=== PATIENT | male | born 1945 | race Caucasian/White ===

== ENCOUNTER 2023-03-13 10:10 | Emergency (ER) | payer OTHER ==
--- OUTSIDE RECORDS SUMMARY | 2023-03-13 10:14 | XMS REPORT | Clinical Summary ---
:1945 Author Organization [facility] MD [facility] Address [address] [place] [address] Care Team Providers Name Role Phone Michael Tse MD Primary Care Provider Derek Reagan MD Unavailable Echo Goodwin MD Unavailable [phone] Echo Goodwin MD Unavailable [phone] Ab Mckeon MD Unavailable [phone] Vinicius Quintana MD Unavailable Unavailable Michael Tse MD Unavailable Swathi Santoro Unavailable Darius Aguirre MD Unavailable Yayo Granados Unavailable Herman Collazo Unavailable Shane Burch MD Unavailable [phone] Kendra Rust Unavailable Zeeshan Lunsford MD Unavailable Scott Morrison MD Unavailable Allergies Active Allergy Reactions Criticality Noted Date Comments Adhesive 06/22/2015 Adhesive Tape-Silicones 06/22/2015 Erythromycin 06/22/2015 Iodinated Contrast Media Hives Low 06/22/201508/08 On 13 hour preparation of prednisone 50 mg po x 3 do ses and benadryl 50 mg po . Hives, CT compl eted and tolerated well ,no reaction reported. Tolerated previ ous scan with 13 hours p rep prednisone 50 m g POx3 and bendryl 50 mg P O 09/22/20 premedic ated with 13 hours prep pred nisone 50 mg PO x3 and benad ryl 50 mg POx1. No reacti ons noted post CT Medications Medication Sig Dispensed Refills Start End Date Status Date ascorbic acid Take 1 tablet 0 Ac tive (VITAMIN C) 1000 mg (1,000 mg) by tablet mouth daily. aspirin 81 mg Chew 1 tablet 0 Ac tive chewable tablet (81 mg) daily. lisinopril Take 1 tablet 0 Activ e (PRINIVIL,ZESTRIL) (20 mg) by 20 mg tablet mouth every morning. magnesium oxide 500 Take 1 tablet 0 Active mg tab tablet (500 mg) by mouth daily. metFORMIN Take 1 tablet 0 Active (GLUCOPHAGE-XR) 750 (750 mg) by mg 24 hr tablet mouth 2 (two) times a day with meals. multivitamin Take 1 tablet 0 Act emilio (THERAGRAN) tab by mouth tablet daily. SOTALOL HCL Take 40 mg by 0 Acti ve (SOTALOL ORAL) mouth every 8 (eight) hours. leuprolide, 3 Inject 22.5 mg 0 A ctive month, (LUPRON into the DEPOT) 22.5 mg shoulder, injection thigh, or buttocks. pravastatin 0 Active (PRAVACHOL) 40 mg 9 tablet biotin 2,500 mcg Take 5,000 mcg 0 Active cap by mouth daily. NIFEdipine TAKE ONE 90 tablet 2 Active (PROCARDIA XL) 60 TABLET BY 2 mg 24 hr MOUTH AT tabletIndications: BEDTIME Adenocarcinoma of Strength: 60 prostate mg denosumab (PROLIA) Inject 1 mL 0 Active 60 mg/mL syrg (60 mg) under injection the skin. Last dose 12/12/2022 predniSONE TAKE ONE 30 tablet 11 Active (DELTASONE) 5 mg TABLET BY 3 tabletIndications: MOUTH DAILY Adenocarcinoma of WITH BREAKFAST prostate abiraterone Take 4 tablets 120 tablet 11 Ac tive (Zytiga) 250 mg (1,000 mg) by 3 tabletIndications: mouth daily. Adenocarcinoma of prostate NIFEdipine Take 1 tablet 30 tablet 6 04/09/20 Disco ntinued (PROCARDIA XL) 60 (60 mg) by 2 22 mg 24 hr mouth at tabletIndications: bedtime. Adenocarcinoma of prostate predniSONE TAKE ONE 30 tablet 11 01/04/20 Discontin ued (DELTASONE) 5 mg TABLET BY 2 23 tabletIndications: MOUTH DAILY Adenocarcinoma of WITG BREAKFAST prostate abiraterone Take 4 tablets 120 tablet 11 01/17/20 Di scontinued (Zytiga) 250 mg (1,000 mg) by 2 23 (Reorder) tabletIndications: mouth daily. Adenocarcinoma of prostate NIFEdipine TAKE ONE 30 tablet 6 04/10/20 Discontin ued (PROCARDIA XL) 60 TABLET BY 2 22 (R eorder) mg 24 hr MOUTH AT tabletIndications: BEDTIME Adenocarcinoma of prostate amoxicillin Take 1 capsule 0 12/13/19 Dis continued (AMOXIL) 500 mg (500 mg) by 23 capsule mouth twice daily. For 10 days, Has one more day remaking Active Problems Problem Noted Date Diagnosed Date Type 2 diabetes mellitus 09/22/2020 Metastatic malignant neoplasm to bone 10/30/2017 Hypertension 10/22/2017 Hyperlipidemia 10/22/2017 Adenocarcinoma of prostate 05/09/2015 Diabetes mellitus 05/09/2015 Basal cell carcinoma of forehead 06/18/2013 Overview: right frontal forehead excision Ventricular premature beats 02/07/2012 Overview: 02/17 [facility] regulatory import Erectile dysfunction following radical prostatectomy Overview: has vacuum device Encounters Date Type Department Care Team Description 03/12/2023 Specialty Pharmacy MDA AMB RX SPEC Brandon Kovacs [address], [place] [address] 02/18/2023 Follow-Up Genitourinary Cancer Rubina-Saavedr Adeno carcinoma of prostate (Primary Dx); 2:00 PM CDT Center - Oncology aShane MD 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 [address] [facility], 7th [place] [address] 02/18/2023 Ancillary Procedure PET Imaging Rubina-Saavedr Adenocarcinoma of 10:00 AM [address] BlShane tobias MD prostate CDT [facility], 6th [place] [address] 02/18/2023 Hospital Encounter Diagnostic Rubina-Saavedr Adenoca rcinoma of prostate 7:48 AM CDT Laboratory Center Shane portillo MD Discharge Disposition: Home - [address] 02/18/2023 [facility] 11:59 [place] [address] CDT 02/18/2023 Orders Only Genitourinary Cancer Katharina Flores, Center - Oncology PharmD [address] [facility], 7th [place] [address] 02/18/2023 Travel 01/16/2023 Specialty Pharmacy MDA AMB RX SPEC ACB Brandon Abrams [address] [facility] C, [place] [address] 01/16/2023 Orders Only Genitourinary Cancer Alexus Lowery, Center - Oncology [employer] [address] [facility], 7th [place] [address] 01/16/2023 Refill Genitourinary Cancer Alexus Lowery, Adeno carcinoma of Center - Oncology CARPET [employer]ER prostate [address] [facility], 7th [place] [address] 01/04/2023 Hospital Encounter Radiation Treatment Melonie Tse 6:44 AM CDT Hettinger MD Michael Disposition: Home - [address] 01/04/2023 Main Bldg 11:59 PM [place] [address] 01/04/2023 Documentation Radiation Treatment Jonn Hettinger Zeeshan Hill MD [address] Bldg, 1st [place] [address] 01/04/2023 Travel 01/03/2023 Hospital Encounter Radiation Treatment JonnMelonie 8:06 AM CDT Center Zeeshan Hill MD Disposition: Home - [address] 01/03/2023 Main Bldg, 1st Floor 11:59 PM [place] [address] 01/03/2023 Hospital Encounter Radiation Treatment DedrickMelonie 6:53 AM CDT Center MD Michael Disposition: Home - [address] 01/03/2023 Main Bldg 8:05 [place] [address] 01/03/2023 Travel 01/02/2023 Hospital Encounter Radiation Treatment DongcassandraMelonie 6:52 AM CDT Tang Rodriguez MD Disposition: Home - [address] 01/02/2023 Main Bldg 11:59 PM [place] [address] 01/02/2023 Refill Genitourinary Cancer Rubina-Saavedr Adeno carcinoma of Center - Oncology aShane MD prostate [address] [facility], 7th [place] [address] 01/02/2023 Travel 01/01/2023 Hospital Encounter Radiation Treatment Melonie Tse 6:44 AM CDT Tang Rodriugez MD Disposition: Home - [address] 01/01/2023 Main Bldg 11:59 [place] [address] 01/01/2023 Travel 12/31/2022 Hospital Encounter Radiation Treatment Melonie Tse 8:33 AM CDT Tang Rodriguez MD Disposition: Home - [address] 12/31/2022 Main Bldg 11:59 [place] [address] 12/31/2022 Travel 12/28/2022 Hospital Encounter Radiation Treatment Melonie Tse 3:04 PM CDT Tang Rodriguez MD Disposition: Home - [address] 12/28/2022 Main Bldg 11:59 PM [place] [address] 12/28/2022 Travel 12/27/2022 Hospital Encounter Radiation Treatment Melonie Tse 9:15 AM CDT Tang Rodriguez MD Disposition: Home - [address] 12/27/2022 Main Bldg 11:59 [place] [address] 12/27/2022 Travel 12/26/2022 Hospital Encounter Radiation Treatment Melonie Lunsford 9:03 AM CDT Hettinger Zeeshan Hill MD Disposition: Home - [address] 12/26/2022 Main Bldg, 1st Floor 11:59 [place] [address] 12/26/2022 Hospital Encounter Radiation Treatment Melonie Tse 7:15 AM CDT Tang Rodriguez MD Disposition: Home - [address] 12/26/2022 Main Bldg 9:02 [place] [address] 12/26/2022 Travel 12/25/2022 Hospital Encounter Radiation Treatment Melonie Tse 7:31 AM CDT Tang Rodriguez MD Disposition: Home - [address] 12/25/2022 Main Bldg 11:59 [place] [address] 12/25/2022 Travel 12/24/2022 Hospital Encounter Radiation Treatment Melonie Tse 8:18 AM CDT Center MD Michael Disposition: Home - [address] 12/24/2022 Main Bldg 11:59 [place] [address] 12/24/2022 Documentation Radiation Treatment Tang Lunsford MD [address] Main Bldg, 1st [place] [address] 12/24/2022 Travel 12/19/2022 Hospital Encounter Radiation Treatment Me Danny tastatic malignant neoplasm to bone 10:39 AM Hettinger Abby Gooden, Discharge Disposition: Home CDT - [address] [employer] 12/19/2022 Main Bldg Jonn, 11:59 PM near Elevator [place] [address] 12/19/2022 Hospital Encounter Radiation Oncology Rubina-Linwoodfredir Adenocarcinoma of prostate 8:30 AM CDT Ravi5 Shane Dasilva MD Discharge Disposition: Home - Main Bldg, 1st Floor Jonn, 12/19/2022 near Elevator Zeeshan Hill MD 10:38 [place] [address] CDT [phone] 12/19/2022 Documentation Radiation Treatment [facility] Zeeshan Hill MD [address] Main Bldg, 1st [place] [address] 12/19/2022 Documentation Radiation Treatment [facility] Zeeshan Hill MD [address] Main Bldg, 1st [place] [address] 12/19/2022 Orders Only Radiation Treatment Tang Delgado, [address] [employer] Main [place] [address] 12/19/2022 Travel 12/18/2022 Orders Only Radiation Treatment Juan Jose Delgadoat ic malignant Center [facility], neoplasm to bone [address] [employer] (Primary Dx) Main [place] [address] 12/17/2022 Office Visit Orthopaedic Center Scott Morrison, Metastatic malignant 10:00 AM Yoni Myles MD neoplasm to bone CDT Main Bldg, 9th [place] [address] 12/17/2022 Travel 12/14/2022 Ancillary Procedure Me Kacie tastatic malignant 9:15 AM CDT [facility] Abby , neoplasm to bone [address] [facility] [employer] [address] [place] [address] 12/14/2022 Travel 12/13/2022 Ancillary Procedure MD Nadeem Cespedes-Trinyr Adenocarcinoma of 11:15 AM Shane Horner MD prostate CDT [address] [place] [address] 12/13/2022 Telephone Radiation Treatment GastelumTang, RN [address] [place] [address] 12/13/2022 Orders Only Radiation Treatment Danny, Metastat ic malignant Center Anastasiaa R, neoplasm to bone [address] [employer] (Primary Dx) Main [place] [address] 12/13/2022 Travel 12/12/2022 Follow-Up Genitourinary Cancer Rubina-Saavedr Adeno carcinoma of prostate (Primary Dx); 11:30 AM Center - Oncology Shane portillo MD 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 CDT [address] [facility], 7th [place] [address] 12/12/2022 Ancillary Procedure PET Imaging Rubina-Saavedr Adenocarcinoma of 8:00 AM CDT [address] Shane Troy MD prostate [facility], 6th [place] [address] 12/12/2022 Hospital Encounter Diagnostic Rubina-Saavedr Adenoca rcinoma of prostate 6:52 AM CDT Laboratory Center Shane portillo MD Discharge Disposition: Home - [address] 12/12/2022 [facility] 11:59 [place] [address] CDT 12/12/2022 Travel 10/18/2022 Specialty Pharmacy MDA AMB RX SPEC ACB [place], [address] [place] [address] 08/20/2022 Follow-Up Genitourinary Cancer Rubina-Saavedr Adeno carcinoma of prostate (Primary Dx); 12:00 PM Center - Oncology Shane portillo MD 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; CDT [address] Hypertension [facility], 7th [place] [address] 08/20/2022 Ancillary Procedure PET Imaging Rubina-Saavedr Adenocarcinoma of 9:30 AM CDT [address] Shane Troy MD prostate [facility], 6th [place] [address] 08/20/2022 Hospital Encounter Diagnostic Rubina-Saavedr Adenoca rcinoma of prostate 7:23 AM CDT Laboratory Shane Jackson MD Discharge Disposition: Home - [address] 08/20/2022 [facility] 11:59 [place] [address] CDT 08/20/2022 Travel 07/24/2022 Specialty Pharmacy MDA AMB RX SPEC ACB Olumba Brandon [address] C, [place] [address] 05/22/2022 Infusion Ambulatory Treatment Rubina-Saavedr Adeno carcinoma of 10:[address] [facility] Shane Lan MD prostate (Primary MANAGER OF PATIENT [address], Jovita Dx) [address] Blanca Gooden RN [facility], 8th [place] [address] 05/22/2022 Hospital Encounter Diagnostic Rubina-Saavedr Adenoca rcinoma of prostate 7:27 AM MANAGER OF PATIENT Laboratory Shane Jackson MD Discharge Disposition: Home - [address] 05/22/2022 [facility] 11:59 [place] [address] MANAGER OF PATIENT 05/22/2022 Travel 04/25/2022 Specialty Pharmacy MDA AMB RX SPEC ACB Olumba, Brandon [address], [place] [address] 04/10/2022 Orders Only Genitourinary Cancer Alexus Lowery, Adeno carcinoma of Center - Oncology CARPET WE[employer]ER prostate [address] [facility], 7th [place] [address] 04/09/2022 Refill Genitourinary Cancer Tess Smallwood, Adenoca rcinoma of Center - Oncology CARPET WE[employer]ER prostate [address] [facility], 7th [place] [address] 03/26/2022 Specialty Pharmacy MDA AMB RX SPEC ACB Olumba, Brandon [address], [place] [address] after 03/13/2022 Immunizations Name Administration Dates Next Due Moderna SARS-CoV-2 Vaccination 01/03/2021, 07/18/2020, 06/20 Pfizer SARS-CoV-2 Vaccination 12+ y.o. 03/26/2022, Pneumococcal Conjugate 13-Valent 03/03/2019 Surgical History Surgery Date Site/Laterality Comments APPENDECTOMY 2012 UMBILICAL HERNIA REPAIR 2012 TONSILLECTOMY 05/20/1947 - 05/19/1948 ROBOTIC LAPAROSCOPIC 06/25/2013 with BLND PROSTATECTOMY CYST REMOVAL 09/30/2017 excision of a se baceous cyst on left tommy e of the back TOE SURGERY 05/20/2013 - ingrown removed by 05/19/2014 laser Medical History Medical History Date Comments Adenocarcinoma of prostate 05/09/2015 Ventricular premature beats 02/07/2012 had full car diac w/up and did not reveal CAD Hypertension 10/22/2017 Diabetes mellitus 05/09/2015 Nephrolithiasis 11/2001 passed a kidney ston e in November 2001 Hyperlipidemia 10/22/2017 Erectile dysfunction following radical h as vacuum device prostatectomy Urethral stricture, unspecified post pro statectomy; self catheterized for 6 m [facility] Basal cell carcinoma of forehead 06/18/2013 right f rontal forehead excision Peripheral vascular disease 11/2020 Family History Medical History Relation Name Comments Cirrhosis Brother Liver disease Brother COPD Father Zeeshan Stroke Father Zeeshan Atrial fibrillation Mother Lisa Diabetes Mother Lisa Hyperlipidemia Mother Lisa Hypertension Mother Lisa Uterine cancer Sister 2 Relation Name Status Comments Brother Father Zeeshan (Age 67) from [facility]; had flu and emphysema complications Mother Lisa (Age 85) from stro Sister 1 Alive Sister 2 Alive Son Zachery Alive Social History Tobacco Use Types Packs/Day Years Used Date Smoking Tobacco: Former Cigarettes 1 1963 - 1983 Smokeless Tobacco: Never Comments: dip/snuff started at age 38 Alcohol Use Standard Drinks/Week Comments No 0 (1 standard drink = 0.6 oz pure alcoho l) Sex and Gender Information Value Date Recorded Sex Assigned at Male 07/02/2019 4:43 PM MANAGER OF PATIENT Gender Identity Male 10/08/2018 8:19 PM C DT Sexual Orientation Straight 07/02/2019 4:[address] Job Start Date Occupation Industry Not on file Not on file Not on file Obstetrics History Last Filed Vital Signs Vital Sign Reading Time Taken Comments Blood Pressure 122/65 02/18/2023 12:43 PM CDT Pulse 56 02/18/2023 12:43 PM CDT Temperature 36 C (96.8 F) 02/18/2023 12:43 PM CDT Respiratory Rate 18 02/18/2023 12:43 PM CDT Oxygen Saturation 98% 02/18/2023 12:43 PM CDT Inhaled Oxygen Concentration - - Weight 93.7 kg (206 lb 9.1 oz) 02/18/2023 9:46 AM CDT Height 186 cm (6' 1.23") 02/18/2023 9:46 AM CDT Body Mass Index 27.08 02/18/2023 9:46 AM CDT Plan of Treatment Date Type Department Care Team Description 03/25/2023 Follow-Up Orthopaedic Center Scott Morrison MD 9:45 AM MANAGER OF PATIENT [address]ldg, [address] [place] [address] 03/25/2023 Ancillary Procedure Diagnostic Center Scott Morrison MD 10:15 AM MANAGER OF PATIENT [address] [facility], [address] [place], [place] [id number] [place] [address] 06/24/2023 Appointment Diagnostic Laboratory Papo, 8:45 AM [facility] PARKER Ortiz [address] [facility] [address] [place], [place] [address] [place] [address] 77 030 06/24/2023 Ancillary Procedure PET Imaging Papo, 9:00 AM MANAGER OF PATIENT [address] PARKER Ortiz [facility], [address] [place] [address] [place] [address] 06/24/2023 Follow-Up Genitourinary Cancer Kiersten, 12:30 PM MANAGER OF PATIENT Center - Oncology MD Shane [address] [facility] [address] [facility], [address] [place] [address] [place] [address] [phone] Health Maintenance Due Date Last Done Comments COVID-19 Vaccination (2022-01/18/2023 03/26/2022, , season) 01/03/2021, Additional history exists Procedures Procedure Name Priority Date/Time Associated Diagnosis Comme nts PETCT F18 PSMA PYL Routine 02/18/2023 11:40 Adenocarcinoma of Results for this (PIFLUFOLASTAT) WITHOUT AM CDT prostate proc edure are in CONTRAST the results section. DIFFERENTIAL Routine 02/18/2023 7:58 Adenocarcinoma of Results for this AM CDT prostate procedure are i n the results section. .CBC Routine 02/18/2023 7:58 Adenocarcinoma of Results for this AM CDT prostate procedure are i n the results section. .GLOMERULAR FILTRATION Routine 02/18/2023 7:58 Adenocarcinoma of Results for this RATE AM CDT prostate procedure are i n the results section. SERUM CREATININE Routine 02/18/2023 7:58 Adenocarcinoma of Res ults for this AM CDT prostate procedure are i n the results section. VITAMIN D 25 HYDROXY Routine 02/18/2023 7:58 Adenocarcinoma of Results for this LEVEL AM CDT prostate procedure are i n the results section. TOTAL PROTEIN Routine 02/18/2023 7:58 Adenocarcinoma of Result s for this AM CDT prostate procedure are i n the results section. TESTOSTERONE LEVEL Routine 02/18/2023 7:58 Adenocarcinoma of R esults for this AM CDT prostate procedure are i n the results section. PROSTATE SPECIFIC Routine 02/18/2023 7:58 Adenocarcinoma of Re sults for this ANTIGEN AM CDT prostate procedure are i n the results section. PHOSPHORUS LEVEL Routine 02/18/2023 7:58 Adenocarcinoma of Res ults for this AM CDT prostate procedure are i n the results section. MAGNESIUM LEVEL Routine 02/18/2023 7:58 Adenocarcinoma of Resu lts for this AM CDT prostate procedure are i n the results section. LACTATE DEHYDROGENASE Routine 02/18/2023 7:58 Adenocarcinoma o f Results for this AM CDT prostate procedure are i n the results section. GLUCOSE, RANDOM Routine 02/18/2023 7:58 Adenocarcinoma of Resu lts for this AM CDT prostate procedure are i n the results section. FRACTIONATED BILIRUBIN Routine 02/18/2023 7:58 Adenocarcinoma of Results for this AM CDT prostate procedure are i n the results section. ELECTROLYTE PANEL Routine 02/18/2023 7:58 Adenocarcinoma of Re sults for this AM CDT prostate procedure are i n the results section. CREATININE Routine 02/18/2023 7:58 Adenocarcinoma of AM CDT prostate COMPLETE BLOOD COUNT W/ Routine 02/18/2023 7:58 Adenocarcinoma of DIFFERENTIAL AM CDT prostate CARCINOEMBRYONIC Routine 02/18/2023 7:58 Adenocarcinoma of Res ults for this ANTIGEN AM CDT prostate procedure are i n the results section. CALCIUM LEVEL Routine 02/18/2023 7:58 Adenocarcinoma of Result s for this AM CDT prostate procedure are i n the results section. BLOOD UREA NITROGEN Routine 02/18/2023 7:58 Adenocarcinoma of Results for this AM CDT prostate procedure are i n the results section. ASPARTATE Routine 02/18/2023 7:58 Adenocarcinoma of Results for this AMINOTRANSFERASE AM CDT prostate procedure a re in the results section. ALKALINE PHOSPHATASE Routine 02/18/2023 7:58 Adenocarcinoma of Results for this AM CDT prostate procedure are i n the results section. ALBUMIN LEVEL Routine 02/18/2023 7:58 Adenocarcinoma of Result s for this AM CDT prostate procedure are i n the results section. ALANINE Routine 02/18/2023 7:58 Adenocarcinoma of Results for this AMINOTRANSFERASE AM CDT prostate procedure a re in the results section. CT BONE METS SIMULATION Routine 12/19/2022 11:16 Metastatic ma lignant Results for this WITHOUT CONTRAST AM CDT neoplasm to bone procedu re are in the results section. XR FEMUR 2 VW LEFT Routine 12/14/2022 9:04 Metastatic malignan t Results for this AM CDT neoplasm to bone procedure a re in the results section. MRI PELVIS W WO Routine 12/13/2022 12:42 Adenocarcinoma of Res ults for this CONTRAST - PM CDT prostate procedure are i n MUSCULOSKELETAL the results section. PETCT F18 PSMA PYL Routine 12/12/2022 9:12 Adenocarcinoma of R esults for this (PIFLUFOLASTAT) WITHOUT AM CDT prostate proc edure are in CONTRAST the results section. DIFFERENTIAL Routine 12/12/2022 7:01 Adenocarcinoma of Results for this AM CDT prostate procedure are i n the results section. .CBC Routine 12/12/2022 7:01 Adenocarcinoma of Results for this AM CDT prostate procedure are i n the results section. .GLOMERULAR FILTRATION Routine 12/12/2022 7:01 Adenocarcinoma of Results for this RATE AM CDT prostate procedure are i n the results section. SERUM CREATININE Routine 12/12/2022 7:01 Adenocarcinoma of Res ults for this AM CDT prostate procedure are i n the results section. VITAMIN D 25 HYDROXY Routine 12/12/2022 7:01 Adenocarcinoma of Results for this LEVEL AM CDT prostate procedure are i n the results section. TOTAL PROTEIN Routine 12/12/2022 7:01 Adenocarcinoma of Result s for this AM CDT prostate procedure are i n the results section. TESTOSTERONE LEVEL Routine 12/12/2022 7:01 Adenocarcinoma of R esults for this AM CDT prostate procedure are i n the results section. PROSTATE SPECIFIC Routine 12/12/2022 7:01 Adenocarcinoma of Re sults for this ANTIGEN AM CDT prostate procedure are i n the results section. PHOSPHORUS LEVEL Routine 12/12/2022 7:01 Adenocarcinoma of Res ults for this AM CDT prostate procedure are i n the results section. MAGNESIUM LEVEL Routine 12/12/2022 7:01 Adenocarcinoma of Resu lts for this AM CDT prostate procedure are i n the results section. LACTATE DEHYDROGENASE Routine 12/12/2022 7:01 Adenocarcinoma o f Results for this AM CDT prostate procedure are i n the results section. GLUCOSE, RANDOM Routine 12/12/2022 7:01 Adenocarcinoma of Resu lts for this AM CDT prostate procedure are i n the results section. FRACTIONATED BILIRUBIN Routine 12/12/2022 7:01 Adenocarcinoma of Results for this AM CDT prostate procedure are i n the results section. ELECTROLYTE PANEL Routine 12/12/2022 7:01 Adenocarcinoma of Re sults for this AM CDT prostate procedure are i n the results section. CREATININE Routine 12/12/2022 7:01 Adenocarcinoma of AM CDT prostate COMPLETE BLOOD COUNT W/ Routine 12/12/2022 7:01 Adenocarcinoma of DIFFERENTIAL AM CDT prostate CARCINOEMBRYONIC Routine 12/12/2022 7:01 Adenocarcinoma of Res ults for this ANTIGEN AM CDT prostate procedure are i n the results section. CALCIUM LEVEL Routine 12/12/2022 7:01 Adenocarcinoma of Result s for this AM CDT prostate procedure are i n the results section. BLOOD UREA NITROGEN Routine 12/12/2022 7:01 Adenocarcinoma of Results for this AM CDT prostate procedure are i n the results section. ASPARTATE Routine 12/12/2022 7:01 Adenocarcinoma of Results for this AMINOTRANSFERASE AM CDT prostate procedure a re in the results section. ALKALINE PHOSPHATASE Routine 12/12/2022 7:01 Adenocarcinoma of Results for this AM CDT prostate procedure are i n the results section. ALBUMIN LEVEL Routine 12/12/2022 7:01 Adenocarcinoma of Result s for this AM CDT prostate procedure are i n the results section. ALANINE Routine 12/12/2022 7:01 Adenocarcinoma of Results for this AMINOTRANSFERASE AM CDT prostate procedure a re in the results section. PETCT F18 PSMA PYL Routine 08/20/2022 11:33 Adenocarcinoma of Results for this (PIFLUFOLASTAT) WITHOUT AM CDT prostate proc edure are in CONTRAST the results section. DIFFERENTIAL Routine 08/20/2022 7:39 Adenocarcinoma of Results for this AM CDT prostate procedure are i n the results section. .CBC Routine 08/20/2022 7:39 Adenocarcinoma of Results for this AM CDT prostate procedure are i n the results section. .GLOMERULAR FILTRATION Routine 08/20/2022 7:39 Adenocarcinoma of Results for this RATE AM CDT prostate procedure are i n the results section. SERUM CREATININE Routine 08/20/2022 7:39 Adenocarcinoma of Res ults for this AM CDT prostate procedure are i n the results section. VITAMIN D 25 HYDROXY Routine 08/20/2022 7:39 Adenocarcinoma of Results for this LEVEL AM CDT prostate procedure are i n the results section. TOTAL PROTEIN Routine 08/20/2022 7:39 Adenocarcinoma of Result s for this AM CDT prostate procedure are i n the results section. TESTOSTERONE LEVEL Routine 08/20/2022 7:39 Adenocarcinoma of R esults for this AM CDT prostate procedure are i n the results section. PROSTATE SPECIFIC Routine 08/20/2022 7:39 Adenocarcinoma of Re sults for this ANTIGEN AM CDT prostate procedure are i n the results section. PHOSPHORUS LEVEL Routine 08/20/2022 7:39 Adenocarcinoma of Res ults for this AM CDT prostate procedure are i n the results section. MAGNESIUM LEVEL Routine 08/20/2022 7:39 Adenocarcinoma of Resu lts for this AM CDT prostate procedure are i n the results section. LACTATE DEHYDROGENASE Routine 08/20/2022 7:39 Adenocarcinoma o f Results for this AM CDT prostate procedure are i n the results section. GLUCOSE, RANDOM Routine 08/20/2022 7:39 Adenocarcinoma of Resu lts for this AM CDT prostate procedure are i n the results section. FRACTIONATED BILIRUBIN Routine 08/20/2022 7:39 Adenocarcinoma of Results for this AM CDT prostate procedure are i n the results section. ELECTROLYTE PANEL Routine 08/20/2022 7:39 Adenocarcinoma of Re sults for this AM CDT prostate procedure are i n the results section. CREATININE Routine 08/20/2022 7:39 Adenocarcinoma of AM CDT prostate COMPLETE BLOOD COUNT W/ Routine 08/20/2022 7:39 Adenocarcinoma of DIFFERENTIAL AM CDT prostate CARCINOEMBRYONIC Routine 08/20/2022 7:39 Adenocarcinoma of Res ults for this ANTIGEN AM CDT prostate procedure are i n the results section. CALCIUM LEVEL Routine 08/20/2022 7:39 Adenocarcinoma of Result s for this AM CDT prostate procedure are i n the results section. BLOOD UREA NITROGEN Routine 08/20/2022 7:39 Adenocarcinoma of Results for this AM CDT prostate procedure are i n the results section. ASPARTATE Routine 08/20/2022 7:39 Adenocarcinoma of Results for this AMINOTRANSFERASE AM CDT prostate procedure a re in the results section. ALKALINE PHOSPHATASE Routine 08/20/2022 7:39 Adenocarcinoma of Results for this AM CDT prostate procedure are i n the results section. ALBUMIN LEVEL Routine 08/20/2022 7:39 Adenocarcinoma of Result s for this AM CDT prostate procedure are i n the results section. ALANINE Routine 08/20/2022 7:39 Adenocarcinoma of Results for this AMINOTRANSFERASE AM CDT prostate procedure a re in the results section. .GLOMERULAR FILTRATION Routine 05/22/2022 7:52 Adenocarcinoma of Results for this RATE AM MANAGER OF PATIENT prostate procedure are i n the results section. SERUM CREATININE Routine 05/22/2022 7:52 Adenocarcinoma of Res ults for this AM MANAGER OF PATIENT prostate procedure are i n the results section. CREATININE Routine 05/22/2022 7:52 Adenocarcinoma of AM MANAGER OF PATIENT prostate PHOSPHORUS LEVEL Routine 05/22/2022 7:52 Adenocarcinoma of Res ults for this AM MANAGER OF PATIENT prostate procedure are i n the results section. CALCIUM LEVEL Routine 05/22/2022 7:52 Adenocarcinoma of Result s for this AM MANAGER OF PATIENT prostate procedure are i n the results section. PROSTATE SPECIFIC Routine 05/22/2022 7:52 Adenocarcinoma of Re sults for this ANTIGEN AM MANAGER OF PATIENT prostate procedure are i n the results section. after 03/13/2022 Results PETCT F18 PSMA PyL (Piflufolastat) without contrast (02/18/2023 11:40 AM CDT) Only the most recent of3 resultswithin the time period is included. Anatomical Region Laterality Modality Whole Body Positron Emission To mography (PET) Specimen (Source) Anatomical Collection Method Collection Time Re ceived Time Location / / Volume Laterality 02/18/2023 2:16 PM CDT Impressions 02/18/2023 2:32 PM CDT Since 12/12/2022, 1. 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 2. Interval decreased tracer uptake of s ubcentimeter left pelvic lymphadenopathy. 3. No new PSMA avid lesion of concern. ACTIONABLE ITEMS/RECOMMENDATIONS: None. Narrative 02/18/2023 2:32 PM CDT FULL RESULT: Examination: F-18 Piflufolastat/PSMA PyL PET/CT without contrast, 02/18/2023 11:40 AM Clinical History: Prostate cancer Indication: Restaging Comparison: November 2022 Technique: F-18 Piflufolastat/PSMA PyL 9 .4 mCi was administered intravenously via the left wrist. Following approximately 60 minutes delay, PET/CT imaging was performed from proximal thighs to skull marco cain. CT scanning was performed for atten uation correction, image registration, and diagnosis, with scan parameters optimized to minimize radiation exposure to the patient. SUV measurements are reported as maximum SUV based on body weight unle ss otherwise specified. FINDINGS: Head and Neck: Physiologic tracer uptake in the lacrimal glands , nasopharynx and salivary glands. No abnormal tracer uptake in the brain parenchyma, oropharynx and the thyroid glands. No abnormal trace r uptake in the neck muscles. No suspici ous neck lymphadenopathy. Chest: Post pleurodesis change noted. No abnormally enlarged or suspicious PSMA avid lymphadenopathy in the mediastinum, bilateral angie and axillary regions. No pleural or pericardial effusions. Scarrin g and atelectatic change noted. No suspi cious PSMA avid pulmonary nodules. Abdomen and Pelvis: Physiologic tracer u ptake in the liver, spleen, kidneys and bowel loops. No abnormal tracer uptake in the pancreas, stomach, adrenal glands and gallbladder. No abnormal uptake in the prostatectomy bed. Decreased tracer uptake of stable size subcentimeter left pelvic lymphadenopathy. For example, a 0.3 cm lymph node (image 284), with SUV 2.7 (prior 6.3); ano ther 0.3 cm slightly inferiorly (image 2 88), with SUV 3.2 (prior 8.9). No new abnormal enlarged or suspicious PSMA avid lymphadenopathy in the abdomen, pelvis and inguinal regions. Musculoskeletal: Stable PSMA avid osseou s lesions at left intertrochanteric region (image 327), with SUV 13.6 (prior 13.9). Some other PSMA avid osseous lesions with slightly decreased tracer uptake. Fo r example, right superior pubic ramus (i mage 311), with SUV 7.5 (prior 12.6); T11 (image 104), with SUV 4.1 (prior 7.2). Some scattered sclerotic lesions are without higher than background uptake. Such as right iliac bone lesion (image 282), with SUV 1.4 (prior 1.5); left posterior 5th sclerotic lesion (image 167), with SUV 2 (prior 2). Procedure Note Richard Luevano MD - 02/18/2023Formatting of t his note might be different from the original. FULL RESULT: Examination: F-18 Piflufolastat/PSMA PyL PET/CT without contrast, 02/18/2023 11:40 AM Clinical History: Prostate cancer Indication: Restaging Comparison: November 2022 Technique: F-18 Piflufolastat/PSMA PyL 9 .4 mCi was administered intravenously via the left wrist. Following approximately 60 minutes delay, PET/CT imaging was performed from proximal thighs to skull vertex. CT scanning was performed for attenuatio n correction, image registration, and diagnosis, with scan parameters optimized to minimize radiation exposure to the patient. SUV measurements are reported as maximum SUV based on body weight unless otherwise sp ecified. FINDINGS: Head and Neck: Physiologic tracer uptake in the lacrimal glands , nasopharynx and salivary glands. No abnormal tracer uptake in the brain parenchyma, oropharynx and the thyroid glands. No abnormal tracer uptake in the neck muscles. No suspicious neck lymphadenopathy. Chest: Post pleurodesis change noted. No abnormally enlarged or suspicious PSMA avid lymphadenopathy in the mediastinum, bilateral angie and axillary regions. No pleural or pericardial effusions. Scarring and atelectatic change noted. No suspicious PSMA avid pu lmonary nodules. Abdomen and Pelvis: Physiologic tracer u ptake in the liver, spleen, kidneys and bowel loops. No abnormal tracer uptake in the pancreas, stomach, adrenal glands and gallbladder. No abnormal uptake in the prostatectomy bed. Decreased tracer uptake of stable size subcentimeter left pelvic lymphadenopathy. For example, a 0.3 cm lymph node (image 284), with SUV 2.7 (prior 6.3); another 0.3 cm slightly inferiorly (image 288), with MARTINEZ V 3.2 (prior 8.9). No new abnormal enlarged or suspicious PSMA avid lymphadenopathy in the abdomen, pelvis and inguinal regions. Musculoskeletal: Stable PSMA avid osseou s lesions at left intertrochanteric region (image 327), with SUV 13.6 (prior 13.9). Some other PSMA avid osseous lesions with slightly decreased tracer uptake. For example, right superior pubic ramus (maksim ge 311), with SUV 7.5 (prior 12.6); T11 (image 104), with SUV 4.1 (prior 7.2). Some scattered sclerotic lesions are without higher than background uptake. Such as right iliac bone lesion (image 282), with SUV 1.4 (p rior 1.5); left posterior 5th sclerotic lesion (image 167), with SUV 2 (prior 2). IMPRESSION: Since 12/12/2022, 1. 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 2. Interval decreased tracer uptake of s ubcentimeter left pelvic lymphadenopathy. 3. No new PSMA avid lesion of concern. ACTIONABLE ITEMS/RECOMMENDATIONS: None. Shane Burch MD IMG PETCT ORDERABLES Glucose, Random (02/18/2023 7:58 AM CDT)Only the most recent of3 resultswithin the time period is included. athologist Signature Glucose Random 126 70 - 199 [facility] mg/dL Comment: Effective 12/14/15, the glucose reference intervals have been updated based on [place] [employer] guidelines (Standards of Medical Care in Diabetes 2016. Diabetes Care 2016; 39: S13-S22) Fasting blood glucose: Normal: 70-99 mg/dL Impaired fasting glucose (increased risk for diabetes or pre-diabetes): 100-125 mg/dL Diabetes mellitus: >/= 126 mg/dL Random blood glucose: Normal: 70-199 mg/dL Note: Random glucose >100 mg/dL is assoc iated with increased risk for diabetes Testing Performed at [facility], [address] [place] [address], [address], [place] [address] Specimen Anatomical Collection Method Collection Time Receive d Time (Source) Location / / Volume Laterality Blood 02/18/2023 7:58 AM 3 8:11 CDT AM CDT [facility] - 02/18/2023 8:41 AM CDT 1.30 pm Shane Burch MD LAB BLOOD ORDERABLES Performing Organization Address City/[facility] e Number [address] [place] [address] [address] .Serum Creatinine (02/18/2023 7:58 AM CDT)Only the most recent of4 resultswithin the time period is included. athologist Signature Creatinine 0.95 0.67 - 1.17 [facility] mg/dL Comment: Testing Performed at [facility] Lab [facility], [address] [place] [address], [address], [place] [address] Specimen Anatomical Collection Method Collection Time Receive d Time (Source) Location / / Volume Laterality Blood 02/18/2023 7:58 AM 3 8:11 CDT AM CDT [facility] - 02/18/2023 8:41 AM CDT 1.30 pm Shane Burch MD LAB BLOOD ORDERABLES Performing Organization Address City/State/ZIP [facility] Phon e Number [address] [place] [address] [address] (ABNORMAL) .CBC (02/18/2023 7:58 AM CDT)Only the most recent of3 resultswithin the time period is included. athologist Signature WBC 9.2 4.1 - 10.5 [facility] K/uL RBC 4.23 (L) 4.30 - 6.04 [facility] M/uL Hgb 13.2 (L) 13.3 - 17.4 [facility] gm/dL Comment: As part of CBC or as an individ ual orderable testing performed at [facility], [address] [place] [address] , [address], [place] [id number] Hct 40.1 39.5 - 51.8 % [facility] Comment: As part of CBC or as an individ ual orderable testing performed at [facility], [address] [place] [address] , [address], [place] [id number] MCV 95 82 - 99 fL [facility] MCH 31.2 26.6 - 33.2 pg [facility] MCHC 32.9 31.1 - 35.2 gm/dL [facility] RDW-SD 49.0 37.5 - 49.7 fL [facility] RDW-CV 14.1 11.6 - 15.5 % [facility] Platelet count 272 160 - 397 K/uL [facility] Comment: As part of CBC or as an individ ual orderable testing performed at [facility], [facility] , [address], [place] [id number] MPV 10.3 9.1 - 12.6 fL [facility] INRBC 0.0 0.0 - 0.1 /100 WBC [facility] Comment: The INRBC (instrument NRBC) value reflec ts the enumeration of nucleated red blood cells contained i n a 200uL sample of whole blood analyzed by the instrumen t. This value may differ from the NRBC value reported in a manual differential, which is based on a 100 cell differentia l. As part of CBC testing performed at [place] [id number] [facility], [address], [place] [address] Specimen Anatomical Collection Method Collection Time Receive d Time (Source) Location / / Volume Laterality Blood 02/18/2023 7:58 AM 3 8:02 CDT AM CDT [facility] - 02/18/2023 8:13 AM CDT 1.30 pm Shane Burch MD LAB BLOOD ORDERABLES Performing Organization Address City/[facility]/ZIP Code Phon e Number [facility] [address] [place] [address]. [place] [address] [address] Glomerular Filtration Rate (02/18/2023 7:58 AM CDT)Only the most recent of4 resultswithin the time period is included. athologist Signature eGFR 81 >=60 [facility] mL/min/1.73 sq. m Comment: The eGFRcr is calculated with the 2020 KD-EPI creatinine equation using creatinine, patient's age, and sex for adults 18 years of age and older. Other factors, especially muscle mass, may affect accuracy and need to be considered. According to the Kidney Disease: Improvi ng Global Outcomes (KDIGO) CKD Work Group 2012 Clinical Practice Guideline, chronic kidney disease (CKD) is defined as the abnormalities of kidney structure or function, present for more than 3 months, with implications for health. CKD should be c lassified by cause, GFR category, and albuminuria category. KDIGO guidelines provide the following GFR categories Stage Description GFR mL/min/1.73 m2 G1* Normal or high >= 90 G2* Mildly decreased 60-89 G3a Mildly to moderately decreased 45-59 G3b Moderately to severely decreased 30- 44 G4 Severely decreased 15-29 G5 Kidney failure <15 *In the absence of evidence of kidney da mage, neither G1 nor G2 fulfill criteria for CKD. Testing Performed at [facility] Lab [facility], [address] [facility], [address], [place] [address] Specimen Anatomical Collection Method Collection Time Receive d Time (Source) Location / / Volume Laterality Blood 02/18/2023 7:58 AM 3 8:11 CDT AM CDT [facility] - 02/18/2023 8:41 AM CDT 1.30 pm Shane Burch MD LAB BLOOD ORDERABLES Performing Organization Address City/[facility]/ZIP Code Phon e Number [facility] [address] [place] [address]. [place] [address] [address] Fractionated Bilirubin (02/18/2023 7:58 AM CDT)Only the most recent of3 results within the time period is included. athologist [facility] Bili Total 0.5 <=1.2 mg/dL [facility] Comment: Indocyanine Green (ICG) may cause falsel y elevated bilirubin results. Total and direct bilirubin must not be measured from samples containing indocyanine green. False elevation of total bilirubin can b e seen in patients with IgG concentrations above 28 g/L. Testing Performed at [facility] Lab [facility] [employer], [address] [facility], [address], [place] [address] Bili Direct 0.2 <=0.3 mg/dL [facility] Comment: Indocyanine Green (ICG) may cause falsel y elevated bilirubin results. Total and direct bilirubin must not be measured from samples containing indocyanine green. Testing Performed at [facility] Lab [facility], [address] [facility], [address], [place] [address] Bili Indirect 0.3 0.0 - 0.9 mg/dL [facility] Comment: Testing Performed at [facility] Lab [facility], [address] [facility], [address], [place] [address] Specimen Anatomical Collection Method Collection Time Receive d Time (Source) Location / / Volume Laterality Blood 02/18/2023 7:58 AM 8:11 CDT AM CDT Narrative [facility] - 02/18/2023 8:41 AM CDT 1.30 pm Shane Burch MD LAB BLOOD ORDERABLES Performing Organization Address City/State/ZIP Code Phon e Number [address] [place] [address] [address] Vitamin D 25OH (02/18/2023 7:58 AM CDT)Only the most recent of3 resultswithin the time period is included. [facility] Vitamin D 25 OH 40 30 - 100 [facility] ng/mL [facility] Comment: Reference Range: Deficiency: <=20 ng/mL Insufficiency: 21-29 ng/mL Sufficiency: 30-100 ng/mL Potential toxicity: >100 ng/mL Specimen Anatomical Collection Method Collection Time Receive d Time (Source) Location / / Volume Laterality Blood 02/18/2023 7:58 AM 3 8:18 CDT AM CDT Narrative [facility] [place] - 3 9:03 AM CDT 1.30 pm Shane Burch MD LAB BLOOD ORDERABLES Performing Organization Address City/State/ZIP Code Phon e Number [facility] Unless otherwise noted, [address] all lab tests performed by: Division of Pathology and Laboratory Medicine [address] [place] (ABNORMAL) Differential (02/18/2023 7:58 AM CDT)Only the most recent of3 results within the time period is included. athologist Signature Neutrophil % 83.0 (H) 43.2 - [facility] 72.7 % Comment: As part of Differential perform ed at [facility], [address] [facility], [address], [place] [id number] Lymphocyte % 9.0 (L) 16.8 - 46.2 % [facility] Monocyte % 5.7 5.1 - 12.5 % [facility] Eosinophil % 1.2 0.4 - 6.3 % [facility] Basophil % 0.7 0.2 - 1.4 % [facility] IGRE % 0.4 0.1 - 1.5 % [facility] Comment: IGRE % count includes Metamyelocytes, My elocytes, and Promyelocytes. As part of Differential performed at [facility], [address] [facility], [address], [place] [id number] Neutrophil Abs 7.61 (H) 1.95 - 7.25 K/uL [facility] Lymphocyte Abs 0.82 (L) 1.01 - 3.24 K/uL [facility] Monocyte Abs 0.52 0.24 - 0.85 K/uL [facility] Eosinophil Abs 0.11 0.02 - 0.50 K/uL [facility] Basophil Abs 0.06 0.02 - 0.09 K/uL [facility] IG Abs 0.04 0.01 - 0.12 K/uL [facility] Specimen Anatomical Collection Method Collection Time Receive d Time (Source) Location / / Volume Laterality Blood 02/18/2023 7:58 AM 3 8:02 CDT AM CDT Narrative [facility] - 02/18/2023 8:13 AM CDT 1.30 pm Shane Burch MD LAB BLOOD ORDERABLES Performing Organization Address City/State/ZIP Code Phon e Number [facility] [address] [facility] [place] [address] [address] Blood Urea Nitrogen (02/18/2023 7:58 AM CDT)Only the most recent of3 results within the time period is included. P athologist Signature BUN 15 6 - 23 mg/dL [facility] Comment: Testing Performed at [facility], [address] [facility], [address], [place] [address] Specimen Anatomical Collection Method Collection Time Receive d Time (Source) Location / / Volume Laterality Blood 02/18/2023 7:58 AM 3 8:11 CDT AM CDT Narrative [facility] - 02/18/2023 8:41 AM CDT 1.30 pm Shane Burch MD LAB BLOOD ORDERABLES Performing Organization Address City/[facility]/ZIP Code Phon e Number [facility] [address] [facility] [place] [address] [address] Alanine Aminotransferase (02/18/2023 7:58 AM CDT)Only the most recent of3 resultswithin the time period is included. P athologist Signature ALT 7 <=41 U/L [facility] Comment: Testing Performed at [facility], [address] [facility], [address], [place] [address] Specimen Anatomical Collection Method Collection Time Receive d Time (Source) Location / / Volume Laterality Blood 02/18/2023 7:58 AM 3 8:11 CDT AM CDT Narrative [facility] - 02/18/2023 8:41 AM CDT 1.30 pm Shane Burch MD LAB BLOOD ORDERABLES Performing Organization Address City/State/ZIP Code Phon e Number [facility] [address] [facility] [place] [address] [address] Aspartate Aminotransferase (02/18/2023 7:58 AM CDT)Only the most recent of3 resultswithin the time period is included. athologist Signature AST 12 <=40 U/L [facility] Comment: Testing Performed at [facility] Lab [facility], [address] [facility], [address], [place] [address] Specimen Anatomical Collection Method Collection Time Receive d Time (Source) Location / / Volume Laterality Blood 02/18/2023 7:58 AM 3 8:11 CDT AM CDT Narrative [facility] - 02/18/2023 8:41 AM CDT 1.30 pm Shane Burch MD LAB BLOOD ORDERABLES Performing Organization Address City/[facility]/ZIP Code Phon e Number [facility] [address] [facility] [place] [address] [address] (ABNORMAL) Testosterone Level Total (02/18/2023 7:58 AM CDT)Only the most recent of3 resultswithin the time period is included. athologist [facility] Testoster Tot <3 (L) 193 - 740 [facility] ng/dL [facility] Comment: Reference Ranges: Male: Age 20 - 49 249 - 836 Age >=50 1 93 - 740 Female: Age 20 - 49 8 - 48 Age >=50 3 - 41 Specimen Anatomical Collection Method Collection Time Receive d Time (Source) Location / / Volume Laterality Blood 02/18/2023 7:58 AM 3 8:18 CDT AM CDT Narrative [facility] - 3 8:55 AM CDT 1.30 pm Shane Burch MD LAB BLOOD ORDERABLES Performing Organization Address City/State/ZIP Code Phon e Number [facility] Unless otherwise noted, [place] [address] CENTER all lab tests performed by: Division of Pathology and Laboratory Medicine [address] [place] [address] Total Protein (02/18/2023 7:58 AM CDT)Only the most recent of3 resultswithin the time period is included. [facility] Total Protein 6.8 6.4 - 8.3 [facility] g/dL Comment: Testing Performed at [facility] Lab Am [facility], [address] [facility], [address], [place] [address] Specimen Anatomical Collection Method Collection Time Receive d Time (Source) Location / / Volume Laterality Blood 02/18/2023 7:58 AM 3 8:11 CDT AM CDT Narrative [facility] - 02/18/2023 8:41 AM CDT 1.30 pm Shane Burch MD LAB BLOOD ORDERABLES Performing Organization Address [facility] Phon e Number [facility] [address] [place] [address] [address] Prostate Specific Antigen (PSA) Diagnostic (02/18/2023 7:58 AM CDT)Only the most recent of4 resultswithin the time period is included. P athologist Signature PSA <0.1 0.0 - 4.0 [facility] ng/mL Comment: Results greater than 4519 ng/mL may not be reliable due to matrix effect with extended dilution as it exceeds the informix developer's recommended limit. Caution should be exercised when interpreting such murtaza ues and done in conjunction with clinica l context. Testing Performed at [facility] [employer] [facility], [address], [address], [place] [address] PSA Indication Diagnostic [facility] Specimen Anatomical Collection Method Collection Time Receive d Time (Source) Location / / Volume Laterality Blood 02/18/2023 7:58 AM 3 8:11 CDT AM CDT Narrative [facility] - 02/18/2023 9:48 AM CDT 1.30 pm Shane Burch MD LAB BLOOD ORDERABLES Performing Organization Address [facility] Phon e Number [facility] [address] [place] [address] [address] Phosphorus Level (02/18/2023 7:58 AM CDT)Only the most recent of4 resultswithin the time period is included. P athologist Signature Phosphorus 3.2 2.5 - 4.5 [facility] mg/dL Comment: Testing Performed at [facility] Lab [facility], [address], [address], [place] [address] Specimen Anatomical Collection Method Collection Time Receive d Time (Source) Location / / Volume Laterality Blood 02/18/2023 7:58 AM 3 8:11 CDT AM CDT [facility] - 02/18/2023 8:41 AM CDT 1.30 pm Shane Burch MD LAB BLOOD ORDERABLES Performing Organization Address City/[facility] e Number [facility] [address] [place] [address] [address] Alkaline phosphatase (02/18/2023 7:58 AM CDT)Only the most recent of3 results within the time period is included. P athologist Signature Alk Phos 72 40 - 129 U/L [facility] Comment: Testing Performed at [facility], [address], [address], [place] [address] Specimen Anatomical Collection Method Collection Time Receive d Time (Source) Location / / Volume Laterality Blood 02/18/2023 7:58 AM 3 8:11 CDT AM CDT [facility] - 02/18/2023 8:41 AM CDT 1.30 pm Shane Burch MD LAB BLOOD ORDERABLES Performing Organization Address [facility] e Number [facility] [address] [place] [address]. [place] [address] [address] Magnesium Level (02/18/2023 7:58 AM CDT)Only the most recent of3 resultswithin the time period is included. P athologist Signature Magnesium 2.1 1.6 - 2.6 [facility] mg/dL Comment: Testing Performed at [facility], [address], [address], [place] [address] Specimen Anatomical Collection Method Collection Time Receive d Time (Source) Location / / Volume Laterality Blood 02/18/2023 7:58 AM 3 8:11 CDT AM CDT [facility] - 02/18/2023 8:41 AM CDT 1.30 pm Shane Burch MD LAB BLOOD ORDERABLES Performing Organization Address City/[facility]/[address] [place] [address] [address] Lactate dehydrogenase (02/18/2023 7:58 AM CDT)Only the most recent of3 results within the time period is included. athologist Signature LDH 155 135 - 225 [facility] U/L Comment: Results greater than 1651 U/L may not be reliable due to matrix effect with extended dilution as it exceeds the informix developer s recommended limit. Caution should be exercised when interpreting such murtaza ues and done in conjunction with clinica l context. Testing Performed at [facility], [address] [place] [address], [address], [place] [address] Specimen Anatomical Collection Method Collection Time Receive d Time (Source) Location / / Volume Laterality Blood 02/18/2023 7:58 AM 8:11 CDT AM CDT Narrative [facility] - 02/18/2023 8:36 AM CDT 1.30 pm Shane Burch MD LAB BLOOD ORDERABLES Performing Organization Address [facility]/[address] [place] [address] [address] CEA Ag (02/18/2023 7:58 AM CDT)Only the most recent of3 resultswithin the time period is included. athologist Signature CEA 1.5 <=3.8 ng/mL [facility] Comment: Reference Ranges: Smoker: 0.0 - 5.5 Non-Smoker: 0.0 - 3.8 This test is measured by electrochemilum inescence immunoassay on Judi Mauro immunoassay analyzers. Results obtained in different methods are not interchangeable. Testing Performed at [facility], [address] [place] [address], [address], [place] [address] Specimen Anatomical Collection Method Collection Time Receive d Time (Source) Location / / Volume Laterality Blood 02/18/2023 7:58 AM 8:11 CDT AM CDT Narrative [facility] - 02/18/2023 10:15 AM CDT 1.30 pm Shane Burch MD LAB BLOOD ORDERABLES Performing Organization Address [facility] [address] [place] [address] [address] Calcium Level Total (02/18/2023 7:58 AM CDT)Only the most recent of4 results within the time period is included. athologist Signature Calcium Lvl 9.6 8.4 - 10.2 [facility] mg/dL Comment: Testing Performed at [facility] Lab Am [facility], [address], [address], [place] [address] Specimen Anatomical Collection Method Collection Time Receive d Time (Source) Location / / Volume Laterality Blood 02/18/2023 7:58 AM 3 8:11 CDT AM CDT Narrative [facility] - 02/18/2023 8:41 AM CDT 1.30 pm Shane Burch MD LAB BLOOD ORDERABLES Performing Organization Address [facility] e Number [facility] [address] [place] [address] [address] Albumin Level (02/18/2023 7:58 AM CDT)Only the most recent of3 resultswithin the time period is included. athologist Signature Albumin Lvl 4.4 3.5 - 5.2 [facility] gm/dL Comment: Testing Performed at [facility] Lab [facility], [address], [address], [place] [address] Specimen Anatomical Collection Method Collection Time Receive d Time (Source) Location / / Volume Laterality Blood 02/18/2023 7:58 AM 3 8:11 CDT AM CDT Narrative [facility] - 02/18/2023 8:41 AM CDT 1.30 pm Shane Burch MD LAB BLOOD ORDERABLES Performing Organization Address City/[facility] e Number [facility] [address] [place] [address]. [place] [address] [address] (ABNORMAL) Electrolyte panel (02/18/2023 7:58 AM CDT)Only the most recent of3 resultswithin the time period is included. athologist Signature Sodium Lvl 143 136 - 145 [facility] mEq/L Comment: Testing Performed at [facility] Lab [facility], [address], [address], [place] [address] Potassium Lvl 4.3 3.5 - 5.1 mEq/L [facility] Comment: Testing Performed at [facility], [address], [address], [place] [address] Chloride 104 98 - 107 mEq/L [facility] Comment: Testing Performed at [facility], [address], [address], [place] [phone] CO2 30 (H) 22 - 29 mEq/L [facility] Comment: Testing Performed at [facility], [address], [address], [place] [phone] Anion Gap 9 4 - 14 mEq/L [facility] Comment: Testing Performed at [facility] Lab [facility], [address], [address], [place] [address] Specimen Anatomical Collection Method Collection Time Receive d Time (Source) Location / / Volume Laterality Blood 02/18/2023 7:58 AM 8:11 CDT AM CDT Narrative [facility] - 02/18/2023 8:41 AM CDT 1.30 pm Shane Burch MD LAB BLOOD ORDERABLES Performing Organization Address City/State/ZIP Code Phon e Number [facility] [address] [place] [address] [address] Bone Mets Simulation without Contrast (12/19/2022 11:16 AM CDT) Specimen (Source) Anatomical Location Collection Method / Collectio n Time Received Time / Laterality Volume Narrative Systemgenerated, Documentation - 023 11:52 AM CDT This procedure requires no interpretatio n from the radiologist. Abby Delgado [employer]ER IMG RO CT SIM ORDERABLES X-ray Femur 2 Views Left (12/14/2022 9:04 AM CDT) Anatomical Region Laterality Modality Thigh, Extremity Digital Radiography Specimen (Source) Anatomical Collection Method Collection Time Re ceived Time Location / / Volume Laterality 12/14/2022 11:23 AM CDT Impressions 12/14/2022 11:38 AM CDT Known metastatic involvement the posterior intertrochanteric region subtly demonstrated on plain film imaging. No lytic component. Narrative 12/14/2022 11:38 AM CDT FULL RESULT: Examination: XR FEMUR 2 VW LEFT, 12/15/19 9:04 AM. Clinical History: Prostate carcinoma. Indication: Assess for progression of di sease Comparison: MRI pelvis assessment 2022. Technique: Left Femur, 2 views Findings: A metastatic involvement focally within the anterior left femoral neck demonstrated on both PET CT evaluation and MRI evaluation there is subtle correlation with subtle increased density along the poste rior cortex of the intertrochanteric reg ion on the lateral assessment. No lytic change demonstrated. Remaining portions of the left femur int act. Procedure Note José Giordano MD - 12/14/2022Forma tting of this note might be different from the original. FULL RESULT: Examination: XR FEMUR 2 VW LEFT, 12/15/19 9:04 AM. Clinical History: Prostate carcinoma. Indication: Assess for progression of di sease Comparison: MRI pelvis assessment 2022. Technique: Left Femur, 2 views Findings: A metastatic involvement focally within the anterior left femoral neck demonstrated on both PET CT evaluation and MRI evaluation there is subtle correlation with subtle increased density along the posterior cortex of the intertrochanteric region on the late ral assessment. No lytic change demonstrated. Remaining portions of the left femur int act. IMPRESSION: Known metastatic involvement the posteri or intertrochanteric region subtly demonstrated on plain film imaging. No lytic component. Abby Delgado APRN IMG DIAGNOSTIC IMAGING ORDER JEFF MRI Pelvis with and without Contrast - Musculoskeletal (12/13/2022 12:42 PM CDT) Anatomical Region Laterality Modality Pelvis Magnetic Resonance Specimen (Source) Anatomical Collection Method Collection Time Re ceived Time Location / / Volume Laterality 12/13/2022 3:15 PM CDT Impressions 12/13/2022 4:57 PM CDT 1. Conjoined analysis with PMSA PET/CT scan on 12/12/2022, suggest progressed disease in the left intratrochanteric femur when compared to August 2022. Demonstrated high ADC values would typically supp orts response to treatment nonetheless P ET/CT PSMA supports the contrary. 2. Additional treated and mildly activ e bony pelvic metastasis as above, are stable. The above includes treated disease such of the right iliac wing and nonprogressive viable disease such as the right inferior pubic ramus. 3. No definite MRI correlate for PMSA avid left internal iliac node on PET/CT on 12/12/2022. I personally reviewed these image(s) anurag curtis with the resident's/fellow's interpretations, certify that if a procedure was performed I was physically present, and agree with the final report. Narrative 12/13/2022 4:57 PM CDT Examination: MRI PELVIS W WO CONTRAST - MUSCULOSKELETAL on 12/13/2022 12:42 PM. 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 Indication: Bone mass, neoplasm suspecte d, Cancer complication or comorbidity assessment, bone mass, noeplasm suspected. Comparison: Pelvic MRI from 10/28/2017. PMSA-PET/CTs from 01/24/2021, 12/12/2022. Technique: MRI PELVIS W WO CONTRAST - MU SCULOSKELETAL Findings: Prior exams: * F-18 PSMA PYL PET/CT 12/12/2022 demo nstrates avid lesion within the proximal left femur that is larger in comparison with 08/20/2022 and 02/21/2022. * Across the [address] is, a right infe rior pubic ramus lesion remains stable. * Under sclerotic lesion within the ri ght iliac wing has low-grade/negligible activity and remains stable. MRI: Multifocal treated and active metastatic disease in the bony pelvis and left femur, as below: * Right mid ileum lesion measured 2.4 x 1.4 cm (series 7, image 22), with internal fat signal consistent with treated disease. This lesion is not PMSA avid on recent PET/CT on 12/12/2022. The describe d lesion demonstrates fat marrow reconve rsion and Easley sequence and absent increased diffusion signal, overall favoring treated disease. * Smaller 1.5 x 1.1 cm treated lesion in the left posterior iliac (series 7, image 11). * Right superior pubic ramus lesion me asures 1.6 x 1.2 cm (series 7, image 34), with internal enhancement (series 11, 50), indicates active disease. This correlates with PMSA avidity on recent PET/CT. Demonstrates an ADC value of 1.1 * Additional smaller 1.1 x 0.8 cm lesi on which is PMSA avid in the right supra-acetabular region (series 7, image 25). * Left femur intertrochanteric lesion measured 2.1 x 1.5 cm (series 7, 43), with avid enhancement (series 11, 63) was also PMSA avid. This particular lesion has increased in size and avidity dating ba ck to PMSA PET/CT scan on August 2022. Al l the above described supports the presence of progressive active disease. Surprisingly it demonstrates an ADC value of 2.3 usually seen in responding tumor (series 10 image 50) Soft tissues/pelvis: * Status post prostatectomy. * Previously seen PMSA avid left inter nal iliac node on PET/CT 12/12/2022, is not clearly seen on today's exam. * No pelvic or inguinal lymphadenopath y. * Diverticulosis of the sigmoid colon. Procedure Note Sukh Griffin MD - 12/13/2022F ormatting of this note might be different from the original. Examination: MRI PELVIS W WO CONTRAST - MUSCULOSKELETAL on 12/13/2022 12:42 PM. 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 Indication: Bone mass, neoplasm suspecte d, Cancer complication or comorbidity assessment, bone mass, noeplasm suspected. Comparison: Pelvic MRI from 10/28/2017. PMSA-PET/CTs from 01/24/2021, 12/12/2022. Technique: MRI PELVIS W WO CONTRAST - MU SCULOSKELETAL Findings: Prior exams: * F-18 PSMA PYL PET/CT 12/12/2022 demons trates avid lesion within the proximal left femur that is larger in comparison with 08/20/2022 and 02/21/2022. * Across the [address] is, a right inferi or pubic ramus lesion remains stable. * Under sclerotic lesion within the righ t iliac wing has low-grade/negligible activity and remains stable. MRI: Multifocal treated and active metastatic disease in the bony pelvis and left femur, as below: * Right mid ileum lesion measured 2.4 x 1.4 cm (series 7, image 22), with internal fat signal consistent with treated disease. This lesion is not PMSA avid on recent PET/CT on 12/12/2022. The described lesion demonstrates fat marrow reconversion and Easley sequence and absent increased diffusion signal, overall favoring treated disease. * Smaller 1.5 x 1.1 cm treated lesion in the left posterior iliac (series 7, image 11). * Right superior pubic ramus lesion bunny ures 1.6 x 1.2 cm (series 7, image 34), with internal enhancement (series 11, 50), indicates active disease. This correlates with PMSA avidity on recent PET/CT. Demonstrates an ADC value of 1.1 * Additional smaller 1.1 x 0.8 cm lesion which is PMSA avid in the right supra- acetabular region (series 7, image 25). * Left femur intertrochanteric lesion me asured 2.1 x 1.5 cm (series 7, 43), with avid enhancement (series 11, 63) was also PMSA avid. This particular lesion has increased in size and avidity dating back to PMSA PET/CT scan on August 2022. All the above described supports the presence of progressive active disease. Surprisingly it demonstrates an ADC value of 2.3 usually seen in responding tumor (series 10 image 50) Soft tissues/pelvis: * Status post prostatectomy. * Previously seen PMSA avid left interna l iliac node on PET/CT 12/12/2022, is not clearly seen on today's exam. * No pelvic or inguinal lymphadenopathy. * Diverticulosis of the sigmoid colon. IMPRESSION: 1. Conjoined analysis with PMSA PET/CT s can on 12/12/2022, suggest progressed disease in the left intratrochanteric femur when compared to August 2022. Demonstrated high ADC values would typically supports response to treatment nonetheless PET/CT PSMA sup ports the contrary. 2. Additional treated and mildly active bony pelvic metastasis as above, are stable. The above includes treated disease such of the right iliac wing and nonprogressive viable disease such as the right inferior pubic ramus. 3. No definite MRI correlate for PMSA av id left internal iliac node on PET/CT on 12/12/2022. I personally reviewed these image(s) anurag curtis with the resident's/fellow's interpretations, certify that if a procedure was performed I was physically present, and agree with the final report. Shane Burch MD IMG MRI ORDERABLES after 03/13/2022 Insurance Payer Benefit Plan / Subscriber ID Effective Dates Phone Addre ss Type Group MEDICARE MEDICARE PART [id number] 2008-Presen [phone] NOVMIGEL S Medicare A AND B t 2 SOLUTIONS [address] [place] [address] GENERIC GENERIC [id number] 2008-Presen [phone] [address] PPO [address] 7 [facility] [address] [phone] [id number] (Work) Billy Barrientos Personal/Famil Self [address] (Home) [place], [place] [phone] (Work) Billy Barrientos Personal/Famil Self [address] (Home) [place], [place] [phone] (Work) Advance Directives Type Date Recorded Patient Manager Process Explanati on Advance Directives: 08/24/2021 Directive to Physicians Living Will and Family or Surrogates-Albaro nguyen Will Care Teams [place] Relationship Specialty Start Date End Date Michael Tse MD PCP - General 07/20/[address] [place] [phone] Derek Reagan MD PCP - External Primary 06/04/13 Care Provider [address] [place] [address] Echo Goodwin PCP - External 04/24/13 MD Corwin Referring [address] [place] [address] [place] [address] Echo Goodwin PCP - External Follow 04/24/13 MD Corwin Up A [address] [place] [address] [address] [place], [place] [phone] Ab Mckeon PCP - External Follow 06/09/13 MD Wero Up B [address] [place] [address] [phone] Vinicius Quintana MD Physician 07/27/15 Michael Tse MD Physician 07/27/[address] [place] [address] Swathi Santoro Physician Employment Security Officer 07/27/[address] [place] [address] [place] [id number] Darius Aguirre MD Physician 07/27/[address] [place] [address] Yayo Granados PA Physician Employment Security Officer 07/27/[address] [place] [address]. [place] [address] Herman Collazo PA Physician Employment Security Officer 07/27/15 [address] [place] [address] Kiersten, Consulting Physician Genitourinary Oncology 10/26/17 MD Shane [address] [place] [phone] [facility] 08/21/[address] [place] [phone] Zeeshan Lunsford Consulting Physician Radiation Oncology 12/19/22 MD Liz [address] [place] [address] Scott Morrison MD Consulting Physician Orthopedic Surgery 12/17/[address] [place] [address]
--- OUTSIDE RECORDS SUMMARY | 2023-03-13 10:16 | XMS REPORT | Continuity of Care Document ---
:1945 Author Organization [facility] t Address [address] [facility] [address] [place] [id number] Care Team Providers Name Role Phone [phone] Primary Care Physician Unavailable NIRMALA CALVILLO Attending Clinician Unavailable STEVEN BLAKE Attending Clinician Unavailable KAYKAY MADRIGAL Attending Clinician Unavailable GREG LEHMAN Attending Clinician Unavailable CINTHIA TORRES Attending Clinician Unavailable RAMAN VARGAS Attending Clinician Unavailable Payers Payer Name Policy Type Policy Number Effective Date Expiration Date S jakub MEDICARE PART A [id number] 2008 AND B 00:00:00 GENERIC [id number] 2008 00:00:00 Problems This patient has no known problems. Allergies, Adverse Reactions, Alerts Allergy Allergy Status Severity Reaction(s) Onset Inactive Treating Comm ents Source Name Type Date Date Clinician ADHESIVE DRUG Active TAPE-RAYO 2-03 Anderso ICONES 00:00: n 00 ERYTHROM DRUG Active MD YCIN 2-03 Anderso 00:00: n 00 IODINATE Drug Active Low Hives MD D Class 2-03 Anderso CONTRAST 00:00: n MEDIA 00 ADHESIVE Drug Active MD Class 2-03 Anderso 00:00: n 00 ADHESIVE DRUG Active MD TAPE-RAYO 2-03 Anderso ICONES 00:00: n 00 ERYTHROM DRUG Active 2015- MD YCIN 2-03 Anderso 00:00: n 00 IODINATE Drug Active Low Hives 2015- MD D Class 2-03 Anderso CONTRAST 00:00: n MEDIA 00 ADHESIVE Drug Active MD Class 2-03 Anderso 00:00: n 00 ADHESIVE DRUG Active MD TAPE-RAYO 2-03 Anderso ICONES 00:00: n 00 ERYTHROM DRUG Active 2015-0 MD YCIN 2-03 Anderso 00:00: n 00 IODINATE Drug Active Low Hives 2016-0 MD D Class 2-03 Anderso CONTRAST 00:00: n MEDIA 00 ADHESIVE Drug Active 2015-0 MD Class 2-03 Anderso 00:00: n 00 ADHESIVE DRUG Active 2015-0 MD TAPE-RAYO 2-03 Anderso ICONES 00:00: n 00 ERYTHROM DRUG Active 2015-0 MD YCIN 2-03 Anderso 00:00: n 00 IODINATE Drug Active Low Hives 2015-0 MD D Class 2-03 Anderso CONTRAST 00:00: n MEDIA 00 ADHESIVE Drug Active 2015-0 MD Class 2-03 Anderso 00:00: n 00 ADHESIVE DRUG Active 2015-0 MD TAPE-RAYO 2-03 Anderso ICONES 00:00: n 00 ERYTHROM DRUG Active 2015-0 MD YCIN 2-03 Anderso 00:00: n 00 IODINATE Drug Active Low Hives 2015-0 MD D Class 2-03 Anderso CONTRAST 00:00: n MEDIA 00 ADHESIVE Drug Active 2015-0 MD Class 2-03 Anderso 00:00: n 00 ADHESIVE DRUG Active 2015-0 MD TAPE-RAYO 2-03 Anderso ICONES 00:00: n 00 ERYTHROM DRUG Active 2015-0 MD YCIN 2-03 Anderso 00:00: n 00 IODINATE Drug Active Low Hives 2015-0 MD D Class 2-03 Anderso CONTRAST 00:00: n MEDIA 00 ADHESIVE Drug Active 2015-0 MD Class 2-03 Anderso 00:00: n 00 ADHESIVE DRUG Active 2015-0 MD TAPE-RAYO 2-03 Anderso ICONES 00:00: n 00 ERYTHROM DRUG Active 2015-0 MD YCIN 2-03 Anderso 00:00: n 00 IODINATE Drug Active Low Hives 2015-0 MD D Class 2-03 Anderso CONTRAST 00:00: n MEDIA 00 ADHESIVE Drug Active 2015-0 MD Class 2-03 Anderso 00:00: n 00 ADHESIVE DRUG Active 2015-0 MD TAPE-RAYO 2-03 Anderso ICONES 00:00: n 00 ERYTHROM DRUG Active 2015-0 MD YCIN 2-03 Anderso 00:00: n 00 IODINATE Drug Active Low Hives 2016-0 MD D Class 2-03 Anderso CONTRAST 00:00: n MEDIA 00 ADHESIVE Drug Active 2016-0 MD Class 2-03 Anderso 00:00: n 00 ADHESIVE DRUG Active 2015-0 MD TAPE-RAYO 2-03 Anderso ICONES 00:00: n 00 ERYTHROM DRUG Active 2016-0 MD YCIN 2-03 Anderso 00:00: n 00 IODINATE Drug Active Low Hives 2015-0 MD D Class 2-03 Anderso CONTRAST 00:00: n MEDIA 00 ADHESIVE Drug Active 2015-0 MD Class 2-03 Anderso 00:00: n 00 ADHESIVE DRUG Active 2015-0 MD TAPE-RAYO 2-03 Anderso ICONES 00:00: n 00 ERYTHROM DRUG Active 2015-0 MD YCIN 2-03 Anderso 00:00: n 00 IODINATE Drug Active Low Hives 2015-0 MD D Class 2-03 Anderso CONTRAST 00:00: n MEDIA 00 ADHESIVE Drug Active 2015-0 MD Class 2-03 Anderso 00:00: n 00 ADHESIVE DRUG Active 2015-0 MD TAPE-RAYO 2-03 Anderso ICONES 00:00: n 00 ERYTHROM DRUG Active 2015-0 MD YCIN 2-03 Anderso 00:00: n 00 IODINATE Drug Active Low Hives 2015-0 MD D Class 2-03 Anderso CONTRAST 00:00: n MEDIA 00 ADHESIVE Drug Active 2015-0 MD Class 2-03 Anderso 00:00: n 00 ADHESIVE DRUG Active 2015-0 MD TAPE-RAYO 2-03 Anderso ICONES 00:00: n 00 ERYTHROM DRUG Active 2015-0 MD YCIN 2-03 Anderso 00:00: n 00 IODINATE Drug Active Low Hives 2015-0 MD D Class 2-03 Anderso CONTRAST 00:00: n MEDIA 00 ADHESIVE Drug Active 2015-0 MD Class 2-03 Anderso 00:00: n 00 ADHESIVE DRUG Active 2015-0 MD TAPE-RAYO 2-03 Anderso ICONES 00:00: n 00 ERYTHROM DRUG Active 2015-0 MD YCIN 2-03 Anderso 00:00: n 00 IODINATE Drug Active Low Hives 2015-0 MD D Class 2-03 Anderso CONTRAST 00:00: n MEDIA 00 ADHESIVE Drug Active 2015-0 MD Class 2-03 Anderso 00:00: n 00 ADHESIVE DRUG Active 2015-0 MD TAPE-RAYO 2-03 Anderso ICONES 00:00: n 00 ERYTHROM DRUG Active 2015-0 MD YCIN 2-03 Anderso 00:00: n 00 IODINATE Drug Active Low Hives 2016-0 MD D Class 2-03 Anderso CONTRAST 00:00: n MEDIA 00 ADHESIVE Drug Active 2015-0 MD Class 2-03 Anderso 00:00: n 00 ADHESIVE DRUG Active 2015-0 MD TAPE-RAYO 2-03 Anderso ICONES 00:00: n 00 ERYTHROM DRUG Active 2015-0 MD YCIN 2-03 Anderso 00:00: n 00 IODINATE Drug Active Low Hives 2015-0 MD D Class 2-03 Anderso CONTRAST 00:00: n MEDIA 00 ADHESIVE Drug Active 2015-0 MD Class 2-03 Anderso 00:00: n 00 ADHESIVE DRUG Active 2015-0 MD TAPE-RAYO 2-03 Anderso ICONES 00:00: n 00 ERYTHROM DRUG Active 2015-0 MD YCIN 2-03 Anderso 00:00: n 00 IODINATE Drug Active Low Hives 2015-0 MD D Class 2-03 Anderso CONTRAST 00:00: n MEDIA 00 ADHESIVE Drug Active 2015-0 MD Class 2-03 Anderso 00:00: n 00 ADHESIVE DRUG Active 2015-0 MD TAPE-RAYO 2-03 Anderso ICONES 00:00: n 00 ERYTHROM DRUG Active 2015-0 MD YCIN 2-03 Anderso 00:00: n 00 IODINATE Drug Active Low Hives 2015-0 MD D Class 2-03 Anderso CONTRAST 00:00: n MEDIA 00 ADHESIVE Drug Active 2015-0 MD Class 2-03 Anderso 00:00: n 00 ADHESIVE DRUG Active 2015-0 MD TAPE-RAYO 2-03 Anderso ICONES 00:00: n 00 ERYTHROM DRUG Active 2015-0 MD YCIN 2-03 Anderso 00:00: n 00 IODINATE Drug Active Low Hives 2015-0 MD D Class 2-03 Anderso CONTRAST 00:00: n MEDIA 00 ADHESIVE Drug Active 2015-0 MD Class 2-03 Anderso 00:00: n 00 ADHESIVE DRUG Active 2015-0 MD TAPE-RAYO 2-03 Anderso ICONES 00:00: n 00 ERYTHROM DRUG Active 2015-0 MD YCIN 2-03 Anderso 00:00: n 00 IODINATE Drug Active Low Hives 2015-0 MD D Class 2-03 Anderso CONTRAST 00:00: n MEDIA 00 ADHESIVE Drug Active 2015-0 MD Class 2-03 Anderso 00:00: n 00 ADHESIVE DRUG Active 2015-0 MD TAPE-RAYO 2-03 Anderso ICONES 00:00: n 00 ERYTHROM DRUG Active 2015-0 MD YCIN 2-03 Anderso 00:00: n 00 IODINATE Drug Active Low Hives 2015-0 MD D Class 2-03 Anderso CONTRAST 00:00: n MEDIA 00 ADHESIVE Drug Active 2015-0 MD Class 2-03 Anderso 00:00: n 00 ADHESIVE DRUG Active 2015-0 MD TAPE-RAYO 2-03 Anderso ICONES 00:00: n 00 ERYTHROM DRUG Active 2015-0 MD YCIN 2-03 Anderso 00:00: n 00 IODINATE Drug Active Low Hives 2015-0 MD D Class 2-03 Anderso CONTRAST 00:00: n MEDIA 00 ADHESIVE Drug Active 2015-0 MD Class 2-03 Anderso 00:00: n 00 ADHESIVE DRUG Active 2015-0 MD TAPE-RAYO 2-03 Anderso ICONES 00:00: n 00 ERYTHROM DRUG Active 2015-0 MD YCIN 2-03 Anderso 00:00: n 00 IODINATE Drug Active Low Hives 2015-0 MD D Class 2-03 Anderso CONTRAST 00:00: n MEDIA 00 ADHESIVE Drug Active 2015-0 MD Class 2-03 Anderso 00:00: n 00 ADHESIVE DRUG Active 2015-0 MD TAPE-RAYO 2-03 Anderso ICONES 00:00: n 00 ERYTHROM DRUG Active 2015-0 MD YCIN 2-03 Anderso 00:00: n 00 IODINATE Drug Active Low Hives 2015-0 MD D Class 2-03 Anderso CONTRAST 00:00: n MEDIA 00 ADHESIVE Drug Active 2015-0 MD Class 2-03 Anderso 00:00: n 00 ADHESIVE DRUG Active 2015-0 MD TAPE-RAYO 2-03 Anderso ICONES 00:00: n 00 ERYTHROM DRUG Active 2015-0 MD YCIN 2-03 Anderso 00:00: n 00 IODINATE Drug Active Low Hives 2015-0 MD D Class 2-03 Anderso CONTRAST 00:00: n MEDIA 00 ADHESIVE Drug Active 2015-0 MD Class 2-03 Anderso 00:00: n 00 ADHESIVE DRUG Active 2015-0 MD TAPE-RAYO 2-03 Anderso ICONES 00:00: n 00 ERYTHROM DRUG Active 2015-0 MD YCIN 2-03 Anderso 00:00: n 00 IODINATE Drug Active Low Hives 2015-0 MD D Class 2-03 Anderso CONTRAST 00:00: n MEDIA 00 ADHESIVE Drug Active 2015-0 MD Class 2-03 Anderso 00:00: n 00 ADHESIVE DRUG Active 2015-0 MD TAPE-RAYO 2-03 Anderso ICONES 00:00: n 00 ERYTHROM DRUG Active 2015-0 MD YCIN 2-03 Anderso 00:00: n 00 IODINATE Drug Active Low Hives 2015-0 MD D Class 2-03 Anderso CONTRAST 00:00: n MEDIA 00 ADHESIVE Drug Active 2015-0 MD Class 2-03 Anderso 00:00: n 00 ADHESIVE DRUG Active 2015-0 MD TAPE-RAYO 2-03 Anderso ICONES 00:00: n 00 ERYTHROM DRUG Active 2015-0 MD YCIN 2-03 Anderso 00:00: n 00 IODINATE Drug Active Low Hives 2015-0 MD D Class 2-03 Anderso CONTRAST 00:00: n MEDIA 00 ADHESIVE Drug Active 2015-0 MD Class 2-03 Anderso 00:00: n 00 ADHESIVE DRUG Active 2015-0 MD TAPE-RAYO 2-03 Anderso ICONES 00:00: n 00 ERYTHROM DRUG Active 2015-0 MD YCIN 2-03 Anderso 00:00: n 00 IODINATE Drug Active Low Hives 2015-0 MD D Class 2-03 Anderso CONTRAST 00:00: n MEDIA 00 ADHESIVE Drug Active 2015-0 MD Class 2-03 Anderso 00:00: n 00 ADHESIVE DRUG Active 2015-0 MD TAPE-RAYO 2-03 Anderso ICONES 00:00: n 00 ERYTHROM DRUG Active 2015-0 MD YCIN 2-03 Anderso 00:00: n 00 IODINATE Drug Active Low Hives 2015-0 MD D Class 2-03 Anderso CONTRAST 00:00: n MEDIA 00 ADHESIVE Drug Active 2015-0 MD Class 2-03 Anderso 00:00: n 00 ADHESIVE DRUG Active 2015-0 MD TAPE-RAYO 2-03 Anderso ICONES 00:00: n 00 ERYTHROM DRUG Active 2015-0 MD YCIN 2-03 Anderso 00:00: n 00 IODINATE Drug Active Low Hives 2016-0 MD D Class 2-03 Anderso CONTRAST 00:00: n MEDIA 00 ADHESIVE Drug Active 2015-0 MD Class 2-03 Anderso 00:00: n 00 ADHESIVE DRUG Active 2015-0 MD TAPE-RAYO 2-03 Anderso ICONES 00:00: n 00 ERYTHROM DRUG Active 2015-0 MD YCIN 2-03 Anderso 00:00: n 00 IODINATE Drug Active Low Hives 2015-0 MD D Class 2-03 Anderso CONTRAST 00:00: n MEDIA 00 ADHESIVE Drug Active 2015-0 MD Class 2-03 Anderso 00:00: n 00 ADHESIVE DRUG Active 2015-0 MD TAPE-RAYO 2-03 Anderso ICONES 00:00: n 00 ERYTHROM DRUG Active 2015-0 MD YCIN 2-03 Anderso 00:00: n 00 IODINATE Drug Active Low Hives 2015-0 MD D Class 2-03 Anderso CONTRAST 00:00: n MEDIA 00 ADHESIVE Drug Active 2015-0 MD Class 2-03 Anderso 00:00: n 00 ADHESIVE DRUG Active 2015-0 MD TAPE-RAYO 2-03 Anderso ICONES 00:00: n 00 ERYTHROM DRUG Active 2015-0 MD YCIN 2-03 Anderso 00:00: n 00 IODINATE Drug Active Low Hives 2015-0 MD D Class 2-03 Anderso CONTRAST 00:00: n MEDIA 00 ADHESIVE Drug Active 2015-0 MD Class 2-03 Anderso 00:00: n 00 ADHESIVE DRUG Active 2015-0 MD TAPE-RAYO 2-03 Anderso ICONES 00:00: n 00 ERYTHROM DRUG Active 2015-0 MD YCIN 2-03 Anderso 00:00: n 00 IODINATE Drug Active Low Hives 2016-0 MD D Class 2-03 Anderso CONTRAST 00:00: n MEDIA 00 ADHESIVE Drug Active 2015-0 MD Class 2-03 Anderso 00:00: n 00 ADHESIVE DRUG Active 2015-0 MD TAPE-RAYO 2-03 Anderso ICONES 00:00: n 00 ERYTHROM DRUG Active 2015-0 MD YCIN 2-03 Anderso 00:00: n 00 IODINATE Drug Active Low Hives 2016-0 MD D Class 2-03 Anderso CONTRAST 00:00: n MEDIA 00 ADHESIVE Drug Active 2016-0 MD Class 2-03 Anderso 00:00: n 00 ADHESIVE DRUG Active 2016-0 MD TAPE-RAYO 2-03 Anderso ICONES 00:00: n 00 ERYTHROM DRUG Active 2015-0 MD YCIN 2-03 Anderso 00:00: n 00 IODINATE Drug Active Low Hives 2015-0 MD D Class 2-03 Anderso CONTRAST 00:00: n MEDIA 00 ADHESIVE Drug Active 2015-0 MD Class 2-03 Anderso 00:00: n 00 ADHESIVE DRUG Active 2015-0 MD TAPE-RAYO 2-03 Anderso ICONES 00:00: n 00 ERYTHROM DRUG Active 2015-0 MD YCIN 2-03 Anderso 00:00: n 00 IODINATE Drug Active Low Hives 2015-0 MD D Class 2-03 Anderso CONTRAST 00:00: n MEDIA 00 ADHESIVE Drug Active 2015-0 MD Class 2-03 Anderso 00:00: n 00 ADHESIVE DRUG Active 2015-0 MD TAPE-RAYO 2-03 Anderso ICONES 00:00: n 00 ERYTHROM DRUG Active 2015-0 MD YCIN 2-03 Anderso 00:00: n 00 IODINATE Drug Active Low Hives 2015-0 MD D Class 2-03 Anderso CONTRAST 00:00: n MEDIA 00 ADHESIVE Drug Active 2015-0 MD Class 2-03 Anderso 00:00: n 00 ADHESIVE DRUG Active 2015-0 MD TAPE-RAYO 2-03 Anderso ICONES 00:00: n 00 ERYTHROM DRUG Active 2015-0 MD YCIN 2-03 Anderso 00:00: n 00 IODINATE Drug Active Low Hives 2015-0 MD D Class 2-03 Anderso CONTRAST 00:00: n MEDIA 00 ADHESIVE Drug Active 2015-0 MD Class 2-03 Anderso 00:00: n 00 ADHESIVE DRUG Active 2015-0 MD TAPE-RAYO 2-03 Anderso ICONES 00:00: n 00 ERYTHROM DRUG Active 2015-0 MD YCIN 2-03 Anderso 00:00: n 00 IODINATE Drug Active Low Hives 2015-0 MD D Class 2-03 Anderso CONTRAST 00:00: n MEDIA 00 ADHESIVE Drug Active 2015-0 MD Class 2-03 Anderso 00:00: n 00 ADHESIVE DRUG Active 2015-0 MD TAPE-RAYO 2-03 Anderso ICONES 00:00: n 00 ERYTHROM DRUG Active 2015-0 MD YCIN 2-03 Anderso 00:00: n 00 IODINATE Drug Active Low Hives 2015-0 MD D Class 2-03 Anderso CONTRAST 00:00: n MEDIA 00 ADHESIVE Drug Active 2015-0 MD Class 2-03 Anderso 00:00: n 00 ADHESIVE DRUG Active 2015-0 MD TAPE-RAYO 2-03 Anderso ICONES 00:00: n 00 ERYTHROM DRUG Active 2015-0 MD YCIN 2-03 Anderso 00:00: n 00 IODINATE Drug Active Low Hives 2015-0 MD D Class 2-03 Anderso CONTRAST 00:00: n MEDIA 00 ADHESIVE Drug Active 2015-0 MD Class 2-03 Anderso 00:00: n 00 ADHESIVE DRUG Active 2015-0 MD TAPE-RAYO 2-03 Anderso ICONES 00:00: n 00 ERYTHROM DRUG Active 2015-0 MD YCIN 2-03 Anderso 00:00: n 00 IODINATE Drug Active Low Hives 2015-0 MD D Class 2-03 Anderso CONTRAST 00:00: n MEDIA 00 ADHESIVE Drug Active 2015-0 MD Class 2-03 Anderso 00:00: n 00 ADHESIVE DRUG Active 2015-0 MD TAPE-RAYO 2-03 Anderso ICONES 00:00: n 00 ERYTHROM DRUG Active 2015-0 MD YCIN 2-03 Anderso 00:00: n 00 IODINATE Drug Active Low Hives 2015-0 MD D Class 2-03 Anderso CONTRAST 00:00: n MEDIA 00 ADHESIVE Drug Active 2015-0 MD Class 2-03 Anderso 00:00: n 00 ADHESIVE DRUG Active 2015-0 MD TAPE-RAYO 2-03 Anderso ICONES 00:00: n 00 ERYTHROM DRUG Active 2015-0 MD YCIN 2-03 Anderso 00:00: n 00 IODINATE Drug Active Low Hives 2016-0 MD D Class 2-03 Anderso CONTRAST 00:00: n MEDIA 00 ADHESIVE Drug Active 2015-0 MD Class 2-03 Anderso 00:00: n 00 ADHESIVE DRUG Active 2015-0 MD TAPE-RAYO 2-03 Anderso ICONES 00:00: n 00 ERYTHROM DRUG Active 2015-0 MD YCIN 2-03 Anderso 00:00: n 00 IODINATE Drug Active Low Hives 2016-0 MD D Class 2-03 Anderso CONTRAST 00:00: n MEDIA 00 ADHESIVE Drug Active 2015-0 MD Class 2-03 Anderso 00:00: n 00 ADHESIVE DRUG Active 2015-0 MD TAPE-RAYO 2-03 Anderso ICONES 00:00: n 00 ERYTHROM DRUG Active 2015-0 MD YCIN 2-03 Anderso 00:00: n 00 IODINATE Drug Active Low Hives 2015-0 MD D Class 2-03 Anderso CONTRAST 00:00: n MEDIA 00 ADHESIVE Drug Active 2015-0 MD Class 2-03 Anderso 00:00: n 00 ADHESIVE DRUG Active 2015-0 MD TAPE-RAYO 2-03 Anderso ICONES 00:00: n 00 ERYTHROM DRUG Active 2015-0 MD YCIN 2-03 Anderso 00:00: n 00 IODINATE Drug Active Low Hives 2015-0 MD D Class 2-03 Anderso CONTRAST 00:00: n MEDIA 00 ADHESIVE Drug Active 2015-0 MD Class 2-03 Anderso 00:00: n 00 ADHESIVE DRUG Active 2015-0 MD TAPE-RAYO 2-03 Anderso ICONES 00:00: n 00 ERYTHROM DRUG Active 2015-0 MD YCIN 2-03 Anderso 00:00: n 00 IODINATE Drug Active Low Hives 2015-0 MD D Class 2-03 Anderso CONTRAST 00:00: n MEDIA 00 ADHESIVE Drug Active 2015-0 MD Class 2-03 Anderso 00:00: n 00 ADHESIVE DRUG Active 2015-0 MD TAPE-RAYO 2-03 Anderso ICONES 00:00: n 00 ERYTHROM DRUG Active 2015-0 MD YCIN 2-03 Anderso 00:00: n 00 IODINATE Drug Active Low Hives 2015-0 MD D Class 2-03 Anderso CONTRAST 00:00: n MEDIA 00 ADHESIVE Drug Active 2015-0 MD Class 2-03 Anderso 00:00: n 00 ADHESIVE DRUG Active 2015-0 MD TAPE-RAYO 2-03 Anderso ICONES 00:00: n 00 ERYTHROM DRUG Active 2015-0 MD YCIN 2-03 Anderso 00:00: n 00 IODINATE Drug Active Low Hives 2016-0 MD D Class 2-03 Anderso CONTRAST 00:00: n MEDIA 00 ADHESIVE Drug Active 2016-0 MD Class 2-03 Anderso 00:00: n 00 ADHESIVE DRUG Active 2015-0 MD TAPE-RAYO 2-03 Anderso ICONES 00:00: n 00 ERYTHROM DRUG Active 2016-0 MD YCIN 2-03 Anderso 00:00: n 00 IODINATE Drug Active Low Hives 2015-0 MD D Class 2-03 Anderso CONTRAST 00:00: n MEDIA 00 ADHESIVE Drug Active 2015-0 MD Class 2-03 Anderso 00:00: n 00 ADHESIVE DRUG Active 2015-0 MD TAPE-RAYO 2-03 Anderso ICONES 00:00: n 00 ERYTHROM DRUG Active 2015-0 MD YCIN 2-03 Anderso 00:00: n 00 IODINATE Drug Active Low Hives 2015-0 MD D Class 2-03 Anderso CONTRAST 00:00: n MEDIA 00 ADHESIVE Drug Active 2015-0 MD Class 2-03 Anderso 00:00: n 00 ADHESIVE DRUG Active 2015-0 MD TAPE-RAYO 2-03 Anderso ICONES 00:00: n 00 ERYTHROM DRUG Active 2015-0 MD YCIN 2-03 Anderso 00:00: n 00 IODINATE Drug Active Low Hives 2015-0 MD D Class 2-03 Anderso CONTRAST 00:00: n MEDIA 00 ADHESIVE Drug Active 2015-0 MD Class 2-03 Anderso 00:00: n 00 ADHESIVE DRUG Active 2015-0 MD TAPE-RAYO 2-03 Anderso ICONES 00:00: n 00 ERYTHROM DRUG Active 2015-0 MD YCIN 2-03 Anderso 00:00: n 00 IODINATE Drug Active Low Hives 2015-0 MD D Class 2-03 Anderso CONTRAST 00:00: n MEDIA 00 ADHESIVE Drug Active 2015-0 MD Class 2-03 Anderso 00:00: n 00 ADHESIVE DRUG Active 2015-0 MD TAPE-RAYO 2-03 Anderso ICONES 00:00: n 00 ERYTHROM DRUG Active 2016-0 MD YCIN 2-03 Anderso 00:00: n 00 IODINATE Drug Active Low Hives 2015-0 MD D Class 2-03 Anderso CONTRAST 00:00: n MEDIA 00 ADHESIVE Drug Active 2015-0 MD Class 2-03 Anderso 00:00: n 00 ADHESIVE DRUG Active 2015-0 MD TAPE-RAYO 2-03 Anderso ICONES 00:00: n 00 ERYTHROM DRUG Active 2015-0 MD YCIN 2-03 Anderso 00:00: n 00 IODINATE Drug Active Low Hives 2016-0 MD D Class 2-03 Anderso CONTRAST 00:00: n MEDIA 00 ADHESIVE Drug Active 2015-0 MD Class 2-03 Anderso 00:00: n 00 ADHESIVE DRUG Active 2015-0 MD TAPE-RAYO 2-03 Anderso ICONES 00:00: n 00 ERYTHROM DRUG Active 2015-0 MD YCIN 2-03 Anderso 00:00: n 00 IODINATE Drug Active Low Hives 2015-0 MD D Class 2-03 Anderso CONTRAST 00:00: n MEDIA 00 ADHESIVE Drug Active 2015-0 MD Class 2-03 Anderso 00:00: n 00 ADHESIVE DRUG Active 2015-0 MD TAPE-RAYO 2-03 Anderso ICONES 00:00: n 00 ERYTHROM DRUG Active 2015-0 MD YCIN 2-03 Anderso 00:00: n 00 IODINATE Drug Active Low Hives 2015-0 MD D Class 2-03 Anderso CONTRAST 00:00: n MEDIA 00 ADHESIVE Drug Active 2015-0 MD Class 2-03 Anderso 00:00: n 00 ADHESIVE DRUG Active 2015-0 MD TAPE-RAYO 2-03 Anderso ICONES 00:00: n 00 ERYTHROM DRUG Active 2015-0 MD YCIN 2-03 Anderso 00:00: n 00 IODINATE Drug Active Low Hives 2015-0 MD D Class 2-03 Anderso CONTRAST 00:00: n MEDIA 00 ADHESIVE Drug Active 2015-0 MD Class 2-03 Anderso 00:00: n 00 ADHESIVE DRUG Active 2015-0 MD TAPE-RAYO 2-03 Anderso ICONES 00:00: n 00 ERYTHROM DRUG Active 2015-0 MD YCIN 2-03 Anderso 00:00: n 00 IODINATE Drug Active Low Hives 2015-0 MD D Class 2-03 Anderso CONTRAST 00:00: n MEDIA 00 ADHESIVE Drug Active 2015-0 MD Class 2-03 Anderso 00:00: n 00 ADHESIVE DRUG Active 2015-0 MD TAPE-RAYO 2-03 Anderso ICONES 00:00: n 00 ERYTHROM DRUG Active 2015-0 MD YCIN 2-03 Anderso 00:00: n 00 IODINATE Drug Active Low Hives 2015-0 MD D Class 2-03 Anderso CONTRAST 00:00: n MEDIA 00 ADHESIVE Drug Active 2015-0 MD Class 2-03 Anderso 00:00: n 00 ADHESIVE DRUG Active 2015-0 MD TAPE-RAYO 2-03 Anderso ICONES 00:00: n 00 ERYTHROM DRUG Active 2015-0 MD YCIN 2-03 Anderso 00:00: n 00 IODINATE Drug Active Low Hives 2015-0 MD D Class 2-03 Anderso CONTRAST 00:00: n MEDIA 00 ADHESIVE Drug Active 2015-0 MD Class 2-03 Anderso 00:00: n 00 ADHESIVE DRUG Active 2015-0 MD TAPE-RAYO 2-03 Anderso ICONES 00:00: n 00 ERYTHROM DRUG Active 2015-0 MD YCIN 2-03 Anderso 00:00: n 00 IODINATE Drug Active Low Hives 2015-0 MD D Class 2-03 Anderso CONTRAST 00:00: n MEDIA 00 ADHESIVE Drug Active 2015-0 MD Class 2-03 Anderso 00:00: n 00 ADHESIVE DRUG Active 2015-0 MD TAPE-RAYO 2-03 Anderso ICONES 00:00: n 00 ERYTHROM DRUG Active 2015-0 MD YCIN 2-03 Anderso 00:00: n 00 IODINATE Drug Active Low Hives 2015-0 MD D Class 2-03 Anderso CONTRAST 00:00: n MEDIA 00 ADHESIVE Drug Active 2015-0 MD Class 2-03 Anderso 00:00: n 00 ADHESIVE DRUG Active 2015-0 MD TAPE-RAYO 2-03 Anderso ICONES 00:00: n 00 ERYTHROM DRUG Active 2015-0 MD YCIN 2-03 Anderso 00:00: n 00 IODINATE Drug Active Low Hives 2015-0 MD D Class 2-03 Anderso CONTRAST 00:00: n MEDIA 00 ADHESIVE Drug Active 2015-0 MD Class 2-03 Anderso 00:00: n 00 ADHESIVE DRUG Active 2015-0 MD TAPE-RAYO 2-03 Anderso ICONES 00:00: n 00 ERYTHROM DRUG Active 2015-0 MD YCIN 2-03 Anderso 00:00: n 00 IODINATE Drug Active Low Hives 2015-0 MD D Class 2-03 Anderso CONTRAST 00:00: n MEDIA 00 ADHESIVE Drug Active 2015-0 MD Class 2-03 Anderso 00:00: n 00 ADHESIVE DRUG Active 2015-0 MD TAPE-RAYO 2-03 Anderso ICONES 00:00: n 00 ERYTHROM DRUG Active 2015-0 MD YCIN 2-03 Anderso 00:00: n 00 IODINATE Drug Active Low Hives 2015-0 MD D Class 2-03 Anderso CONTRAST 00:00: n MEDIA 00 ADHESIVE Drug Active 2015-0 MD Class 2-03 Anderso 00:00: n 00 ADHESIVE DRUG Active 2015-0 MD TAPE-RAYO 2-03 Anderso ICONES 00:00: n 00 ERYTHROM DRUG Active 2015-0 MD YCIN 2-03 Anderso 00:00: n 00 IODINATE Drug Active Low Hives 2015-0 MD D Class 2-03 Anderso CONTRAST 00:00: n MEDIA 00 ADHESIVE Drug Active 2015-0 MD Class 2-03 Anderso 00:00: n 00 ADHESIVE DRUG Active 2015-0 MD TAPE-RAYO 2-03 Anderso ICONES 00:00: n 00 ERYTHROM DRUG Active 2015-0 MD YCIN 2-03 Anderso 00:00: n 00 IODINATE Drug Active Low Hives 2015-0 MD D Class 2-03 Anderso CONTRAST 00:00: n MEDIA 00 ADHESIVE Drug Active 2015-0 MD Class 2-03 Anderso 00:00: n 00 ADHESIVE DRUG Active 2015-0 MD TAPE-RAYO 2-03 Anderso ICONES 00:00: n 00 ERYTHROM DRUG Active 2015-0 MD YCIN 2-03 Anderso 00:00: n 00 IODINATE Drug Active Low Hives 2015-0 MD D Class 2-03 Anderso CONTRAST 00:00: n MEDIA 00 ADHESIVE Drug Active 2015-0 MD Class 2-03 Anderso 00:00: n 00 ADHESIVE DRUG Active 2015-0 MD TAPE-RAYO 2-03 Anderso ICONES 00:00: n 00 ERYTHROM DRUG Active 2015-0 MD YCIN 2-03 Anderso 00:00: n 00 IODINATE Drug Active Low Hives 2015-0 MD D Class 2-03 Anderso CONTRAST 00:00: n MEDIA 00 ADHESIVE Drug Active 2015-0 MD Class 2-03 Anderso 00:00: n 00 ADHESIVE DRUG Active 2015-0 MD TAPE-RAYO 2-03 Anderso ICONES 00:00: n 00 ERYTHROM DRUG Active 2015-0 MD YCIN 2-03 Anderso 00:00: n 00 IODINATE Drug Active Low Hives 2016-0 MD D Class 2-03 Anderso CONTRAST 00:00: n MEDIA 00 ADHESIVE Drug Active 2015-0 MD Class 2-03 Anderso 00:00: n 00 ADHESIVE DRUG Active 2015-0 MD TAPE-RAYO 2-03 Anderso ICONES 00:00: n 00 ERYTHROM DRUG Active 2015-0 MD YCIN 2-03 Anderso 00:00: n 00 IODINATE Drug Active Low Hives 2015-0 MD D Class 2-03 Anderso CONTRAST 00:00: n MEDIA 00 ADHESIVE Drug Active 2015-0 MD Class 2-03 Anderso 00:00: n 00 ADHESIVE DRUG Active 2015-0 MD TAPE-RAYO 2-03 Anderso ICONES 00:00: n 00 ERYTHROM DRUG Active 2015-0 MD YCIN 2-03 Anderso 00:00: n 00 IODINATE Drug Active Low Hives 2015-0 MD D Class 2-03 Anderso CONTRAST 00:00: n MEDIA 00 ADHESIVE Drug Active 2015-0 MD Class 2-03 Anderso 00:00: n 00 ADHESIVE DRUG Active 2015-0 MD TAPE-RAYO 2-03 Anderso ICONES 00:00: n 00 ERYTHROM DRUG Active 2015-0 MD YCIN 2-03 Anderso 00:00: n 00 IODINATE Drug Active Low Hives 2015-0 MD D Class 2-03 Anderso CONTRAST 00:00: n MEDIA 00 ADHESIVE Drug Active 2015-0 MD Class 2-03 Anderso 00:00: n 00 ADHESIVE DRUG Active 2015-0 MD TAPE-RAYO 2-03 Anderso ICONES 00:00: n 00 ERYTHROM DRUG Active 2015-0 MD YCIN 2-03 Anderso 00:00: n 00 IODINATE Drug Active Low Hives 2016-0 MD D Class 2-03 Anderso CONTRAST 00:00: n MEDIA 00 ADHESIVE Drug Active 2015-0 MD Class 2-03 Anderso 00:00: n 00 ADHESIVE DRUG Active 2015-0 MD TAPE-RAYO 2-03 Anderso ICONES 00:00: n 00 ERYTHROM DRUG Active 2015-0 MD YCIN 2-03 Anderso 00:00: n 00 IODINATE Drug Active Low Hives 2016-0 MD D Class 2-03 Anderso CONTRAST 00:00: n MEDIA 00 ADHESIVE Drug Active 2016-0 MD Class 2-03 Anderso 00:00: n 00 ADHESIVE DRUG Active 2016-0 MD TAPE-RAYO 2-03 Anderso ICONES 00:00: n 00 ERYTHROM DRUG Active 2015-0 MD YCIN 2-03 Anderso 00:00: n 00 IODINATE Drug Active Low Hives 2015-0 MD D Class 2-03 Anderso CONTRAST 00:00: n MEDIA 00 ADHESIVE Drug Active 2015-0 MD Class 2-03 Anderso 00:00: n 00 ADHESIVE DRUG Active 2015-0 MD TAPE-RAYO 2-03 Anderso ICONES 00:00: n 00 ERYTHROM DRUG Active 2015-0 MD YCIN 2-03 Anderso 00:00: n 00 IODINATE Drug Active Low Hives 2015-0 MD D Class 2-03 Anderso CONTRAST 00:00: n MEDIA 00 ADHESIVE Drug Active 2015-0 MD Class 2-03 Anderso 00:00: n 00 ADHESIVE DRUG Active 2015-0 MD TAPE-RAYO 2-03 Anderso ICONES 00:00: n 00 ERYTHROM DRUG Active 2015-0 MD YCIN 2-03 Anderso 00:00: n 00 IODINATE Drug Active Low Hives 2015-0 MD D Class 2-03 Anderso CONTRAST 00:00: n MEDIA 00 ADHESIVE Drug Active 2015-0 MD Class 2-03 Anderso 00:00: n 00 ADHESIVE DRUG Active 2015-0 MD TAPE-RAYO 2-03 Anderso ICONES 00:00: n 00 ERYTHROM DRUG Active 2015-0 MD YCIN 2-03 Anderso 00:00: n 00 IODINATE Drug Active Low Hives 2015-0 MD D Class 2-03 Anderso CONTRAST 00:00: n MEDIA 00 ADHESIVE Drug Active 2015-0 MD Class 2-03 Anderso 00:00: n 00 ADHESIVE DRUG Active 2015-0 MD TAPE-RAYO 2-03 Anderso ICONES 00:00: n 00 ERYTHROM DRUG Active 2015-0 MD YCIN 2-03 Anderso 00:00: n 00 IODINATE Drug Active Low Hives 2015-0 MD D Class 2-03 Anderso CONTRAST 00:00: n MEDIA 00 ADHESIVE Drug Active 2015-0 MD Class 2-03 Anderso 00:00: n 00 ADHESIVE DRUG Active 2015-0 MD TAPE-RAYO 2-03 Anderso ICONES 00:00: n 00 ERYTHROM DRUG Active 2015-0 MD YCIN 2-03 Anderso 00:00: n 00 IODINATE Drug Active Low Hives 2015-0 MD D Class 2-03 Anderso CONTRAST 00:00: n MEDIA 00 ADHESIVE Drug Active 2015-0 MD Class 2-03 Anderso 00:00: n 00 ADHESIVE DRUG Active 2015-0 MD TAPE-RAYO 2-03 Anderso ICONES 00:00: n 00 ERYTHROM DRUG Active 2015-0 MD YCIN 2-03 Anderso 00:00: n 00 IODINATE Drug Active Low Hives 2015-0 MD D Class 2-03 Anderso CONTRAST 00:00: n MEDIA 00 ADHESIVE Drug Active 2015-0 MD Class 2-03 Anderso 00:00: n 00 ADHESIVE DRUG Active 2015-0 MD TAPE-RAYO 2-03 Anderso ICONES 00:00: n 00 ERYTHROM DRUG Active 2015-0 MD YCIN 2-03 Anderso 00:00: n 00 IODINATE Drug Active Low Hives 2015-0 MD D Class 2-03 Anderso CONTRAST 00:00: n MEDIA 00 ADHESIVE Drug Active 2015-0 MD Class 2-03 Anderso 00:00: n 00 ADHESIVE DRUG Active 2015-0 MD TAPE-RAYO 2-03 Anderso ICONES 00:00: n 00 ERYTHROM DRUG Active 2015-0 MD YCIN 2-03 Anderso 00:00: n 00 IODINATE Drug Active Low Hives 2015-0 MD D Class 2-03 Anderso CONTRAST 00:00: n MEDIA 00 ADHESIVE Drug Active 2015-0 MD Class 2-03 Anderso 00:00: n 00 ADHESIVE DRUG Active 2015-0 MD TAPE-RAYO 2-03 Anderso ICONES 00:00: n 00 ERYTHROM DRUG Active 2015-0 MD YCIN 2-03 Anderso 00:00: n 00 IODINATE Drug Active Low Hives 2015-0 MD D Class 2-03 Anderso CONTRAST 00:00: n MEDIA 00 ADHESIVE Drug Active 2015-0 MD Class 2-03 Anderso 00:00: n 00 ADHESIVE DRUG Active 2015-0 MD TAPE-RAYO 2-03 Anderso ICONES 00:00: n 00 ERYTHROM DRUG Active 2016-0 MD YCIN 2-03 Anderso 00:00: n 00 IODINATE Drug Active Low Hives 2016-0 MD D Class 2-03 Anderso CONTRAST 00:00: n MEDIA 00 ADHESIVE Drug Active 2016-0 MD Class 2-03 Anderso 00:00: n 00 ADHESIVE DRUG Active 2015-0 MD TAPE-RAYO 2-03 Anderso ICONES 00:00: n 00 ERYTHROM DRUG Active 2015-0 MD YCIN 2-03 Anderso 00:00: n 00 IODINATE Drug Active Low Hives 2015-0 MD D Class 2-03 Anderso CONTRAST 00:00: n MEDIA 00 ADHESIVE Drug Active 2015-0 MD Class 2-03 Anderso 00:00: n 00 ADHESIVE DRUG Active 2015-0 MD TAPE-RAYO 2-03 Anderso ICONES 00:00: n 00 ERYTHROM DRUG Active 2015-0 MD YCIN 2-03 Anderso 00:00: n 00 IODINATE Drug Active Low Hives 2015-0 MD D Class 2-03 Anderso CONTRAST 00:00: n MEDIA 00 ADHESIVE Drug Active 2015-0 MD Class 2-03 Anderso 00:00: n 00 ADHESIVE DRUG Active 2015-0 MD TAPE-RAYO 2-03 Anderso ICONES 00:00: n 00 ERYTHROM DRUG Active 2015-0 MD YCIN 2-03 Anderso 00:00: n 00 IODINATE Drug Active Low Hives 2015-0 MD D Class 2-03 Anderso CONTRAST 00:00: n MEDIA 00 ADHESIVE Drug Active 2015-0 MD Class 2-03 Anderso 00:00: n 00 ADHESIVE DRUG Active 2015-0 MD TAPE-RAYO 2-03 Anderso ICONES 00:00: n 00 ERYTHROM DRUG Active 2015-0 MD YCIN 2-03 Anderso 00:00: n 00 IODINATE Drug Active Low Hives 2015-0 MD D Class 2-03 Anderso CONTRAST 00:00: n MEDIA 00 ADHESIVE Drug Active 2015-0 MD Class 2-03 Anderso 00:00: n 00 ADHESIVE DRUG Active 2015-0 MD TAPE-RAYO 2-03 Anderso ICONES 00:00: n 00 ERYTHROM DRUG Active 2015-0 MD YCIN 2-03 Anderso 00:00: n 00 IODINATE Drug Active Low Hives 2016-0 MD D Class 2-03 Anderso CONTRAST 00:00: n MEDIA 00 ADHESIVE Drug Active 2015-0 MD Class 2-03 Anderso 00:00: n 00 ADHESIVE DRUG Active 2015-0 MD TAPE-RAYO 2-03 Anderso ICONES 00:00: n 00 ERYTHROM DRUG Active 2015-0 MD YCIN 2-03 Anderso 00:00: n 00 IODINATE Drug Active Low Hives 2015-0 MD D Class 2-03 Anderso CONTRAST 00:00: n MEDIA 00 ADHESIVE Drug Active 2015-0 MD Class 2-03 Anderso 00:00: n 00 ADHESIVE DRUG Active 2015-0 MD TAPE-RAYO 2-03 Anderso ICONES 00:00: n 00 ERYTHROM DRUG Active 2015-0 MD YCIN 2-03 Anderso 00:00: n 00 IODINATE Drug Active Low Hives 2015-0 MD D Class 2-03 Anderso CONTRAST 00:00: n MEDIA 00 ADHESIVE Drug Active 2015-0 MD Class 2-03 Anderso 00:00: n 00 ADHESIVE DRUG Active 2015-0 MD TAPE-RAYO 2-03 Anderso ICONES 00:00: n 00 ERYTHROM DRUG Active 2015-0 MD YCIN 2-03 Anderso 00:00: n 00 IODINATE Drug Active Low Hives 2015-0 MD D Class 2-03 Anderso CONTRAST 00:00: n MEDIA 00 ADHESIVE Drug Active 2015-0 MD Class 2-03 Anderso 00:00: n 00 ADHESIVE DRUG Active 2015-0 MD TAPE-RAYO 2-03 Anderso ICONES 00:00: n 00 ERYTHROM DRUG Active 2015-0 MD YCIN 2-03 Anderso 00:00: n 00 IODINATE Drug Active Low Hives 2015-0 MD D Class 2-03 Anderso CONTRAST 00:00: n MEDIA 00 ADHESIVE Drug Active 2015-0 MD Class 2-03 Anderso 00:00: n 00 ADHESIVE DRUG Active 2015-0 MD TAPE-RAYO 2-03 Anderso ICONES 00:00: n 00 ERYTHROM DRUG Active 2015-0 MD YCIN 2-03 Anderso 00:00: n 00 IODINATE Drug Active Low Hives 2015-0 MD D Class 2-03 Anderso CONTRAST 00:00: n MEDIA 00 ADHESIVE Drug Active 2015-0 MD Class 2-03 Anderso 00:00: n 00 ADHESIVE DRUG Active 2015-0 MD TAPE-RAYO 2-03 Anderso ICONES 00:00: n 00 ERYTHROM DRUG Active 2015-0 MD YCIN 2-03 Anderso 00:00: n 00 IODINATE Drug Active Low Hives 2016-0 MD D Class 2-03 Anderso CONTRAST 00:00: n MEDIA 00 ADHESIVE Drug Active 2015-0 MD Class 2-03 Anderso 00:00: n 00 ADHESIVE DRUG Active 2015-0 MD TAPE-RAYO 2-03 Anderso ICONES 00:00: n 00 ERYTHROM DRUG Active 2015-0 MD YCIN 2-03 Anderso 00:00: n 00 IODINATE Drug Active Low Hives 2015-0 MD D Class 2-03 Anderso CONTRAST 00:00: n MEDIA 00 ADHESIVE Drug Active 2015-0 MD Class 2-03 Anderso 00:00: n 00 ADHESIVE DRUG Active 2015-0 MD TAPE-RAYO 2-03 Anderso ICONES 00:00: n 00 ERYTHROM DRUG Active 2015-0 MD YCIN 2-03 Anderso 00:00: n 00 IODINATE Drug Active Low Hives 2015-0 MD D Class 2-03 Anderso CONTRAST 00:00: n MEDIA 00 ADHESIVE Drug Active 2015-0 MD Class 2-03 Anderso 00:00: n 00 ADHESIVE DRUG Active 2015-0 MD TAPE-RAYO 2-03 Anderso ICONES 00:00: n 00 ERYTHROM DRUG Active 2015-0 MD YCIN 2-03 Anderso 00:00: n 00 IODINATE Drug Active Low Hives 2015-0 MD D Class 2-03 Anderso CONTRAST 00:00: n MEDIA 00 ADHESIVE Drug Active 2015-0 MD Class 2-03 Anderso 00:00: n 00 ADHESIVE DRUG Active 2015-0 MD TAPE-RAYO 2-03 Anderso ICONES 00:00: n 00 ERYTHROM DRUG Active 2015-0 MD YCIN 2-03 Anderso 00:00: n 00 IODINATE Drug Active Low Hives 2015-0 MD D Class 2-03 Anderso CONTRAST 00:00: n MEDIA 00 ADHESIVE Drug Active 2015-0 MD Class 2-03 Anderso 00:00: n 00 ADHESIVE DRUG Active 2015-0 MD TAPE-RAYO 2-03 Anderso ICONES 00:00: n 00 ERYTHROM DRUG Active 2015-0 MD YCIN 2-03 Anderso 00:00: n 00 IODINATE Drug Active Low Hives 2015-0 MD D Class 2-03 Anderso CONTRAST 00:00: n MEDIA 00 ADHESIVE Drug Active 2015-0 MD Class 2-03 Anderso 00:00: n 00 ADHESIVE DRUG Active 2015-0 MD TAPE-RAYO 2-03 Anderso ICONES 00:00: n 00 ERYTHROM DRUG Active 2015-0 MD YCIN 2-03 Anderso 00:00: n 00 IODINATE Drug Active Low Hives 2015-0 MD D Class 2-03 Anderso CONTRAST 00:00: n MEDIA 00 ADHESIVE Drug Active 2015-0 MD Class 2-03 Anderso 00:00: n 00 ADHESIVE DRUG Active 2015-0 MD TAPE-RAYO 2-03 Anderso ICONES 00:00: n 00 ERYTHROM DRUG Active 2015-0 MD YCIN 2-03 Anderso 00:00: n 00 IODINATE Drug Active Low Hives 2015-0 MD D Class 2-03 Anderso CONTRAST 00:00: n MEDIA 00 ADHESIVE Drug Active 2015-0 MD Class 2-03 Anderso 00:00: n 00 ADHESIVE DRUG Active 2015-0 MD TAPE-RAYO 2-03 Anderso ICONES 00:00: n 00 ERYTHROM DRUG Active 2015-0 MD YCIN 2-03 Anderso 00:00: n 00 IODINATE Drug Active Low Hives 2015-0 MD D Class 2-03 Anderso CONTRAST 00:00: n MEDIA 00 ADHESIVE Drug Active 2015-0 MD Class 2-03 Anderso 00:00: n 00 ADHESIVE DRUG Active 2015-0 MD TAPE-RAYO 2-03 Anderso ICONES 00:00: n 00 ERYTHROM DRUG Active 2015-0 MD YCIN 2-03 Anderso 00:00: n 00 IODINATE Drug Active Low Hives 2015-0 MD D Class 2-03 Anderso CONTRAST 00:00: n MEDIA 00 ADHESIVE Drug Active 2015-0 MD Class 2-03 Anderso 00:00: n 00 ADHESIVE DRUG Active 2015-0 MD TAPE-RAYO 2-03 Anderso ICONES 00:00: n 00 ERYTHROM DRUG Active 2015-0 MD YCIN 2-03 Anderso 00:00: n 00 IODINATE Drug Active Low Hives 2015-0 MD D Class 2-03 Anderso CONTRAST 00:00: n MEDIA 00 ADHESIVE Drug Active 2015-0 MD Class 2-03 Anderso 00:00: n 00 ADHESIVE DRUG Active 2015-0 MD TAPE-RAYO 2-03 Anderso ICONES 00:00: n 00 ERYTHROM DRUG Active 2015-0 MD YCIN 2-03 Anderso 00:00: n 00 IODINATE Drug Active Low Hives 2015-0 MD D Class 2-03 Anderso CONTRAST 00:00: n MEDIA 00 ADHESIVE Drug Active 2015-0 MD Class 2-03 Anderso 00:00: n 00 ADHESIVE DRUG Active 2015-0 MD TAPE-RAYO 2-03 Anderso ICONES 00:00: n 00 ERYTHROM DRUG Active 2015-0 MD YCIN 2-03 Anderso 00:00: n 00 IODINATE Drug Active Low Hives 2015-0 MD D Class 2-03 Anderso CONTRAST 00:00: n MEDIA 00 ADHESIVE Drug Active 2015-0 MD Class 2-03 Anderso 00:00: n 00 ADHESIVE DRUG Active 2015-0 MD TAPE-RAYO 2-03 Anderso ICONES 00:00: n 00 ERYTHROM DRUG Active 2015-0 MD YCIN 2-03 Anderso 00:00: n 00 IODINATE Drug Active Low Hives 2015-0 MD D Class 2-03 Anderso CONTRAST 00:00: n MEDIA 00 ADHESIVE Drug Active 2015-0 MD Class 2-03 Anderso 00:00: n 00 ADHESIVE DRUG Active 2015-0 MD TAPE-RAYO 2-03 Anderso ICONES 00:00: n 00 ERYTHROM DRUG Active 2015-0 MD YCIN 2-03 Anderso 00:00: n 00 IODINATE Drug Active Low Hives 2015-0 MD D Class 2-03 Anderso CONTRAST 00:00: n MEDIA 00 ADHESIVE Drug Active 2015-0 MD Class 2-03 Anderso 00:00: n 00 ADHESIVE DRUG Active 2015-0 MD TAPE-RAYO 2-03 Anderso ICONES 00:00: n 00 ERYTHROM DRUG Active 2015-0 MD YCIN 2-03 Anderso 00:00: n 00 IODINATE Drug Active Low Hives 2016-0 MD D Class 2-03 Anderso CONTRAST 00:00: n MEDIA 00 ADHESIVE Drug Active 2015-0 MD Class 2-03 Anderso 00:00: n 00 ADHESIVE DRUG Active 2015-0 MD TAPE-RAYO 2-03 Anderso ICONES 00:00: n 00 ERYTHROM DRUG Active 2015-0 MD YCIN 2-03 Anderso 00:00: n 00 IODINATE Drug Active Low Hives 2016-0 MD D Class 2-03 Anderso CONTRAST 00:00: n MEDIA 00 ADHESIVE Drug Active 2015-0 MD Class 2-03 Anderso 00:00: n 00 ADHESIVE DRUG Active 2015-0 MD TAPE-RAYO 2-03 Anderso ICONES 00:00: n 00 ERYTHROM DRUG Active 2015-0 MD YCIN 2-03 Anderso 00:00: n 00 IODINATE Drug Active Low Hives 2015-0 MD D Class 2-03 Anderso CONTRAST 00:00: n MEDIA 00 ADHESIVE Drug Active 2015-0 MD Class 2-03 Anderso 00:00: n 00 ADHESIVE DRUG Active 2015-0 MD TAPE-RAYO 2-03 Anderso ICONES 00:00: n 00 ERYTHROM DRUG Active 2015-0 MD YCIN 2-03 Anderso 00:00: n 00 IODINATE Drug Active Low Hives 2015-0 MD D Class 2-03 Anderso CONTRAST 00:00: n MEDIA 00 ADHESIVE Drug Active 2015-0 MD Class 2-03 Anderso 00:00: n 00 ADHESIVE DRUG Active 2015-0 MD TAPE-RAYO 2-03 Anderso ICONES 00:00: n 00 ERYTHROM DRUG Active 2015-0 MD YCIN 2-03 Anderso 00:00: n 00 IODINATE Drug Active Low Hives 2015-0 MD D Class 2-03 Anderso CONTRAST 00:00: n MEDIA 00 ADHESIVE Drug Active 2015-0 MD Class 2-03 Anderso 00:00: n 00 ADHESIVE DRUG Active 2015-0 MD TAPE-RAYO 2-03 Anderso ICONES 00:00: n 00 ERYTHROM DRUG Active 2015-0 MD YCIN 2-03 Anderso 00:00: n 00 IODINATE Drug Active Low Hives 2015-0 MD D Class 2-03 Anderso CONTRAST 00:00: n MEDIA 00 ADHESIVE Drug Active 2015-0 MD Class 2-03 Anderso 00:00: n 00 ADHESIVE DRUG Active 2015-0 MD TAPE-RAYO 2-03 Anderso ICONES 00:00: n 00 ERYTHROM DRUG Active 2015-0 MD YCIN 2-03 Anderso 00:00: n 00 IODINATE Drug Active Low Hives 2016-0 D Class 2-03 Anderso CONTRAST 00:00: n MEDIA 00 ADHESIVE Drug Active 2016-0 MD Class 2-03 Anderso 00:00: n 00 Medications This patient has no known medications. Vital Signs Vital Name Observation Time Observation Value Comments Source HEIGHT 2020-09-19 08:15:00 185 cm WEIGHT 2020-09-19 08:15:00 104 kg HEIGHT 2020-03-30 09:42:00 185 cm WEIGHT 2020-03-30 09:42:00 104.9 kg Procedures This patient has no known procedures. Encounters Start End Encounter Admission Attending Care Care Encounter Source Date/Time Date/Time Type Type Clinicians Facility Department ID 2023-02-18 2023-02-18 [facility] MDA [id number] 07:48:09 23:59:00 NIRMALA KABA 2023-02-18 2023-02-18 Outpatient [facility] MDA MDA [id number] 12:39:07 17:13:36 NIRMALA KABA derso payal 2023-02-18 2023-02-18 Outpatient [facility] MDA MDA [id number] 09:07:00 09:07:00 NIRMALA KABAso payal 2023-01-04 2023-01-04 Outpatient [facility], MDA MDA [id number] 06:44:30 23:59:00 STEVEN moe 2023-01-03 2023-01-03 Outpatient [facility], MDA MDA [id number] 08:06:13 23:59:00 KAYKAY moe 2023-01-03 2023-01-03 Outpatient [facility], MDA MDA [id number] 06:53:23 08:05:00 STEVEN moe 2023-01-02 2023-01-02 Outpatient [facility], MDA MDA [id number] 06:52:06 23:59:00 STEVEN moe 2023-01-01 2023-01-01 Outpatient [facility], MDA MDA [id number] 06:44:28 23:59:00 STEVEN moe 2022-12-31 2022-12-31 Outpatient [facility], MDA MDA [id number] 08:33:46 23:59:00 STEVEN moe 2022-12-28 2022-12-28 Outpatient [facility], MDA MDA [id number] MD 15:04:28 23:59:00 STEVEN moe 2022-12-27 2022-12-27 Outpatient [facility], MDA MDA [id number] MD 09:15:02 23:59:00 STEVEN moe 2022-12-26 2022-12-26 Outpatient [facility], MDA MDA [id number] MD 09:03:14 23:59:00 KAYKAY moe 2022-12-26 2022-12-26 Outpatient [facility], MDA MDA [id number] MD 07:15:19 09:02:00 STEVEN moe 2022-12-25 2022-12-25 Outpatient [facility], MDA MDA [id number] 07:31:12 23:59:00 STEVEN moe 2022-12-24 2022-12-24 Outpatient [facility], MDA MDA [id number] 08:18:51 23:59:00 STEVEN moe 2022-12-19 2022-12-19 Outpatient [facility] DOMINIK, MDA MDA [id number] MD 10:39:45 23:59:00 GREG moe 2022-12-19 2022-12-19 Outpatient [facility] MDA MDA [id number] 08:30:53 10:38:00 NIRMALA KABA n 2022-12-17 2022-12-17 Outpatient [facility], MDA MDA [id number] 09:16:12 10:42:51 CINTHIA moe 2022-12-14 2022-12-14 Outpatient [facility], MDA MDA [id number] 08:32:54 08:32:54 GREG moe 2022-12-13 2022-12-13 Outpatient [facility] MDA MDA [id number] 10:26:09 10:26:09 NIRMALA KABA derso n 2022-12-12 2022-12-12 Outpatient [facility] MDA MDA [id number] 06:52:02 23:59:00 EDRA NIRMALA An derso n 2022-12-12 2022-12-12 Outpatient [facility] MDA MDA [id number] 09:55:42 12:07:01 EDRA NIRMALA An derso n 2022-12-12 2022-12-12 Outpatient [facility] MDA MDA [id number] 07:14:03 07:14:03 EDRA NIRMALA An derso n 2022-08-20 2022-08-20 Outpatient [facility] MDA MDA [id number] 07:23:52 23:59:00 EDRA NIRMALA An derso n 2022-08-20 2022-08-20 Outpatient [facility] MDA MDA [id number] 11:43:30 14:43:06 SENDY NIRMALA An derso n 2022-08-20 2022-08-20 Outpatient [facility] MDA MDA [id number] 08:54:27 08:54:27 SENDY NIRMALA An derso n 2022-05-22 2022-05-22 Outpatient [facility] MDA MDA [id number] 07:27:45 23:59:00 EDRA NIRMALA An derso n 2022-05-22 2022-05-22 Outpatient [facility] MDA MDA [id number] 09:05:58 09:39:09 SENDY NIRMALA An derso n 2022-02-21 2022-02-21 Outpatient [facility] MDA MDA [id number] 06:04:15 23:59:00 EDRA NIRMALA An derso n 2022-02-21 2022-02-21 Outpatient [facility] MDA MDA [id number] 12:29:09 15:22:02 EDRA NIRMALA An derso n 2022-02-21 2022-02-21 Outpatient [facility] MDA MDA [id number] 07:11:08 07:11:08 SENDY NIRMALA An derso n 2021-11-21 2021-11-21 Outpatient [facility] MDA MDA [id number] 08:25:09 23:59:00 EDRA, NIRMALA An derso n 2021-11-21 2021-11-21 Outpatient [facility] MDA MDA [id number] MD 08:50:42 08:50:42 EDRA, NIRMALA An derso n 2021-08-21 2021-08-21 Outpatient [facility] MDA MDA [id number] MD 10:12:42 15:10:13 EDRA, NIRMALA An derso n 2021-08-21 2021-08-21 Outpatient [facility] MDA MDA [id number] MD 07:40:50 07:40:50 EDRA, NIRMALA An derso n 2021-08-21 2021-08-21 Outpatient [facility] MDA MDA [id number] 06:02:24 06:02:24 EDRA, NIRMALA An derso n 2021-08-20 2021-08-20 Outpatient [facility] MDA MDA [id number] MD 10:28:06 23:59:00 EDRA, NIRMALA An derso n 2021-08-20 2021-08-20 Outpatient [facility] MDA MDA [id number] 10:12:07 10:27:00 EDRA, NIRMALA An derso n 2021-06-19 2021-06-19 Outpatient [facility] MDA MDA [id number] 06:06:21 23:59:00 EDRA, NIRMALA An derso n 2021-04-03 2021-04-03 Outpatient EL MDA MDA [id number] MD 06:05:42 23:59:00 Jean-Paul o n 2021-04-03 2021-04-03 Outpatient [facility] MDA MDA [id number] 07:29:01 09:15:42 EDRA, NIRMALA An derso n 2021-03-06 2021-03-06 Outpatient [facility] MDA MDA [id number] 09:27:07 10:35:06 EDRA, NIRMALA An derso n 2021-02-20 2021-02-20 Outpatient [facility] MDA MDA [id number] 15:38:42 16:49:30 EDRA NIRMALA Magy derso n 2021-01-25 2021-01-25 [facility] MDA [id number] 11:57:30 23:59:00 EDRA NIRMALA Magy derso n 2021-01-25 2021-01-25 [facility] MDA [id number] MD 08:56:56 11:50:32 EDRA NIRMALAALMA Bhatti derso n 2021-01-24 2021-01-24 Outpatient [facility] MDA MDA [id number] 09:17:32 23:59:00 Jean-Paul o n 2021-01-24 2021-01-24 Outpatient EL MDA MDA [id number] MD 11:28:43 11:28:43 Jean-Paul o n 2020-09-22 2020-09-22 Outpatient [facility] MDA MDA [id number] 06:03:02 23:59:00 Jean-Paul o n 2020-09-22 2020-09-22 Outpatient [facility] MDA MDA [id number] 15:09:42 16:24:54 EDRA NIRMALA Magy derso n 2020-09-22 2020-09-22 Outpatient [facility]ZMENDI MDA MDA [id number] 10:38:49 10:38:49 Jean-Paul o n 2020-09-22 2020-09-22 Outpatient [facility]ZMEND[facility] MDA MDA [id number] 08:59:32 08:59:32 Jean-Paul o n 2020-09-19 2020-09-19 Outpatient [facility] MDA MDA [id number] 06:04:01 23:59:00 Jean-Paul o n 2020-09-19 2020-09-19 Outpatient [facility] MDA MDA [id number] 14:53:13 14:53:13 Jean-Paul o n 2020-09-19 2020-09-19 [facility] MDA [id number] 08:08:25 14:29:04 EDRA NIRMALA An derso n 2020-06-30 2020-06-30 Outpatient [facility] ARIZMENDI MDA MDA [id number] 06:04:47 23:59:00 Jean-Paul o n 2020-03-30 2020-03-30 Outpatient [facility] MDA MDA [id number] 09:29:40 13:41:55 NIRMALA KABA 2020-03-29 2020-03-29 Outpatient [facility] MDA MDA [id number] 07:39:34 23:59:00 Jean-Paul o n 2020-03-29 2020-03-29 Outpatient [facility] ARIZMENDI MDA MDA [id number] 12:42:40 12:42:40 Jean-Paul o n 2020-03-29 2020-03-29 Outpatient [facility] ARIZMENDI MDA MDA [id number] 11:15:20 11:15:20 Jean-Paul o n 2020-03-29 2020-03-29 Outpatient [facility] ARIZMENDI MDA MDA [id number] 08:30:14 08:30:14 Jean-Paul o n 2019-12-29 2019-12-29 Outpatient [facility] MDA MDA [id number] 06:05:29 23:59:00 Jean-Paul o n Results This patient has no known results.
[2023-03-13] MEDS ORDERED: CEFTRIAXONE 1000 MG/VIAL ONE (10:40)
[2023-03-13] MEDS ORDERED: NA CHLORIDE 0.9% 50 ML ONE (10:40)
[2023-03-13] MEDS ORDERED: IBUPROFEN 400 MG TAB ONE (10:40)
--- NOTE | 2023-03-13 11:05 | RAD REPORT ---
EXAM DESCRIPTION: RAD - Chest Single View - 03/13/2023 10:29 am CLINICAL HISTORY: FEVER COMPARISON: Abdomen 1 View (KUB) dated 03/12/2018; Abdomen 1 View (KUB) dated 03/13/2017; Abdomen 1 View (KUB) dated 03/12/2016; ABDOMEN 1 VIEW KUB dated 03/10/2014 FINDINGS: Lines: None. Lungs: No evidence of edema or pneumonia. Pleural: No significant pleural effusions or pneumothorax. Cardiac: The heart size is within normal limits. Mediastinum: Within normal limits. Bones: No acute fractures. Other: None IMPRESSION: No acute cardiopulmonary disease.
[2023-03-13 11:09] LABS: Absolute Lymphocytes (CBC) 0.4 K/uL (0.7-4.9); Hematocrit 35.1 % (39.6-49.0); Lymphocytes % 2.9 % (15.3-44.8); MCV 89.8 fL (80-100); MPV 8.2 fL (7.6-11.3); Platelets 232 thou/uL (152-406)
[2023-03-13 11:34] LABS: Albumin 3.2 g/dL (3.4-5.0); Bilirubin Total 0.7 mg/dL (0.2-1.0); Potassium 2.8 mEq/L (3.5-5.1); Protein, Total 6.2 g/dL (6.4-8.2)
[2023-03-13 12:04] LABS: Specific Gravity 1.022 (1.005-1.030); Urine Bacteria None Seen /HPF (<20); Urine Bilirubin NEGATIVE (Negative); Urine Blood Negative (Negative); Urine Clarity Clear (Clear); Urine Color Yellow (Yellow); Urine Glucose NEGATIVE (Negative); Urine Mucus Slight /HPF (None Seen); Urine Protein TRACE (Negative); Urine Urobilinogen Normal (Normal); Urine pH 6.5 (5.0-7.0)
[2023-03-13] MEDS ORDERED: POTASSIUM CL SA 10 MEQ TAB PO ONE (12:15)
--- NOTE | 2023-03-13 12:17 | ER ---
Nurse's Notes [facility] [place] Name: Liz Barrientos Age: 77 yrs Sex: Male : 1945 Arrival Date: 03/13/2023 Time: 10:10 Bed 19 Private MD: Diagnosis: Viral Illness Presentation: 03/13 10:20 Chief complaint: EMS states: Woke up this morning w/ a fever of 104, no other ph complaints, 1 gram of Tylenol given PO, 20G IV to L hand, NS bolus administered, VSS, BGL 130s. Coronavirus screen: Vaccine status: Patient reports receiving the 2nd dose of the covid vaccine. Ebola Screen: No symptoms or risks identified at this time. Initial Sepsis Screen: Does the patient meet any 2 criteria? Temp <36.0*C (96.8*F)) or > 38.3*C (100.9*F). Does the patient have a suspected source of infection? No. Patient's initial sepsis screen is negative. Risk Assessment: Do you want to hurt yourself or someone else? Patient reports no desire to harm self or others. Onset of symptoms was March 13, 2023. 10:20 Method Of Arrival: EMS: [facility] ph 10:20 Acuity: MOLLY 3 ph Historical: - Allergies: 11:09 Iodinated Contrast Media - IV Dye; ph 11:09 Erythromycin; ph 11:09 Tape; ph 11:09 Adhesives; ph 11:09 Bactrim; ph - Immunization history:: Adult Immunizations up to date, Client reports receiving the 2nd dose of the Covid vaccine, Pneumococcal vaccine is up to date, Flu vaccine is up to date. - Social history:: Smoking status: Patient reports use of chewing tobacco. Screenin:43 [facility] ED Fall Risk Assessment (Adult) History of falling in the last 3 months, ph including since admission No falls in past 3 months (0 pts) Confusion or Disorientation No (0 pts) Intoxicated or Sedated No (0 pts) Impaired Gait No (0 pts) Mobility Assist Device Used No (0 pt) Altered Elimination No (0 pt) Score/Fall Risk Level 0 - 2 = Low Risk Oriented to surroundings, Maintained a safe environment, Provided non-skid footwear, Hourly rounding (assess needs \T\ fall precautionary measures) done. Abuse screen: Denies threats or abuse. Denies injuries from another. Nutritional screening: No deficits noted. Tuberculosis screening: No symptoms or risk factors identified. Assessment: 11:42 General: Appears in no apparent distress. Behavior is calm, cooperative, appropriate ph for age, Reports chills for fever for 0-12 hours. Pain: Denies pain. Neuro: Level of Consciousness is awake, alert, obeys commands, Oriented to person, place, time, situation. Cardiovascular: Capillary refill < 3 seconds in bilateral fingers Patient's skin is warm and dry. Respiratory: Airway is patent Respiratory effort is even, unlabored, Respiratory pattern is regular, symmetrical, Denies cough, shortness of breath. GI: Abdomen is non-distended, Patient currently denies abdominal pain, diarrhea, nausea, vomiting. : No signs and/or symptoms were reported regarding the genitourinary system. Derm: Skin is pink, warm \T\ dry. flushed. Musculoskeletal: Circulation, motion, and sensation intact. Range of motion: intact in all extremities. 12:17 Reassessment: Patient and/or family updated on plan of care and expected duration. Pain ph level reassessed. Patient is alert, oriented x 3, equal unlabored respirations, skin warm/dry/pink. Patient states feeling better. Patient states symptoms have improved. Vital Signs: 10:20 BP 137 / 86; Pulse 73; Resp 18; Temp 102.8(O); Pulse Ox 96% on R/A; Weight 92.53 kg; ph Height 6 ft. 1 in. ; 12:00 BP 127 / 57; Pulse 68; Resp 18; Temp 99.1; Pulse Ox 96% on R/A; ph 10:20 Body Mass Index 26.91 (92.53 kg, 185.42 cm) ph ED Course: 10:17 Patient arrived in ED. ph 10:18 Kenyon Gentile MD is Attending Physician. ec2 10:31 Chest Single View XRAY In Process Unspecified. EDMS 11:04 Abigail Shah, MATT is Primary Nurse. ph 11:05 COVID-19 SARS RT PCR Sent. ph 11:05 Influenza Screen (a \T\ B) Sent. ph 11:09 Triage completed. ph 11:43 Arm band placed on Patient placed in an exam room. ph 11:44 Patient has correct armband on for positive identification. Placed in gown. Bed in low ph position. Call light in reach. Side rails up X2. Client placed on continuous cardiac and pulse oximetry monitoring. NIBP monitoring applied. 11:54 Blood Culture Adult (2) Sent. ph 11:55 Urinalysis w/ reflexes Sent. ph 12:00 Urinalysis w/ reflexes Sent. ph 12:17 No provider procedures requiring assistance completed. IV discontinued, intact, ph bleeding controlled, No redness/swelling at site. Pressure dressing applied. Administered Medications: 11:05 Drug: Ibuprofen PO 800 mg PO once Route: PO; ph 12:18 Follow up: Response: No adverse reaction ph 12:13 Not Given (Physician Discretion): rocephin1 grams IV at calculated rate once; Given ph slow IV push per pharmacy instructions 12:13 Drug: Potassium Chloride PO 40 mEq PO once Route: PO; ph 12:18 Follow up: Response: No adverse reaction ph Medication: 11:43 VIS not applicable for this client. ph Outcome: 12:16 Discharge ordered by ec2 12:31 Discharged to home ambulatory, ph 12:31 Condition: stable 12:31 Discharge instructions given to patient, Instructed on discharge instructions, follow up and referral plans. Demonstrated understanding of instructions, follow-up care, 12:31 Patient left the ED. ph Signatures: Dispatcher [employer] Abigail Sánchez RN RN ph Seferino, MD [place] ec2 Corrections: (The following items were deleted from the chart) 11:11 11:09 Allergies: Iodine; ph ph
--- NOTE | 2023-03-13 12:17 | EDPHYS ---
Physician Documentation [facility] Name: Liz Barrientos Age: 77 yrs Sex: Male : 1945 Arrival Date: 03/13/2023 Time: 10:10 Bed 19 Private MD: ED Physician Kenyon Gentile HPI: 03/13 10:18 This 77 yrs old Male presents to ER via Unassigned with complaints of Fever. ec2 10:19 Patient arrives today due to concern for fever. Patient has been having malaise for the ec2 past several days, EMS was called today due to increased fatigue and generalized weakness. Patient reports no nausea or vomiting, no cough or cold symptoms however is a little bit confused. Patient reports no abdominal pain, denies any difficulty breathing. Does have a history of diabetes. EMS reports that they had given the patient 1 g of Tylenol prior to arrival, documented fever of 104 F.. Historical: - Allergies: 11:09 Iodinated Contrast Media - IV Dye; ph 11:09 Erythromycin; ph 11:09 Tape; ph 11:09 Adhesives; ph 11:09 Bactrim; ph - Immunization history:: Adult Immunizations up to date, Client reports receiving the 2nd dose of the Covid vaccine, Pneumococcal vaccine is up to date, Flu vaccine is up to date. - Social history:: Smoking status: Patient reports use of chewing tobacco. ROS: 10:19 Constitutional: as per hpi ec2 Exam: 10:19 Constitutional: GEN: NAD Head: atraumatic Eyes: EOMI Ears: External ears are ec2 normal. CV: regular rate LUNGS: no respiratory distress, no wheezes, no rales, no rhonchi ABD: non-distended, soft, nontender, no guarding, not rigid SKIN: no evidence of rashes MSK: no evidence of trauma NEURO: moves all extremities equally, slightly confused individual Vital Signs: 10:20 BP 137 / 86; Pulse 73; Resp 18; Temp 102.8(O); Pulse Ox 96% on R/A; Weight 92.53 kg; ph Height 6 ft. 1 in. ; 12:00 BP 127 / 57; Pulse 68; Resp 18; Temp 99.1; Pulse Ox 96% on R/A; ph 10:20 Body Mass Index 26.91 (92.53 kg, 185.42 cm) ph MDM: 10:12 Patient medically screened. ec2 10:19 ED course: Patient arrives today due to concern for fever. Examination remarkable for ec2 well-appearing nontoxic individual is otherwise in no acute distress who has some slight confusion noted with objective fever with EMS. Will obtain a septic work-up, empirically treat with antibiotics. Currently considering processes such as urinary tract infection, electrolyte disturbances, pneumonia, viral infection.. 11:09 ED course: Chest x-ray independently reviewed and interpreted by me, shows no acute ec2 intrathoracic process.. 11:34 ED course: EKG independently reviewed and interpreted by me, shows normal sinus rhythm, ec2 rate of 63, no acute ST segment elevations, intervals nonconcerning. . 11:39 ED course: CBC with slight leukocytosis at 12.2, metabolic profile shows slight ec2 hypokalemia 2.8 otherwise liver profile is reassuring, negative lactic acid. . 12:05 ED course: Urine is noninfectious appearing. On reassessment patient with improving ec2 vital signs, resolved fever. No identification of acute bacterial infection identified at this time, I suspect patient has a viral process causing patient's symptoms today. Otherwise I have a low index suspicion for processes such as bacteremia, endocarditis, meningitis given patient's overall well appearance. . 12:15 ED course: On reassessment family reports that he recently received a vaccination which ec2 may be contributing to his inflammatory response today. My reassessment patient states that he does not have any other complaints and family reports that he is back to his functional baseline although the fever has resolved. I instructed them on fever precautions and return precautions, I did repeat examination which showed no focal evidence of bacterial infection. I suspect a viral infection causing the patient's symptoms I will discharge him to home, instructed on return precautions.. 12:17 Data reviewed: vital signs. ec2 03/13 10:19 Order name: Blood Culture Adult (2) ec2 03/13 10:19 Order name: CBC with Diff; Complete Time: 11:21 ec2 03/13 10:19 Order name: CMP; Complete Time: 11:37 ec2 03/13 10:19 Order name: Lactate w/ 2H reflex if indic.; Complete Time: 11:37 ec2 03/13 10:19 Order name: Urinalysis w/ reflexes; Complete Time: 12:04 ec2 03/13 10:19 Order name: COVID-19 SARS RT PCR; Complete Time: 11:59 ec2 03/13 10:19 Order name: Influenza Screen (a \T\ B); Complete Time: 11:37 ec2 03/13 10:19 Order name: Chest Single View XRAY; Complete Time: 11:09 ec2 03/13 10:19 Order name: EKG; Complete Time: 10:20 ec2 03/13 10:19 Order name: Accucheck; Complete Time: 11:04 ec2 03/13 10:19 Order name: Cardiac monitoring; Complete Time: 11:05 ec2 03/13 10:19 Order name: EKG - Nurse/Tech; Complete Time: 11:37 ec2 03/13 10:19 Order name: IV Saline Lock - Large Bore; Complete Time: 11:05 ec2 03/13 10:19 Order name: Labs collected and sent; Complete Time: 11:05 ec2 03/13 10:19 Order name: O2 Per Protocol; Complete Time: 11:05 ec2 03/13 10:19 Order name: O2 Sat Monitoring; Complete Time: 11:05 ec2 03/13 10:19 Order name: Vital Signs; Complete Time: 11:05 ec2 Administered Medications: 11:05 Drug: Ibuprofen PO 800 mg PO once Route: PO; ph 12:18 Follow up: Response: No adverse reaction ph 12:13 Not Given (Physician Discretion): rocephin1 grams IV at calculated rate once; Given ph slow IV push per pharmacy instructions 12:13 Drug: Potassium Chloride PO 40 mEq PO once Route: PO; ph 12:18 Follow up: Response: No adverse reaction ph Disposition Summary: 03/13/23 12:16 Discharge Ordered Notes: Location: Home ec2 Condition: Stable ec2 Diagnosis - Viral Illness ec2 Discharge Instructions: - Discharge Summary Sheet ec2 - Fever, Adult, [id number] ec2 Forms: - Medication Reconciliation Form ec2 - Thank You Letter ec2 - Antibiotic Education ec2 - Prescription Opioid Use ec2 - Patient Portal Instructions ec2 - Leadership Thank You Letter ec2 Signatures: Dispatcher Abigail Watt RN RN ph Kenyon Gentile MD MD ec2 Corrections: (The following items were deleted from the chart) 10:18 10:18 Patient medically screened. ec2 ec2 11:11 11:09 Allergies: Iodine; ph ph 12:06 12:05 ED course: Urine is noninfectious appearing. On reassessment patient with ec2 improving vital signs, resolved fever. No identification of acute bacterial infection identified at this time, I suspect patient has a viral process causing patient's symptoms today.. ec2
--- NOTE | 2023-03-14 08:00 | EKG ---
Test Date: 2023-03-13 Test Time: 11:31:12 Animal Sticker: JUAN ANTONIO MEASUREMENT RESULTS: Intervals: Rate: 63 MN: 152 QRSD: 98 QT: 272 QTc: 278 [place]: P: 53 MN: 152 QRS: 16 T: 269 INTERPRETIVE STATEMENTS: Normal sinus rhythm Nonspecific ST and T wave abnormality Abnormal ECG Compared to ECG 11/11/2012 13:22:06 ST (T wave) deviation now present Sinus bradycardia no longer present Electronically Signed On 03-14-23 07:57:46 CDT by Sacha Nunez
[2023-03-14 15:50] VITALS: BP 127/57; TEMP 99.1; O2SAT 96
== END 2023-03-13 12:31 | disposition home or self-care (01) ==
LOC: ER 10:10
DX: B34.9 Viral infection, unspecified (principal); F17.220 Nicotine dependence, chewing tobacco, uncomplicated; Z20.822 Contact with and (suspected) exposure to COVID-19; Z88.1 Allergy status to other antibiotic agents; Z88.3 Allergy status to other anti-infective agents; Z91.041 Radiographic dye allergy status; Z91.048 Other nonmedicinal substance allergy status
CPT/HCPCS: 87040 ×2; 85025; 81001; 36415; 83605; 80053; 87635; 87804 ×2; 71045; J0696; 93005

== ENCOUNTER 2023-03-14 17:22 | Inpatient (IN) | payer OTHER ==
--- OUTSIDE RECORDS SUMMARY | 2023-03-14 18:00 | XMS REPORT | Clinical Summary ---
:1945 Author Organization [facility] MD [place] [facility] Address [address] [place] [address] Care Team Providers Name Role Phone Michael Tse MD Primary Care Provider Derek Reagan MD Unavailable Echo Goodwin MD Unavailable [phone] Echo Goodwin MD Unavailable [phone] Ab Mckeon MD Unavailable [phone] Vinicius Quintana MD Unavailable Unavailable Michael Tes MD Unavailable Swathi Santoro Unavailable Darius Aguirre MD Unavailable Yayo Granados Unavailable Herman Collazo Unavailable Shane Burch MD Unavailable [phone] Kendra Rust Unavailable Zeeshan Lunsford MD [...] excision Ventricular premature beats 02/07/2012 Overview: 02/17 [facility] regulatory import Erectile dysfunction following radical prostatectomy Overview: has vacuum device Encounters Date Type Department Care Team Description 03/12/2023 Specialty Pharmacy MDA AMB RX SPEC Brandon Kovacs [address], [place] [address] 02/18/2023 Follow-Up Genitourinary Cancer Rubina-Saavedr Adeno carcinoma of prostate (Primary Dx); 2:00 PM CDT Center - Oncology aShane MD 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 [address] [facility], 7th [place] [address] 02/18/2023 Ancillary Procedure PET Imaging Rubina-Saavedr Adenocarcinoma of 10:00 AM [address] BlShane tobias MD prostate CDT [facility], 6th [place] [address] 02/18/2023 Hospital Encounter Diagnostic Rubina-Saavedr Adenoca rcinoma of prostate 7:48 AM CDT Laboratory Center Shane portillo MD Discharge Disposition: Home - [address] 02/18/2023 [facility] 11:59 [place] [address] CDT 02/18/2023 Orders Only Genitourinary Cancer Katharina Flores, Center - Oncology PharmD [address] [facility], 7th [place] [address] 02/18/2023 Travel 01/16/2023 Specialty Pharmacy MDA AMB RX SPEC ACB Brandon Abrams [address] [facility] C, [place] [address] 01/16/2023 Orders Only Genitourinary Cancer Alexus Lowery, Center - Oncology RADIOLOGY ASSISTANT [address] [facility], 7th [place] [address] 01/16/2023 Refill Genitourinary Cancer Alexus Lowery, Adeno carcinoma of Center - Oncology RADIOLOGY ASSISTANT prostate [address] [facility], 7th [place] [address] 01/04/2023 Hospital Encounter Radiation Treatment Melonie Tse 6:44 AM CDT Hudgins MD Michael Disposition: Home - [address] 01/04/2023 Main Bldg 11:59 PM [place] [address] 01/04/2023 Documentation Radiation Treatment Jonn Hudgins Zeeshan Hill MD [address] Bldg, 1st [place] [address] 01/04/2023 Travel 01/03/2023 Hospital Encounter Radiation Treatment JonnMelonie 8:06 AM CDT Center Zeeshan Hill MD Disposition: Home - [address] 01/03/2023 Main Bldg, 1st Floor 11:59 PM [place] [address] 01/03/2023 Hospital Encounter Radiation Treatment DedrickMelonie 6:53 AM CDT Center MD Michael Disposition: Home - [address] 01/03/2023 Main Bldg 8:05 [place] [address] 01/03/2023 Travel 01/02/2023 Hospital Encounter Radiation Treatment DongcassandraMelonie 6:52 AM CDT Tang Rodriguez MD Disposition: Home - [address] 01/02/2023 Main Bldg 11:59 PM [place] [address] 01/02/2023 Refill Genitourinary Cancer Rubina-Saavedr Adeno carcinoma of Center - Oncology aShane MD prostate [address] [facility], 7th [place] [address] 01/02/2023 Travel 01/01/2023 Hospital Encounter Radiation Treatment Melonie Tse 6:44 AM CDT Tang Rodriguez MD Disposition: Home - [address] 01/01/2023 Main Bldg 11:59 [place] [address] 01/01/2023 Travel 12/31/2022 Hospital Encounter Radiation Treatment Melonie Tse 8:33 AM CDT Tang Rodriguez MD Disposition: Home - [address] 12/31/2022 Main Bldg 11:59 [place] [address] 12/31/2022 Travel 12/28/2022 Hospital Encounter Radiation Treatment Melonie Tse 3:04 PM CDT Tang Rodriguez MD Disposition: Home - [address] 12/28/2022 Main Bldg 11:59 PM [place] [address] 12/28/2022 Travel 12/27/2022 Hospital Encounter Radiation Treatment Melonie Tse 9:15 AM CDT Tang Rodriguez MD Disposition: Home - [address] 12/27/2022 Main Bldg 11:59 [place] [address] 12/27/2022 Travel 12/26/2022 Hospital Encounter Radiation Treatment Melonie Lunsford 9:03 AM CDT Hudgins Zeeshan Hill MD Disposition: Home - [address] 12/26/2022 Main Bldg, 1st Floor 11:59 PM [place] [address] 12/26/2022 Hospital Encounter Radiation Treatment Melonie Tse 7:15 AM CDT Tang Rodriguez MD Disposition: Home - [address] 12/26/2022 Main Bldg 9:02 AM [place] [address] 12/26/2022 Travel 12/25/2022 Hospital Encounter Radiation Treatment Melonie Tse 7:31 AM CDT Tang Rodriguez MD Disposition: Home - [address] 12/25/2022 Main Bldg 11:59 [place] [address] 12/25/2022 Travel 12/24/2022 Hospital Encounter Radiation Treatment Melonie Tse 8:18 AM CDT Center MD Michael Disposition: Home - [address] 12/24/2022 Main Bldg 11:59 [place] [address] 12/24/2022 Documentation Radiation Treatment Tang Lunsford MD [address] Main Bldg, 1st [place] [address] 12/24/2022 Travel 12/19/2022 Hospital Encounter Radiation Treatment Me Danny tastatic malignant neoplasm to bone 10:39 AM Hudgins Abby Gooden, Discharge Disposition: Home CDT - [address] RADIOLOGY ASSISTANT 12/19/2022 Main Bldg Jonn, 11:59 PM near Elevator [place] [address] 12/19/2022 Hospital Encounter Radiation Oncology Rubina-Linwoodfredir Adenocarcinoma of prostate 8:30 AM CDT Ravi5 Shane Dasilva MD Discharge Disposition: Home - Main Bldg, 1st Floor Jonn, 12/19/2022 near Elevator Zeeshan Hill MD 10:38 [place] [address] CDT [phone] 12/19/2022 Documentation Radiation Treatment [facility] Zeeshan Hill MD [address] Main Bldg, 1st [place] [address] 12/19/2022 Documentation Radiation Treatment [facility] Zeeshan Hill MD [address] Main Bldg, 1st [place] [address] 12/19/2022 Orders Only Radiation Treatment Tang Delgado, [address] RADIOLOGY ASSISTANT Main [place] [address] 12/19/2022 Travel 12/18/2022 Orders Only Radiation Treatment Juan Jose Delgadoat ic malignant Center [facility], neoplasm to bone [address] RADIOLOGY ASSISTANT (Primary Dx) Main [place] [address] 12/17/2022 Office Visit [facility] Scott Morrison, Metastatic malignant 10:00 AM Yoni Myles MD neoplasm to bone CDT Main Bldg, 9th [place] [address] 12/17/2022 Travel 12/14/2022 Ancillary Procedure Me Kacie tastatic malignant 9:15 AM CDT [facility] Abby , neoplasm to bone [address] [facility] RADIOLOGY ASSISTANT [address] [place] [address] 12/14/2022 Travel 12/13/2022 Ancillary Procedure MD Nadeem Cespedes-Trinyr Adenocarcinoma of 11:15 AM Shane Horner MD prostate CDT [address] [place] [address] 12/13/2022 Telephone Radiation Treatment GastelumTang, RN [address] Main [place] [address] 12/13/2022 Orders Only Radiation Treatment Danny, Metastat ic malignant Center Anastasiaa R, neoplasm to bone [address] RADIOLOGY ASSISTANT (Primary Dx) Main [place] [address] 12/13/2022 Travel 12/12/2022 Follow-Up Genitourinary Cancer Rubina-Saavedr Adeno carcinoma of prostate (Primary Dx); 11:30 AM Center - Oncology Shane portillo MD 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 CDT [address] [facility], 7th [place] [address] 12/12/2022 Ancillary Procedure PET Imaging Rubina-Saavedr Adenocarcinoma of 8:00 AM CDT [address] Shane Troy MD prostate [facility], 6th [place] [address] 12/12/2022 Hospital Encounter Diagnostic Rubina-Saavedr Adenoca rcinoma of prostate 6:52 AM CDT Laboratory Center Shane portillo MD Discharge Disposition: Home - [address] 12/12/2022 [facility] 11:59 [place] [address] CDT 12/12/2022 Travel 10/18/2022 Specialty Pharmacy MDA AMB RX SPEC [facility] [place], [address] [place] [address] 08/20/2022 Follow-Up Genitourinary Cancer Rubina-Saavedr Adeno carcinoma of prostate (Primary Dx); 12:00 PM Center - Oncology Shane portillo MD 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; CDT [address] Hypertension [facility], 7th [place] [address] 08/20/2022 Ancillary Procedure PET Imaging Rubina-Saavedr Adenocarcinoma of 9:30 AM CDT [address] Shane Troy MD prostate [facility], 6th [place] [address] 08/20/2022 Hospital Encounter Diagnostic Rubina-Saavedr Adenoca rcinoma of prostate 7:23 AM CDT Laboratory Shane Jackson MD Discharge Disposition: Home - [address] 08/20/2022 [facility] 11:59 [place] [address] CDT 08/20/2022 Travel 07/24/2022 Specialty Pharmacy MDA AMB RX SPEC ACB [place] Brandon [address] C, [place] [address] 05/22/2022 Infusion Ambulatory Treatment Rubina-Saavedr Adeno carcinoma of 10:[address] [facility] Shane Lan MD prostate (Primary PHYSICIAN OFFICE NURSE [address], Jovita Dx) [address] Blanca Gooden RN [facility], 8th [place] [address] 05/22/2022 Hospital Encounter Diagnostic Rubina-Saavedr Adenoca rcinoma of prostate 7:27 AM PHYSICIAN OFFICE NURSE Laboratory Shane Jackson MD Discharge Disposition: Home - [address] 05/22/2022 [facility] 11:59 [place] [address] PHYSICIAN OFFICE NURSE 05/22/2022 Travel 04/25/2022 Specialty Pharmacy MDA AMB RX SPEC ACB [place], Brandon [address] C, [place] [address] 04/10/2022 Orders Only Genitourinary Cancer Alexus Lowery, Adeno carcinoma of Center - Oncology RADIOLOGY ASSISTANT prostate [address] [facility], 7th [place] [address] 04/09/2022 Refill Genitourinary Cancer Tess Smallwood, Adenoca rcinoma of Center - Oncology RADIOLOGY ASSISTANT prostate [address] [facility], 7th [place] [address] 03/26/2022 Specialty Pharmacy MDA AMB RX SPEC ACB [place], Brandon [address] C, [place] [address] after 03/14/2022 Immunizations Name Administration Dates Next Due Moderna [...] pro statectomy; self catheterized for 6 m [facility] Basal cell carcinoma of forehead 06/18/2013 right f rontal forehead excision Peripheral vascular disease 11/2020 Family History Medical History Relation Name Comments Cirrhosis Brother Liver disease Brother COPD Father Zeeshan Stroke Father Zeeshan Atrial fibrillation Mother Lisa Diabetes Mother Lisa Hyperlipidemia Mother Lisa Hypertension Mother Lisa Uterine cancer Sister 2 Relation Name Status Comments Brother Father Zeeshan (Age 67) from [facility]; had flu and emphysema complications Mother [...] Sex Assigned at Male 07/02/2019 4:43 PM PHYSICIAN OFFICE NURSE Gender Identity Male 10/08/2018 8:19 PM C [...] [facility] Scott Morrison MD 9:45 AM PHYSICIAN OFFICE NURSE [address] Bldg, [address] [place] [address] 03/25/2023 Ancillary Procedure Diagnostic Center Scott Morrison MD 10:15 AM PHYSICIAN OFFICE NURSE [address] [facility], [address] [place], [place] [address] [place] [address] 06/24/2023 Appointment Diagnostic Laboratory Papo, 8:45 AM [facility] PARKER Ortiz [address] [facility] [address] [place], [place] [address] [place] [address] 06/24/2023 Ancillary Procedure PET Imaging Papo, 9:00 AM PHYSICIAN OFFICE NURSE [address] PARKER Ortiz [facility], [address]th [address] [place] [address] [place] [address] 06/24/2023 Follow-Up Genitourinary Cancer Kiersten, 12:30 PM PHYSICIAN OFFICE NURSE Center - Oncology MD Shane [address] [facility] [address] [facility], [address] [place] [address] [place] [address] [phone] Health Maintenance Due Date Last Done Comments [...] COMPLETE BLOOD COUNT W/ Routine 02/18/2023 7:58 Adenocarcinom a of DIFFERENTIAL AM CDT prostate CARCINOEMBRYONIC Routine [...] D 25 HYDROXY Routine 12/12/2022 7:01 Adenocarcinoma o f Results for this LEVEL AM CDT prostate [...] Adenocarcinoma of Results for this RATE AM PHYSICIAN OFFICE NURSE prostate procedure are i n the results section. SERUM CREATININE Routine 05/22/2022 7:52 Adenocarcinoma of Res ults for this AM PHYSICIAN OFFICE NURSE prostate procedure are i n the results section. CREATININE Routine 05/22/2022 7:52 Adenocarcinoma of AM PHYSICIAN OFFICE NURSE prostate PHOSPHORUS LEVEL Routine 05/22/2022 7:52 Adenocarcinoma of Res ults for this AM PHYSICIAN OFFICE NURSE prostate procedure are i n the results section. CALCIUM LEVEL Routine 05/22/2022 7:52 Adenocarcinoma of Result s for this AM PHYSICIAN OFFICE NURSE prostate procedure are i n the results section. PROSTATE SPECIFIC Routine 05/22/2022 7:52 Adenocarcinoma of Re sults for this ANTIGEN AM PHYSICIAN OFFICE NURSE prostate procedure are i n the results section. after 03/14/2022 Results PETCT F18 PSMA PyL (Piflufolastat) without [...] Signature Glucose Random 126 70 - 199 [facility] mg/dL Comment: Effective 12/14/15, the glucose reference intervals have been updated based on [place] Diabetes [employer] guidelines (Standards of Medical Care in Diabetes 2016. Diabetes Care 2016; 39: S13-S22) Fasting blood glucose: Normal: 70-99 mg/dL Impaired fasting glucose (increased risk for diabetes or pre-diabetes): 100-125 mg/dL Diabetes mellitus: >/= 126 mg/dL Random blood glucose: Normal: 70-199 mg/dL Note: Random glucose >100 mg/dL is assoc iated with increased risk for diabetes Testing Performed at [facility] Lab Manager Infrastructure [facility], [address] [place] [address], [address], [place] [address] Specimen Anatomical Collection Method Collection Time Receive d Time (Source) Location / / Volume Laterality Blood 02/18/2023 7:58 AM 3 8:11 CDT AM CDT [facility] - 02/18/2023 8:41 AM CDT 1.30 pm Shane Burch MD LAB BLOOD ORDERABLES Performing Organization Address City/[facility]/ZIP Code Phon e Number [address] [place] [address] [address] .Serum Creatinine (02/18/2023 7:58 AM CDT)Only the most recent of4 resultswithin the time period is included. athologist Signature Creatinine 0.95 0.67 - 1.17 [facility] mg/dL Comment: Testing Performed at [facility] Lab Am bulatory Care [facility], [address] [facility], [address], [place] [address] Specimen Anatomical Collection Method Collection Time Receive d Time (Source) Location / / Volume Laterality Blood 02/18/2023 7:58 AM 3 8:11 CDT AM CDT [facility] - 02/18/2023 8:41 AM CDT 1.30 pm Shaen Burch MD LAB BLOOD ORDERABLES Performing Organization Address City/State/ZIP Code Phon e Number [facility] [address] [place] [address]. [place] [address] [address] (ABNORMAL) .CBC (02/18/2023 7:58 AM CDT)Only the most recent of3 resultswithin the time period is included. P athologist Signature WBC 9.2 4.1 - 10.5 [facility] K/uL RBC 4.23 (L) 4.30 - 6.04 [facility] M/uL Hgb 13.2 (L) 13.3 - 17.4 [facility] gm/dL Comment: As part of CBC or as an individ ual orderable testing performed at [facility], [address] [facility] , [address], [place] [id number] Hct 40.1 39.5 - 51.8 % [facility] Comment: As part of CBC or as an individ ual orderable testing performed at [facility], [address] [facility] , [address], [place] [id number] MCV 95 82 - 99 fL [facility] MCH 31.2 26.6 - 33.2 pg [facility] MCHC 32.9 31.1 - 35.2 gm/dL [facility] RDW-SD 49.0 37.5 - 49.7 fL [facility] RDW-CV 14.1 11.6 - 15.5 % [facility] Platelet count 272 160 - 397 K/uL [facility] Comment: As part of CBC or as an individ ual orderable testing performed at [facility], [facility] , [address], [place] [id number] MPV 10.3 9.1 - 12.6 fL [facility] INRBC 0.0 0.0 - 0.1 /100 WBC [facility] Comment: The INRBC (instrument NRBC) value reflec ts the enumeration of nucleated red blood cells contained i n a 200uL sample of whole blood analyzed by the instrumen t. This value may differ from the NRBC value reported in a manual differential, which is based on a 100 cell differentia l. As part of CBC testing performed at [facility] [address] [facility], [address], [place] [address] Specimen Anatomical Collection Method Collection Time Receive d Time (Source) Location / / Volume Laterality Blood 02/18/2023 7:58 AM 3 8:02 CDT AM CDT [facility] - 02/18/2023 8:13 AM CDT 1.30 pm Shane Burch MD LAB BLOOD ORDERABLES Performing Organization Address City/[facility]/ZIP Code [facility] e Number [facility] [address] [facility] [place] [address] [address] Glomerular Filtration Rate (02/18/2023 7:58 AM CDT)Only the most recent of4 resultswithin the time period is included. athologist Signature eGFR 81 >=60 [facility] mL/min/1.73 sq. m Comment: The eGFRcr is [...] fulfill criteria for CKD. Testing Performed at [facility] Lab Manager Infrastructure [facility], [address] [facility], [address], [place] [address] Specimen Anatomical Collection Method Collection Time Receive d Time (Source) Location / / Volume Laterality Blood 02/18/2023 7:58 AM 3 8:11 CDT AM CDT [facility] - 02/18/2023 8:41 AM CDT 1.30 pm Shane Burch MD LAB BLOOD ORDERABLES Performing Organization Address City/[facility] Code Phon e Number [facility] [address] [place], [place] [address]vd[place] [address] [address] Fractionated Bilirubin (02/18/2023 7:58 AM CDT)Only the most recent of3 results within the time period is included. athologist Signature Bili Total 0.5 <=1.2 mg/dL [facility] Comment: Indocyanine Green (ICG) may cause falsel y elevated bilirubin results. Total and direct bilirubin must not be measured from samples containing indocyanine green. False elevation of total bilirubin can b e seen in patients with IgG concentrations above 28 g/L. Testing Performed at [facility] Lab Manager Infrastructure [facility], [address] [facility], [address], [place] [address] Bili Direct 0.2 <=0.3 mg/dL [facility] Comment: Indocyanine Green (ICG) may cause falsel y elevated bilirubin results. Total and direct bilirubin must not be measured from samples containing indocyanine green. Testing Performed at [facility] Lab Manager Infrastructure [facility], [address] [facility], [address], [place] [address] Bili Indirect 0.3 0.0 - 0.9 mg/dL [facility] Comment: Testing Performed at [facility] Lab bulatory Care [facility], [address] [facility], [address], [place] [address] Specimen Anatomical Collection Method Collection Time Receive d Time (Source) Location / / Volume Laterality Blood 02/18/2023 7:58 AM 8:11 CDT AM CDT Narrative [facility] - 02/18/2023 8:41 AM CDT 1.30 pm Shane Burch MD LAB BLOOD ORDERABLES Performing Organization Address City/State/ZIP Code Phon e Number [facility] [address] [facility] [place] [address] [address] Vitamin D 25OH (02/18/2023 7:58 AM CDT)Only the most recent of3 resultswithin the time period is included. athologist [facility] Vitamin D 25 OH 40 30 - 100 [facility] ng/mL [facility] Comment: Reference Range: Deficiency: <=20 ng/mL Insufficiency: 21-29 ng/mL Sufficiency: 30-100 ng/mL Potential toxicity: >100 ng/mL Specimen Anatomical Collection Method Collection Time Receive d Time (Source) Location / / Volume Laterality Blood 02/18/2023 7:58 AM 3 8:18 CDT AM CDT Narrative [facility] - 3 9:03 AM CDT 1.30 pm Shane Burch MD LAB BLOOD ORDERABLES Performing Organization Address City/State/ZIP Code Phon e Number [facility] Unless otherwise noted, [address] all lab tests performed by: Division of Pathology and Laboratory Medicine [address] [place] (ABNORMAL) Differential (02/18/2023 7:58 AM CDT)Only the most recent of3 results within the time period is included. athologist Signature Neutrophil % 83.0 (H) 43.2 - [facility] 72.7 % Comment: As part of Differential perform ed at [facility], [address] [facility], [address], [place] [address] 0 Lymphocyte % 9.0 (L) 16.8 - 46.2 % [facility] Monocyte % 5.7 5.1 - 12.5 % [facility] Eosinophil % 1.2 0.4 - 6.3 % [facility] Basophil % 0.7 0.2 - 1.4 % [facility] IGRE % 0.4 0.1 - 1.5 % [facility] Comment: IGRE % count includes Metamyelocytes, My elocytes, and Promyelocytes. As part of Differential performed at [facility], [address] [facility], [address], [place] [address] Neutrophil Abs 7.61 (H) 1.95 - 7.25 K/uL [facility] Lymphocyte Abs 0.82 (L) 1.01 - 3.24 K/uL [facility] Monocyte Abs 0.52 0.24 - 0.85 K/uL [facility] Eosinophil Abs 0.11 0.02 - 0.50 K/uL [facility] Basophil Abs 0.06 0.02 - 0.09 K/uL [facility] IG Abs 0.04 0.01 - 0.12 K/uL [facility] Specimen Anatomical Collection Method Collection Time Receive d Time (Source) Location / / Volume Laterality Blood 02/18/2023 7:58 AM 3 8:02 CDT AM CDT Narrative [facility] - 02/18/2023 8:13 AM CDT 1.30 pm Shane Burch MD LAB BLOOD ORDERABLES Performing Organization Address City/State/ZIP Code Phon e Number [facility] [address] [facility] [place] [address] [address] Blood Urea Nitrogen (02/18/2023 7:58 AM CDT)Only the most recent of3 results within the time period is included. P athologist Signature BUN 15 6 - 23 mg/dL [facility] Comment: Testing Performed at [facility] Am [facility], [address] [facility], [address], [place] [address] Specimen Anatomical Collection Method Collection Time Receive d Time (Source) Location / / Volume Laterality Blood 02/18/2023 7:58 AM 3 8:11 CDT AM CDT Narrative [facility] - 02/18/2023 8:41 AM CDT 1.30 pm Shane Burch MD LAB BLOOD ORDERABLES Performing Organization Address City/[facility]/ZIP Code Phon e Number [facility] [address] [facility] [place] [address] [address] Alanine Aminotransferase (02/18/2023 7:58 AM CDT)Only the most recent of3 resultswithin the time period is included. P athologist Signature ALT 7 <=41 U/L [facility] Comment: Testing Performed at [facility] Care [facility], [address] [facility], [address], [place] [address] Specimen Anatomical Collection Method Collection Time Receive d Time (Source) Location / / Volume Laterality Blood 02/18/2023 7:58 AM 3 8:11 CDT AM CDT Narrative [facility] - 02/18/2023 8:41 AM CDT 1.30 pm Shane Burch MD LAB BLOOD ORDERABLES Performing Organization Address City/State/ZIP Code Phon e Number [facility] [address] [place] [address] [address] Aspartate Aminotransferase (02/18/2023 7:58 AM CDT)Only the most recent of3 resultswithin the time period is included. athologist [facility] AST 12 <=40 U/L [facility] Comment: Testing Performed at [facility] Lab Am bulatory Care Bldg, [address], [address], [place] [address] Specimen Anatomical Collection Method Collection Time Receive d Time (Source) Location / / Volume Laterality Blood 02/18/2023 7:58 AM 3 8:11 CDT AM CDT Narrative [facility] - 02/18/2023 8:41 AM CDT 1.30 pm Shane Burch MD LAB BLOOD ORDERABLES Performing Organization Address City/[facility]/ZIP Code Phon e Number [facility] [address] [place] [address] [address] (ABNORMAL) Testosterone Level Total (02/18/2023 7:58 AM CDT)Only the most recent of3 resultswithin the time period is included. athologist [facility] Testoster Tot <3 (L) 193 - 740 [facility] ng/dL [facility] Comment: Reference Ranges: Male: Age 20 - 49 249 - 836 Age >=50 1 93 - 740 Female: Age 20 - 49 8 - 48 Age >=50 3 - 41 Specimen Anatomical Collection Method Collection Time Receive d Time (Source) Location / / Volume Laterality Blood 02/18/2023 7:58 AM 3 8:18 CDT AM CDT Narrative [facility] - 3 8:55 AM CDT 1.30 pm Shane Burch MD LAB BLOOD ORDERABLES Performing Organization Address City/State/ZIP Code Phon e Number [facility] CANCER Unless otherwise noted, [place] [address] CENTER all lab tests performed by: Division of Pathology and Laboratory Medicine [address] [place] [address] Total Protein (02/18/2023 7:58 AM CDT)Only the most recent of3 resultswithin the time period is included. [facility] Total Protein 6.8 6.4 - 8.3 [facility] g/dL Comment: Testing Performed at [facility] Lab Am bulatory Care [facility], [address], [place] [address] Specimen Anatomical Collection Method Collection Time Receive d Time (Source) Location / / Volume Laterality Blood 02/18/2023 7:58 AM 3 8:11 CDT AM CDT Narrative [facility] - 02/18/2023 8:41 AM CDT 1.30 pm Shane Burch MD LAB BLOOD ORDERABLES Performing Organization Address [facility] Phon e Number [facility] [address] [place] [address] [address] Prostate Specific Antigen (PSA) Diagnostic (02/18/2023 7:58 AM CDT)Only the most recent of4 resultswithin the time period is included. P athologist Signature PSA <0.1 0.0 - 4.0 [facility] ng/mL Comment: Results greater than 4519 ng/mL may not be reliable due to matrix effect with extended dilution as it exceeds the binding folder machine's recommended limit. Caution should be exercised when interpreting such murtaza ues and done in conjunction with clinica l context. Testing Performed at [facility] Lab Manager Infrastructure [facility], [address], [address], [place] [address] PSA Indication Diagnostic [facility] Specimen Anatomical Collection Method Collection Time Receive d Time (Source) Location / / Volume Laterality Blood 02/18/2023 7:58 AM 3 8:11 CDT AM CDT Narrative [facility] - 02/18/2023 9:48 AM CDT 1.30 pm Shane Burch MD LAB BLOOD ORDERABLES Performing Organization Address [facility] Phon e Number [facility] [address] [place] [place] [address] [address] Phosphorus Level (02/18/2023 7:58 AM CDT)Only the most recent of4 resultswithin the time period is included. P athologist Signature Phosphorus 3.2 2.5 - 4.5 [facility] mg/dL Comment: Testing Performed at [facility] Lab Am bulatory Care [facility], [address] [facility], [address], [place] [address] Specimen Anatomical Collection Method Collection Time Receive d Time (Source) Location / / Volume Laterality Blood 02/18/2023 7:58 AM 3 8:11 CDT AM CDT Narrative [facility] - 02/18/2023 8:41 AM CDT 1.30 pm Shane Burch MD LAB BLOOD ORDERABLES Performing Organization Address City/[facility]/ZIP [facility] Phon e Number [facility] [address] [place] [place] [address] [address] Alkaline phosphatase (02/18/2023 7:58 AM CDT)Only the most recent of3 results within the time period is included. P athologist Signature Alk Phos 72 40 - 129 U/L [facility] Comment: Testing Performed at [facility] Am [facility] Care [facility], [address], [address], [place] [address] Specimen Anatomical Collection Method Collection Time Receive d Time (Source) Location / / Volume Laterality Blood 02/18/2023 7:58 AM 3 8:11 CDT AM CDT [facility] - 02/18/2023 8:41 AM CDT 1.30 pm Shane Burch MD LAB BLOOD ORDERABLES Performing Organization Address [facility] Phon e Number [facility] [address] [place] [place] [address] [address] Magnesium Level (02/18/2023 7:58 AM CDT)Only the most recent of3 resultswithin the time period is included. P athologist Signature Magnesium 2.1 1.6 - 2.6 [facility] mg/dL Comment: Testing Performed at [facility] Lab Am bulatory Care [facility], [address], [address], [place] [address] Specimen Anatomical Collection Method Collection Time Receive d Time (Source) Location / / Volume Laterality Blood 02/18/2023 7:58 AM 3 8:11 CDT AM CDT [facility] - 02/18/2023 8:41 AM CDT 1.30 pm Shane Burch MD LAB BLOOD ORDERABLES Performing Organization Address City/State/ZIP [facility] Phon e Number [address] [place] [address] [address] Lactate dehydrogenase (02/18/2023 7:58 AM CDT)Only the most recent of3 results within the time period is included. athologist Signature LDH 155 135 - 225 [facility] U/L Comment: Results greater than 1651 U/L may not be reliable due to matrix effect with extended dilution as it exceeds the binding folder machine s recommended limit. Caution should be exercised when interpreting such murtaza ues and done in conjunction with clinica l context. Testing Performed at [facility], [address] [place] [address], [address], [place] [address] Specimen Anatomical Collection Method Collection Time Receive d Time (Source) Location / / Volume Laterality Blood 02/18/2023 7:58 AM 8:11 CDT AM CDT Narrative [facility] - 02/18/2023 8:36 AM CDT 1.30 pm Shane Burch MD LAB BLOOD ORDERABLES Performing Organization Address [facility] e Number [address] [place] [address] [address] CEA Ag (02/18/2023 7:58 AM CDT)Only the most recent of3 resultswithin the time period is included. athologist Signature CEA 1.5 <=3.8 ng/mL [facility] Comment: Reference Ranges: Smoker: 0.0 - 5.5 Non-Smoker: 0.0 - 3.8 This test is measured by electrochemilum inescence immunoassay on Judi Mauro immunoassay analyzers. Results obtained in different methods are not interchangeable. Testing Performed at [facility], [address] [place] [address], [address], [place] [address] Specimen Anatomical Collection Method Collection Time Receive d Time (Source) Location / / Volume Laterality Blood 02/18/2023 7:58 AM 8:11 CDT AM CDT Narrative [facility] - 02/18/2023 10:15 AM CDT 1.30 pm Shane Burch MD LAB BLOOD ORDERABLES Performing Organization Address [facility] e Number [facility] [address] [place] [address] [address] Calcium Level Total (02/18/2023 7:58 AM CDT)Only the most recent of4 results within the time period is included. athologist Signature Calcium Lvl 9.6 8.4 - 10.2 [facility] mg/dL Comment: Testing Performed at [facility] Lab Am [facility], [address], [address], [place] [address] Specimen Anatomical Collection Method Collection Time Receive d Time (Source) Location / / Volume Laterality Blood 02/18/2023 7:58 02/18/2023 8:11 AM CDT AM CDT Narrative [facility] - 02/18/2023 8:41 AM CDT 1.30 pm Shane Burch MD LAB BLOOD ORDERABLES Performing Organization Address [facility] e Number [facility] [address] [place] [place] [address] [address] Albumin Level (02/18/2023 7:58 AM CDT)Only the most recent of3 resultswithin the time period is included. athologist Signature Albumin Lvl 4.4 3.5 - 5.2 [facility] gm/dL Comment: Testing Performed at [facility] Lab [facility], [address], [address], [place] [address] Specimen Anatomical Collection Method Collection Time Receive d Time (Source) Location / / Volume Laterality Blood 02/18/2023 7:58 AM 8:11 CDT AM CDT Narrative [facility] - 02/18/2023 8:41 AM CDT 1.30 pm Shane Burch MD LAB BLOOD ORDERABLES Performing Organization Address City/[facility] e Number [facility] [address] [place] [address] [address] (ABNORMAL) Electrolyte panel (02/18/2023 7:58 AM CDT)Only the most recent of3 resultswithin the time period is included. athologist Signature Sodium Lvl 143 136 - 145 [facility] mEq/L Comment: Testing Performed at [facility] Lab Am bulatory Care Bldg, [address], [address], [place] [address] Potassium Lvl 4.3 3.5 - 5.1 mEq/L [facility] Comment: Testing Performed at [facility] Lab Am bulatory Care Bldg, [address], [address], [place] [address] Chloride 104 98 - 107 mEq/L [facility] Comment: Testing Performed at [facility] Lab Am bulatory Care Bldg, [address], [address], [place] [address] CO2 30 (H) 22 - 29 mEq/L [facility] Comment: Testing Performed at [facility] Lab Am bulatory Care Bldg, [address], [address], [place] [address] Anion Gap 9 4 - 14 mEq/L [facility] Comment: Testing Performed at [facility] Lab Am bulatory Care Bldg, [address], [address], [place] [address] Specimen Anatomical Collection Method Collection Time Receive d Time (Source) Location / / Volume Laterality Blood 02/18/2023 7:58 AM 8:11 CDT AM CDT Narrative [facility] - 02/18/2023 8:41 AM CDT 1.30 pm Shane Burch MD LAB BLOOD ORDERABLES Performing Organization Address City/State/ZIP Code Phon e Number [facility] [address] [place] [address] [address] Bone Mets Simulation without Contrast (12/19/2022 11:16 AM CDT) Specimen (Source) Anatomical Location Collection Method / Collectio n Time Received Time / Laterality Volume Narrative Systemgenerated, Documentation - 023 11:52 AM CDT This procedure requires no interpretatio n from the radiologist. Abby Delgado RADIOLOGY ASSISTANT IMG RO CT SIM ORDERABLES X-ray Femur [...] 12/12/2022. I personally reviewed these image(s) anurag ng with the resident's/fellow's interpretations, certify that if a procedure was performed I was physically present, and agree with the final report. Shane Burch MD IMG MRI ORDERABLES after 03/14/2022 Insurance Payer Benefit Plan / Subscriber ID Effective Dates Phone Addre ss Type Group MEDICARE MEDICARE PART [id number] 2008-Presen [phone] LORENZOMIGEL S Medicare A AND B t 2 SOLUTIONS [address] [place] [address] GENERIC GENERIC [id number] 2008-Presen [phone] [address] [place] [address] [phone] [id number] (Work) Billy Barrientos Personal/Famil Self [address] [place] (Home) [place] [phone] (Work) Billy Barrientos Personal/Famil Self [address] [place] (Home) [place] [phone] (Work) Advance Directives Type Date Recorded 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 Explanati on Advance Directives: 08/24/2021 Directive to Physicians Living Will and Family or Surrogates-Albaro nguyen Will Care Teams Certified Medical Records Coder Relationship Specialty Start Date End Date Michael Tse MD PCP - General 07/20/[address] [place] [phone] Derek Reagan MD PCP - External Primary 06/04/[address] [place] [phone] Echo Goodwin PCP - External 04/24/13 MD Corwin Referring [address] [place] [address] [place], [place] [address] Echo Goodwin PCP - External Follow 04/24/13 MD Corwin Up A [address] [place], [place] [address] Ab Mckeon PCP - External Follow 06/09/13 MD Wero Up B [address] [place] [address] [id number] Vinicius Quintana MD Physician 07/27/15 Michael Tse MD Physician 07/27/[address] [place] [phone] Swathi Santoro, Physician Legal Officer 07/27/[address] [place] [phone] Darius Aguirre MD Physician 07/27/[address] [place] [phone] Yayo Granados PA Physician Legal Officer 07/27/[address] [place] [address]. [place] [address] Herman Collazo PA Physician Legal Officer 07/27/[address] [place] [phone] Kiersten, Consulting Physician Genitourinary Oncology 10/26/17 MD Shane [address] [place] [phone] [facility] 08/21/[address] [place] [phone] Zeeshan Lunsford Consulting Physician Radiation Oncology 12/19/22 MD Liz [address] [place] [id number] Scott Morrison MD Consulting Physician Orthopedic Surgery 12/17/[address] [place] [phone]
--- OUTSIDE RECORDS SUMMARY | 2023-03-14 18:01 | XMS REPORT | Continuity of Care Document ---
:1945 Author Organization [facility] t Address [address] [place] [address] Care Team Providers Name Role Phone [phone] Primary Care Physician Unavailable Brandon Abrams PharmD Attending Clinician Unavailable SHANE CALVILLO Attending Clinician Unavailable Shane Calvillo MD Attending Clinician [phone] Katharina Flores PharmD Attending Clinician Alexus Lowery APRN Attending Clinician STEVEN BLAKE Attending Clinician Unavailable Steven Blake MD Attending Clinician Zeeshan Madrigal MD Attending Clinician ZEESHAN MADRIGAL Attending Clinician Unavailable GREG DELGADO Attending Clinician Unavailable Greg Delgado APRN Attending Clinician Cinthia Torres MD Attending Clinician CINTHIA TORRES Attending Clinician Unavailable Glenna Gastelum RN Attending Clinician Unavailable Nedra Houston RPH Attending Clinician Jovita Perez RN Attending Clinician Unavailable Tess Smallwood APRN Attending Clinician TESS SMALLWOOD Attending Clinician Unavailable Payers Payer Name Policy Type Policy Number Effective Date Expiration Date S ource Problems Condition Condition Condition Status Onset Resolution Last Treating Co mments Source Name Details Category Date Date Treatment Clinician Date 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 00:00: [place] 00 MD Will moe [facility] Center Metastatic Metastatic Disease Active U nivers malignant malignant 10-30 ity of neoplasm neoplasm 00:00: [place] to bone to bone 00 MD Will moe [facility] Hypertensi Hypertensi Disease Active U nivers on on 10-22 ity of 00:00: [place] 00 MD Will moe [facility] Hyperlipid Hyperlipid Disease Active U nivers emia emia 10-22 ity of 00:00: [place] MD Will moe [facility] 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 Center has vacuum device Allergies, Adverse Reactions, Alerts Allergy Allergy Status Severity Reaction(s) Onset Inactive Treating Comm ents Source Name Type Date Date Clinician ADHESIVE DRUG Active TAPE-GRACE 2-03 Anderso ICONES 00:00: n 00 ERYTHROM DRUG Active YCIN 2- Anderso 00:00: n 00 IODINATE Drug Active Low Hives 2016-0 MD D Class 2-03 Anderso CONTRAST 00:00: n MEDIA 00 ADHESIVE Drug Active 2015-0 MD Class 2-03 Anderso 00:00: n 00 ADHESIVE DRUG Active 2015-0 MD TAPE-GRACE 2-03 Anderso ICONES 00:00: n 00 ERYTHROM DRUG Active 2015-0 MD YCIN 2-03 Anderso 00:00: n 00 IODINATE Drug Active Low Hives 2015-0 MD D Class 2-03 Anderso CONTRAST 00:00: n MEDIA 00 ADHESIVE Drug Active 2015-0 MD Class 2-03 Anderso 00:00: n 00 ADHESIVE DRUG Active 2015-0 MD TAPE-GRACE 2-03 Anderso ICONES 00:00: n 00 ERYTHROM DRUG Active 2015-0 MD YCIN 2-03 Anderso 00:00: n 00 IODINATE Drug Active Low Hives 2015-0 MD D Class 2-03 Anderso CONTRAST 00:00: n MEDIA 00 ADHESIVE Drug Active 2015-0 MD Class 2-03 Anderso 00:00: n 00 ADHESIVE DRUG Active 2015-0 MD TAPE-GRACE 2-03 Anderso ICONES 00:00: n 00 ERYTHROM DRUG Active 2015-0 MD YCIN 2-03 Anderso 00:00: n 00 IODINATE Drug Active Low Hives 2015-0 MD D Class 2-03 Anderso CONTRAST 00:00: n MEDIA 00 ADHESIVE Drug Active 2015-0 MD Class 2-03 Anderso 00:00: n 00 ADHESIVE DRUG Active 2015-0 MD TAPE-GRACE 2-03 Anderso ICONES 00:00: n 00 ERYTHROM DRUG Active 2015-0 MD YCIN 2-03 Anderso 00:00: n 00 IODINATE Drug Active Low Hives 2015-0 MD D Class 2-03 Anderso CONTRAST 00:00: n MEDIA 00 ADHESIVE Drug Active 2015-0 MD Class 2-03 Anderso 00:00: n 00 ADHESIVE DRUG Active 2015-0 MD TAPE-GRACE 2-03 Anderso ICONES 00:00: n 00 ERYTHROM DRUG Active 2015-0 MD YCIN 2-03 Anderso 00:00: n 00 IODINATE Drug Active Low Hives 2016-0 MD D Class 2-03 Anderso CONTRAST 00:00: n MEDIA 00 ADHESIVE Drug Active 2015-0 MD Class 2-03 Anderso 00:00: n 00 ADHESIVE DRUG Active 2015-0 MD TAPE-GRACE 2-03 Anderso ICONES 00:00: n 00 ERYTHROM DRUG Active 2015-0 MD YCIN 2-03 Anderso 00:00: n 00 IODINATE Drug Active Low Hives 2016-0 MD D Class 2-03 Anderso CONTRAST 00:00: n MEDIA 00 ADHESIVE Drug Active 2015-0 MD Class 2-03 Anderso 00:00: n 00 ADHESIVE DRUG Active 2015-0 MD TAPE-GRACE 2-03 Anderso ICONES 00:00: n 00 ERYTHROM DRUG Active 2015-0 MD YCIN 2-03 Anderso 00:00: n 00 IODINATE Drug Active Low Hives 2015-0 MD D Class 2-03 Anderso CONTRAST 00:00: n MEDIA 00 ADHESIVE Drug Active 2015-0 MD Class 2-03 Anderso 00:00: n 00 ADHESIVE DRUG Active 2015-0 MD TAPE-GRACE 2-03 Anderso ICONES 00:00: n 00 ERYTHROM DRUG Active 2015-0 MD YCIN 2-03 Anderso 00:00: n 00 IODINATE Drug Active Low Hives 2015-0 MD D Class 2-03 Anderso CONTRAST 00:00: n MEDIA 00 ADHESIVE Drug Active 2015-0 MD Class 2-03 Anderso 00:00: n 00 ADHESIVE DRUG Active 2015-0 MD TAPE-GRACE 2-03 Anderso ICONES 00:00: n 00 ERYTHROM DRUG Active 2015-0 MD YCIN 2-03 Anderso 00:00: n 00 IODINATE Drug Active Low Hives 2015-0 MD D Class 2-03 Anderso CONTRAST 00:00: n MEDIA 00 ADHESIVE Drug Active 2015-0 MD Class 2-03 Anderso 00:00: n 00 ADHESIVE DRUG Active 2015-0 MD TAPE-GRACE 2-03 Anderso ICONES 00:00: n 00 ERYTHROM DRUG Active 2015-0 MD YCIN 2-03 Anderso 00:00: n 00 IODINATE Drug Active Low Hives 2015-0 MD D Class 2-03 Anderso CONTRAST 00:00: n MEDIA 00 ADHESIVE Drug Active 2015-0 MD Class 2-03 Anderso 00:00: n 00 ADHESIVE DRUG Active 2015-0 MD TAPE-GRACE 2-03 Anderso ICONES 00:00: n 00 ERYTHROM DRUG Active 2016-0 MD YCIN 2-03 Anderso 00:00: n 00 IODINATE Drug Active Low Hives 2015-0 MD D Class 2-03 Anderso CONTRAST 00:00: n MEDIA 00 ADHESIVE Drug Active 2015-0 MD Class 2-03 Anderso 00:00: n 00 ADHESIVE DRUG Active 2015-0 MD TAPE-GRACE 2-03 Anderso ICONES 00:00: n 00 ERYTHROM DRUG Active 2015-0 MD YCIN 2-03 Anderso 00:00: n 00 IODINATE Drug Active Low Hives 2015-0 MD D Class 2-03 Anderso CONTRAST 00:00: n MEDIA 00 ADHESIVE Drug Active 2015-0 MD Class 2-03 Anderso 00:00: n 00 ADHESIVE DRUG Active 2015-0 MD TAPE-GRACE 2-03 Anderso ICONES 00:00: n 00 ERYTHROM DRUG Active 2015-0 MD YCIN 2-03 Anderso 00:00: n 00 IODINATE Drug Active Low Hives 2015-0 MD D Class 2-03 Anderso CONTRAST 00:00: n MEDIA 00 ADHESIVE Drug Active 2015-0 MD Class 2-03 Anderso 00:00: n 00 ADHESIVE DRUG Active 2015-0 MD TAPE-GRACE 2-03 Anderso ICONES 00:00: n 00 ERYTHROM DRUG Active 2015-0 MD YCIN 2-03 Anderso 00:00: n 00 IODINATE Drug Active Low Hives 2015-0 MD D Class 2-03 Anderso CONTRAST 00:00: n MEDIA 00 ADHESIVE Drug Active 2015-0 MD Class 2-03 Anderso 00:00: n 00 ADHESIVE DRUG Active 2015-0 MD TAPE-GRACE 2-03 Anderso ICONES 00:00: n 00 ERYTHROM DRUG Active 2015-0 MD YCIN 2-03 Anderso 00:00: n 00 IODINATE Drug Active Low Hives 2015-0 MD D Class 2-03 Anderso CONTRAST 00:00: n MEDIA 00 ADHESIVE Drug Active 2015-0 MD Class 2-03 Anderso 00:00: n 00 ADHESIVE DRUG Active 2015-0 MD TAPE-GRACE 2-03 Anderso ICONES 00:00: n 00 ERYTHROM DRUG Active 2015-0 MD YCIN 2-03 Anderso 00:00: n 00 IODINATE Drug Active Low Hives 2015-0 MD D Class 2-03 Anderso CONTRAST 00:00: n MEDIA 00 ADHESIVE Drug Active 2015-0 MD Class 2-03 Anderso 00:00: n 00 ADHESIVE DRUG Active 2015-0 MD TAPE-GRACE 2-03 Anderso ICONES 00:00: n 00 ERYTHROM DRUG Active 2015-0 MD YCIN 2-03 Anderso 00:00: n 00 IODINATE Drug Active Low Hives 2015-0 MD D Class 2-03 Anderso CONTRAST 00:00: n MEDIA 00 ADHESIVE Drug Active 2015-0 MD Class 2-03 Anderso 00:00: n 00 ADHESIVE DRUG Active 2015-0 MD TAPE-GRACE 2-03 Anderso ICONES 00:00: n 00 ERYTHROM DRUG Active 2015-0 MD YCIN 2-03 Anderso 00:00: n 00 IODINATE Drug Active Low Hives 2015-0 MD D Class 2-03 Anderso CONTRAST 00:00: n MEDIA 00 ADHESIVE Drug Active 2015-0 MD Class 2-03 Anderso 00:00: n 00 ADHESIVE DRUG Active 2015-0 MD TAPE-GRACE 2-03 Anderso ICONES 00:00: n 00 ERYTHROM DRUG Active 2015-0 MD YCIN 2-03 Anderso 00:00: n 00 IODINATE Drug Active Low Hives 2015-0 MD D Class 2-03 Anderso CONTRAST 00:00: n MEDIA 00 ADHESIVE Drug Active 2015-0 MD Class 2-03 Anderso 00:00: n 00 ADHESIVE DRUG Active 2015-0 MD TAPE-GRACE 2-03 Anderso ICONES 00:00: n 00 ERYTHROM DRUG Active 2015-0 MD YCIN 2-03 Anderso 00:00: n 00 IODINATE Drug Active Low Hives 2015-0 MD D Class 2-03 Anderso CONTRAST 00:00: n MEDIA 00 ADHESIVE Drug Active 2015-0 MD Class 2-03 Anderso 00:00: n 00 ADHESIVE DRUG Active 2015-0 MD TAPE-GRACE 2-03 Anderso ICONES 00:00: n 00 ERYTHROM DRUG Active 2015-0 MD YCIN 2-03 Anderso 00:00: n 00 IODINATE Drug Active Low Hives 2015-0 MD D Class 2-03 Anderso CONTRAST 00:00: n MEDIA 00 ADHESIVE Drug Active 2015-0 MD Class 2-03 Anderso 00:00: n 00 ADHESIVE DRUG Active 2015-0 MD TAPE-GRACE 2-03 Anderso ICONES 00:00: n 00 ERYTHROM DRUG Active 2016-0 MD YCIN 2-03 Anderso 00:00: n 00 IODINATE Drug Active Low Hives 2016-0 MD D Class 2-03 Anderso CONTRAST 00:00: n MEDIA 00 ADHESIVE Drug Active 2016-0 MD Class 2-03 Anderso 00:00: n 00 ADHESIVE DRUG Active 2015-0 MD TAPE-GRACE 2-03 Anderso ICONES 00:00: n 00 ERYTHROM DRUG Active 2016-0 MD YCIN 2-03 Anderso 00:00: n 00 IODINATE Drug Active Low Hives 2015-0 MD D Class 2-03 Anderso CONTRAST 00:00: n MEDIA 00 ADHESIVE Drug Active 2015-0 MD Class 2-03 Anderso 00:00: n 00 ADHESIVE DRUG Active 2015-0 MD TAPE-GRACE 2-03 Anderso ICONES 00:00: n 00 ERYTHROM DRUG Active 2015-0 MD YCIN 2-03 Anderso 00:00: n 00 IODINATE Drug Active Low Hives 2015-0 MD D Class 2-03 Anderso CONTRAST 00:00: n MEDIA 00 ADHESIVE Drug Active 2015-0 MD Class 2-03 Anderso 00:00: n 00 ADHESIVE DRUG Active 2015-0 MD TAPE-GRACE 2-03 Anderso ICONES 00:00: n 00 ERYTHROM DRUG Active 2015-0 MD YCIN 2-03 Anderso 00:00: n 00 IODINATE Drug Active Low Hives 2016-0 MD D Class 2-03 Anderso CONTRAST 00:00: n MEDIA 00 ADHESIVE Drug Active 2016-0 MD Class 2-03 Anderso 00:00: n 00 ADHESIVE DRUG Active 2015-0 MD TAPE-GRACE 2-03 Anderso ICONES 00:00: n 00 ERYTHROM DRUG Active 2015-0 MD YCIN 2-03 Anderso 00:00: n 00 IODINATE Drug Active Low Hives 2016-0 MD D Class 2-03 Anderso CONTRAST 00:00: n MEDIA 00 ADHESIVE Drug Active 2016-0 MD Class 2-03 Anderso 00:00: n 00 ADHESIVE DRUG Active 2015-0 MD TAPE-GRACE 2-03 Anderso ICONES 00:00: n 00 ERYTHROM DRUG Active 2015-0 MD YCIN 2-03 Anderso 00:00: n 00 IODINATE Drug Active Low Hives 2016-0 MD D Class 2-03 Anderso CONTRAST 00:00: n MEDIA 00 ADHESIVE Drug Active 2016-0 MD Class 2-03 Anderso 00:00: n 00 ADHESIVE DRUG Active 2015-0 MD TAPE-GRACE 2-03 Anderso ICONES 00:00: n 00 ERYTHROM DRUG Active 2015-0 MD YCIN 2-03 Anderso 00:00: n 00 IODINATE Drug Active Low Hives 2015-0 MD D Class 2-03 Anderso CONTRAST 00:00: n MEDIA 00 ADHESIVE Drug Active 2015-0 MD Class 2-03 Anderso 00:00: n 00 ADHESIVE DRUG Active 2015-0 MD TAPE-GRACE 2-03 Anderso ICONES 00:00: n 00 ERYTHROM DRUG Active 2015-0 MD YCIN 2-03 Anderso 00:00: n 00 IODINATE Drug Active Low Hives 2015-0 MD D Class 2-03 Anderso CONTRAST 00:00: n MEDIA 00 ADHESIVE Drug Active 2015-0 MD Class 2-03 Anderso 00:00: n 00 ADHESIVE DRUG Active 2015-0 MD TAPE-GRACE 2-03 Anderso ICONES 00:00: n 00 ERYTHROM DRUG Active 2015-0 MD YCIN 2-03 Anderso 00:00: n 00 IODINATE Drug Active Low Hives 2015-0 MD D Class 2-03 Anderso CONTRAST 00:00: n MEDIA 00 ADHESIVE Drug Active 2015-0 MD Class 2-03 Anderso 00:00: n 00 ADHESIVE DRUG Active 2015-0 MD TAPE-GRACE 2-03 Anderso ICONES 00:00: n 00 ERYTHROM DRUG Active 2015-0 MD YCIN 2-03 Anderso 00:00: n 00 IODINATE Drug Active Low Hives 2015-0 MD D Class 2-03 Anderso CONTRAST 00:00: n MEDIA 00 ADHESIVE Drug Active 2015-0 MD Class 2-03 Anderso 00:00: n 00 ADHESIVE DRUG Active 2015-0 MD TAPE-GRACE 2-03 Anderso ICONES 00:00: n 00 ERYTHROM DRUG Active 2015-0 MD YCIN 2-03 Anderso 00:00: n 00 IODINATE Drug Active Low Hives 2015-0 MD D Class 2-03 Anderso CONTRAST 00:00: n MEDIA 00 ADHESIVE Drug Active 2015-0 MD Class 2-03 Anderso 00:00: n 00 ADHESIVE DRUG Active 2015-0 MD TAPE-GRACE 2-03 Anderso ICONES 00:00: n 00 ERYTHROM DRUG Active 2015-0 MD YCIN 2-03 Anderso 00:00: n 00 IODINATE Drug Active Low Hives 2015-0 MD D Class 2-03 Anderso CONTRAST 00:00: n MEDIA 00 ADHESIVE Drug Active 2015-0 MD Class 2-03 Anderso 00:00: n 00 ADHESIVE DRUG Active 2015-0 MD TAPE-GRACE 2-03 Anderso ICONES 00:00: n 00 ERYTHROM DRUG Active 2015-0 MD YCIN 2-03 Anderso 00:00: n 00 IODINATE Drug Active Low Hives 2015-0 MD D Class 2-03 Anderso CONTRAST 00:00: n MEDIA 00 ADHESIVE Drug Active 2015-0 MD Class 2-03 Anderso 00:00: n 00 ADHESIVE DRUG Active 2015-0 MD TAPE-GRACE 2-03 Anderso ICONES 00:00: n 00 ERYTHROM DRUG Active 2015-0 MD YCIN 2-03 Anderso 00:00: n 00 IODINATE Drug Active Low Hives 2015-0 MD D Class 2-03 Anderso CONTRAST 00:00: n MEDIA 00 ADHESIVE Drug Active 2015-0 MD Class 2-03 Anderso 00:00: n 00 ADHESIVE DRUG Active 2015-0 MD TAPE-GRACE 2-03 Anderso ICONES 00:00: n 00 ERYTHROM DRUG Active 2015-0 MD YCIN 2-03 Anderso 00:00: n 00 IODINATE Drug Active Low Hives 2015-0 MD D Class 2-03 Anderso CONTRAST 00:00: n MEDIA 00 ADHESIVE Drug Active 2015-0 MD Class 2-03 Anderso 00:00: n 00 ADHESIVE DRUG Active 2015-0 MD TAPE-GRACE 2-03 Anderso ICONES 00:00: n 00 ERYTHROM DRUG Active 2015-0 MD YCIN 2-03 Anderso 00:00: n 00 IODINATE Drug Active Low Hives 2016-0 MD D Class 2-03 Anderso CONTRAST 00:00: n MEDIA 00 ADHESIVE Drug Active 2015-0 MD Class 2-03 Anderso 00:00: n 00 ADHESIVE DRUG Active 2015-0 MD TAPE-GRACE 2-03 Anderso ICONES 00:00: n 00 ERYTHROM DRUG Active 2015-0 MD YCIN 2-03 Anderso 00:00: n 00 IODINATE Drug Active Low Hives 2015-0 MD D Class 2-03 Anderso CONTRAST 00:00: n MEDIA 00 ADHESIVE Drug Active 2015-0 MD Class 2-03 Anderso 00:00: n 00 ADHESIVE DRUG Active 2015-0 MD TAPE-GRACE 2-03 Anderso ICONES 00:00: n 00 ERYTHROM DRUG Active 2015-0 MD YCIN 2-03 Anderso 00:00: n 00 IODINATE Drug Active Low Hives 2015-0 MD D Class 2-03 Anderso CONTRAST 00:00: n MEDIA 00 ADHESIVE Drug Active 2015-0 MD Class 2-03 Anderso 00:00: n 00 ADHESIVE DRUG Active 2015-0 MD TAPE-GRACE 2-03 Anderso ICONES 00:00: n 00 ERYTHROM DRUG Active 2015-0 MD YCIN 2-03 Anderso 00:00: n 00 IODINATE Drug Active Low Hives 2015-0 MD D Class 2-03 Anderso CONTRAST 00:00: n MEDIA 00 ADHESIVE Drug Active 2015-0 MD Class 2-03 Anderso 00:00: n 00 ADHESIVE DRUG Active 2015-0 MD TAPE-GRACE 2-03 Anderso ICONES 00:00: n 00 ERYTHROM DRUG Active 2015-0 MD YCIN 2-03 Anderso 00:00: n 00 IODINATE Drug Active Low Hives 2015-0 MD D Class 2-03 Anderso CONTRAST 00:00: n MEDIA 00 ADHESIVE Drug Active 2015-0 MD Class 2-03 Anderso 00:00: n 00 ADHESIVE DRUG Active 2015-0 MD TAPE-GRACE 2-03 Anderso ICONES 00:00: n 00 ERYTHROM DRUG Active 2015-0 MD YCIN 2-03 Anderso 00:00: n 00 IODINATE Drug Active Low Hives 2015-0 MD D Class 2-03 Anderso CONTRAST 00:00: n MEDIA 00 ADHESIVE Drug Active 2015-0 MD Class 2-03 Anderso 00:00: n 00 ADHESIVE DRUG Active 2015-0 MD TAPE-GRACE 2-03 Anderso ICONES 00:00: n 00 ERYTHROM DRUG Active 2015-0 MD YCIN 2-03 Anderso 00:00: n 00 IODINATE Drug Active Low Hives 2016-0 MD D Class 2-03 Anderso CONTRAST 00:00: n MEDIA 00 ADHESIVE Drug Active 2016-0 MD Class 2-03 Anderso 00:00: n 00 ADHESIVE DRUG Active 2015-0 MD TAPE-GRACE 2-03 Anderso ICONES 00:00: n 00 ERYTHROM DRUG Active 2016-0 MD YCIN 2-03 Anderso 00:00: n 00 IODINATE Drug Active Low Hives 2015-0 MD D Class 2-03 Anderso CONTRAST 00:00: n MEDIA 00 ADHESIVE Drug Active 2015-0 MD Class 2-03 Anderso 00:00: n 00 ADHESIVE DRUG Active 2015-0 MD TAPE-GRACE 2-03 Anderso ICONES 00:00: n 00 ERYTHROM DRUG Active 2015-0 MD YCIN 2-03 Anderso 00:00: n 00 IODINATE Drug Active Low Hives 2015-0 MD D Class 2-03 Anderso CONTRAST 00:00: n MEDIA 00 ADHESIVE Drug Active 2015-0 MD Class 2-03 Anderso 00:00: n 00 ADHESIVE DRUG Active 2015-0 MD TAPE-GRACE 2-03 Anderso ICONES 00:00: n 00 ERYTHROM DRUG Active 2015-0 MD YCIN 2-03 Anderso 00:00: n 00 IODINATE Drug Active Low Hives 2015-0 MD D Class 2-03 Anderso CONTRAST 00:00: n MEDIA 00 ADHESIVE Drug Active 2015-0 MD Class 2-03 Anderso 00:00: n 00 ADHESIVE DRUG Active 2015-0 MD TAPE-GRACE 2-03 Anderso ICONES 00:00: n 00 ERYTHROM DRUG Active 2015-0 MD YCIN 2-03 Anderso 00:00: n 00 IODINATE Drug Active Low Hives 2016-0 MD D Class 2-03 Anderso CONTRAST 00:00: n MEDIA 00 ADHESIVE Drug Active 2015-0 MD Class 2-03 Anderso 00:00: n 00 ADHESIVE DRUG Active 2015-0 MD TAPE-GRACE 2-03 Anderso ICONES 00:00: n 00 ERYTHROM DRUG Active 2015-0 MD YCIN 2-03 Anderso 00:00: n 00 IODINATE Drug Active Low Hives 2016-0 MD D Class 2-03 Anderso CONTRAST 00:00: n MEDIA 00 ADHESIVE Drug Active 2015-0 MD Class 2-03 Anderso 00:00: n 00 ADHESIVE DRUG Active 2015-0 MD TAPE-GRACE 2-03 Anderso ICONES 00:00: n 00 ERYTHROM DRUG Active 2015-0 MD YCIN 2-03 Anderso 00:00: n 00 IODINATE Drug Active Low Hives 2016-0 MD D Class 2-03 Anderso CONTRAST 00:00: n MEDIA 00 ADHESIVE Drug Active 2015-0 MD Class 2-03 Anderso 00:00: n 00 ADHESIVE DRUG Active 2015-0 MD TAPE-GRACE 2-03 Anderso ICONES 00:00: n 00 ERYTHROM DRUG Active 2015-0 MD YCIN 2-03 Anderso 00:00: n 00 IODINATE Drug Active Low Hives 2015-0 MD D Class 2-03 Anderso CONTRAST 00:00: n MEDIA 00 ADHESIVE Drug Active 2015-0 MD Class 2-03 Anderso 00:00: n 00 ADHESIVE DRUG Active 2015-0 MD TAPE-GRACE 2-03 Anderso ICONES 00:00: n 00 ERYTHROM DRUG Active 2015-0 MD YCIN 2-03 Anderso 00:00: n 00 IODINATE Drug Active Low Hives 2015-0 MD D Class 2-03 Anderso CONTRAST 00:00: n MEDIA 00 ADHESIVE Drug Active 2015-0 MD Class 2-03 Anderso 00:00: n 00 ADHESIVE DRUG Active 2015-0 MD TAPE-GRACE 2-03 Anderso ICONES 00:00: n 00 ERYTHROM DRUG Active 2015-0 MD YCIN 2-03 Anderso 00:00: n 00 IODINATE Drug Active Low Hives 2015-0 MD D Class 2-03 Anderso CONTRAST 00:00: n MEDIA 00 ADHESIVE Drug Active 2015-0 MD Class 2-03 Anderso 00:00: n 00 ADHESIVE DRUG Active 2015-0 MD TAPE-GRACE 2-03 Anderso ICONES 00:00: n 00 ERYTHROM DRUG Active 2015-0 MD YCIN 2-03 Anderso 00:00: n 00 IODINATE Drug Active Low Hives 2015-0 MD D Class 2-03 Anderso CONTRAST 00:00: n MEDIA 00 ADHESIVE Drug Active 2015-0 MD Class 2-03 Anderso 00:00: n 00 ADHESIVE DRUG Active 2015-0 MD TAPE-GRACE 2-03 Anderso ICONES 00:00: n 00 ERYTHROM DRUG Active 2016-0 MD YCIN 2-03 Anderso 00:00: n 00 IODINATE Drug Active Low Hives 2015-0 MD D Class 2-03 Anderso CONTRAST 00:00: n MEDIA 00 ADHESIVE Drug Active 2015-0 MD Class 2-03 Anderso 00:00: n 00 ADHESIVE DRUG Active 2015-0 MD TAPE-GRACE 2-03 Anderso ICONES 00:00: n 00 ERYTHROM DRUG Active 2015-0 MD YCIN 2-03 Anderso 00:00: n 00 IODINATE Drug Active Low Hives 2015-0 MD D Class 2-03 Anderso CONTRAST 00:00: n MEDIA 00 ADHESIVE Drug Active 2015-0 MD Class 2-03 Anderso 00:00: n 00 ADHESIVE DRUG Active 2015-0 MD TAPE-GRACE 2-03 Anderso ICONES 00:00: n 00 ERYTHROM DRUG Active 2015-0 MD YCIN 2-03 Anderso 00:00: n 00 IODINATE Drug Active Low Hives 2015-0 MD D Class 2-03 Anderso CONTRAST 00:00: n MEDIA 00 ADHESIVE Drug Active 2015-0 MD Class 2-03 Anderso 00:00: n 00 ADHESIVE DRUG Active 2015-0 MD TAPE-GRACE 2-03 Anderso ICONES 00:00: n 00 ERYTHROM DRUG Active 2015-0 MD YCIN 2-03 Anderso 00:00: n 00 IODINATE Drug Active Low Hives 2015-0 MD D Class 2-03 Anderso CONTRAST 00:00: n MEDIA 00 ADHESIVE Drug Active 2015-0 MD Class 2-03 Anderso 00:00: n 00 ADHESIVE DRUG Active 2015-0 MD TAPE-GRACE 2-03 Anderso ICONES 00:00: n 00 ERYTHROM DRUG Active 2015-0 MD YCIN 2-03 Anderso 00:00: n 00 IODINATE Drug Active Low Hives 2015-0 MD D Class 2-03 Anderso CONTRAST 00:00: n MEDIA 00 ADHESIVE Drug Active 2015-0 MD Class 2-03 Anderso 00:00: n 00 ADHESIVE DRUG Active 2015-0 MD TAPE-GRACE 2-03 Anderso ICONES 00:00: n 00 ERYTHROM DRUG Active 2015-0 MD YCIN 2-03 Anderso 00:00: n 00 IODINATE Drug Active Low Hives 2015-0 MD D Class 2-03 Anderso CONTRAST 00:00: n MEDIA 00 ADHESIVE Drug Active 2015-0 MD Class 2-03 Anderso 00:00: n 00 ADHESIVE DRUG Active 2015-0 MD TAPE-GRACE 2-03 Anderso ICONES 00:00: n 00 ERYTHROM DRUG Active 2015-0 MD YCIN 2-03 Anderso 00:00: n 00 IODINATE Drug Active Low Hives 2015-0 MD D Class 2-03 Anderso CONTRAST 00:00: n MEDIA 00 ADHESIVE Drug Active 2015-0 MD Class 2-03 Anderso 00:00: n 00 ADHESIVE DRUG Active 2015-0 MD TAPE-GRACE 2-03 Anderso ICONES 00:00: n 00 ERYTHROM DRUG Active 2015-0 MD YCIN 2-03 Anderso 00:00: n 00 IODINATE Drug Active Low Hives 2015-0 MD D Class 2-03 Anderso CONTRAST 00:00: n MEDIA 00 ADHESIVE Drug Active 2015-0 MD Class 2-03 Anderso 00:00: n 00 ADHESIVE DRUG Active 2015-0 MD TAPE-GRACE 2-03 Anderso ICONES 00:00: n 00 ERYTHROM DRUG Active 2015-0 MD YCIN 2-03 Anderso 00:00: n 00 IODINATE Drug Active Low Hives 2015-0 MD D Class 2-03 Anderso CONTRAST 00:00: n MEDIA 00 ADHESIVE Drug Active 2015-0 MD Class 2-03 Anderso 00:00: n 00 ADHESIVE DRUG Active 2015-0 MD TAPE-GRACE 2-03 Anderso ICONES 00:00: n 00 ERYTHROM DRUG Active 2015-0 MD YCIN 2-03 Anderso 00:00: n 00 IODINATE Drug Active Low Hives 2015-0 MD D Class 2-03 Anderso CONTRAST 00:00: n MEDIA 00 ADHESIVE Drug Active 2015-0 MD Class 2-03 Anderso 00:00: n 00 ADHESIVE DRUG Active 2015-0 MD TAPE-GRACE 2-03 Anderso ICONES 00:00: n 00 ERYTHROM DRUG Active 2015-0 MD YCIN 2-03 Anderso 00:00: n 00 IODINATE Drug Active Low Hives 2016-0 MD D Class 2-03 Anderso CONTRAST 00:00: n MEDIA 00 ADHESIVE Drug Active 2015-0 MD Class 2-03 Anderso 00:00: n 00 ADHESIVE DRUG Active 2015-0 MD TAPE-GRACE 2-03 Anderso ICONES 00:00: n 00 ERYTHROM DRUG Active 2016-0 MD YCIN 2-03 Anderso 00:00: n 00 IODINATE Drug Active Low Hives 2016-0 MD D Class 2-03 Anderso CONTRAST 00:00: n MEDIA 00 ADHESIVE Drug Active 2015-0 MD Class 2-03 Anderso 00:00: n 00 ADHESIVE DRUG Active 2015-0 MD TAPE-GRACE 2-03 Anderso ICONES 00:00: n 00 ERYTHROM DRUG Active 2016-0 MD YCIN 2-03 Anderso 00:00: n 00 IODINATE Drug Active Low Hives 2015-0 MD D Class 2-03 Anderso CONTRAST 00:00: n MEDIA 00 ADHESIVE Drug Active 2015-0 MD Class 2-03 Anderso 00:00: n 00 ADHESIVE DRUG Active 2015-0 MD TAPE-GRACE 2-03 Anderso ICONES 00:00: n 00 ERYTHROM DRUG Active 2015-0 MD YCIN 2-03 Anderso 00:00: n 00 IODINATE Drug Active Low Hives 2015-0 MD D Class 2-03 Anderso CONTRAST 00:00: n MEDIA 00 ADHESIVE Drug Active 2015-0 MD Class 2-03 Anderso 00:00: n 00 ADHESIVE DRUG Active 2015-0 MD TAPE-GRACE 2-03 Anderso ICONES 00:00: n 00 ERYTHROM DRUG Active 2015-0 MD YCIN 2-03 Anderso 00:00: n 00 IODINATE Drug Active Low Hives 2015-0 MD D Class 2-03 Anderso CONTRAST 00:00: n MEDIA 00 ADHESIVE Drug Active 2015-0 MD Class 2-03 Anderso 00:00: n 00 ADHESIVE DRUG Active 2015-0 MD TAPE-GRACE 2-03 Anderso ICONES 00:00: n 00 ERYTHROM DRUG Active 2015-0 MD YCIN 2-03 Anderso 00:00: n 00 IODINATE Drug Active Low Hives 2016-0 MD D Class 2-03 Anderso CONTRAST 00:00: n MEDIA 00 ADHESIVE Drug Active 2015-0 MD Class 2-03 Anderso 00:00: n 00 ADHESIVE DRUG Active 2015-0 MD TAPE-GRACE 2-03 Anderso ICONES 00:00: n 00 ERYTHROM DRUG Active 2015-0 MD YCIN 2-03 Anderso 00:00: n 00 IODINATE Drug Active Low Hives 2016-0 MD D Class 2-03 Anderso CONTRAST 00:00: n MEDIA 00 ADHESIVE Drug Active 2016-0 MD Class 2-03 Anderso 00:00: n 00 ADHESIVE DRUG Active 2015-0 MD TAPE-GRACE 2-03 Anderso ICONES 00:00: n 00 ERYTHROM DRUG Active 2015-0 MD YCIN 2-03 Anderso 00:00: n 00 IODINATE Drug Active Low Hives 2015-0 MD D Class 2-03 Anderso CONTRAST 00:00: n MEDIA 00 ADHESIVE Drug Active 2015-0 MD Class 2-03 Anderso 00:00: n 00 ADHESIVE DRUG Active 2015-0 MD TAPE-GRACE 2-03 Anderso ICONES 00:00: n 00 ERYTHROM DRUG Active 2015-0 MD YCIN 2-03 Anderso 00:00: n 00 IODINATE Drug Active Low Hives 2015-0 MD D Class 2-03 Anderso CONTRAST 00:00: n MEDIA 00 ADHESIVE Drug Active 2015-0 MD Class 2-03 Anderso 00:00: n 00 ADHESIVE DRUG Active 2015-0 MD TAPE-GRACE 2-03 Anderso ICONES 00:00: n 00 ERYTHROM DRUG Active 2015-0 MD YCIN 2-03 Anderso 00:00: n 00 IODINATE Drug Active Low Hives 2015-0 MD D Class 2-03 Anderso CONTRAST 00:00: n MEDIA 00 ADHESIVE Drug Active 2015-0 MD Class 2-03 Anderso 00:00: n 00 ADHESIVE DRUG Active 2015-0 MD TAPE-GRACE 2-03 Anderso ICONES 00:00: n 00 ERYTHROM DRUG Active 2015-0 MD YCIN 2-03 Anderso 00:00: n 00 IODINATE Drug Active Low Hives 2015-0 MD D Class 2-03 Anderso CONTRAST 00:00: n MEDIA 00 ADHESIVE Drug Active 2015-0 MD Class 2-03 Anderso 00:00: n 00 ADHESIVE DRUG Active 2015-0 MD TAPE-GRACE 2-03 Anderso ICONES 00:00: n 00 ERYTHROM DRUG Active 2016-0 MD YCIN 2-03 Anderso 00:00: n 00 IODINATE Drug Active Low Hives 2015-0 MD D Class 2-03 Anderso CONTRAST 00:00: n MEDIA 00 ADHESIVE Drug Active 2015-0 MD Class 2-03 Anderso 00:00: n 00 ADHESIVE DRUG Active 2015-0 MD TAPE-GRACE 2-03 Anderso ICONES 00:00: n 00 ERYTHROM DRUG Active 2015-0 MD YCIN 2-03 Anderso 00:00: n 00 IODINATE Drug Active Low Hives 2015-0 MD D Class 2-03 Anderso CONTRAST 00:00: n MEDIA 00 ADHESIVE Drug Active 2015-0 MD Class 2-03 Anderso 00:00: n 00 ADHESIVE DRUG Active 2015-0 MD TAPE-GRACE 2-03 Anderso ICONES 00:00: n 00 ERYTHROM DRUG Active 2015-0 MD YCIN 2-03 Anderso 00:00: n 00 IODINATE Drug Active Low Hives 2015-0 MD D Class 2-03 Anderso CONTRAST 00:00: n MEDIA 00 ADHESIVE Drug Active 2015-0 MD Class 2-03 Anderso 00:00: n 00 ADHESIVE DRUG Active 2015-0 MD TAPE-GRACE 2-03 Anderso ICONES 00:00: n 00 ERYTHROM DRUG Active 2015-0 MD YCIN 2-03 Anderso 00:00: n 00 IODINATE Drug Active Low Hives 2015-0 MD D Class 2-03 Anderso CONTRAST 00:00: n MEDIA 00 ADHESIVE Drug Active 2015-0 MD Class 2-03 Anderso 00:00: n 00 ADHESIVE DRUG Active 2015-0 MD TAPE-GRACE 2-03 Anderso ICONES 00:00: n 00 ERYTHROM DRUG Active 2015-0 MD YCIN 2-03 Anderso 00:00: n 00 IODINATE Drug Active Low Hives 2015-0 MD D Class 2-03 Anderso CONTRAST 00:00: n MEDIA 00 ADHESIVE Drug Active 2015-0 MD Class 2-03 Anderso 00:00: n 00 ADHESIVE DRUG Active 2015-0 MD TAPE-GRACE 2-03 Anderso ICONES 00:00: n 00 ERYTHROM DRUG Active 2015-0 MD YCIN 2-03 Anderso 00:00: n 00 IODINATE Drug Active Low Hives 2016-0 MD D Class 2-03 Anderso CONTRAST 00:00: n MEDIA 00 ADHESIVE Drug Active 2015-0 MD Class 2-03 Anderso 00:00: n 00 ADHESIVE DRUG Active 2015-0 MD TAPE-GRACE 2-03 Anderso ICONES 00:00: n 00 ERYTHROM DRUG Active 2015-0 MD YCIN 2-03 Anderso 00:00: n 00 IODINATE Drug Active Low Hives 2016-0 MD D Class 2-03 Anderso CONTRAST 00:00: n MEDIA 00 ADHESIVE Drug Active 2015-0 MD Class 2-03 Anderso 00:00: n 00 ADHESIVE DRUG Active 2015-0 MD TAPE-GRACE 2-03 Anderso ICONES 00:00: n 00 ERYTHROM DRUG Active 2015-0 MD YCIN 2-03 Anderso 00:00: n 00 IODINATE Drug Active Low Hives 2015-0 MD D Class 2-03 Anderso CONTRAST 00:00: n MEDIA 00 ADHESIVE Drug Active 2015-0 MD Class 2-03 Anderso 00:00: n 00 ADHESIVE DRUG Active 2015-0 MD TAPE-GRACE 2-03 Anderso ICONES 00:00: n 00 ERYTHROM DRUG Active 2015-0 MD YCIN 2-03 Anderso 00:00: n 00 IODINATE Drug Active Low Hives 2015-0 MD D Class 2-03 Anderso CONTRAST 00:00: n MEDIA 00 ADHESIVE Drug Active 2015-0 MD Class 2-03 Anderso 00:00: n 00 ADHESIVE DRUG Active 2015-0 MD TAPE-GRACE 2-03 Anderso ICONES 00:00: n 00 ERYTHROM DRUG Active 2015-0 MD YCIN 2-03 Anderso 00:00: n 00 IODINATE Drug Active Low Hives 2015-0 MD D Class 2-03 Anderso CONTRAST 00:00: n MEDIA 00 ADHESIVE Drug Active 2015-0 MD Class 2-03 Anderso 00:00: n 00 ADHESIVE DRUG Active 2015-0 MD TAPE-GRACE 2-03 Anderso ICONES 00:00: n 00 ERYTHROM DRUG Active 2015-0 MD YCIN 2-03 Anderso 00:00: n 00 IODINATE Drug Active Low Hives 2015-0 MD D Class 2-03 Anderso CONTRAST 00:00: n MEDIA 00 ADHESIVE Drug Active 2015-0 MD Class 2-03 Anderso 00:00: n 00 ADHESIVE DRUG Active 2015-0 MD TAPE-GRACE 2-03 Anderso ICONES 00:00: n 00 ERYTHROM DRUG Active 2015-0 MD YCIN 2-03 Anderso 00:00: n 00 IODINATE Drug Active Low Hives 2016-0 MD D Class 2-03 Anderso CONTRAST 00:00: n MEDIA 00 ADHESIVE Drug Active 2015-0 MD Class 2-03 Anderso 00:00: n 00 ADHESIVE DRUG Active 2015-0 MD TAPE-GRACE 2-03 Anderso ICONES 00:00: n 00 ERYTHROM DRUG Active 2015-0 MD YCIN 2-03 Anderso 00:00: n 00 IODINATE Drug Active Low Hives 2015-0 MD D Class 2-03 Anderso CONTRAST 00:00: n MEDIA 00 ADHESIVE Drug Active 2015-0 MD Class 2-03 Anderso 00:00: n 00 ADHESIVE DRUG Active 2015-0 MD TAPE-GRACE 2-03 Anderso ICONES 00:00: n 00 ERYTHROM DRUG Active 2015-0 MD YCIN 2-03 Anderso 00:00: n 00 IODINATE Drug Active Low Hives 2015-0 MD D Class 2-03 Anderso CONTRAST 00:00: n MEDIA 00 ADHESIVE Drug Active 2015-0 MD Class 2-03 Anderso 00:00: n 00 ADHESIVE DRUG Active 2015-0 MD TAPE-GRACE 2-03 Anderso ICONES 00:00: n 00 ERYTHROM DRUG Active 2015-0 MD YCIN 2-03 Anderso 00:00: n 00 IODINATE Drug Active Low Hives 2015-0 MD D Class 2-03 Anderso CONTRAST 00:00: n MEDIA 00 ADHESIVE Drug Active 2015-0 MD Class 2-03 Anderso 00:00: n 00 ADHESIVE DRUG Active 2015-0 MD TAPE-GRACE 2-03 Anderso ICONES 00:00: n 00 ERYTHROM DRUG Active 2015-0 MD YCIN 2-03 Anderso 00:00: n 00 IODINATE Drug Active Low Hives 2015-0 MD D Class 2-03 Anderso CONTRAST 00:00: n MEDIA 00 ADHESIVE Drug Active 2015-0 MD Class 2-03 Anderso 00:00: n 00 ADHESIVE DRUG Active 2015-0 MD TAPE-GRACE 2-03 Anderso ICONES 00:00: n 00 ERYTHROM DRUG Active 2015-0 MD YCIN 2-03 Anderso 00:00: n 00 IODINATE Drug Active Low Hives 2015-0 MD D Class 2-03 Anderso CONTRAST 00:00: n MEDIA 00 ADHESIVE Drug Active 2015-0 MD Class 2-03 Anderso 00:00: n 00 ADHESIVE DRUG Active 2015-0 MD TAPE-GRACE 2-03 Anderso ICONES 00:00: n 00 ERYTHROM DRUG Active 2015-0 MD YCIN 2-03 Anderso 00:00: n 00 IODINATE Drug Active Low Hives 2016-0 MD D Class 2-03 Anderso CONTRAST 00:00: n MEDIA 00 ADHESIVE Drug Active 2015-0 MD Class 2-03 Anderso 00:00: n 00 ADHESIVE DRUG Active 2015-0 MD TAPE-GRACE 2-03 Anderso ICONES 00:00: n 00 ERYTHROM DRUG Active 2015-0 MD YCIN 2-03 Anderso 00:00: n 00 IODINATE Drug Active Low Hives 2015-0 MD D Class 2-03 Anderso CONTRAST 00:00: n MEDIA 00 ADHESIVE Drug Active 2015-0 MD Class 2-03 Anderso 00:00: n 00 ADHESIVE DRUG Active 2015-0 MD TAPE-GRACE 2-03 Anderso ICONES 00:00: n 00 ERYTHROM DRUG Active 2015-0 MD YCIN 2-03 Anderso 00:00: n 00 IODINATE Drug Active Low Hives 2015-0 MD D Class 2-03 Anderso CONTRAST 00:00: n MEDIA 00 ADHESIVE Drug Active 2015-0 MD Class 2-03 Anderso 00:00: n 00 ADHESIVE DRUG Active 2015-0 MD TAPE-GRACE 2-03 Anderso ICONES 00:00: n 00 ERYTHROM DRUG Active 2015-0 MD YCIN 2-03 Anderso 00:00: n 00 IODINATE Drug Active Low Hives 2015-0 MD D Class 2-03 Anderso CONTRAST 00:00: n MEDIA 00 ADHESIVE Drug Active 2015-0 MD Class 2-03 Anderso 00:00: n 00 ADHESIVE DRUG Active 2015-0 MD TAPE-GRACE 2-03 Anderso ICONES 00:00: n 00 ERYTHROM DRUG Active 2015-0 MD YCIN 2-03 Anderso 00:00: n 00 IODINATE Drug Active Low Hives 2015-0 MD D Class 2-03 Anderso CONTRAST 00:00: n MEDIA 00 ADHESIVE Drug Active 2015-0 MD Class 2-03 Anderso 00:00: n 00 ADHESIVE DRUG Active 2015-0 MD TAPE-GRACE 2-03 Anderso ICONES 00:00: n 00 ERYTHROM DRUG Active 2015-0 MD YCIN 2-03 Anderso 00:00: n 00 IODINATE Drug Active Low Hives 2016-0 MD D Class 2-03 Anderso CONTRAST 00:00: n MEDIA 00 ADHESIVE Drug Active 2016-0 MD Class 2-03 Anderso 00:00: n 00 ADHESIVE DRUG Active 2016-0 MD TAPE-GRACE 2-03 Anderso ICONES 00:00: n 00 ERYTHROM DRUG Active 2015-0 MD YCIN 2-03 Anderso 00:00: n 00 IODINATE Drug Active Low Hives 2015-0 MD D Class 2-03 Anderso CONTRAST 00:00: n MEDIA 00 ADHESIVE Drug Active 2015-0 MD Class 2-03 Anderso 00:00: n 00 ADHESIVE DRUG Active 2015-0 MD TAPE-GRACE 2-03 Anderso ICONES 00:00: n 00 ERYTHROM DRUG Active 2015-0 MD YCIN 2-03 Anderso 00:00: n 00 IODINATE Drug Active Low Hives 2015-0 MD D Class 2-03 Anderso CONTRAST 00:00: n MEDIA 00 ADHESIVE Drug Active 2015-0 MD Class 2-03 Anderso 00:00: n 00 ADHESIVE DRUG Active 2015-0 MD TAPE-GRACE 2-03 Anderso ICONES 00:00: n 00 ERYTHROM DRUG Active 2015-0 MD YCIN 2-03 Anderso 00:00: n 00 IODINATE Drug Active Low Hives 2015-0 MD D Class 2-03 Anderso CONTRAST 00:00: n MEDIA 00 ADHESIVE Drug Active 2015-0 MD Class 2-03 Anderso 00:00: n 00 ADHESIVE DRUG Active 2015-0 MD TAPE-GRACE 2-03 Anderso ICONES 00:00: n 00 ERYTHROM DRUG Active 2015-0 MD YCIN 2-03 Anderso 00:00: n 00 IODINATE Drug Active Low Hives 2015-0 MD D Class 2-03 Anderso CONTRAST 00:00: n MEDIA 00 ADHESIVE Drug Active 2015-0 MD Class 2-03 Anderso 00:00: n 00 ADHESIVE DRUG Active 2015-0 MD TAPE-GRACE 2-03 Anderso ICONES 00:00: n 00 ERYTHROM DRUG Active 2015-0 MD YCIN 2-03 Anderso 00:00: n 00 IODINATE Drug Active Low Hives 2016-0 MD D Class 2-03 Anderso CONTRAST 00:00: n MEDIA 00 ADHESIVE Drug Active 2015-0 MD Class 2-03 Anderso 00:00: n 00 ADHESIVE DRUG Active 2015-0 MD TAPE-GRACE 2-03 Anderso ICONES 00:00: n 00 ERYTHROM DRUG Active 2015-0 MD YCIN 2-03 Anderso 00:00: n 00 IODINATE Drug Active Low Hives 2015-0 MD D Class 2-03 Anderso CONTRAST 00:00: n MEDIA 00 ADHESIVE Drug Active 2015-0 MD Class 2-03 Anderso 00:00: n 00 ADHESIVE DRUG Active 2015-0 MD TAPE-GRACE 2-03 Anderso ICONES 00:00: n 00 ERYTHROM DRUG Active 2015-0 MD YCIN 2-03 Anderso 00:00: n 00 IODINATE Drug Active Low Hives 2015-0 MD D Class 2-03 Anderso CONTRAST 00:00: n MEDIA 00 ADHESIVE Drug Active 2015-0 MD Class 2-03 Anderso 00:00: n 00 ADHESIVE DRUG Active 2015-0 MD TAPE-GRACE 2-03 Anderso ICONES 00:00: n 00 ERYTHROM DRUG Active 2015-0 MD YCIN 2-03 Anderso 00:00: n 00 IODINATE Drug Active Low Hives 2015-0 MD D Class 2-03 Anderso CONTRAST 00:00: n MEDIA 00 ADHESIVE Drug Active 2015-0 MD Class 2-03 Anderso 00:00: n 00 ADHESIVE DRUG Active 2015-0 MD TAPE-GRACE 2-03 Anderso ICONES 00:00: n 00 ERYTHROM DRUG Active 2015-0 MD YCIN 2-03 Anderso 00:00: n 00 IODINATE Drug Active Low Hives 2015-0 MD D Class 2-03 Anderso CONTRAST 00:00: n MEDIA 00 ADHESIVE Drug Active 2015-0 MD Class 2-03 Anderso 00:00: n 00 ADHESIVE DRUG Active 2015-0 MD TAPE-GRACE 2-03 Anderso ICONES 00:00: n 00 ERYTHROM DRUG Active 2015-0 MD YCIN 2-03 Anderso 00:00: n 00 IODINATE Drug Active Low Hives 2016-0 MD D Class 2-03 Anderso CONTRAST 00:00: n MEDIA 00 ADHESIVE Drug Active 2015-0 MD Class 2-03 Anderso 00:00: n 00 ADHESIVE DRUG Active 2015-0 MD TAPE-GRACE 2-03 Anderso ICONES 00:00: n 00 ERYTHROM DRUG Active 2015-0 MD YCIN 2-03 Anderso 00:00: n 00 IODINATE Drug Active Low Hives 2016-0 MD D Class 2-03 Anderso CONTRAST 00:00: n MEDIA 00 ADHESIVE Drug Active 2015-0 MD Class 2-03 Anderso 00:00: n 00 ADHESIVE DRUG Active 2015-0 MD TAPE-GRACE 2-03 Anderso ICONES 00:00: n 00 ERYTHROM DRUG Active 2015-0 MD YCIN 2-03 Anderso 00:00: n 00 IODINATE Drug Active Low Hives 2015-0 MD D Class 2-03 Anderso CONTRAST 00:00: n MEDIA 00 ADHESIVE Drug Active 2015-0 MD Class 2-03 Anderso 00:00: n 00 ADHESIVE DRUG Active 2015-0 MD TAPE-GRACE 2-03 Anderso ICONES 00:00: n 00 ERYTHROM DRUG Active 2015-0 MD YCIN 2-03 Anderso 00:00: n 00 IODINATE Drug Active Low Hives 2015-0 MD D Class 2-03 Anderso CONTRAST 00:00: n MEDIA 00 ADHESIVE Drug Active 2015-0 MD Class 2-03 Anderso 00:00: n 00 ADHESIVE DRUG Active 2015-0 MD TAPE-GRACE 2-03 Anderso ICONES 00:00: n 00 ERYTHROM DRUG Active 2015-0 MD YCIN 2-03 Anderso 00:00: n 00 IODINATE Drug Active Low Hives 2015-0 MD D Class 2-03 Anderso CONTRAST 00:00: n MEDIA 00 ADHESIVE Drug Active 2015-0 MD Class 2-03 Anderso 00:00: n 00 ADHESIVE DRUG Active 2015-0 MD TAPE-GRACE 2-03 Anderso ICONES 00:00: n 00 ERYTHROM DRUG Active 2015-0 MD YCIN 2-03 Anderso 00:00: n 00 IODINATE Drug Active Low Hives 2016-0 MD D Class 2-03 Anderso CONTRAST 00:00: n MEDIA 00 ADHESIVE Drug Active 2015-0 MD Class 2-03 Anderso 00:00: n 00 ADHESIVE DRUG Active 2015-0 MD TAPE-GRACE 2-03 Anderso ICONES 00:00: n 00 ERYTHROM DRUG Active 2015-0 MD YCIN 2-03 Anderso 00:00: n 00 Adhesive Propensi Active Univer s ty to 203 ity of adverse 00:00: [place] reaction 00 MD [facility] Adhesive Propensi Active Univer s Tape-Grace ty to 2 ity of icones adverse 00:00: [place] reaction 00 MD [facility] Erythrom Propensi Active Univer s ycin ty to 06-22 ity of adverse 00:00: [place] reaction 00 MD [facility] Iodinate Propensi Active Hives 08/20/21 Univ ers d ty to 06-22 On 13 ity of Contrast adverse 00:00: hour [place] Media reaction 00 preparati MD valdez on of Anderso prednison n e 50 mg Cancer po x 3 Center doses and benadryl 50 mg po . Hives, CT completed and tolerated well ,no reaction reported. Tolerated previous scan with 13 hours prep prednison e 50 mg POx3 and bendryl 50 mg PO/11/07 premedica junie with 13 hours prep prednison e 50 mg PO x3 and benadryl 50 mg POx1. No reactions noted post CT IODINATE Drug Active Low Hives 2015-0 MD D Class 2-03 Anderso CONTRAST 00:00: n MEDIA 00 ADHESIVE Drug Active 2015-0 MD Class 2-03 Anderso 00:00: n 00 ADHESIVE DRUG Active 2015-0 MD TAPE-GRACE 2-03 Anderso ICONES 00:00: n 00 ERYTHROM DRUG Active 2015-0 MD YCIN 2-03 Anderso 00:00: n 00 IODINATE Drug Active Low Hives 2015-0 MD D Class 2-03 Anderso CONTRAST 00:00: n MEDIA 00 ADHESIVE Drug Active 2015-0 MD Class 2-03 Anderso 00:00: n 00 ADHESIVE DRUG Active 2015-0 MD TAPE-GRACE 2-03 Anderso ICONES 00:00: n 00 ERYTHROM DRUG Active 2015-0 MD YCIN 2-03 Anderso 00:00: n 00 IODINATE Drug Active Low Hives 2015-0 MD D Class 2-03 Anderso CONTRAST 00:00: n MEDIA 00 ADHESIVE Drug Active 2015-0 MD Class 2-03 Anderso 00:00: n 00 ADHESIVE DRUG Active 2015-0 MD TAPE-GRACE 2-03 Anderso ICONES 00:00: n 00 ERYTHROM DRUG Active 2015-0 MD YCIN 2-03 Anderso 00:00: n 00 IODINATE Drug Active Low Hives 2015-0 MD D Class 2-03 Anderso CONTRAST 00:00: n MEDIA 00 ADHESIVE Drug Active 2015-0 MD Class 2-03 Anderso 00:00: n 00 ADHESIVE DRUG Active 2015-0 MD TAPE-GRACE 2-03 Anderso ICONES 00:00: n 00 ERYTHROM DRUG Active 2015-0 MD YCIN 2-03 Anderso 00:00: n 00 IODINATE Drug Active Low Hives 2015-0 MD D Class 2-03 Anderso CONTRAST 00:00: n MEDIA 00 ADHESIVE Drug Active 2015-0 MD Class 2-03 Anderso 00:00: n 00 ADHESIVE DRUG Active 2015-0 MD TAPE-GRACE 2-03 Anderso ICONES 00:00: n 00 ERYTHROM DRUG Active 2015-0 MD YCIN 2-03 Anderso 00:00: n 00 IODINATE Drug Active Low Hives 2015-0 MD D Class 2-03 Anderso CONTRAST 00:00: n MEDIA 00 ADHESIVE Drug Active 2015-0 MD Class 2-03 Anderso 00:00: n 00 ADHESIVE DRUG Active 2015-0 MD TAPE-GRACE 2-03 Anderso ICONES 00:00: n 00 ERYTHROM DRUG Active 2015-0 MD YCIN 2-03 Anderso 00:00: n 00 IODINATE Drug Active Low Hives 2015-0 MD D Class 2-03 Anderso CONTRAST 00:00: n MEDIA 00 ADHESIVE Drug Active 2015-0 MD Class 2-03 Anderso 00:00: n 00 ADHESIVE DRUG Active 2015-0 MD TAPE-GRACE 2-03 Anderso ICONES 00:00: n 00 ERYTHROM DRUG Active 2015-0 MD YCIN 2-03 Anderso 00:00: n 00 IODINATE Drug Active Low Hives 2015-0 MD D Class 2-03 Anderso CONTRAST 00:00: n MEDIA 00 ADHESIVE Drug Active 2015-0 MD Class 2-03 Anderso 00:00: n 00 Family History Family Member Diagnosis Comments Start Date Stop Date Source Natural brother Cirrhosis [facility] Natural brother Liver disease [facility] Natural father COPD [facility] Natural father Stroke [facility] Natural mother Atrial fibrillation [facility] Natural mother Diabetes [facility] Natural mother Hyperlipidemia [facility] Natural mother Hypertension Universi ty [facility] Natural sister [facility] Natural son [facility] Social History Social Habit Start Date Stop Date Quantity Comments Source Sexual orientation 2019-07-02 Heterosexual Univ ersity of 16:43:39 (finding) Ellie Beckwith History of tobacco Current smoker Un iversity of use [place] MD Nadeem gooden Squires Alcohol intake 2021-01-25 2021-01-25 Current non-drinker U niversity of 00:00:00 00:00:00 of alcohol Ellie ESQUIVEL (finding) Nadeem gooden Squires Cigarettes smoked 2017-10-22 2017-10-22 Univers ity of current (pack per 00:00:00 00:00:00 Ellie vásquez) - Reported [facility] Cigarette 2017-10-22 2017-10-22 University of pack-years 00:00:00 00:00:00 Ellie Beckwith Tobacco use and 2017-10-22 2017-10-22 Smokeless tobacco Un iversity of exposure 00:00:00 00:00:00 non-user [place] MD Nadeem gooden Squires Tobacco Comment 2017-10-22 2017-10-22 dip/snuff started Un iversity of 00:00:00 00:00:00 at age 38 [place] MD Nadeem gooden Squires Sex [birth year] M Universit y of 00:00:00 00:00:00 Ellie gooden Squires Smoking Status Start Date Stop Date Source Ex-smoker 2017-10-22 00:00:00 2017-10-22 00:00:00 Universi ty [facility] Medications Ordered Filled Start Stop Current Ordering Indication Dosage Frequency Signature Comments Components Source Medication Medication Date Date Medication? Clinician (SIG) Name Name ascorbic 2022-05 Yes 1000mg Take 1 Unive rs acid 0-02 tablet ity of (VITAMIN C) 14:32: (1,000 mg) Ellie 1000 mg 52 by mouth MD tablet daily. [facility] aspirin 81 2022-05 Yes 81mg Chew 1 Unive rs mg chewable 0-02 tablet (81 it y of tablet 14:32: mg) daily. [place] 52 [facility] lisinopril 2022-05 Yes 20mg Take 1 Unive rs (PRINIVIL,Z 0-02 tablet (20 it y of ESTRIL) 20 14:32: mg) by [place] mg tablet 52 mouth MD every Anders[place] morning. [facility] magnesium 2022-05 Yes 500mg Take 1 Unive rs oxide 500 0-02 tablet ity of mg tab 14:32: (500 mg) [place] tablet 52 by mouth MD daily. [facility] metFORMIN 2022-05 Yes 750mg Take 1 Unive rs (GLUCOPHAGE 0-02 tablet ity of -XR) 750 mg 14:32: (750 mg[place] 24 [place] 52 by mouth 2 MD tablet (two) Anderso times a n day with Cancer meals. Squires multivitami 2022-05 Yes 1{tbl} Take 1 Un kamron n 0-02 tablet by ity of (THERAGRAN) 14:32: mouth [place] tab tablet 52 daily. [facility] SOTALOL HCL 2022-05 Yes 40mg Take 40 mg Univers (SOTALOL 0-02 by mouth ity of ORAL) 14:32: every 8 [place] 52 (eight) MD hours. [facility] leuprolide, 2022-05 Yes 22.5mg Inject Un kamron 3 month, 0-02 22.5 mg ity of (LUPRON 14:32: into the [place] DEPOT) 22.5 52 shoulder, MD mg thigh, or Anderso injection buttocks. [facility] biotin 2022-05 Yes 5000ug Take 5,000 Uni vers 2,500 mcg 0-02 mcg by ity of cap 14:32: mouth [place] 52 daily. [facility] denosumab 2022-05 Yes 60mg Inject 1 Univ ers (PROLIA) 60 0-02 mL (60 mg) it y of mg/mL syrg 14:32: [place] the [place] injection 52 skin. 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 [facility] predniSONE Yes Adenocarcin TAKE ONE Univers (DELTASONE) 8-17 kirill of TABLET BY i ty of 5 mg tablet 00:00: prostate MOUTH [place] 00 DAILY WITH MD BREAKFAST [facility] amoxicillin 2022- No 500mg Take 1 Un kamron (AMOXIL) 12-12 capsule ity of 500 mg 11:22: 00:00 (500 mg) [place] capsule 23 :00 by mouth twice Will daily. For n 10 days, Cancer [facility] Center more day remaking NIFEdipine 2021-05 Yes Adenocarcin TAKE ONE Univers (PROCARDIA 1-22 kirill of TABLET BY it y of XL) 60 mg 00:00: prostate MOUTH AT [place] 24 hr 00 BEDTIME tablet Strength: Anderso 60 mg [facility] NIFEdipine 2021-05- No Adenocarcin TAKE ONE Univers (PROCARDIA 1-21 11-22 kirill of TABLET BY i ty of XL) 60 mg 00:00: 00:00 prostate MOUTH AT [place] 24 hr 00 :00 BEDTIME tablet [facility] abiraterone 2022- No Adenocarcin 1000mg Take 4 Univers (Zytiga) 01-29 08-30 kirill of tablets ity o f 250 mg 00:00: 00:00 prostate (1,000 mg) [place] tablet 00 :00 by mouth daily. [facility] predniSONE 2022- No Adenocarcin TAKE ONE Univers (DELTASONE) 01-26 08-17 kirill of TABLET BY ity of 5 mg tablet 00:00: 00:00 prostate MOUTH [place] 00 :00 DAILY NICHOLE ESQUIVEL BREAKFAST [facility] NIFEdipine 2021- No Adenocarcin 60mg Take 1 Univers (PROCARDIA 5-10 11-21 kirill of tablet (60 ity of XL) 60 mg 00:00: 00:00 prostate mg) by [place] 24 [place] 00 :00 mouth at MD tablet bedtime. [facility] pravastatin Yes Univer s (PRAVACHOL) 12-18 ity of 40 mg 00:00: [place] tablet 00 MD [facility] Immunizations Ordered Immunization Filled Immunization Date Status Commen ts Source Name Name Moderna SARS-CoV-2 Unknown Completed Univer sity of Vaccination [facility]ie [facility] Moderna SARS-CoV-2 Unknown Completed Univer sity of Vaccination Ellie [facility] Moderna SARS-CoV-2 Unknown Completed Univer sity of Vaccination [place] MD [facility] Pfizer SARS-CoV-2 Unknown Completed Univers ity of Vaccination 12+ y.o. [facility] Pfizer SARS-CoV-2 Unknown Completed Univers ity of Vaccination 12+ y.o. [facility] Pneumococcal Unknown Completed University o f Conjugate 13-Valent [facility] Vital Signs Vital Name Observation Time Observation Value Comments Source HEIGHT 2020-09-19 08:15:00 185 cm WEIGHT 2020-09-19 08:15:00 104 kg HEIGHT 2020-03-30 09:42:00 185 cm WEIGHT 2020-03-30 09:42:00 104.9 kg Systolic blood 2023-02-18 17:43:17 122 mm[Hg] Univer [facility]ity of pressure [facility] Diastolic blood 2023-02-18 17:43:17 65 mm[Hg] Unive rsity of pressure [facility] Heart rate 2023-02-18 17:43:17 56 [facility] Body temperature 2023-02-18 17:43:17 36 Priya Kell [facility] ers[facility]ley [facility] Respiratory rate 2023-02-18 17:43:17 18 /min [facility] Oxygen saturation in 2023-02-18 17:43:17 98 /min [facility] Arterial blood by Ellie ortiz Pulse oximetry Cancer Center Body height 2023-02-18 14:46:00 186 cm Universi ty of [facility] Body weight 2023-02-18 14:46:00 93.7 kg Universi ty of [facility] BMI 2023-02-18 14:46:00 27.08 kg/m2 Universi ty of [facility] Procedures Procedure Date / Time Performing Clinician Source Performed PETCT F18 PSMA PYL 2023-02-18 16:40:03 Kiersten, [facility] (PIFLUFOLASTAT) WITHOUT Shane ESQUIVEL Graeme son [facility] CONTRAST Center ALANINE AMINOTRANSFERASE 2023-02-18 12:58:00 Kiersten, [facility] ALBUMIN LEVEL 2023-02-18 12:58:00 Kiersten, [facility] ALKALINE PHOSPHATASE 2023-02-18 12:58:00 Kiersten, [facility] ASPARTATE AMINOTRANSFERASE 2023-02-18 12:58:00 Kiersten, [facility] BLOOD UREA NITROGEN 2023-02-18 12:58:00 Kiersten, [facility] CALCIUM LEVEL 2023-02-18 12:58:00 Kiersten, [facility] CARCINOEMBRYONIC ANTIGEN 2023-02-18 12:58:00 [facility] W/ 2023-02-18 12:58:00 Kiersten, [facility] DIFFERENTIAL [facility] CREATININE 2023-02-18 12:58:00 Kiersten [facility] ELECTROLYTE PANEL 2023-02-18 12:58:00 [facility], [facility] FRACTIONATED BILIRUBIN 2023-02-18 12:58:00 Kiersten, [facility] GLUCOSE, RANDOM 2023-02-18 12:58:00 Kiersten [facility] LACTATE DEHYDROGENASE 2023-02-18 12:58:00 Kiersten [facility] MAGNESIUM LEVEL 2023-02-18 12:58:00 Kiersten [facility] PHOSPHORUS LEVEL 2023-02-18 12:58:00 Kiersten [facility] PROSTATE SPECIFIC ANTIGEN 2023-02-18 12:58:00 Jesusita Calvillo [facility] TESTOSTERONE LEVEL 2023-02-18 12:58:00 Kiersten [facility] TOTAL PROTEIN 2023-02-18 12:58:00 Kiersten [facility] VITAMIN D 25 HYDROXY LEVEL 2023-02-18 12:58:00 Kiersten [facility] SERUM CREATININE 2023-02-18 12:58:00 Kiersten [facility] .GLOMERULAR FILTRATION 2023-02-18 12:58:00 Kiersten [facility] .CBC 2023-02-18 12:58:00 Kiersten [facility] DIFFERENTIAL 2023-02-18 12:58:00 Kiersten [facility] CT BONE METS SIMULATION 2022-12-19 16:16:00 Greg Delgado [facility] WITHOUT CONTRAST [facility] XR FEMUR 2 VW LEFT 2022-12-14 14:04:00 Greg Delgado [facility] MRI PELVIS W WO CONTRAST - 2022-12-13 17:42:00 Jaswinder Jett [facility] MUSCULOSKELETAL [facility] PETCT F18 PSMA PYL 2022-12-12 14:12:32 Kiersten [facility] (PIFLUFOLASTAT) ANA Lynn MD Graeme son [facility] CONTRAST Center ALANINE AMINOTRANSFERASE 2022-12-12 12:01:00 Han Calvillo [facility] ALBUMIN LEVEL 2022-12-12 12:01:00 Kiersten [facility] ALKALINE PHOSPHATASE 2022-12-12 12:01:00 Kiersten [facility] ASPARTATE AMINOTRANSFERASE 2022-12-12 12:01:00 Kiersten [facility] BLOOD UREA NITROGEN 2022-12-12 12:01:[address] [facility] CALCIUM LEVEL 2022-12-12 12:01:00 Kiersten [facility] CARCINOEMBRYONIC ANTIGEN 2022-12-12 12:01:00 Han [facility] COMPLETE BLOOD COUNT W/ 2022-12-12 12:01:00 Kiersten [facility] DIFFERENTIAL [facility] CREATININE 2022-12-12 12:01:00 Kiersten [facility] ELECTROLYTE PANEL 2022-12-12 12:01:00 [facility] FRACTIONATED BILIRUBIN 2022-12-12 12:01:00 Cheri Calvillo [facility] [place] [facility] GLUCOSE, RANDOM 2022-12-12 12:01:00 Kiersten [facility] LACTATE DEHYDROGENASE 2022-12-12 12:01:00 [facility] MAGNESIUM LEVEL 2022-12-12 12:01:00 Kiersten [facility] PHOSPHORUS LEVEL 2022-12-12 12:01:00 Kiersten [facility] PROSTATE SPECIFIC ANTIGEN 2022-12-12 12:01:00 Jesusita [facility] TESTOSTERONE LEVEL 2022-12-12 12:01:00 [facility] TOTAL PROTEIN 2022-12-12 12:01:00 Kiersten [facility] VITAMIN D 25 HYDROXY LEVEL 2022-12-12 12:01:00 Kiersten [facility] SERUM CREATININE 2022-12-12 12:01:00 Kiersten [facility] .GLOMERULAR FILTRATION 2022-12-12 12:01:00 Kiersten, [facility] .CBC 2022-12-12 12:01:00 Kiersten [facility] DIFFERENTIAL 2022-12-12 12:01:00 Kiersten [facility] PETCT F18 PSMA PYL 2022-08-20 16:33:00 Kiersten [facility] (PIFLUFOLASTAT) [facility] Shane ESQUIVEL [facility] Cancer [facility] ALANINE AMINOTRANSFERASE 2022-08-20 12:39:00 Kiersten, [facility] ALBUMIN LEVEL 2022-08-20 12:39:00 Kiersten [facility] ALKALINE PHOSPHATASE 2022-08-20 12:39:00 Kiersten [facility] ASPARTATE AMINOTRANSFERASE 2022-08-20 12:39:00 Kiersten [facility] BLOOD UREA NITROGEN 2022-08-20 12:39:00 [facility] CALCIUM LEVEL 2022-08-20 12:39:00 Kiersten [facility] CARCINOEMBRYONIC ANTIGEN 2022-08-20 12:39:00 Kiersten, [facility] COMPLETE BLOOD COUNT W/ 2022-08-20 12:39:00 Afua Calvillo [facility] DIFFERENTIAL [facility] CREATININE 2022-08-20 12:39:00 Kiersten, [facility] ELECTROLYTE PANEL 2022-08-20 12:39:00 Kiersten, [facility] FRACTIONATED BILIRUBIN 2022-08-20 12:39:00 Kiersten, [facility] GLUCOSE, RANDOM 2022-08-20 12:39:00 Kiersten, [facility] LACTATE DEHYDROGENASE 2022-08-20 12:39:00 Kiersten [facility] MAGNESIUM LEVEL 2022-08-20 12:39:00 Kiersten, [facility] PHOSPHORUS LEVEL 2022-08-20 12:39:00 Kiersten, [facility] PROSTATE SPECIFIC ANTIGEN 2022-08-20 12:39:00 Jesusita Cal[facility]illo [facility] [place] [facility] TESTOSTERONE LEVEL 2022-08-20 12:39:00 Kiersten, [facility] TOTAL PROTEIN 2022-08-20 12:39:00 Kiersten, [facility] VITAMIN D 25 HYDROXY LEVEL 2022-08-20 12:39:00 Kiersten [facility] SERUM CREATININE 2022-08-20 12:39:00 Kiersten [facility] .GLOMERULAR FILTRATION 2022-08-20 12:39:00 Kiersten [facility] RATE [facility] .CBC 2022-08-20 12:39:00 Kiersten [facility] DIFFERENTIAL 2022-08-20 12:39:00 Kiersten [facility] PROSTATE SPECIFIC ANTIGEN 2022-05-22 13:52:00 Jesusita Calvillo [facility] CALCIUM LEVEL 2022-05-22 13:52:00 Kiersten [facility] PHOSPHORUS LEVEL 2022-05-22 13:52:00 Kiersten [facility] CREATININE 2022-05-22 13:52:00 Kiersten [facility] SERUM CREATININE 2022-05-22 13:52:00 Kiersten [facility] .GLOMERULAR FILTRATION 2022-05-22 13:52:00 Kiersten [facility] R[facility] Plan of Care Planned Activity Planned Date Details Comments Source Future Scheduled 2023-03-14 COVID-19 Vaccination [facility] Test 13:00:30 () MD Jovany thao Cancer [code = COVID-19 Center Vaccination ( season)] Encounters Start End Encounter Admission Attending Care Care Encounter Source Date/Time Date/Time Type Type Clinicians Facility Department ID 2023-03-12 2023-03-12 Specialty Jose Alberto, 1.2.840.1 [id number] [facility] 00:00:00 00:00:00 Pharmacy Brandon Lemos 85905.1.1 it y of 3.412.2.7 [place] .3.876983 .8 [facility] Cancer Squires 2023-02-18 2023-02-18 Outpatient [facility] MDA MDA [id number] 07:48:09 23:59:00 SHANE CHAKRABORTY 2023-02-18 2023-02-18 [facility] 1.2.840.1 [id number] [facility] 07:48:09 23:59:00 Encounter Shane chakraborty 77166.1.1 ity of 3.412.2.7 [place] .3.208041 MD Hooks [facility] Cancer Squires 2023-02-18 2023-02-18 Follow-Up [facility] 1.2.840.1 [id number] [facility] 14:00:00 17:13:36 Shane chakraborty 47898.1.1 ity of 3.412.2.7 [place] .3.049331 MD [facility] 2023-02-18 2023-02-18 Outpatient [facility] [id number] 12:39:07 17:13:36 SHANE CHAKRABORTY dayanaraso n 2023-02-18 2023-02-18 Ancillary [facility] 1.2.840.1 [id number] [facility] 10:00:00 12:30:00 Procedure Shane chakraborty 34933.1.1 ity of 3.412.2.7 [place] .3.414864 MD [facility] 2023-02-18 2023-02-18 Outpatient [facility] [id number] 09:07:00 09:07:00 SHANE CHAKRABORTY dayanaramegan moe 2023-02-18 2023-02-18 Katharina Woods 1.2.840.1 [id number] Univers 00:00:00 00:00:00 Only 56146.1.1 ity of 3.412.2.7 [place] .3.884406 MD [facility] 2023-02-18 2023-02-18 Travel 1.2.840.1 1.2.034.832 [id number] Univers 00:00:00 00:00:00 88328.1.1 350.1.13.41 ity of 3.412.2.7 [place].3.698 [place].9430[place] 084.8 MD [facility] 2023-01-16 2023-01-16 Alexus Feliciano 1.2.840.1 [id number] Univers 00:00:00 00:00:00 K. 96676.1.1 ity of 3.412.2.7 [place] .3.414179 MD [facility] 2023-01-16 2023-01-16 Specialty [place], 1.2.840.1 [id number] Univers 00:00:00 00:00:00 Pharmacy Brandon Lemos 53817.1.1 it y of 3.412.2.7 [place] .3.577065 MD [facility] 2023-01-16 2023-01-16 Alexus Fabian 1.2.840.1 [id number] Univers 00:00:00 00:00:00 Only K. 85057.1.1 ity of 3.412.2.7 [place] .3.594797 MD [facility] 2023-01-04 2023-01-04 Outpatient URIEL BLAKE MDA MDA [id number] 06:44:30 23:59:00 STEVEN moe 2023-01-04 2023[facility]01-04 [facility] 1.2.840.1 [id number] Univers 06:44:30 23:59:00 Encounter Steven 02997.1.1 it y of 3.412.2.7 [place] .3.986757 MD [facility] 2023-01-04 2023-01-04 Documentat Jonn, 1.2.840.1 [id number] 1 [id number] Univers 00:00:00 00:00:00 ion Zeeshan Hill 91020.1.1 i ty of 3.412.2.7 [place] .3.982510 MD [facility] 2023-01-04 2023-01-04 Travel 1.2.840.1 1.2.527.318 1252 [id number] Univers 00:00:00 00:00:00 11863.1.1 350.1.13.41 ity of 3.412.2.7 [place]7.3.698 [place]3.351209 084.8 [facility] 2023-01-03 2023-01-03 Outpatient URIEL MADRIGAL MDA [facility] [id number] 08:06:13 23:59:00 ZEESHAN Jeong o n 2023-01-03 2023-01-03 [facility], 1.2.840.1 [id number] Univers 08:06:13 23:59:00 Encounter Zeeshan Hill 18023.1.1 ity of 3.412.2.7 [place] .3.013887 MD [facility] 2023-01-03 2023-01-03 [facility] Pisters, 1.2.840.1 [id number] Univers 06:53:23 08:05:00 Encounter Steven 46751.1.1 it y of 3.412.2.7 [place] .3.700244 MD [facility] 2023-01-03 2023-01-03 Outpatient [facility], [facility] [id number] [place] 06:53:23 08:05:00 STEVEN moe 2023-01-03 2023-01-03 Travel 1.2.840.1 1.2.533.608 [id number] [id number] Univers 00:00:00 00:00:00 35823.1.1 350.1.13.41 ity of 3.412.2.7 [place]7.3.698 [place] .3.092100 084.8 MD Neva Solis [facility] 2023-01-02 2023-01-02 [facility] Pisters, 1.2.840.1 [id number] Univers 06:52:06 23:59:00 Encounter Steven 32720.1.1 it y of 3.412.2.7 [place] .3.746237 MD [facility] 2023-01-02 2023-01-02 Outpatient [facility], [facility] [id number] 06:52:06 23:59:00 STEVEN moe 2023-01-02 2023-01-02 Jaqueline Gregg 1.2.840.1 [id number] Univers 00:00:00 00:00:00 Shane chakraborty 53987.1.1 ity of 3.412.2.7 [place] .3.733639 MD .8 [facility] 2023-01-02 2023-01-02 Travel 1.2.840.1 1.2.963.159 2138 [id number] Univers 00:00:00 00:00:00 43927.1.1 350.1.13.41 ity of 3.412.2.7 [place]7.3.698 [place] .3.547891 084.8 MD [facility]s [facility] 2023-01-01 2023-01-01 Hospital P[facility], 1.2.840.1 [id number] Univers 06:44:28 23:59:00 [facility] Steven 86327.1.1 it y of 3.412.2.7 [place] .3.209309 MD Hooks [facility] 2023-01-01 2023-01-01 Outpatient [facility], [facility] [id number] [place] 06:44:28 23:59:00 STEVEN Jeong [facility] 2023-01-01 2023-01-01 Travel 1.2.840.1 1.2.303.266 [id number] [id number] Univers 00:00:00 00:00:00 33615.1.1 350.1.13.41 ity of 3.412.2.7 2.[place]7.3.698 [place] .3.678864 084.8 MD [facility] 2022-12-31 2022-12-31 Outpatient [facility], [facility] [id number] [place] 08:33:46 23:59:00 STEVEN moe 2022-12-31 2022-12-31 Hospital [facility]isters, 1.2.840.1 [id number] Univers 08:33:46 23:59:00 Encounter Steven 46597.1.1 it y of 3.412.2.7 [place] .3.101321 MD [facility]s [facility] 2022-12-31 2022-12-31 Travel 1.2.840.1 1.2.000.916 0002 [id number] Univers 00:00:00 00:00:00 31737.1.1 350.1.13.41 ity of 3.412.2.7 2.[place].7.3.698 [place] .3.668823 084.8 MD [facility] 2022-12-28 2022-12-28 [facility] [id number] 15:04:28 23:59:00 STVEEN Jeong viviana moe 2022-12-28 2022-12-28 Hospital Pisters, 1.2.840.1 [id number] [facility] 15:04:28 23:59:00 Encounter Steven 30757.1.1 it y of 3.412.2.7 [place] .3.130354 MD [facility] 2022-12-28 2022-12-28 Travel 1.2.840.1 1.2.270.098 [id number] [id number] Univers 00:00:00 00:00:00 60541.1.1 350.1.13.41 ity of 3.412.2.7 2.2[place]7.3.698 [place] .3.442354 084.8 MD [facility] 2022-12-27 2022-12-27 [facility] [id number] 09:15:02 23:59:00 STEVEN Jeong viviana 2022-12-27 2022-12-27 [facility] Pisters, 1.2.840.1 [id number] [facility] 09:15:02 23:59:00 Encounter Steven 50192.1.1 it y of 3.412.2.7 [place] .3.096499 MD [facility] 2022-12-27 2022-12-27 Travel 1.2.840.1 1.2.750.133 4132 [id number] Univers 00:00:00 00:00:00 61626.1.1 350.1.13.41 ity of 3.412.2.7 2.[place]7.3.698 [place] .3.677403 084.8 MD Hooks [facility] 2022-12-26 2022-12-26 Outpatient [facility] [id number] 09:03:14 23:59:00 ZEESHAN Jeong viviana moe 2022-12-26 2022-12-26 [facility], 1.2.840.1 [id number] Univers 09:03:14 23:59:00 Encounter Zeeshan Hill 05073.1.1 ity of 3.412.2.7 [place] .3.034893 MD Wilkinson8 [facility] 2022-12-26 2022-12-26 Outpatient [facility], [facility] [id number] MD 07:15:19 09:02:00 STEVEN moe 2022-12-26 2022-12-26 [facility] Pisters, 1.2.840.1 [id number] Univers 07:15:19 09:02:00 Encounter Steven 75052.1.1 it y of 3.412.2.7 [place] .3.656500 MD Wilkinson8 [facility] 2022-12-26 2022-12-26 Travel 1.2.840.1 1.2.395.679 [id number] Univers 00:00:00 00:00:00 58777.1.1 350.1.13.41 ity of 3.412.2.7 2.2.7.3.698 [place] .3.037912 084.8 MD Wilkinson8 [facility] 2022-12-25 2022-12-25 Outpatient [facility], [facility] [id number] 07:31:12 23:59:00 STEVEN moe 2022-12-25 2022-12-25 [facility] Pisters, 1.2.840.1 [id number] Univers 07:31:12 23:59:00 Encounter Steven 49342.1.1 it y of 3.412.2.7 [place] .3.165418 MD [facility]s [facility] 2022-12-25 2022-12-25 Travel 1.2.840.1 1.2.492.710 7354 [id number] Univers 00:00:00 00:00:00 73213.1.1 350.1.13.41 ity of 3.412.2.7 2.2.7.3.698 [place] .3.386450 084.8 .8 [facility] 2022-12-24 2022-12-24 Outpatient URIEL LOUKIRSTIN MDA [id number] 08:18:51 23:59:00 STEVEN Jean-Paul [facility] 2022-12-24 2022-12-24 [facility] 1.2.840.1 [id number] [facility] 08:18:51 23:59:00 Encounter Steven 14366.1.1 it y of 3.412.2.7 [place] .3.429385 MD Wilkinson8 [facility] 2022-12-24 2022-12-24 Documentat Jonn, 1.2.840.1 [id number] 1 [id number] Univers 00:00:00 00:00:00 fam Hill 33204.1.1 i ty of 3.412.2.7 [place] .3.064688 MD [facility]s [facility] 2022-12-24 2022-12-24 Travel 1.2.840.1 1.2.031.558 5958 [id number] Univers 00:00:00 00:00:00 75821.1.1 350.1.13.41 ity of 3.412.2.7 2.2.7.3.698 [place] .3.853955 084.8 MD [facility] 2022-12-19 2022-12-19 Outpatient URIEL DELGADO MDA [facility] [id number] 10:39:45 23:59:00 GREG guzman 2022-12-19 2022-12-19 [facility] Greg Delgado 1.2.840.1 [id number] Univers 10:39:45 23:59:00 Encounter Zeeshan Madrigal 13266.1.1 ity of 3.412.2.7 [place] .3.750815 MD [facility] 2022-12-19 2022-12-19 Outpatient [facility] [id number] 08:30:53 10:38:00 SHANE CHAKRABORTY n 2022-12-19 2022-12-19 [facility] 1.2.840.1 [id number] Univers 08:30:53 10:38:00 Zeeshan Alexandre 93338.1.1 ity of 3.412.2.7 [place] .3.844017 MD [facility] 2022-12-19 2022-12-19 Documentat Jonn, 1.2.840.1 [id number] 1 [id number] Univers 00:00:00 00:00:00 fam Hill 95345.1.1 i ty of 3.412.2.7 [place] .3.981214 MD [facility] 2022-12-19 2022-12-19 Documentkarolyn Madrigal, 1.2.840.1 [id number] Univers 00:00:00 00:00:00 fam Hill 34670.1.1 i ty of 3.412.2.7 [place] .3.355049 MD [facility] 2022-12-19 2022-12-19 Stanley Delgado 1.2.840.1 [id number] Univers 00:00:00 00:00:00 Only Greg Gooden 49549.1.1 i ty of 3.412.2.7 [place] .3.282133 MD [facility] 2022-12-19 2022-12-19 Travel 1.2.840.1 1.2.711.593 2688 [id number] Univers 00:00:00 00:00:00 30010.1.1 350.1.13.41 ity of 3.412.2.7 2.2.7.3.698 [place] .3.407230 084.8 MD [facility] 2022-12-18 2022-12-18 Stanley Delgado 1.2.840.1 [id number] Univers 00:00:00 00:00:00 Only Greg Gooden 92817.1.1 i ty of 3.412.2.7 [place] .3.664439 .Samantha [facility] 2022-12-17 2022-12-17 Office Tamiko, 1.2.840.1 [id number] [facility] 10:00:00 10:42:51 Visit Cinthia 60560.1.1 ity of 3.412.2.7 [place] .3.781591 MD Wilkinson8 [facility] 2022-12-17 2022-12-17 Outpatient URIEL TORRES [facility] [id number] 09:16:12 10:42:51 CINTHIA Jean-Paul viviana moe 2022-12-17 2022-12-17 Travel 1.2.840.1 1.2.644.022 6901 [id number] Univers 00:00:00 00:00:00 37183.1.1 350.1.13.41 ity of 3.412.2.7 2.2.7.3.698 [place] .3.944793 084.8 MD [facility] 2022-12-14 2022-12-14 Ancillary Dominik 1.2.840.1 [id number] Univers 09:15:00 09:30:00 Procedure Greg Gooden 72067.1.1 ity of 3.412.2.7 [place] .3.069621 MD [facility] 2022-12-14 2022-12-14 Outpatient URIEL ZACARIASGLEN KIRSTIN MDA [id number] MD 08:32:54 08:32:54 GREG Bedolla so n 2022-12-14 2022-12-14 Travel 1.2.840.1 1.2.083.453 9156 [id number] Univers 00:00:00 00:00:00 63389.1.1 350.1.13.41 ity of 3.412.2.7 2.2.7.3.698 [place] .3.932167 084.8 MD [facility] 2022-12-13 2022-12-13 Ancillary Delta[place] 1.2.840.1 [id number] Univers 11:15:00 13:00:00 Procedure hSane chakraborty 55316.1.1 ity of 3.412.2.7 [place] .3.388690 MD Wilkinson8 [facility] 2022-12-13 2022-12-13 Outpatient [facility] MDA [id number] 10:26:09 10:26:09 SHANE CHAKRABORTY derso n 2022-12-13 2022-12-13 Telephone Gastelum, 1.2.840.1 [id number] [id number] Univers 00:00:00 00:00:00 Glenna 63742.1.1 ity of 3.412.2.7 [place] .3.538545 MD Wilkinson8 [facility] 2022-12-13 2022-12-13 Orders Dominik, 1.2.840.1 [id number] Univers 00:00:00 00:00:00 Only Greg Gooden 54474.1.1 i ty of 3.412.2.7 [place] .3.176162 MD Wilkinson8 [facility] 2022-12-13 2022-12-13 Travel 1.2.840.1 1.2.822.722 1031 [id number] Univers 00:00:00 00:00:00 24213.1.1 350.1.13.41 ity of 3.412.2.7 2.2.7.3.698 [place] .3.843722 084.8 MD Hooks [facility] 2022-12-12 2022-12-12 Outpatient [facility] MDA [id number] 06:52:02 23:59:00 SHANE CHAKRABORTYso n 2022-12-12 2022-12-12 [facility] 1.2.840.1 [id number] [facility] 06:52:02 23:59:00 Encounter Shane chakraborty 77967.1.1 ity of 3.412.2.7 [place] .3.663316 MD Wilkinson8 [facility] 2022-12-12 2022-12-12 Follow-Up [facility] 1.2.840.1 [id number] [facility] 11:30:00 12:07:01 Shane chakraborty 90716.1.1 ity of 3.412.2.7 [place] .3.337220 MD Wilkinson8 [facility] 2022-12-12 2022-12-12 Outpatient [facility] MDA [id number] 09:55:42 12:07:01 SHANE CHAKRABORTYso 2022-12-12 2022-12-12 [facility] 1.2.840.1 [id number] [facility] 08:00:00 10:30:00 Procedure Shane chakraborty 12281.1.1 ity of 3.412.2.7 [place] .3.764909 MD Wilkinson8 [facility] 2022-12-12 2022-12-12 Outpatient [facility] [id number] 07:14:03 07:14:03 SHANE CHAKRABORTYso 2022-12-12 2022-12-12 [facility] 1.2.840.1 1.2.488.732 [id number] [facility] 00:00:00 00:00:00 81931.1.1 350.1.13.41 ity of 3.412.2.7 2.[place].7.3.698 [place] .3.649330 084.8 MD Wilkinson8 [facility] 2022-10-18 2022-10-18 Specialty Celos, 1.2.840.1 [id number] [facility] 00:00:00 00:00:00 Pharmacy Nedra 10297.1.1 ity of 3.412.2.7 [place] .3.024530 MD Wilkinson8 [facility] 2022-08-20 2022-08-20 Outpatient [facility] MDA [id number] 07:23:52 23:59:00 SHANE CHAKRABORTYso n 2022-08-20 2022-08-20 [facility] 1.2.840.1 [id number] [facility] 07:23:52 23:59:00 Encounter Shane chakraborty 96605.1.1 ity of 3.412.2.7 [place] .3.456336 MD [facility] 2022-08-20 2022-08-20 Follow-[facility] 1.2.840.1 [id number] [facility] 12:00:00 14:43:06 Shane chakraborty 67043.1.1 ity of 3.412.2.7 [place] .3.832586 MD Wilkinson8 [facility] 2022-08-20 2022-08-20 Outpatient [facility] MDA [id number] [place] 11:43:30 14:43:06 SHANE CHAKRABORTY [facility] 2022-08-20 2022-08-20 [facility] 1.2.840.1 [id number] [facility] 09:30:00 12:00:00 Procedure Shane chakraborty 89371.1.1 ity of 3.412.2.7 [place] .3.589238 MD [facility] 2022-08-20 2022-08-20 Outpatient [facility] [id number] 08:54:27 08:54:27 SHANE CHAKRABORTY [facility] 2022-08-20 2022-08-20 [facility] 1.2.840.1 1.2.901.679 [id number] [facility] 00:00:00 00:00:00 56826.1.1 350.1.13.41 ity of 3.412.2.7 2.[place].3.698 [place] .3.469996 084.8 MD Wil[facility] 2022-07-24 2022-07-24 Specialty Jose Alberto, 1.2.840.1 [id number] [facility] 00:00:00 00:00:00 Pharmacy Brandon Lemos 52774.1.1 it y of 3.412.2.7 [place] .3.377874 MD [facility] 2022-05-22 2022-05-22 Outpatient [facility] [id number] 07:27:45 23:59:00 KRYSTINAELIAS COSTAADO Magy nicholeso n 2022-05-22 2022-05-22 [facility] 1.2.840.1 [id number] [facility] 07:27:45 23:59:00 [facility] Shane chakraborty 62030.1.1 ity of 3.412.2.7 [place] .3.198407 MD [facility] 2022-05-22 [facility] [id number] [facility] 10:00:00 10:00:00 Jovita Perez 65145.1.1 ity of 3.412.2.7 [place] .3.869313 MD [facility] 2022-05-22 2022-05-22 Outpatient [facility] [id number] 09:05:58 09:39:09 SENDYELIASSHANE [facility] 2022-05-22 2022-05-22 Travel 1.2.840.1 1.2.062.428 [id number] [facility] 00:00:00 00:00:00 59165.1.1 350.1.13.41 ity of 3.412.2.7 2.[place].3.698 [place] .3.862385 084.8 MD [facility] 2022-04-25 2022-04-25 Specialty Jose Alberto 1.2.840.1 [id number] [facility] 00:00:00 00:00:00 Pharmacy Brandon Lemos 14780.1.1 it y of 3.412.2.7 [place] .3.494826 MD [facility] 2022-04-10 2022-04-10 Alexus Fabian 1.2.840.1 [id number] [facility] 00:00:00 00:00:00 Only K. 81591.1.1 ity of 3.412.2.7 [place] .3.023085 MD [facility] 2022-04-09 2022-04-09 Tess West 1.2.840.1 [id number] [facility] 00:00:00 00:00:00 68104.1.1 ity of 3.412.2.7 [place] .3.092570 .8 [facility] 2022-03-26 2022-03-26 Specialty Alyshabandar 1.2.840.1 [id number] [facility] 00:00:00 00:00:00 Pharmacy Brandon Lemos 75762.1.1 it y of 3.412.2.7 [place] .3.612406 .8 [facility] 2022-02-21 2022-02-21 Outpatient [facility] [id number] 06:04:15 23:59:00 SHANE CHKARABORTY An derso n 2022-02-21 2022-02-21 Outpatient [facility] [id number] 12:29:09 15:22:02 SENDY SHANE An derso n 2022-02-21 2022-02-21 Outpatient [facility] [id number] 07:11:08 07:11:08 SENDY SHANE An derso n 2021-11-21 2021-11-21 Outpatient [facility] MDA [id number] 08:25:09 23:59:00 SENDY SHANE An derso n 2021-11-21 2021-11-21 Outpatient [facility] [id number] 08:50:42 08:50:42 SENDY SHANE An derso n 2021-08-21 2021-08-21 Outpatient [facility] [id number] 10:12:42 15:10:13 SENDY SHANE An derso n 2021-08-21 2021-08-21 Outpatient [facility] [id number] 07:40:50 07:40:50 SHANE CHAKRABORTY An derso n 2021-08-21 2021-08-21 Outpatient [facility] [id number] 06:02:24 06:02:24 EDRA, SHANE An derso n 2021-08-20 2021-08-20 Outpatient [facility] MDA MDA [id number] MD 10:28:06 23:59:00 EDRA, SHANE An derso n 2021-08-20 2021-08-20 Outpatient [facility] MDA MDA [id number] 10:12:07 10:27:00 EDRA, SHANE An derso n 2021-06-19 2021-06-19 Outpatient [facility] MDA MDA [id number] 06:06:21 23:59:00 EDRA, SHANE An derso n 2021-04-03 2021-04-03 Outpatient [facility] MDA [id number] MD 06:05:42 23:59:00 Jean-Paul o n 2021-04-03 2021-04-03 Outpatient [facility] MDA MDA [id number] 07:29:01 09:15:42 EDRA, SHANE An derso n 2021-03-06 2021-03-06 Outpatient [facility] MDA MDA [id number] 09:27:07 10:35:06 EDRA, SHANE An derso n 2021-02-20 2021-02-20 Outpatient [facility] MDA MDA [id number] 15:38:42 16:49:30 EDRA, SHANE An derso n 2021-01-25 2021-01-25 Outpatient [facility] MDA MDA [id number] 11:57:30 23:59:00 EDRA, SHANE An derso n 2021-01-25 2021-01-25 Outpatient [facility] MDA MDA [id number] 08:56:56 11:50:32 EDRA, SHANE An derso n 2021-01-24 2021-01-24 Outpatient EL TESS SMALLWOOD MDA MDA [id number] 09:17:32 23:59:00 Jean-Paul o n 2021-01-24 2021-01-24 Outpatient MDA MDA [id number] MD 11:28:43 11:28:43 Jean-Paul o n 2020-09-22 2020-09-22 Outpatient TESS ARIZMENDI MDA MDA [id number] 06:03:02 23:59:00 Jean-Paul o n 2020-09-22 2020-09-22 Outpatient URIEL SORENSON-SAAV MDA MDA [id number] 15:09:42 16:24:54 SENDY SHANE An derso n 2020-09-22 2020-09-22 Outpatient TESS ARIZMENDI MDA MDA [id number] MD 10:38:49 10:38:49 Jena-Paul o n 2020-09-22 2020-09-22 Outpatient TESS ARIZMENDI MDA MDA [id number] 08:59:32 08:59:32 Jean-Paul o n 2020-09-19 2020-09-19 Outpatient TESS ARIZMENDI MDA MDA [id number] 06:04:01 23:59:00 Jean-Paul o n 2020-09-19 2020-09-19 Outpatient TESS ARIZMENDI MDA MDA [id number] 14:53:13 14:53:13 Jean-Paul o n 2020-09-19 2020-09-19 Outpatient URIEL SORENSON-SAAV MDA MDA [id number] 08:08:25 14:29:04 SENDY SHANE An derso n 2020-06-30 2020-06-30 Outpatient TESS ARIZMENDI MDA MDA [id number] 06:04:47 23:59:00 Jean-Paul o n 2020-03-30 2020-03-30 Outpatient URIEL SORENSON-SAAV MDA MDA [id number] 09:29:40 13:41:55 SENDY SHANE Magy derso n 2020-03-29 2020-03-29 Outpatient TESS ARIZMENDI MDA MDA [id number] 07:39:34 23:59:00 Jean-Paul o n 2020-03-29 2020-03-29 Outpatient TESS ARIZMENDI MDA MDA [id number] 12:42:40 12:42:40 Jean-Paul o n 2020-03-29 2020-03-29 Outpatient TESS ARIZMENDI MDA MDA [id number] 11:15:20 11:15:20 Jean-Paul o n 2020-03-29 2020-03-29 Outpatient TESS ARIZMENDI [facility] [id number] 08:30:14 08:30:14 Jean-Paul moe 2019-12-29 2019-12-29 Outpatient TESS ARIZMENDI [facility] [id number] 06:05:29 23:59:00 Jean-Paul moe Results Test Description Test Time Test Comments Results Result Comments Source CEA Ag 2023-02-18 15:15:21 Test Item Value Reference Range Interpretation Comme nts CEA (test code = 2038-) 1.5 ng/mL <=3.8 Ref erence Ranges:Smoker: 0.0 - 5.5Non-Smoker: 0.0 - 3.8 This test is measured by ender ctrochemiluminescence immunoassay on Judi Mauro immunoassay analyzers. Resu lts obtained in different methods are not interchangeable.Testing Performed at [facility] Lab Supervisor [employer] [facility], [address], [place] [address] MAYRA (test code = MAYRA) 1.30 pm [facility]Prostate Specific Antigen (PSA) [id number] 14:48:36 Test Item Value Reference Range Interpretation Comments PSA (test code = 0.0-4.0 Results gre ater than 1807-1) 4519 ng/mL may not be reliable due to matrix effect with ext ended dilution as it exceeds the manufacture r's recommended lafleur it. Caution should be exercised when interpreting hoskins ch values and done in conjunction wit h clinical context.Testing Performed at [facility] Lab Supervisor [employer] [facility], [address], [place] [address] PSA Indication (test Diagnostic code = 64980-1) MAYRA (test code = MAYRA) 1.30 pm [facility] HoustonVitamin D [id number] 14:03:04 Test Item Value Reference Range Interpretation Comments Vitamin D 25 OH (test 40 ng/mL 30-100 Refere nce Range: code = 42395-2) Deficiency: <=20 ng/mLInsufficie ncy: 21-29 ng/mLSuff iciency: 30-100 ng/mLPot ential toxicity: >100 ng/mL MAYRA (test code = MAYRA) 1.30 pm [facility] HoustonTestosterone Level [id number] 13:55:30 Test Item Value Reference Range Interpretation Comments Testoster Tot (test code 193-740 L Ref erence Ranges: = 2986-8) Male: Age 20 - 49 249 - 836 Age > =50 193 - 740 Femal e: Age 20 - 49 8 - 48 Age >=50 3 - 41 MAYRA (test code = MAYRA) 1.30 pm Lab Interpretation (test Abnormal code = 23411-5) [facility] HoustonFractionated [id number] 13:41:54 Test Item Value Reference Range Interpretation Comments Bili Total (test 0.5 mg/dL <=1.2 Indocyanine Green (ICG) code = 1974-) may cause fal sely elevated biliru bin results. Total and direct bilirubin must not be measured from s amples containing indo cyanine green. False el evation of total bilirubin can be seen in patient s with IgG concentrations above 28 g/L.Testing Per formed at [facility] Lab Ambulat ory Care [facility], [address], [place] [address] Bili Direct (test 0.2 mg/dL <=0.3 Indocyanin e Green (ICG) code = 1967-11) may cause fal sely elevated biliru bin results. Total and direct bilirubin must not be measured from s amples containing indo cyanine green. Testing Performed at [facility] Lab Ambu latory [facility], [address], [place] [address] Bili Indirect (test 0.3 mg/dL 0.0-0.9 Testing Performed at [facility] code = 1970-) Lab Ambulator y Care [facility], [address], [place] [address] MAYRA (test code = 1.30 pm MAYRA) [facility] HoustonGlucose, [id number] 13:41:53 Test Item Value Reference Range Interpretation Comments Glucose Random (test 126 mg/dL 70-199 Effecti ve 12/14/15, the code = 2345-7) glucose refer ence intervals have been updated based o n [place] [employer] benigno delines (Standards of edical Care in Diabete s 2016. Diabetes Care 2 016; 39: S13-S22)Fasting blood glucose:Normal: 70-99 mg/dLImpaired f asting glucose (increa sed risk for diabetes or pre-diabetes): 100-125 mg/dLDiabetes m ellitus: >/= 126 mg/dL R andom blood glucose:N ormal: 70-199 mg/dLNot e: Random glucose >100 mg /dL is associated with increased risk for diabetes Testin g Performed at [facility] Lab Supervisor [employer] [facility], [address], [place] [address] MAYRA (test code = 1.30 pm MAYRA) [facility] Cancer SquiresGlomerular Filtration Rate 2023-02-18 13:41:52 Test Item Value Reference Range Interpretation Comments eGFR (test code = 81 See_Comment The eGFRcr is calculated 76198-7) with the 2020 C KD-EPI creatinine equa tion using creatinine, pat ient's age, and sex for constantine lts 18 years of age and olde r. Other factors, especi ally muscle mass, may affec t accuracy and need to be considered.Acco rding to the Kidney Disease: Improving Global Outcomes (KDIGO) CKD Work Group 2012 Clinical Practice Guidel ine, chronic kidney disease (CKD) is defined as the abnormalities of kidney struc ture or function, prese nt for more than 3 months, with implications fo r health. CKD should be class ified by cause, GFR li gory, and albuminuria cat egory. KDIGO guidelines prov nimesh the following GFR categoriesStage Description GFR mL/min/1.73 m2G1* Normal or high >= 90G2 * Mildly decreased 60-89 G3a Mildly to moderately decr eased 45-59G3b Modera tely to severely decrea sed 30-44G4 Severely decrea sed 15-29G5 Kidney failure <15*In the absence of evid ence of kidney damage, neither G1 nor G2 fulfill criteria for CKD. Testing Pe rformed at [facility] Lab Ambulat ory Care [facility], [address], [place] [address] [Automated mess age] The system which ge nerated this result transmit junie reference range: >=60 mL/ min/1.73 sq. m. The referenc e range was not used to int erpret this result as darian l/abnormal. MAYRA (test code = 1.30 pm MAYRA) [facility] HoustonTotal [id number] 13:41:51 Test Item Value Reference Range Interpretation Comments Total Protein (test 6.8 g/dL 6.4-8.3 Testing Performed at [facility] code = 2885-2) Lab Ambulator y Care Bl, [address], [place] [address] MAYRA (test code = MAYRA) 1.30 pm [facility] HoustonPhosphorus [id number] 13:41:50 Test Item Value Reference Range Interpretation Comments Phosphorus (test code 3.2 mg/dL 2.5-4.5 Testin g Performed at = 2777-1) [facility] Lab Ambulat ory Care [facility], [address], [place] [address] MAYRA (test code = MAYRA) 1.30 pm [facility] HoustonMagnesium [id number] 13:41:49 Test Item Value Reference Range Interpretation Comments Magnesium (test code = 2.1 mg/dL 1.6-2.6 [place] [address]-2) [facility] Lab Ambulat ory Care [facility], [address], [place] [address] MAYRA (test code = MAYRA) 1.30 pm [facility] HoustonCalcium Level [id number] 13:41:48 Test Item Value Reference Range Interpretation Comments Calcium Lvl (test 9.6 mg/dL 8.4-10.2 Testing Pe rformed at code = 58724-8) [facility] Lab Ambu latory Care [facility], [address], [place], [place] [address] MAYRA (test code = MAYRA) 1.30 pm [facility] HoustonAlkaline [id number] 13:41:47 Test Item Value Reference Range Interpretation Comments Alk Phos (test code 72 U/L 40-129 Testing Performed at [facility] = 6768-6) Lab Supervisor [employer] [facility], [address], [place] [address] MAYRA (test code = 1.30 pm MAYRA) [facility] HoustonAlbumin [id number] 13:41:46 Test Item Value Reference Range Interpretation Comments Albumin Lvl (test 4.4 See_Comment Testing Pe rformed at [facility] code = 1751-7) Lab Ambulator y Care [facility], [address], [place] [address] [Automated mess age] The system which ge nerated this result tra nsmitted reference range : 3.5 - 5.2 gm/dL. The reference range was not u sed to interpret this result as normal/abnormal . MAYRA (test code = MAYRA) 1.30 pm [facility] HoustonAspartate Aminotransferase 2023-02-18 13:41:45 Test Item Value Reference Range Interpretation Comments AST (test code = 12 U/L <=40 Testing Per formed at [facility] 1920-8) Lab Supervisor [employer] [facility], [address], [place] [address] AMYRA (test code = 1.30 pm MAYRA) [facility] HoustonAlanine [id number] 13:41:44 Test Item Value Reference Range Interpretation Comments ALT (test code = 7 U/L <=41 Testing Per formed at [facility] 1742-6) Lab Supervisor [employer] [facility], [address], [place] [address] MAYRA (test code = 1.30 pm MAYRA) [facility] HoustonElectrolyte [id number] 13:41:43 Test Item Value Reference Range Interpretation Comments Sodium Lvl (test code = 143 See_Comment Test ing Performed at 2951-2) [facility] Lab Ambulat ory Care [facility], [address], [place] [address] [Automate d message] The sy stem which generated this result transmit junie reference range : 136 - 145 mEq/L. Th e reference range was not used to int erpret this result as normal/abnormal . Potassium Lvl (test code 4.3 See_Comment Patricia ting Performed at = 2823-3) [facility] Lab Ambulat ory Care [facility], [address], [place] [address] [Automate d message] The sy stem which generated this result transmit junie reference range : 3.5 - 5.1 mEq/L. Th e reference range was not used to int erpret this result as normal/abnormal . Chloride (test code = 104 See_Comment Testin g Performed at 2074-0) [facility] Lab [facility], [address], [place] [address] [Automate d message] The sy stem which generated this result transmit junie reference range : 98 - 107 mEq/L. The reference range was not used to int erpret this result as normal/abnormal . CO2 (test code = 2028-01) 30 See_Comment H Patricia ting Performed at [facility] Lab [facility], [address], [place] [address] [Automate d message] The sy stem which generated this result transmit junie reference range : 22 - 29 mEq/L. The reference range was not used to int erpret this result as normal/abnormal . Anion Gap (test code = 9 See_[place] [address]-5) [facility] Lab [facility], [address], [place] [address] [Automate d message] The sy stem which generated this result transmit junie reference range : 4 - 14 mEq/L. The reference range was not used to int erpret this result as normal/abnormal . MAYRA (test code = MAYRA) 1.30 pm Lab Interpretation (test Abnormal code = 14331-0) [facility].Serum [id number] 13:41:42 Test Item Value Reference Range Interpretation Comments Creatinine (test code 0.95 mg/dL 0.67-1.17 Testin g Performed at = 2160-0) [facility] Lab [facility], [address], [place] [address] MAYRA (test code = MAYRA) 1.30 pm [facility] HoustonBlood Urea [id number] 13:41:40 Test Item Value Reference Range Interpretation Comments BUN (test code = 15 mg/dL 6-23 Testing Per formed at [facility] 3094-0) Lab Supervisor [employer] [facility], [address], [place] [address] MAYRA (test code = 1.30 pm MAYRA) [facility] HoustonLactate [id number] 13:36:49 Test Item Value Reference Range Interpretation Comments LDH (test code = 155 U/L 135-225 Results gre ater than 1651 22272-1) U/L may not be reliable due to matrix effec t with extended diluti on as it exceeds the man ufacturer s recommended l imit. Caution should be exercised when interpreti ng such values and done in conjunction wit h clinical context. Testin g Performed at [facility] Lab [facility], [address], [place] [address] MAYRA (test code = 1.30 pm MAYRA) [facility] HoustonDifferential2023-10-02 13:13:49 Test Item Value Reference Range Interpretation Comments Neutrophil % (test code 83.0 % 43.2-72.7 H As p art of = 770-8) Differential performed at [facility] Care [facility], [address], [place] [address] Lymphocyte % (test code 9.0 % 16.8-46.2 L = 736-9) Monocyte % (test code = 5.7 % 5.1-12.5 5905-5) Eosinophil % (test code 1.2 % 0.4-6.3 = 713-8) Basophil % (test code = 0.7 % 0.2-1.4 706-2) IGRE % (test code = 0.4 % 0.1-1.5 IGRE % c ount includes 69646-5) Metamyelocytes, Myelocytes, and Promyelocytes. As part of Differe ntial performed at [facility] Lab Supervisor [employer] [facility], [address], [place] [address] Neutrophil Abs (test 7.61 K/uL 1.95-7.25 H code = 751-8) Lymphocyte Abs (test 0.82 K/uL 1.01-3.24 L code = 731-0) Monocyte Abs (test code 0.52 K/uL 0.24-0.85 = 742-7) Eosinophil Abs (test 0.11 K/uL 0.02-0.50 code = 711-2) Basophil Abs (test code 0.06 K/uL 0.02-0.09 = 704-7) IG Abs (test code = 0.04 K/uL 0.01-0.12 90918-2) MAYRA (test code = MAYRA) 1.30 pm Lab Interpretation Abnormal (test code = 94201-9) [facility] Cancer Squires.[id number] 13:13:42 Test Item Value Reference Range Interpretation Comments WBC (test code = 9.2 K/uL 4.1-10.5 6690-2) RBC (test code = 789-8) 4.23 See_Comment L [Au tomated message] The system [employer] generated this result transmitted ref erence range: 4.30 - 6 .04 M/uL. The refer ence range was not u sed to interpret this result as normal/abnor mal. Hgb (test code = 718-7) 13.2 See_Comment L As p art of CBC or as an individual orderable testi ng performed at [facility] Lab Supervisor [employer] [facility], [address], [place] [address] [Automate d message] The sy stem which generated this result transmit junie reference range : 13.3 - 17.4 gm/dL. T he reference range was not used to int erpret this result as normal/abnormal . Hct (test code = 40.1 % 39.5-51.8 As part of CBC or as 4544-3) an individual orderable testi ng performed at [facility] Lab Supervisor [employer] [facility], [address], [place] [address] MCV (test code = 787-2) 95 fL 82-99 MCH (test code = 785-6) 31.2 pg 26.6-33.2 MCHC (test code = 32.9 See_Comment [Automate d message] 786-4) The system [employer] generated this result transmitted ref erence range: 31.1 - 3 5.2 gm/dL. The refe rence range was not u sed to interpret this result as normal/abnor mal. RDW-SD (test code = 49.0 fL 37.5-49.7 18446-5) RDW-CV (test code = 14.1 % 11.6-15.5 788-0) Platelet count (test 272 K/uL 160-397 As part of CBC or as code = 777-3) an individual orderable testi ng performed at [facility] Supervisor [employer] [facility], [address], [place] [address] MPV (test code = 10.3 fL 9.1-12.6 06157-3) INRBC (test code = 0.0 See_Comment The INRBC (instrument 16040-6) NRBC) value ref lects the enumeration of nucleated red b lood cells contained in a 200uL sampleof whole blood analyzed by the instrument. Thi s value maydiffer from the NRBC value repo rted in a manual differential,wh ich is based on a 100 cell differential. A s part of CBC testing performed at [facility] Lab Supervisor [employer] [address], [place] [address] [Automated mess age] The system [employer] generated this result transmitted ref erence range: 0.0 - 0. 1 /100 WBC. The refere nce range was not u sed to interpret this result as normal/abnor mal. MAYRA (test code = MAYRA) 1.30 pm Lab Interpretation Abnormal (test code = 93590-5) [facility] Squires
[2023-03-14 18:25] LABS: Absolute Lymphocytes (CBC) 0.5 K/uL (0.7-4.9); Hematocrit 38.2 % (39.6-49.0); Lymphocytes % 3.8 % (15.3-44.8); MCV 90.3 fL (80-100); MPV 8.2 fL (7.6-11.3); Platelets 189 thou/uL (152-406); RBC Red Blood Cell Count 4.23 M/uL (4.33-5.43)
[2023-03-14 18:26] LABS: Protime INR 1.31
[2023-03-14] MEDS ORDERED: VANCOMYCIN 500 MG/VIAL ONE (18:27)
[2023-03-14] MEDS ORDERED: VANCOMYCIN 1 GM/VIAL ONE (18:27)
[2023-03-14] MEDS ORDERED: ACETAMINOPHEN 500 MG TAB ONE (18:27)
[2023-03-14] MEDS ORDERED: CEFTAZIDIME 1 GM VIAL ONE (18:27)
[2023-03-14] MEDS ORDERED: NA CHLORIDE 0.9% 100 ML ONE (18:28)
[2023-03-14] MEDS ORDERED: NA CHLORIDE 0.9% 2,000 ML ONE (18:28)
[2023-03-14] MEDS ORDERED: NA CHLORIDE 0.9% 0 ML ONE (18:28)
[2023-03-14] MEDS ORDERED: NA CHLORIDE 0.9% 500 ML ONE (18:33)
[2023-03-14 18:42] LABS: Albumin 2.9 g/dL (3.4-5.0); Bilirubin Direct 0.2 mg/dL (0-0.2); Bilirubin Indirect, Calculated 0.3 mg/dL (0.2-0.8); Bilirubin Total 0.5 mg/dL (0.2-1.0); Magnesium 1.9 mg/dL (1.6-2.4); Potassium 3.1 mEq/L (3.5-5.1); Protein, Total 6.4 g/dL (6.4-8.2); Troponin High Sensitivity 38.8 pg/mL (<58.9)
--- NOTE | 2023-03-14 18:50 | RAD REPORT ---
EXAM DESCRIPTION: Varun Single View03/14/2023 6:37 pm CLINICAL HISTORY: Cough COMPARISON: March 13, 2023 FINDINGS: The lungs appear clear of acute infiltrate. The heart is probably upper limits normal siz e IMPRESSION: No acute abnormalities displayed
--- NOTE | 2023-03-14 19:21 | ER ---
Nurse's Notes [facility] Name: Liz Barrientos Age: 77 yrs Sex: Male : 1945 Arrival Date: 03/14/2023 Time: 17:22 Bed 3 Private MD: Diagnosis: Fever, unspecified;Cellulitis and acute lymphangitis of face and neck;Acute perichondritis of left external ear;Hypokalemia;Type 2 diabetes mellitus with hyperglycemia;Elevated white blood cell count Presentation: 03/14 17:47 Chief complaint: EMS states: toned out for left face/ear swelling and redness. Per me1 patient is weak and slept all day today. fever 101.9. Coronavirus screen: Vaccine status: Patient reports receiving the 2nd dose of the covid vaccine. Ebola Screen: No symptoms or risks identified at this time. Initial Sepsis Screen: Does the patient meet any 2 criteria? No. Patient's initial sepsis screen is negative. Does the patient have a suspected source of infection? Yes: Skin breakdown/wound. Risk Assessment: Do you want to hurt yourself or someone else? Patient reports no desire to harm self or others. Onset of symptoms was March 14, 2023. 17:47 Method Of Arrival: [place] [facility] [place] Acuity: MOLLY 3 me1 Triage Assessment: 17:50 General: Appears uncomfortable, well groomed, well developed, well nourished, Behavior me1 is calm, cooperative, appropriate for age, Reports fever, edema and redness to left face/ear that started yesterday and is worse today. reports patient is weaker today and slept most of the day. 17:50 Pain: Denies pain. EENT: left face and ear is red, hot and swollen. . Neuro: Level of me1 Consciousness is awake, alert, obeys commands, Oriented to person, place, time, situation, Appropriate for age. Cardiovascular: Capillary refill < 3 seconds Patient's skin is warm and dry. Respiratory: Airway is patent Respiratory effort is even, unlabored, Respiratory pattern is regular, symmetrical. Derm: left face/ear is red, warm, swollen. Historical: - Allergies: 17:49 Adhesives; me1 17:49 Erythromycin; me1 17:49 Bactrim; me1 17:49 Tape; me1 17:49 Iodinated Contrast Media - IV Dye; me1 - PMHx: 17:50 prostate cancer; Hypertensive disorder; Diabetes mellitus; me1 - Immunization history:: Adult Immunizations up to date. - Social history:: Smoking status: unknown. Screenin:53 [facility] ED Fall Risk Assessment (Adult) History of falling in the last 3 months, me1 including since admission No falls in past 3 months (0 pts) Confusion or Disorientation No (0 pts) Intoxicated or Sedated No (0 pts) Impaired Gait No (0 pts) Mobility Assist Device Used No (0 pt) Altered Elimination No (0 pt) Score/Fall Risk Level 0 - 2 = Low Risk. Abuse screen: Denies threats or abuse. Nutritional screening: No deficits noted. Tuberculosis screening: No symptoms or risk factors identified. Assessment: 17:53 General: see triage assessment. . me1 Vital Signs: 17:47 BP 169 / 66; Pulse 70; Resp 18; Temp 101.9(O); Pulse Ox 97% on R/A; Weight 93.89 kg; me1 Height 6 ft. 0 in. ; 18:45 BP 160 / 63; Pulse 69; Resp 16; Pulse Ox 96% on R/A; me1 19:15 BP 136 / 61; Pulse 66; Resp 17; Pulse Ox 96% on R/A; me1 20:00 BP 146 / 59; Pulse 63; Resp 17; Pulse Ox 96% on R/A; me1 20:30 BP 130 / 57; Pulse 62; Resp 16; Pulse Ox 97% on R/A; me1 21:00 BP 129 / 57; Pulse 62; Resp 16; Pulse Ox 98% ; me1 21:30 BP 122 / 51; Pulse 56; Resp 16; Pulse Ox 97% on R/A; me1 22:15 BP 124 / 51; Pulse 58; Resp 16; Pulse Ox 98% on R/A; me1 17:47 Body Mass Index 28.07 (93.89 kg, 182.88 cm) tx1 ED Course: 17:40 Patient arrived in ED. me1 17:49 Triage completed. me1 17:50 Arm band placed on Patient placed in an exam room. me1 17:53 Patient has correct armband on for positive identification. Bed in low position. Call tx1 light in reach. Side rails up X2. Provided Education on: POC. Verbalized understanding. . 17:53 No provider procedures requiring assistance completed. me1 17:55 Macario Silver MD is Attending Physician. [facility] 18:10 Jennifer Narvaez, MATT is Primary Nurse. me1 18:11 Lactate w/ 2H reflex if indic. Sent. me1 18:11 Basic Metabolic Panel Sent. me1 18:11 CBC with Diff Sent. me1 18:11 LFT's Sent. me1 18:11 Magnesium Sent. me1 18:11 NT PRO-BNP Sent. me1 18:11 PT-INR Sent. me1 18:11 Troponin HS Sent. me1 18:39 XRAY Chest (1 view) In Process Unspecified. EDMS 18:39 Blood Culture Adult (2) Sent. me1 19:17 Everardo Richard MD is Hospitalizing Provider. [facility] 20:56 CT Facial Bones W/O Con In Process Unspecified. EDMS 22:09 Patient admitted, IV remains in place. me1 23:23 Urinalysis w/ reflexes Sent. me1 Administered Medications: 18:24 Drug: Acetaminophen PO 1000 mg PO once Route: PO; me1 19:03 Follow up: Response: No adverse reaction me1 18:54 Drug: cefTAZidime IVPB 2 grams IVPB once over 30 mins; (mix in 100 mL NS) Route: IVPB; me1 Infused Over: 30 mins; Site: right hand; 19:27 Follow up: Response: No adverse reaction; IV Status: Completed infusion me1 18:54 Drug: NS 0.9% IV 1000 ml IV at 1 bolus Per protocol; 1000 mL bolus Route: IV; Rate: 1 me1 bolus; Site: right hand; 20:11 Follow up: IV Status: Completed infusion; IV Intake: 1000ml me1 18:54 Drug: NS 0.9% IV 1000 ml IV at 125 ml/hr continuous Route: IV; Rate: 125 ml/hr; [place] [facility] [place]; 22:04 Follow up: IV Status: Infusion continued upon transfer me1 19:27 Drug: vancoMYCIN IVPB 1.5 grams IVPB at calculated rate once Route: IVPB; Rate: me1 calculated rate; Site: right hand; 22:04 Follow up: Response: No adverse reaction; IV Status: Completed infusion; IV Intake: me1 500ml 20:17 Drug: Valtrex PO 1000 mg PO once Route: PO; me1 21:54 Follow up: Response: No adverse reaction me1 20:17 Drug: Potassium PO Effervescent Tablet 50 mEq PO once; dissolve in 4 ounces of water or me1 juice Route: PO; 21:54 Follow up: Response: No adverse reaction me1 Medication: 17:53 VIS not applicable for this client. me1 Intake: 20:11 IV: 1000ml; Total: 1000ml. me1 22:04 IV: 500ml; Total: 1500ml. me1 Outcome: 19:21 Decision to Hospitalize by Provider. elisabeth 22:09 Admitted to Tele accompanied by tech, via stretcher, room 413, with chart, Report me1 called to MATT Bledsoe 22:09 Condition: stable 22:09 Instructed on the need for admit, 23:24 Patient left the ED. me1 Signatures: Dispatcher [employer] Macario Jones MD MD cha Eddleman, Michelle, RN RN me1
--- NOTE | 2023-03-14 19:21 | EDPHYS ---
Physician Documentation [facility] Name: Liz Barrientos Age: 77 yrs Sex: Male : 1945 Arrival Date: 03/14/2023 Time: 17:22 Bed 3 Private MD: ED Physician Macario Silver HPI: 03/14 19:08 This 77 yrs old Male presents to ER via EMS with complaints of Fever. elisabeth 19:09 The patient reports fever, that was measured at 101.9 degrees Fahrenheit. Onset: The elisabeth symptoms/episode began/occurred 2 day(s) ago. Modifying factors: there are no obvious modifying factors. Associated signs and symptoms: Pertinent positives: chills, earache, nausea. Severity of symptoms: At their worst the symptoms were mild moderate in the emergency department the symptoms are worse moderately. The patient has not experienced similar symptoms in the past. Historical: - Allergies: 17:49 Adhesives; me1 17:49 Erythromycin; me1 17:49 Bactrim; me1 17:49 Tape; me1 17:49 Iodinated Contrast Media - IV Dye; me1 - PMHx: 17:50 prostate cancer; Hypertensive disorder; Diabetes mellitus; me1 - Immunization history:: Adult Immunizations up to date. - Social history:: Smoking status: unknown. ROS: 19:12 Eyes: Negative for injury, pain, redness, and discharge, Neck: Negative for injury, elisabeth pain, and swelling, Cardiovascular: Negative for chest pain, palpitations, and edema, Respiratory: Negative for shortness of breath, cough, wheezing, and pleuritic chest pain, Abdomen/GI: Negative for abdominal pain, nausea, vomiting, diarrhea, and constipation, Back: Negative for injury and pain, : Negative for injury, bleeding, discharge, and swelling, MS/Extremity: Negative for injury and deformity, Neuro: Negative for headache, weakness, numbness, tingling, and seizure, Psych: Negative for depression, anxiety, suicide ideation, homicidal ideation, and hallucinations, Allergy/Immunology: Negative for hives, rash, and allergies, Endocrine: Negative for neck swelling, polydipsia, polyuria, polyphagia, and marked weight changes, Hematologic/Lymphatic: Negative for swollen nodes, abnormal bleeding, and unusual bruising, 19:12 Constitutional: Positive for fever, 19:12 ENT: Positive for ear pain, 19:12 Skin: Positive for cellulitis, swelling, of the left sikh, left ear, left zygomatic area, left cheek and left base of the skull, Exam: 19:12 Eyes: Pupils equal round and reactive to light, extra-ocular motions intact. Lids and elisabeth lashes normal. Conjunctiva and sclera are non-icteric and not injected. Cornea within normal limits. Periorbital areas with no swelling, redness, or edema. Chest/axilla: Normal chest wall appearance and motion. Nontender with no deformity. No lesions are appreciated. Cardiovascular: Regular rate and rhythm with a normal S1 and S2. No gallops, murmurs, or rubs. Normal PMI, no JVD. No pulse deficits. Respiratory: Lungs have equal breath sounds bilaterally, clear to auscultation and percussion. No rales, rhonchi or wheezes noted. No increased work of breathing, no retractions or nasal flaring. Abdomen/GI: Soft, non-tender, with normal bowel sounds. No distension or tympany. No guarding or rebound. No evidence of tenderness throughout. Back: No spinal tenderness. No costovertebral tenderness. Full range of motion. Male : Normal genitalia with no discharge or lesions. MS/ Extremity: Pulses equal, no cyanosis. Neurovascular intact. Full, normal range of motion. Neuro: Awake and alert, GCS 15, oriented to person, place, time, and situation. Cranial nerves II-XII grossly intact. Motor strength 5/5 in all extremities. Sensory grossly intact. Cerebellar exam normal. Normal gait. Psych: Awake, alert, with orientation to person, place and time. Behavior, mood, and affect are within normal limits. 19:12 Constitutional: The patient appears febrile, 19:12 Head/face: Noted is erythema, swelling, tenderness, that is moderate, of the left ear, left cheek, left jaw, left occipital area, left zygomatic area and left base of the skull, 19:16 ECG was reviewed by the Attending Physician. [facility] Vital Signs: 17:47 BP 169 / 66; Pulse 70; Resp 18; Temp 101.9(O); Pulse Ox 97% on R/A; Weight 93.89 kg; me1 Height 6 ft. 0 in. ; 18:45 BP 160 / 63; Pulse 69; Resp 16; Pulse Ox 96% on R/A; me1 19:15 BP 136 / 61; Pulse 66; Resp 17; Pulse Ox 96% on R/A; me1 20:00 BP 146 / 59; Pulse 63; Resp 17; Pulse Ox 96% on R/A; me1 20:30 BP 130 / 57; Pulse 62; Resp 16; Pulse Ox 97% on R/A; me1 21:00 BP 129 / 57; Pulse 62; Resp 16; Pulse Ox 98% ; me1 21:30 BP 122 / 51; Pulse 56; Resp 16; Pulse Ox 97% on R/A; me1 22:15 BP 124 / 51; Pulse 58; Resp 16; Pulse Ox 98% on R/A; me1 17:47 Body Mass Index 28.07 (93.89 kg, 182.88 cm) me1 MDM: 17:55 Patient medically screened. elisabeth 19:14 Differential diagnosis: abscess, allergic reaction, cellulitis, insect bite, bacterial elisabeth infection. Data reviewed: vital signs, nurses notes, lab test result(s), EKG, radiologic studies, CT scan, plain films. Consideration of Admission/Observation Patient was admitted/placed on observation. Escalation of care including admission/observation considered. Management of patient was discussed with the following: Hospitalist: DR TONEY. I considered the following discharge prescriptions or medication management in the emergency department Medications were administered in the Emergency Department. See MAR. Independent interpretation of the following test(s) in the Emergency Department EKG: See my EKG interpretation above. Test considered but Not performed: Ultrasound NO USG. Historians other than the Patient: Family Member: AND SON. Care significantly affected by the following chronic conditions: Diabetes, Hypertension. Counseling: I had a detailed discussion with the patient and/or guardian regarding the historical points, exam findings, and any diagnostic results supporting the discharge/admit diagnosis, lab results, radiology results, the need for further work-up and treatment in the hospital. 03/14 17:57 Order name: Basic Metabolic Panel; Complete Time: 19:06 [facility] 03/14 17:57 Order name: CBC with Diff; Complete Time: 21:20 [facility] 03/14 17:57 Order name: LFT's; Complete Time: 19:06 [facility] 03/14 17:57 Order name: Magnesium; Complete Time: 19:06 [facility] 03/14 17:57 Order name: NT PRO-BNP; Complete Time: 19:06 [facility] 03/14 17:57 Order name: PT-INR; Complete Time: 19:06 [facility] 03/14 17:57 Order name: Troponin HS; Complete Time: 19:06 [facility] 03/14 17:57 Order name: Blood Culture Adult (2) [facility] 03/14 17:57 Order name: Lactate w/ 2H reflex if indic.; Complete Time: 19:06 [facility] 03/14 17:57 Order name: Urinalysis w/ reflexes [facility] 03/14 20:38 Order name: CBC Smear Scan; Complete Time: 21:20 EDMS 03/14 20:53 Order name: CBC with Automated Diff EDMS 03/14 20:53 Order name: CBC with Automated Diff EDMS 03/14 20:53 Order name: Comprehensive Metabolic Panel [facility] 03/14 20:53 Order name: Comprehensive Metabolic Panel [facility] 03/14 17:57 Order name: XRAY Chest (1 view); Complete Time: 19:06 [facility] 03/14 20:31 Order name: CT Facial Bones W/O Con; Complete Time: 21:20 [facility] 03/14 17:57 Order name: EKG; Complete Time: 17:58 [facility] 03/14 17:57 Order name: Cardiac monitoring; Complete Time: 18:20 [facility] 03/14 17:57 Order name: EKG - Nurse/Tech; Complete Time: 18:20 [facility] 03/14 17:57 Order name: IV Saline Lock; Complete Time: 18:11 [facility] 03/14 17:57 Order name: Labs collected and sent; Complete Time: 18:11 [facility] 03/14 17:57 Order name: O2 Per Protocol; Complete Time: 18:10 [facility] 03/14 17:57 Order name: O2 Sat Monitoring; Complete Time: 18:10 [facility] EC:16 Rate is 70 beats/min. Rhythm is regular. QRS [place] is Normal. AL interval is normal. QRS elisabeth interval is normal. QT interval is normal. No Q waves. T waves are Normal. No ST changes noted. Clinical impression: NSR w/ Non-specific ST/T Changes and No evidence of ischemia. Interpreted by me. Reviewed by me. Administered Medications: 18:24 Drug: Acetaminophen PO 1000 mg PO once Route: PO; me1 19:03 Follow up: Response: No adverse reaction me1 18:54 Drug: cefTAZidime IVPB 2 grams IVPB once over 30 mins; (mix in 100 mL NS) Route: IVPB; me1 Infused Over: 30 mins; Site: right hand; 19:27 Follow up: Response: No adverse reaction; IV Status: Completed infusion me1 18:54 Drug: NS 0.9% IV 1000 ml IV at 1 bolus Per protocol; 1000 mL bolus Route: IV; Rate: 1 me1 bolus; Site: right hand; 20:11 Follow up: IV Status: Completed infusion; IV Intake: 1000ml me1 18:54 Drug: NS 0.9% IV 1000 ml IV at 125 ml/hr continuous Route: IV; Rate: 125 ml/hr; Site: [facility] [place]; 22:04 Follow up: IV Status: Infusion continued upon transfer me1 19:27 Drug: vancoMYCIN IVPB 1.5 grams IVPB at calculated rate once Route: IVPB; Rate: me1 calculated rate; Site: right hand; 22:04 Follow up: Response: No adverse reaction; IV Status: Completed infusion; IV Intake: me1 500ml 20:17 Drug: Valtrex PO 1000 mg PO once Route: PO; me1 21:54 Follow up: Response: No adverse reaction me1 20:17 Drug: Potassium PO Effervescent Tablet 50 mEq PO once; dissolve in 4 ounces of water or me1 juice Route: PO; 21:54 Follow up: Response: No adverse reaction me1 Disposition Summary: 03/14/23 19:21 Hospitalization Ordered Notes: Hospitalization Status: Inpatient Admission elisabeth Provider: Everardo Richard cha [facility] elisabeth Condition: Fair elisabeth Problem: new elisabeth Symptoms: have improved elisabeth Bed/Room Type: Standard elisabeth Room Assignment: 413(03/14/23 21:18) Diagnosis - Fever, unspecified elisabeth - Cellulitis and acute lymphangitis of face and neck elisabeth - Acute perichondritis of left external ear elisabeth - Hypokalemia elisabeth - Type 2 diabetes mellitus with hyperglycemia elisabeth - Elevated white blood cell count elisabeth Forms: - Medication Reconciliation Form elisabeth - SBAR form elisabeth - Leadership Thank You Letter elisabeth Signatures: Dispatcher [employer] Macario Jones MD MD cha Garcia, Cindy, RN RN Jennifer Narvaez RN RN me1 Corrections: (The following items were deleted from the chart) 21:18 19:21 elisabteh cg
[2023-03-14] MEDS ORDERED: POTASSIUM 25 MEQ EFFERV TAB ONE (20:27)
[2023-03-14] MEDS ORDERED: VALACYCLOVIR 500 MG TAB ONE (20:28)
[2023-03-14 20:38] LABS: Blood Morphology Comment NOT SEEN (NOT SEEN); Platelet Estimate ADEQ; White Blood Cell Scan OK (OK)
[2023-03-14] MEDS ORDERED: ONDANSETRON 4 MG/2 ML VIAL IV PRN (20:45)
--- NOTE | 2023-03-14 20:54 | P.HP ---
Certification for Inpatient Patient admitted to: Inpatient With expected LOS: >2 Midnights Patient will require the following post-hospital care: None Practitioner: I am a practitioner with admitting privileges, knowledge of patient current condition, hospital course, and medical plan of care. Services: Services provided to patient in accordance with Admission requirements found in Title 42 Section 412.3 of the Code of Federal Regulations Patient History Date of Service: 03/15/23 Reason for admission: Facial cellulitis, urinary tract infection, altered mental status History of Present Illness: 77-year-old male patient with medical history significant for diabetes type 2, hypertension, history of prostate cancer on oral chemotherapy with abiraterone, hyperlipidemia who was evaluated for episode of altered mentation and facial redness. Family reported that he had began to have increased redness and swelling in the left side of the face and he has had issues with mentation abnormality and fever. He was initially brought to the emergency room for evaluation and he was given oral antibiotic therapy and sent home however because began to have more altered mentation family decided to bring him back to the ER. In the ER he was found to have increased hyperemia on the left side of the face with swelling of the he had a and left jaw area. She was deemed to be having cellulitis involving the face and imaging studies were done. Patient was admitted for inpatient care. Allergies erythromycin base [Erythromycin Base] Allergy (Verified 01/21/12 11:04) Hives iodine Allergy (Verified 01/21/12 11:04) Hives tape Allergy (Mild, Uncoded 11/10/12 23:26) Itching Home Medications: Multivitamin [Fkb-Yotdgj-Uvglu] 1 each PO DAILY 01/23/12 Pravastatin Sodium 40 mg PO BEDTIME 01/23/12 Ascorbate Calcium [Vitamin C] 1,000 mg PO DAILY 07/06/15 Magnesium Oxide [Magnesium] 500 mg PO DAILY 07/06/15 Metformin ER [Glucophage ER*] 750 mg PO DAILY 07/06/15 lisinopriL [Prinivil*] 20 mg PO DAILY 07/06/15 Abiraterone Acetate [Zytiga] 1,000 mg PO DAILY 03/15/23 Aspirin [Aspirin EC 81 MG] 1 tab PO DAILY 03/15/23 Biotin 1 tab PO DAILY 03/15/23 Cholecalciferol (Vitamin D3) [Vitamin D3] 5,000 unit PO DAILY 03/15/23 NIFEdipine [Nifedipine ER] 1 tab PO DAILY 03/15/23 Sotalol HCl [Betapace*] 40 mg PO TID 03/15/23 predniSONE [Prednisone] 1 tab PO DAILY 03/15/23 - Past Medical/Surgical History Diabetic: Yes -: upper GI bleeding -: acute anemia -: HEART ARRYTHMIA -: Sikh/ Cardiac catherertization -: [facility]/ Appendectomy -: [facility]/ Prostate biopsy -: [facility]/ Lithotripsy (left kidney) -: [facility] Cancer Cancer/ Robitic-assisted Laparoscopic Prostatectomy -: [facility]/ Urethral stricture -: [facility]/ dilation, self-cathering - Social History Alcohol use: No CD- Drugs: No Caffeine use: Yes Review of Systems General: Fever, Weakness, Malaise Eyes: Unremarkable ENT: As per HPI Respiratory: Unremarkable Cardiovascular: Unremarkable Gastrointestinal: Unremarkable Genitourinary: Unremarkable Integumentary: Unremarkable Neurological: Unremarkable Physical Examination - Physical Exam General: Delirious Neck: Supple Respiratory: Normal air movement Cardiovascular: Regular rate/rhythm, Normal S1 S2 Gastrointestinal: Soft and benign Musculoskeletal: No swelling Neurological: Other (delirious) - Studies Laboratory Data (last 24 hrs) 03/14/23 03/14/23 03/14/23 18:00 18:00 18:00 WBC 14.00 H Hgb 13.0 L Hct 38.2 L Plt Count 189 PT 14.4 H INR 1.31 Sodium 134 L Potassium 3.1 L BUN 14 Creatinine 0.85 Glucose 118 H Magnesium 1.9 Total Bilirubin 0.5 AST 10 L ALT 11 L Alkaline Phosphatase 65 Assessment and Plan - Plan Sepsis: Present on admission. Source of infection including UTI and facial cellulitis. We will continue empiric antibiotic therapy with vancomycin and cefepime pending review of cultures. We will continue to follow lactic acid level closely. Empiric IV fluid to be started for management of sepsis related issues. UTI: UA significantly concerning. Urine culture taken. Concern empiric antibiotic therapy pending urine culture finalization Facial cellulitis: Concerning for source of infection. Patient does not have significant left- sided facial swelling and hyperemia. We will continue to monitor symptomatology. Imaging study done, no abscess found, cellulitis detected. We will follow clinical symptomatology Prostate Cancer: We will continue outpatient Zytiga dose. Hypertension: We will monitor vital signs per unit protocol and continue outpatient antihypertensive medications DM 2: We will continue on carb restricted diet and sliding scale insulin for glucose control. Prophylaxis: Lovenox for DVT prophylax Code status: Full code Disposition: We will treat his multiple infectious process and discharge him once he is deemed clinically stable and plan of care is finalized. - Advance Directives Does patient have a Living Will: No Does patient have a Durable POA for Healthcare: Yes
[2023-03-14] MEDS: NA CHLORIDE 0.9% 1,000 ML IV SCH (21:00)
--- NOTE | 2023-03-14 21:15 | RAD REPORT ---
EXAM DESCRIPTION: CT - Facial Bones W/ Mpr - 03/14/2023 8:56 pm CLINICAL HISTORY: Facial pain. Fever COMPARISON: None TECHNIQUE: Computed axial tomography of the face was obtained. Coronal and sagittal reconstruction w as performed. IV contrast not given All CT scans are performed using dose optimization technique as appropriate and may include automated exposure control or mA/KV adjustment according to patient size. FINDINGS: Diffuse edema within the subcutaneous tissues of the left face and neck. An abscess is not seen. Thickening of the left platysma muscle Visualized airway and parapharyngeal fat unremarkable Fluid is not present within the sinuses. There is minimal chronic maxillary sinusitis. Fluid within the mastoid is not seen. A tooth abscess is not visualized. Parotid and submandibular glands are unremarkable. Globes are normal size and density. Periorbital fat clear Small reactive lymph nodes IMPRESSION: Diffuse edema within the subcutaneous tissues of the left face and neck probably a cellu litis
[2023-03-14 23:29] VITALS: BMI 28.5
[2023-03-14 23:34] LABS: Specific Gravity 1.017 (1.005-1.030); Urine Bacteria 20-50 /HPF (<20); Urine Bilirubin NEGATIVE (Negative); Urine Blood Trace (Negative); Urine Clarity Extremely Turbid (Clear); Urine Color Light-Yellow (Yellow); Urine Glucose NEGATIVE (Negative); Urine Protein 2+ (Negative); Urine RBC <5 /HPF (None Seen); Urine Urobilinogen Normal (Normal); Urine WBC Clump Rare /HPF (None Seen)
[2023-03-14] MEDS: CEFEPIME 1 GM in NA CHLORIDE 0.9% 100 ML IV SCH (23:59)
[2023-03-14] MEDS: ACETAMINOPHEN 325 MG TABLET PO PRN (23:59)
[2023-03-15] MEDS: NA CHLORIDE 0.9% 1,000 ML IV SCH (04:34)
[2023-03-15] MEDS ORDERED: SOTALOL HCL 80 MG TAB PO SCH (06:00)
[2023-03-15 06:34] LABS: Absolute Lymphocytes (CBC) 0.4 K/uL (0.7-4.9); Hematocrit 33.8 % (39.6-49.0); Lymphocytes % 3.8 % (15.3-44.8); MCV 90.3 fL (80-100); MPV 8.3 fL (7.6-11.3); Platelets 182 thou/uL (152-406); RBC Red Blood Cell Count 3.74 M/uL (4.33-5.43)
--- NOTE | 2023-03-15 06:42 | P.DS ---
Admission Date: 03/14/23 Discharge Date: 03/15/23 Disposition: TRANSFER TO [facility] Discharge Condition: SERIOUS Reason for Admission: Facial cellulitis, urinary tract infection, altered mental status Procedures: TECHNIQUE: Computed axial tomography of the face was obtained. Coronal and sagittal reconstruction was performed. IV contrast not given All CT scans are performed using dose optimization technique as appropriate and may include automated exposure control or mA/KV adjustment according to patient size. FINDINGS: Diffuse edema within the subcutaneous tissues of the left face and neck. An abscess is not seen. Thickening of the left platysma muscle Visualized airway and parapharyngeal fat unremarkable Fluid is not present within the sinuses. There is minimal chronic maxillary sinusitis. Fluid within the mastoid is not seen. A tooth abscess is not visualized. Parotid and submandibular glands are unremarkable. Globes are normal size and density. Periorbital fat clear Small reactive lymph nodes IMPRESSION: Diffuse edema within the subcutaneous tissues of the left face and neck probably a cellulitis FINDINGS: The lungs appear clear of acute infiltrate. The heart is probably upper limits normal size IMPRESSION: No acute abnormalities displayed S Brief History of Present Illness: 77-year-old male patient with medical history significant for diabetes type 2, hypertension, history of prostate cancer on oral chemotherapy with abiraterone, hyperlipidemia who was evaluated for episode of altered mentation and facial redness. Family reported that he had began to have increased redness and swelling in the left side of the face and he has had issues with mentation abnormality and fever. He was initially brought to the emergency room for evaluation and he was given oral antibiotic therapy and sent home however because began to have more altered mentation family decided to bring him back to the ER. In the ER he was found to have increased hyperemia on the left side of the face with swelling of the he had a and left jaw area. She was deemed to be having cellulitis involving the face and imaging studies were done. Patient was admitted for inpatient care. Hospital Course: Patient was admitted with concern for facial cellulitis, UTI, sepsis also has an underlying history of diabetes, hypertension, A-fib not on chronic anticoagulation although he does take an aspirin per day. This morning he suffered a fall in the bathroom with trauma to his head. He had a CT scan of his head/C-spine performed which revealed a 3 mm subdural hematoma with minimal mass effect and no midline shift. He is currently awake, alert, oriented x3 with a GCS of 15. Transfer was initiated for neuro ICU monitoring. Patient was accepted to [facility] neuro ICU for neuro monitoring/subdural hematoma. Accepted by Dr. Daigle. Sepsis: Present on admission. Source of infection including UTI and facial cellulitis. We will continue empiric antibiotic therapy with vancomycin and cefepime pending review of cultures. We will continue to follow lactic acid level closely. Empiric IV fluid to be started for management of sepsis related issues. UTI: UA significantly concerning. Urine culture taken. Concern empiric antibiotic therapy pending urine culture finalization Facial cellulitis: Concerning for source of infection. Patient does not have significant left- sided facial swelling and hyperemia. We will continue to monitor symptomatology. Imaging study done, no abscess found, cellulitis detected. We will follow clinical symptomatology Prostate Cancer: We will continue outpatient Zytiga dose. Hypertension: We will monitor vital signs per unit protocol and continue outpatient antihypertensive medications DM 2:sliding scale insulin for glucose control. Prophylaxis: SCD Given subdural hematoma Code status: Full code Vital Signs/Physical Exam: Temp Pulse Resp BP Pulse Ox 98.7 F 74 18 171/64 H 96 03/15/23 06:05 03/15/23 06:05 03/15/23 06:05 03/15/23 06:05 03/15/23 06:05 General: Alert, In no apparent distress, Oriented x3 HEENT: Atraumatic, PERRLA, EOMI Neck: Supple, JVD not distended Respiratory: Clear to auscultation bilaterally, Normal air movement Cardiovascular: Regular rate/rhythm, Normal S1 S2 Gastrointestinal: Normal bowel sounds, No tenderness Musculoskeletal: No tenderness Integumentary: Erythema (Left facial cellulitis), Warmth Neurological: Normal speech, Normal tone, Normal affect Laboratory Data at Discharge: WBC 14.00 thou/uL (4.3-10.9) H 03/14/23 18:00 Hgb 13.0 g/dL (13.6-17.9) L 03/14/23 18:00 Hct 38.2 % (39.6-49.0) L 03/14/23 18:00 Plt Count 189 thou/uL (152-406) 03/14/23 18:00 PT 14.4 SECONDS (9.5-12.5) H 03/14/23 18:00 INR 1.31 03/14/23 18:00 Sodium 134 mEq/L (136-145) L 03/14/23 18:00 Potassium 3.1 mEq/L (3.5-5.1) L 03/14/23 18:00 BUN 14 mg/dL (7-18) 03/14/23 18:00 Creatinine 0.85 mg/dL (0.70-1.30) 03/14/23 18:00 Glucose 118 mg/dL (74-106) H 03/14/23 18:00 Magnesium 1.9 mg/dL (1.6-2.4) 03/14/23 18:00 Total Bilirubin 0.5 mg/dL (0.2-1.0) 03/14/23 18:00 AST 10 U/L (15-37) L 03/14/23 18:00 ALT 11 U/L (16-61) L 03/14/23 18:00 Alkaline Phosphatase 65 U/L (45-117) 03/14/23 18:00 Home Medications: Multivitamin [Fyn-Tjsclt-Yhbsn] 1 each PO DAILY 01/23/12 Pravastatin Sodium 40 mg PO BEDTIME 01/23/12 Ascorbate Calcium [Vitamin C] 1,000 mg PO DAILY 07/06/15 Magnesium Oxide [Magnesium] 500 mg PO DAILY 07/06/15 Metformin ER [Glucophage ER*] 750 mg PO DAILY 07/06/15 lisinopriL [Prinivil*] 20 mg PO DAILY 07/06/15 Abiraterone Acetate [Zytiga] 1,000 mg PO DAILY 03/15/23 Aspirin [Aspirin EC 81 MG] 1 tab PO DAILY 03/15/23 Biotin 1 tab PO DAILY 03/15/23 Cholecalciferol (Vitamin D3) [Vitamin D3] 5,000 unit PO DAILY 03/15/23 NIFEdipine [Nifedipine ER] 1 tab PO DAILY 03/15/23 Sotalol HCl [Betapace*] 40 mg PO TID 03/15/23 predniSONE [Prednisone] 1 tab PO DAILY 03/15/23 Physician Discharge Instructions: Please continue with plan of care at [facility] neuro ICU Diet: npo Activity: Bedrest Followup: NONE,NONE [Primary Care Provider] - Time spent managing pt's care (in minutes): 35
[2023-03-15 06:51] LABS: Albumin 2.5 g/dL (3.4-5.0); Bilirubin Total 0.4 mg/dL (0.2-1.0); Potassium 3.5 mEq/L (3.5-5.1); Protein, Total 5.6 g/dL (6.4-8.2)
[2023-03-15] MEDS: ACETAMINOPHEN 325 MG TABLET PO PRN (08:17)
[2023-03-15 08:18] VITALS: BP 169/73; TEMP 102.7
[2023-03-15] MEDS: CEFEPIME 1 GM in NA CHLORIDE 0.9% 100 ML IV SCH (08:23)
[2023-03-15] MEDS ORDERED: ENOXAPARIN 40 MG/0.4 ML SQ SCH (09:00)
[2023-03-15] MEDS ORDERED: lisinopriL 20 MG TAB PO SCH (09:00)
[2023-03-15 09:15] VITALS: O2SAT 97
--- NOTE | 2023-03-15 12:16 | RAD REPORT ---
EXAM DESCRIPTION: 1. CT of the head without contrast 2. CT of the cervical spine without contrast. CLINICAL HISTORY: Fall, hit head on floor COMPARISON: None available TECHNIQUE: Axial CT of the head obtained from the skull apex to the skull base without contrast. Axi al CT images of the cervical spine obtained from the skull base through the thoracic inlet. Sagittal and coronal reformatted images available. This exam was performed according to our departmental dose- optimization program, which includes automated exposure control, adjustment of the mA and/or kV accor ding to patient size and/or use of iterative reconstruction technique. FINDINGS: CT head: Along the right lateral convexity there is a hyperdense extra-axial fluid collection measuring 3 mm i n greatest thickness with minimal local mass effect and no midline shift. The ventricular system and sulcal spaces are mildly enlarged compatible with mild cerebral atrophy. Scattered areas of hypoden sity throughout the supratentorial white matter are nonspecific and may be related to chronic small v essel ischemic change. Minimal mucosal thickening of paranasal sinuses. Mastoid air cells are relatively well aerated. No sk ull fracture identified. Visualized orbits and globes are unremarkable. Atherosclerotic calcification of the intracranial internal carotid arteries. Cervical CT: Alignment of the cervical spine is maintained without evidence of subluxation. The atlantoaxial, at lantodental, and occipitoatlantal intervals are preserved. No fracture identified. Vertebral body h eight preserved. Prevertebral soft tissues are unremarkable. 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 Mild to moderate multilevel loss of intervertebral disc height with endplate spondylosis, uncovertebral spurring, and facet arthropat hy. Posterior disc osteophyte complex at multiple levels mildly encroach on the anterior spinal canal . Visualized skull base is intact. No fracture of the visualized facial bones. Visualized thyroid is unremarkable. No cervical lymphadenopathy. No pneumothorax in the visualized lung apices. Atherosclerotic vascular calcification. IMPRESSION: 1. Acute subdural hematoma along the right lateral convexity measuring 3 mm in greates t thickness with minimal local mass effect and no midline shift. 2. No acute fracture or subluxation of the cervical spine. 3. 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 Electronically signed by: Jose G Hyatt 03/15/2023 5:23 AM CDT Due to temporary technical issues with the PACS/Fluency reporting system, reports are being signed by the in house radiologists without review as a courtesy to insure prompt reporting. The interpreting radiologist is fully responsible for the content of the report.
[2023-03-15] MEDS ORDERED: VANCOMYCIN 1.5 GM in NA CHLORIDE 0.9% 500 ML IVPB SCH (13:00)
--- NOTE | 2023-03-15 15:45 | EKG ---
Test Date: 2023-03-14 Test Time: 18:18:14 Shipping Associate: LML MEASUREMENT RESULTS: Intervals: Rate: 70 NH: 140 QRSD: 92 QT: 448 QTc: 483 [place]: P: 61 NH: 140 QRS: 21 T: 39 INTERPRETIVE STATEMENTS: Normal sinus rhythm Nonspecific ST abnormality Prolonged QT Abnormal ECG Compared to ECG 03/13/2023 11:31:12 Prolonged QT interval now present ST (T wave) deviation still present Electronically Signed On 03-15-23 15:42:27 CDT by Sacha Nunez
== END 2023-03-15 08:40 | disposition short-term general hospital (02) | DRG 872 ==
LOC: ER 17:22 → ERHOLD 20:45 → 4TH 21:55
PROVIDERS: ADMIT Internal Medicine Nephrology; ATTEND Hospitalist
DX: A41.9 Sepsis, unspecified organism (principal); L03.211 Cellulitis of face; L03.221 Cellulitis of neck; N39.0 Urinary tract infection, site not specified; H61.012 Acute perichondritis of left external ear; I10 Essential (primary) hypertension; E78.5 Hyperlipidemia, unspecified; E87.6 Hypokalemia; E11.65 Type 2 diabetes mellitus with hyperglycemia; D72.829 Elevated white blood cell count, unspecified; C61 Malignant neoplasm of prostate; Z88.1 Allergy status to other antibiotic agents; Z88.8 Allergy status to other drugs, medicaments and biological substances; Z90.49 Acquired absence of other specified parts of digestive tract; Z79.84 Long term (current) use of oral hypoglycemic drugs; Z79.82 Long term (current) use of aspirin; Z79.52 Long term (current) use of systemic steroids; Z91.041 Radiographic dye allergy status; Z91.048 Other nonmedicinal substance allergy status; Z79.899 Other long term (current) drug therapy
CPT/HCPCS: 36415; 70450; 70486; 71045; 72125; 76377; 80048; 80053; 80076; 81001; 83605; 83735; 83880; 84484; 85025; 85610; 87040; 87086; 87088; 87635; 87804; 93005; 96365; 96366; 96367; 99284; 99285; J0692; J0696; J0713; J7030; J7040; J7050

== ENCOUNTER 2023-03-23 11:25 | Inpatient (IN) | payer OTHER ==
--- OUTSIDE RECORDS SUMMARY | 2023-03-23 11:32 | XMS REPORT | Clinical Summary ---
:1945 Author Organization [facility] MD [facility] Address [address] [place] [address] Care Team Providers Name Role Phone Michael Tse MD Primary Care Provider Derek Reagan MD Unavailable Echo Goodwin MD Unavailable [phone] Echo Goodwin MD Unavailable [phone] Ab Mckeon MD Unavailable [phone] Vinicius Quintana MD Unavailable Unavailable Michael Tse MD Unavailable Swathi Santoro Unavailable Darius Aguirre MD Unavailable Yayo Granados Unavailable Herman Collazo Unavailable Shane Burch MD Unavailable [phone] Kendra Rust Unavailable Zeeshan Lunsford MD [...] excision Ventricular premature beats 02/07/2012 Overview: 02/17 [facility] regulatory import Erectile dysfunction following radical prostatectomy Overview: has vacuum device Encounters Date Type Department Care Team Description 03/12/2023 Specialty Pharmacy MDA AMB RX SPEC Brandon Kovacs [address], [place] [address] 02/18/2023 Follow-Up Genitourinary Cancer Rubina-Saavedr Adeno carcinoma of prostate (Primary Dx); 2:00 PM CDT Center - Oncology aShane MD 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 [address] [facility], 7th [place] [address] 02/18/2023 Ancillary Procedure PET Imaging Rubina-Saavedr Adenocarcinoma of 10:00 AM [address]ane tobias MD prostate CDT [facility], 6th [place] [address] 02/18/2023 Hospital Encounter Diagnostic Rubina-Saavedr Adenoca rcinoma of prostate 7:48 AM CDT Laboratory Center Shane portillo MD Discharge Disposition: Home - [address] 02/18/2023 [facility] 11:59 [place] [address] CDT 02/18/2023 Orders Only Genitourinary Cancer Katharina Flores, Center - Oncology PharmD [address] [facility], 7th [place] [address] 02/18/2023 Travel 01/16/2023 Specialty Pharmacy MDA AMB RX SPEC ACB Brandon Abrams [address] [facility] [place] [address] 01/16/2023 Orders Only Genitourinary Cancer Alexus Lowery, Center - Oncology SUPERVISOR KENNEL [address] [facility], 7th [place] [address] 01/16/2023 Refill Genitourinary Cancer Alexus Lowery, Adenoc arcinoma of Center - Oncology SUPERVISOR KENNEL prostate [address] [facility], 7th [place] [address] 01/04/2023 Hospital Encounter Radiation Treatment Melonie Tse 6:44 AM CDT [place] MD Michael Disposition: Home - [address] 01/04/2023 Main Bldg 11:59 PM [place] [address] 01/04/2023 Documentation Radiation Treatment Jonn [place] Zeeshan Hill MD [address] Main Bldg, 1st [place] [address] 01/04/2023 Travel 01/03/2023 Hospital Encounter Radiation Treatment JonnMelonie 8:06 AM CDT Center Zeeshan Hill MD Disposition: Home - [address] 01/03/2023 Main Bldg, 1st Floor 11:59 PM [place] [address] 01/03/2023 Hospital Encounter Radiation Treatment DongcassandraMelonie 6:53 AM CDT Center MD Michael Disposition: Home - [address] 01/03/2023 Main Bldg 8:05 AM [place] [address] 01/03/2023 Travel 01/02/2023 Hospital Encounter Radiation Treatment Melonie Tse 6:52 AM CDT Tang Rodriguez MD Disposition: Home - [address] 01/02/2023 Main Bldg 11:59 PM [place] [address] 01/02/2023 Refill Genitourinary Cancer Rubina-Saavedr Adeno carcinoma of Center - Oncology aShane MD prostate [address] [facility], 7th [place] [address] 01/02/2023 Travel 01/01/2023 Hospital Encounter Radiation Treatment Melonie Tse 6:44 AM CDT Tang Rodriguez MD Disposition: Home - [address] 01/01/2023 Main Bldg 11:59 [place] [address] 01/01/2023 Travel 12/31/2022 Hospital Encounter Radiation Treatment Melonie Tse 8:33 AM CDT Tang Rodriguez MD Disposition: Home - [address] 12/31/2022 Main Bldg 11:59 [place] [address] 12/31/2022 Travel 12/28/2022 Hospital Encounter Radiation Treatment Melonie Tse 3:04 PM CDT Tang Rodriguez MD Disposition: Home - [address] 12/28/2022 Main Bldg 11:59 [place] [address] 12/28/2022 Travel 12/27/2022 Hospital Encounter Radiation Treatment Melonie Tse 9:15 AM CDT Tang Rodriguez MD Disposition: Home - [address] 12/27/2022 Main Bldg 11:59 [place] [address] 12/27/2022 Travel 12/26/2022 Hospital Encounter Radiation Treatment Melonie Lunsford 9:03 AM CDT [place] Zeeshan Hill MD Disposition: Home - [address] 12/26/2022 Main Bldg, 1st Floor 11:59 [place] [address] 12/26/2022 Hospital Encounter Radiation Treatment Melonie Tse 7:15 AM CDT Tang Rordiguez MD Disposition: Home - [address] 12/26/2022 Main Bldg 9:02 AM [place] [address] 12/26/2022 Travel 12/25/2022 Hospital Encounter Radiation Treatment Melonie Tse 7:31 AM CDT Tang Rodriguez MD Disposition: Home - [address] 12/25/2022 Main Bldg 11:59 [place] [address] 12/25/2022 Travel 12/24/2022 Hospital Encounter Radiation Treatment Melonie Tse 8:18 AM CDT Center MD Michael Disposition: Home - [address] 12/24/2022 Main Bldg 11:59 [place] [address] 12/24/2022 Documentation Radiation Treatment Tang Lunsford MD [address] Main Bldg, 1st [place] [address] 12/24/2022 Travel 12/19/2022 Hospital Encounter Radiation Treatment Me Danny tastatic malignant neoplasm to bone 10:39 AM [place] Abby Gooden, Discharge Disposition: Home CDT - [address] SUPERVISOR KENNEL 12/19/2022 Main Bldg Jonn, 11:59 PM near Elevator G [place] [address] 12/19/2022 Hospital Encounter Radiation Oncology Rubina-Trinyr Adenocarcinoma of prostate 8:30 AM CDT Shane Stark MD Discharge Disposition: Home - Main Bldg, 1st Floor Jonn, 12/19/2022 near Elevator G Zeeshan Hill MD 10:38 [place] [address] CDT [phone] 12/19/2022 Documentation Radiation Treatment [facility] Zeeshan Hill MD [address] Main Bldg, 1st [place] [address] 12/19/2022 Documentation Radiation Treatment [facility] eZeshan Hill MD [address] Main Bldg, 1st [place] [address] 12/19/2022 Orders Only Radiation Treatment Danny [place] Abby Gooden, [address] SUPERVISOR KENNEL Main [place] [address] 12/19/2022 Travel 12/18/2022 Orders Only Radiation Treatment Juan Jose Delgadoat ic malignant Center [facility], neoplasm to bone [address] SUPERVISOR KENNEL (Primary Dx) Main [place] [address] 12/17/2022 Office Visit [facility] Scott Morrison, Metastatic malignant 10:00 AM Yoni Myles MD neoplasm to bone CDT Main Bldg, 9th [place] [address] 12/17/2022 Travel 12/14/2022 Ancillary Procedure Me Kacie tastatic malignant 9:15 AM CDT [facility] Abby Gooden, neoplasm to bone [address] [facility] SUPERVISOR KENNEL [address] [place] [address] 12/14/2022 Travel 12/13/2022 Ancillary Procedure MD Nadeem Cespedes-Pramod Adenocarcinoma of 11:15 AM Shane Horner MD prostate CDT [address] [facility] 2[address] [place] [address] 12/13/2022 Telephone Radiation Treatment Tang Gastelum, RN [address] Main [place]ld[place] [address] 12/13/2022 Orders Only Radiation Treatment Danny Metastat ic malignant Center Anastasiaa R, neoplasm to bone [address] SUPERVISOR KENNEL (Primary Dx) Main [place] [address] 12/13/2022 Travel 12/12/2022 Follow-Up Genitourinary Cancer Rubina-Saavedr Adeno carcinoma of prostate (Primary Dx); 11:30 AM Center - Oncology Shane portillo MD 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 CDT [address] [facility], 7th [place] [address] 12/12/2022 Ancillary Procedure PET Imaging Rubina-Saavedr Adenocarcinoma of 8:00 AM CDT [address] Shane Troy MD prostate [facility], 6th [place] [address] 12/12/2022 Hospital Encounter Diagnostic Rubina-Saavedr Adenoca rcinoma of prostate 6:52 AM CDT Laboratory Center Shane portillo MD Discharge Disposition: Home - [address] 12/12/2022 [facility] 11:59 [place] [address] CDT 12/12/2022 Travel 10/18/2022 Specialty Pharmacy MDA AMB RX SPEC ACB [place], [address] [place] [address] 08/20/2022 Follow-Up Genitourinary Cancer Rubina-Saavedr Adeno carcinoma of prostate (Primary Dx); 12:00 PM Center - Oncology Shane portillo MD 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; CDT [address] Hypertension [facility], 7th [place] [address] 08/20/2022 Ancillary Procedure PET Imaging Rubina-Saavedr Adenocarcinoma of 9:30 AM CDT [address] Gallagher MD prostate [facility], 6th [place] [address] 08/20/2022 Hospital Encounter Diagnostic Rubina-Saavedr Adenoca rcinoma of prostate 7:23 AM CDT Laboratory Shane Jackson MD Discharge Disposition: Home - [address] 08/20/2022 [facility] 11:59 [place] [address] CDT 08/20/2022 Travel 07/24/2022 Specialty Pharmacy MDA AMB RX SPEC ACB OlumbaBaBrandon [address] C, [place] [address] 05/22/2022 Infusion Ambulatory Treatment Rubina-Saavedr Adeno carcinoma of 10:00 AM Tang Shane Lan MD prostate (Primary ARCHIVES TECHNICIAN [address], Jovita Dx) [address] Blanca Gooden RN [facility], 8th [place] [address] 05/22/2022 Hospital Encounter Diagnostic Rubina-Saavedr Adenoca rcinoma of prostate 7:27 AM ARCHIVES TECHNICIAN Laboratory Shane Jackson MD Discharge Disposition: Home - [address] 05/22/2022 [facility] 11:59 [place] [address] ARCHIVES TECHNICIAN 05/22/2022 Travel 04/25/2022 Specialty Pharmacy KIRSTIN AMB RX SPEC ACB AlejandroumbaBaBrandon [address] C, [place] [address] 04/10/2022 Orders Only Genitourinary Cancer Alexus Lowery, Adenoc arcinoma of [place] - Oncology SUPERVISOR KENNEL prostate [address] [facility], 7th [place] [address] 04/09/2022 Refill Genitourinary Cancer Tess Smallwood, Adenoca rcinoma of [place] - Oncology SUPERVISOR KENNEL prostate [address] [facility], 7th [place] [address] 03/26/2022 Specialty Pharmacy MDA AMB RX SPEC ACB [place] Brandon [address] C, [place] [address] after 03/23/2022 Immunizations Name Administration Dates Next Due Moderna [...] pro statectomy; self catheterized for 6 m [facility] Basal cell carcinoma of forehead 06/18/2013 right f rontal forehead excision Peripheral vascular disease 11/2020 Family History Medical History Relation Name Comments Cirrhosis Brother Liver disease Brother COPD Father Zeeshan Stroke Father Zeeshan Atrial fibrillation Mother Lias Diabetes Mother Lisa Hyperlipidemia Mother Lisa Hypertension Mother Lisa Uterine cancer Sister 2 Relation Name Status Comments Brother Father Zeeshan (Age 67) from [facility]; had flu and emphysema complications Mother Lisa (Age 85) from [facility] Sister 1 Alive Sister 2 Alive Son [...] Sex Assigned at Male 07/02/2019 4:43 PM ARCHIVES TECHNICIAN Gender Identity Male 10/08/2018 8:19 PM C [...] Treatment Date Type Department Care Team Description 06/24/2023 Appointment Diagnostic Laboratory [facility], 8:45 AM [facility] [address] [facility] [address] [address] 06/24/2023 Ancillary Procedure PET Imaging Papo, 9:00 AM ARCHIVES TECHNICIAN [address] [facility] PARKER Ortiz [facility], [address]th [address] [place], [place] [address] [place] [address] [phone] 06/24/2023 Follow-Up Genitourinary Cancer [facility], 12:30 PM ARCHIVES TECHNICIAN Center - Oncology MD Shane [address] [facility] [address] [facility], [address] [place] [address] [place] [address] [phone] Health Maintenance Due Date Last Done Comments [...] PHOSPHORUS LEVEL Routine 12/12/2022 7:01 Adenocarcinoma of Re sults [...] Adenocarcinoma of Results for this RATE AM ARCHIVES TECHNICIAN prostate procedure are i n the results section. SERUM CREATININE Routine 05/22/2022 7:52 Adenocarcinoma of Res ults for this AM ARCHIVES TECHNICIAN prostate procedure are i n the results section. CREATININE Routine 05/22/2022 7:52 Adenocarcinoma of AM ARCHIVES TECHNICIAN prostate PHOSPHORUS LEVEL Routine 05/22/2022 7:52 Adenocarcinoma of Res ults for this AM ARCHIVES TECHNICIAN prostate procedure are i n the results section. CALCIUM LEVEL Routine 05/22/2022 7:52 Adenocarcinoma of Result s for this AM ARCHIVES TECHNICIAN prostate procedure are i n the results section. PROSTATE SPECIFIC Routine 05/22/2022 7:52 Adenocarcinoma of Re sults for this ANTIGEN AM ARCHIVES TECHNICIAN prostate procedure are i n the results section. after 03/23/2022 Results PETCT F18 PSMA PyL (Piflufolastat) without [...] concern. ACTIONABLE ITEMS/RECOMMENDATIONS: None. Shane Burch MD IM PETCT ORDERABLES Glucose, Random (02/18/2023 7:58 AM CDT)Only the most recent of3 resultswithin the time period is included. P athologist Signature Glucose Random 126 70 - [address] [facility] [address] mg/dL Comment: Effective 12/14/15, the glucose reference intervals have been updated based on [place] Diabetes [employer] guidelines (Standards of Medical Care in Diabetes 2016. Diabetes Care 2016; 39: S13-S22) Fasting blood glucose: Normal: 70-99 mg/dL Impaired fasting glucose (increased risk for diabetes or pre-diabetes): 100-125 mg/dL Diabetes mellitus: >/= 126 mg/dL Random blood glucose: Normal: 70-199 mg/dL Note: Random glucose >100 mg/dL is assoc iated with increased risk for diabetes Testing Performed at [facility] Lab Transmission Operator [facility], [address] [place] [address], [address], [place] [address] Specimen Anatomical Collection Method Collection Time Receive d Time (Source) Location / / Volume Laterality Blood 02/18/2023 7:58 AM 3 8:11 CDT AM CDT [facility] - 02/18/2023 8:41 AM CDT 1.30 pm Shane Burch MD LAB BLOOD ORDERABLES Performing Organization Address [facility] e Number [facility] [address] [place] [address]. [place] [address] [address] .Serum Creatinine (02/18/2023 7:58 AM CDT)Only the most recent of4 resultswithin the time period is included. athologist Signature Creatinine 0.95 0.67 - 1.17 [facility] mg/dL Comment: Testing Performed at [facility], [address] [place] [address], [address], [place] [id number] Specimen Anatomical Collection Method Collection Time Receive d Time (Source) Location / / Volume Laterality Blood 02/18/2023 7:58 AM 3 8:11 CDT AM CDT [facility] - 02/18/2023 8:41 AM CDT 1.30 pm Shane Burch MD LAB BLOOD ORDERABLES Performing Organization Address [facility] e Number [facility] [address] [place] [address]. [place] [address] [address] (ABNORMAL) .CBC (02/18/2023 7:58 AM CDT)Only the most recent of3 resultswithin the time period is included. athologist Signature WBC 9.2 4.1 - 10.5 [facility] K/uL RBC 4.23 (L) 4.30 - 6.04 [facility] M/uL Hgb 13.2 (L) 13.3 - 17.4 [facility] gm/dL Comment: As part of CBC or as an individ ual orderable testing performed at [facility] Lab Transmission Operator [facility], [address] [place] [address] , [address], [place] [address] Hct 40.1 39.5 - 51.8 % [facility] Comment: As part of CBC or as an individ ual orderable testing performed at [facility] Transmission Operator [facility], [address] [place] [address] , [address], [place] [address] MCV 95 82 - 99 fL [facility] MCH 31.2 26.6 - 33.2 pg [facility] MCHC 32.9 31.1 - 35.2 gm/dL [facility] RDW-SD 49.0 37.5 - 49.7 fL [facility] RDW-CV 14.1 11.6 - 15.5 % [facility] Platelet count 272 160 - 397 K/uL [facility] Comment: As part of CBC or as an individ ual orderable testing performed at [facility], [address] [place] [address] , [address], [place] [address] MPV 10.3 9.1 - 12.6 fL [facility] INRBC 0.0 0.0 - 0.1 /100 WBC [facility] Comment: The INRBC (instrument NRBC) value reflec ts the enumeration of nucleated red blood cells contained i n a 200uL sample of whole blood analyzed by the instrumen t. This value may differ from the NRBC value reported in a manual differential, which is based on a 100 cell differentia l. As part of CBC testing performed at [place] [address] [facility], [address], [place] [address] Specimen Anatomical Collection Method Collection Time Receive d Time (Source) Location / / Volume Laterality Blood 02/18/2023 7:58 AM 3 8:02 CDT AM CDT Narrative [facility] - 02/18/2023 8:13 AM CDT 1.30 pm Shane Burch MD LAB BLOOD ORDERABLES Performing Organization Address City/State/ZIP Code Phon e Number [facility] [address] [facility] [place] [address] [address] Glomerular Filtration Rate (02/18/2023 7:58 AM CDT)Only the most recent of4 resultswithin the time period is included. athologist Signature eGFR 81 >=60 [facility] mL/min/1.73 sq. m Comment: The eGFRcr is [...] fulfill criteria for CKD. Testing Performed at [facility] Care [facility], [address] [facility], [address], [place] [address] Specimen Anatomical Collection Method Collection Time Receive d Time (Source) Location / / Volume Laterality Blood 02/18/2023 7:58 02/18/2023 8:11 AM CDT AM CDT Narrative [facility] - 02/18/2023 8:41 AM CDT 1.30 pm Shane Burch MD LAB BLOOD ORDERABLES Performing Organization Address City/State/ZIP Code Phon e Number [facility] [address] [place] [address]. [place] [address] [address] Fractionated Bilirubin (02/18/2023 7:58 AM CDT)Only the most recent of3 results within the time period is included. athologist Signature Bili Total 0.5 <=1.2 mg/dL [facility] Comment: Indocyanine Green (ICG) may cause falsel y elevated bilirubin results. Total and direct bilirubin must not be measured from samples containing indocyanine green. False elevation of total bilirubin can b e seen in patients with IgG concentrations above 28 g/L. Testing Performed at [facility] Lab Transmission Operator [facility], [facility], [address], [place] [address] Bili Direct 0.2 <=0.3 mg/dL [facility] Comment: Indocyanine Green (ICG) may cause falsel y elevated bilirubin results. Total and direct bilirubin must not be measured from samples containing indocyanine green. Testing Performed at [facility] Lab Transmission Operator [facility], [address] [facility], [address], [place] [address] Bili Indirect 0.3 0.0 - 0.9 mg/dL [facility] Comment: Testing Performed at [facility] Lab Am bulatory Care [facility], [address] [facility], [address], [place] [address] Specimen Anatomical Collection Method Collection Time Receive d Time (Source) Location / / Volume Laterality Blood 02/18/2023 7:58 AM 3 8:11 CDT AM CDT Narrative [facility] - 02/18/2023 8:41 AM CDT 1.30 pm Shane Burch MD LAB BLOOD ORDERABLES Performing Organization Address City/[facility]/ZIP [facility] Phon e Number [facility] [address] [facility] [place] [address] [address] Vitamin D 25OH (02/18/2023 7:58 AM CDT)Only the most recent of3 resultswithin the time period is included. athologist [facility] Vitamin D 25 OH 40 30 - 100 [facility] ng/mL CANCER CENTER Comment: Reference Range: Deficiency: <=20 ng/mL Insufficiency: 21-29 ng/mL Sufficiency: 30-100 ng/mL Potential toxicity: >100 ng/mL Specimen Anatomical Collection Method Collection Time Receive d Time (Source) Location / / Volume Laterality Blood 02/18/2023 7:58 AM 3 8:18 CDT AM CDT Narrative [facility] - 3 9:03 AM CDT 1.30 pm Shane Burch MD LAB BLOOD ORDERABLES Performing Organization Address City/[facility] Phon e Number [facility] CANCER Unless otherwise noted, [place] [address] CENTER all lab tests performed by: Division of Pathology and Laboratory Medicine [address] [place] [address] Brent (ABNORMAL) Differential (02/18/2023 7:58 AM CDT)Only the most recent of3 results within the time period is included. P athologist Signature Neutrophil % 83.0 (H) 43.2 - [facility] 72.7 % Comment: As part of Differential perform ed at [facility] Care [facility], [address] [place] [address], [address], [place] [address] Lymphocyte % 9.0 (L) 16.8 - 46.2 % [facility] Monocyte % 5.7 5.1 - 12.5 % [facility] Eosinophil % 1.2 0.4 - 6.3 % [facility] Basophil % 0.7 0.2 - 1.4 % [facility] IGRE % 0.4 0.1 - 1.5 % [facility] Comment: IGRE % count includes Metamyelocytes, My elocytes, and Promyelocytes. As part of Differential performed at [facility], [address] [place] [address], [address], [place] [address] Neutrophil Abs 7.61 (H) 1.95 - 7.25 K/uL [facility] Lymphocyte Abs 0.82 (L) 1.01 - 3.24 K/uL [facility] Monocyte Abs 0.52 0.24 - 0.85 K/uL [facility] Eosinophil Abs 0.11 0.02 - 0.50 K/uL [facility] Basophil Abs 0.06 0.02 - 0.09 K/uL [facility] IG Abs 0.04 0.01 - 0.12 K/uL [facility] Specimen Anatomical Collection Method Collection Time Receive d Time (Source) Location / / Volume Laterality Blood 02/18/2023 7:58 AM 8:02 CDT AM CDT Narrative [facility] - 02/18/2023 8:13 AM CDT 1.30 pm Shane Burch MD LAB BLOOD ORDERABLES Performing Organization Address City/State/ZIP Code Phon e Number [facility] [address] [place] [address]. [place] [address] [address] Blood Urea Nitrogen (02/18/2023 7:58 AM CDT)Only the most recent of3 results within the time period is included. athologist Signature BUN 15 6 - 23 mg/dL [facility] Comment: Testing Performed at [facility] Lab Am [facility], [address] [place] [address], [address], [place] [address] Specimen Anatomical Collection Method Collection Time Receive d Time (Source) Location / / Volume Laterality Blood 02/18/2023 7:58 AM 3 8:11 CDT AM CDT Narrative [facility] - 02/18/2023 8:41 AM CDT 1.30 pm Shane Burch MD LAB BLOOD ORDERABLES Performing Organization Address City/[facility] Phon e Number [facility] [address] [facility] [place] [address] [address] Alanine Aminotransferase (02/18/2023 7:58 AM CDT)Only the most recent of3 resultswithin the time period is included. P athologist Signature ALT 7 <=41 U/L [facility] Comment: Testing Performed at [facility], [address], [address], [place] [address] Specimen Anatomical Collection Method Collection Time Receive d Time (Source) Location / / Volume Laterality Blood 02/18/2023 7:58 AM 3 8:11 CDT AM CDT Narrative [facility] - 02/18/2023 8:41 AM CDT 1.30 pm Shane Burch MD LAB BLOOD ORDERABLES Performing Organization Address City/[facility] Phon e Number [facility] [address] [place] [address] [address] Aspartate Aminotransferase (02/18/2023 7:58 AM CDT)Only the most recent of3 resultswithin the time period is included. P athologist Signature AST 12 <=40 U/L [facility] Comment: Testing Performed at [facility], [address], [address], [place] [address] Specimen Anatomical Collection Method Collection Time Receive d Time (Source) Location / / Volume Laterality Blood 02/18/2023 7:58 AM 3 8:11 CDT AM CDT Narrative [facility] - 02/18/2023 8:41 AM CDT 1.30 pm Shane Burch MD LAB BLOOD ORDERABLES Performing Organization Address City/State/[facility] Phon e Number [facility] [address] [place] [address] [address] (ABNORMAL) Testosterone Level Total (02/18/2023 7:58 AM CDT)Only the most recent of3 resultswithin the time period is included. athologist Signature Testoster Tot <3 (L) 193 - 740 [facility] ng/dL [facility] Comment: Reference Ranges: Male: Age 20 - 49 249 - 836 Age >=50 1 93 - 740 Female: Age 20 - 49 8 - 48 Age >=50 3 - 41 Specimen Anatomical Collection Method Collection Time Receive d Time (Source) Location / / Volume Laterality Blood 02/18/2023 7:58 AM 3 8:18 CDT AM CDT Narrative [facility] - 8:55 AM CDT 1.30 pm Shane Burch MD LAB BLOOD ORDERABLES Performing Organization Address City/[facility] e Number [facility] CANCER Unless otherwise noted, [place] [address] CENTER all lab tests performed by: Division of Pathology and Laboratory Medicine [address] [facility] Total Protein (02/18/2023 7:58 AM CDT)Only the most recent of3 resultswithin the time period is included. [facility] Protein 6.8 6.4 - 8.3 [facility] g/dL Comment: Testing Performed at [facility] Lab [facility], [address], [address], [place] [address] Specimen Anatomical Collection Method Collection Time Receive d Time (Source) Location / / Volume Laterality Blood 02/18/2023 7:58 AM 3 8:11 CDT AM CDT Narrative [facility] - 02/18/2023 8:41 AM CDT 1.30 pm Shane Burch MD LAB BLOOD ORDERABLES Performing Organization Address City/[facility] Phon e Number [facility] [address] [place] [address] [address] Prostate Specific Antigen (PSA) Diagnostic (02/18/2023 7:58 AM CDT)Only the most recent of4 resultswithin the time period is included. athologist [facility] PSA <0.1 0.0 - 4.0 [facility] ng/mL Comment: Results greater than 4519 ng/mL may not be reliable due to matrix effect with extended dilution as it exceeds the medical photographer's recommended limit. Caution should be exercised when interpreting such murtaza ues and done in conjunction with clinica l context. Testing Performed at [facility] Transmission Operator [facility], [address] [place] [address], [address], [place] [address] PSA Indication Diagnostic [facility] Specimen Anatomical Collection Method Collection Time Receive d Time (Source) Location / / Volume Laterality Blood 02/18/2023 7:58 AM 3 8:11 CDT AM CDT [facility] - 02/18/2023 9:48 AM CDT 1.30 pm Shane Burch MD LAB BLOOD ORDERABLES Performing Organization Address [facility]/ZIP Code [facility] e Number [address] [place] [address] [address] Phosphorus Level (02/18/2023 7:58 AM CDT)Only the most recent of4 resultswithin the time period is included. [facility] Phosphorus 3.2 2.5 - 4.5 [facility] mg/dL Comment: Testing Performed at [facility], [address] [place] [address], [address], [place] [address] Specimen Anatomical Collection Method Collection Time Receive d Time (Source) Location / / Volume Laterality Blood 02/18/2023 7:58 AM 3 8:11 CDT AM CDT [facility] - 02/18/2023 8:41 AM CDT 1.30 pm Shane Burch MD LAB BLOOD ORDERABLES Performing Organization Address [facility]/ZIP [facility] Phon e Number [address] [place] [address] [address] Alkaline phosphatase (02/18/2023 7:58 AM CDT)Only the most recent of3 results within the time period is included. athologist [facility] Alk Phos 72 40 - 129 U/L [facility] Comment: Testing Performed at [facility] Lab [facility] Care [facility], [address], [place] [address] Specimen Anatomical Collection Method Collection Time Receive d Time (Source) Location / / Volume Laterality Blood 02/18/2023 7:58 AM 3 8:11 CDT AM CDT Narrative [facility] - 02/18/2023 8:41 AM CDT 1.30 pm Shane Burch MD LAB BLOOD ORDERABLES Performing Organization Address [facility] e Number [facility] [address] [place] [address] [address] Magnesium Level (02/18/2023 7:58 AM CDT)Only the most recent of3 resultswithin the time period is included. P athologist Signature Magnesium 2.1 1.6 - 2.6 [facility] mg/dL Comment: Testing Performed at [facility] Lab [facility] Care [facility], [address], [address], [place] [address] Specimen Anatomical Collection Method Collection Time Receive d Time (Source) Location / / Volume Laterality Blood 02/18/2023 7:58 AM 3 8:11 CDT AM CDT Narrative [facility] - 02/18/2023 8:41 AM CDT 1.30 pm Shane Burch MD LAB BLOOD ORDERABLES Performing Organization Address [facility] e Number [facility] [address] [place] [address] [address] Lactate dehydrogenase (02/18/2023 7:58 AM CDT)Only the most recent of3 results within the time period is included. P athologist Signature LDH 155 135 - 225 [facility] U/L Comment: Results greater than 1651 U/L may not be reliable due to matrix effect with extended dilution as it exceeds the medical photographer s recommended limit. Caution should be exercised when interpreting such murtaza ues and done in conjunction with clinica l context. Testing Performed at [facility] Lab [facility], [address], [address], [place] [address] Specimen Anatomical Collection Method Collection Time Receive d Time (Source) Location / / Volume Laterality Blood 02/18/2023 7:58 AM 3 8:11 CDT AM CDT Narrative [facility] - 02/18/2023 8:36 AM CDT 1.30 pm Shane Burch MD LAB BLOOD ORDERABLES Performing Organization Address [facility] e Number [address] [place] [address] [address] CEA Ag (02/18/2023 7:58 AM CDT)Only the most recent of3 resultswithin the time period is included. athologist Signature CEA 1.5 <=3.8 ng/mL [facility] Comment: Reference Ranges: Smoker: 0.0 - 5.5 Non-Smoker: 0.0 - 3.8 This test is measured by electrochemilum inescence immunoassay on Judi Mauro immunoassay analyzers. Results obtained in different methods are not interchangeable. Testing Performed at [facility] Lab Transmission Operator [facility], [facility], [place] [address] Specimen Anatomical Collection Method Collection Time Receive d Time (Source) Location / / Volume Laterality Blood 02/18/2023 7:58 AM 3 8:11 CDT AM CDT [facility] - 02/18/2023 10:15 AM CDT 1.30 pm Shane Burch MD LAB BLOOD ORDERABLES Performing Organization Address [facility]/[address] [place] [address] [address] Calcium Level Total (02/18/2023 7:58 AM CDT)Only the most recent of4 results within the time period is included. athologist Signature Calcium Lvl 9.6 8.4 - 10.2 [facility] mg/dL Comment: Testing Performed at [facility] Lab [facility] Care [facility], [facility], [address], [place] [address] Specimen Anatomical Collection Method Collection Time Receive d Time (Source) Location / / Volume Laterality Blood 02/18/2023 7:58 AM 3 8:11 CDT AM CDT Narrative [facility] - 02/18/2023 8:41 AM CDT 1.30 pm Shane Burch MD LAB BLOOD ORDERABLES Performing Organization Address City/[facility]/ZIP Code Phon e Number [facility] [address] [place] [address] [address] Albumin Level (02/18/2023 7:58 AM CDT)Only the most recent of3 resultswithin the time period is included. athologist Signature Albumin Lvl 4.4 3.5 - 5.2 [facility] gm/dL Comment: Testing Performed at [facility] Lab [facility], [address], [place] [address] Specimen Anatomical Collection Method Collection Time Receive d Time (Source) Location / / Volume Laterality Blood 02/18/2023 7:58 AM 8:11 CDT AM CDT Narrative [facility] - 02/18/2023 8:41 AM CDT 1.30 pm Shane Burch MD LAB BLOOD ORDERABLES Performing Organization Address [facility] e Number [facility] [address] [place] [address] [address] (ABNORMAL) Electrolyte panel (02/18/2023 7:58 AM CDT)Only the most recent of3 resultswithin the time period is included. athologist Signature Sodium Lvl 143 136 - 145 [facility] mEq/L Comment: Testing Performed at [facility] Lab Am [facility] Care [facility], [address], [place] [address] Potassium Lvl 4.3 3.5 - 5.1 mEq/L [facility] Comment: Testing Performed at [facility], [address], [place] [address] Chloride 104 98 - 107 mEq/L [facility] Comment: Testing Performed at [facility], [address], [place] [address] CO2 30 (H) 22 - 29 mEq/L [facility] Comment: Testing Performed at [facility], [address], [place] [address] Anion Gap 9 4 - 14 mEq/L [facility] Comment: Testing Performed at [facility], [address], [address], [place] [address] Specimen Anatomical Collection Method Collection Time Receive d Time (Source) Location / / Volume Laterality Blood 02/18/2023 7:58 AM 3 8:11 CDT AM CDT Narrative [facility] - 02/18/2023 8:41 AM CDT 1.30 pm Shane Burch MD LAB BLOOD ORDERABLES Performing Organization Address City/State/ZIP Code Phon e Number [facility] [address] [place] [address] [address] Bone Mets Simulation without Contrast (12/19/2022 11:16 AM CDT) Specimen (Source) Anatomical Location Collection Method / Collectio n Time Received Time / Laterality Volume Narrative Systemgenerated, Documentation - 023 11:52 AM CDT This procedure requires no interpretatio n from the radiologist. Abby Delgado APRN IMG RO CT SIM ORDERABLES X-ray Femur [...] Examination: XR FEMUR 2 VW LEFT, 12/15/19 23 9:04 AM. Clinical History: Prostate carcinoma. Indication: [...] imaging. No lytic component. Abby Delgado APRN [employer] DIAGNOSTIC IMAGING ORDER JEFF MRI Pelvis with [...] Shane Burch MD IMG MRI ORDERABLES after 03/23/2022 Insurance Payer Benefit Plan / Subscriber ID Effective Dates Phone Addre ss Type Group MEDICARE MEDICARE PART [id number] 2008-Presen [phone] [facility] A AND B t 2 SOLUTIONS [address] [place] [address] GENERIC GENERIC [id number] 2008-Presen [phone] [address] 7 [place] [address] [phone] [phone] (Work) Billy Barrientos Personal/Famil Self [address] (Home) [place], [place] [phone] (Work) Billy Barrientos Personal/Famil Self [address] (Home) [place], [place] [phone] (Work) Advance Directives Type Date 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 Advance Directives: 08/24/2021 Directive to Physicians Living Will and Family or Surrogates-Albaro nguyen 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 Specialty Start Date End Date Michael Tse MD PCP - General 07/20/[address] [place] [address] [phone] Derek Reagan MD PCP - External Primary 06/04/13 Care Provider [address] [place] [id number] Echo Goodwin PCP - External 04/24/13 MD Corwin [address] [place], [place] [id number] Echo Goodwin PCP - External Follow 04/24/13 MD Corwin [address] [place], [place] [phone] Ab Mckeon PCP - External Follow 06/09/13 MD Wero [address] [place], [place] [id number] Vinicius Quintana MD Physician 07/27/15 Michael Tse MD Physician 07/27/[address] [place] [address] Swathi Santoro Physician Lead Miner Blasting 07/27/[address] [place] [id number] Darius Aguirre MD Physician 07/27/[address] [place] [address] Yayo Granados PA Physician [employer] 07/27/[address] [place] [phone] Herman Collazo PA Physician [employer] 07/27/[address] [place] [address] Kiersten Consulting Physician Genitourinary Oncology 10/26/17 MD Shane [address] [place] [address] Kendra Rust [facility] 08/21/[address] [place] [phone] Zeeshan Lunsford Consulting Physician Radiation Oncology 12/19/22 MD Liz [address] [place] [phone] Scott Morrison MD Consulting Physician Orthopedic Surgery 12/17/[address] [place] [phone]
--- OUTSIDE RECORDS SUMMARY | 2023-03-23 11:38 | XMS REPORT | Continuity of Care Document ---
:[address] [facility] t Address [address] [place] [address] Care Team Providers Name Role Phone Dedrick ESQUIVEL, Michael Primary Care Physician GABI GRANT Attending Clinician Unavailable PIEDAD HARPER Attending Clinician Unavailable JUANJOSE GARCIA Attending Clinician Unavailable MARICRUZ DIEZ Attending Clinician Unavailable KRYSTAL FIELDS Attending Clinician Unavailable Jose Alberto PharmDBrandon Attending Clinician Unavailable Shane Calvillo MD Attending Clinician [phone] Mark PharmDKatharina Attending Clinician Alexus Lowery APRN Attending Clinician Michael Tse MD Attending Clinician Zeeshan Lunsford MD Attending Clinician Abby Delgado APRN Attending Clinician Scott Morrison MD Attending Clinician Glenna Gastelum RN Attending Clinician Unavailable Nedra Houston RPH Attending Clinician Chris GUTIERREZ, Jovita Gooden Attending Clinician Unavailable Tess Smallwood APRN Attending Clinician SHANE CALVILLO Attending Clinician Unavailable TESS SMALLWOOD Attending Clinician Unavailable MARICRUZ DIEZ Admitting Clinician Unavailable Payers Payer Name Policy Type Policy Number Effective Date Expiration Date Courtney call MEDICARE A B [id number] 2008 00:00:00 GENERIC MEDICARE [id number] 2008 SUPPLEMENT 00:00:00 Problems Condition Condition Condition Status Onset Resolution Last Treating Co mments Source Name Details Category Date Date Treatment Clinician Date 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 00:00: [place] 00 [facility] Metastatic Metastatic Disease Active U nivers malignant malignant 10-30 ity of neoplasm neoplasm 00:00: [place] to bone to bone 00 MD [facility] Hypertensi Hypertensi Disease Active U nivers on on 10-22 ity of 00:00: [place] 00 MD [facility] Hyperlipid Hyperlipid Disease Active U nivers emia emia 10-22 ity of 00:00: [place] 00 MD [facility] 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 Center has vacuum device Allergies, Adverse Reactions, Alerts Allergy Allergy Status Severity Reaction(s) Onset Inactive Treating Comm ents Source Name Type Date Date Clinician Adhesive Propensi Active Univer s ty to 06-22 ity of adverse 00:00: [place] reaction 00 MD [facility] Adhesive Propensi Active Univer s Tape-Grace ty to 06-22 ity of icones adverse 00:00: [place] reaction 00 MD [facility] Erythrom Propensi Active Univer s ycin ty to 06-22 ity of adverse 00:00: [place] reaction 00 MD courtney moe [facility] Center Iodinate Propensi Active Hives 08/20/21 Univ [...] 50 mg POx3 and bendryl 50 mg PO5/11/07 premedica junie with 13 hours prep prednison e 50 mg PO x3 and benadryl 50 mg POx1. No reactions noted post CT ADHESIVE Drug Active Class 2-03 Anderso 00:00: n 00 ADHESIVE DRUG Active TAPE-GRACE 2-03 Anderso ICONES 00:00: n 00 ERYTHROM DRUG Active YCIN 2-03 Anderso 00:00: n 00 IODINATE Drug Active Low Hives MD Sawyer Class 2-03 Anderso CONTRAST 00:00: n MEDIA 00 ADHESIVE Drug Active MD Class 2-03 Anderso 00:00: n 00 ADHESIVE DRUG Active TAPE-GRACE 2-03 Anderso ICONES [...] TAPE-GRACE 2-03 Anderso ICONES 00:00: n 00 IODINATE Allergy Active High Hives 2016-[address] [facility] [address] [facility] CONTR[facility] 00:[facility] Medical MEDIA 00 Center ERYTHROM DRUG Active 2015-0 MD YCIN 2-03 [...] Anderso CONTRAST 00:00: n MEDIA 00 ADHESIVE Allergy Active 2016-[address] [facility] Center ADHESIVE Drug Active 2016-0 MD Class 2-03 [...] TAPE-GRACE 2-03 Anderso ICONES 00:00: n 00 ADHESIVE Allergy Active 2015-[address] TAPE-GRACE 2[facility]03 [facility] ICONES 00:[facility]: Medical 00 Center ERYTHROM DRUG Active 2015-0 MD YCIN 2-03 [...] 2-03 Anderso CONTRAST 00:00: n MEDIA 00 ERYTHROM Allergy Active 2015-[address] [facility]CIN 2[facility]03 [facility] 00[facility] 00 Center ADHESIVE Drug Active 2015-0 MD Class 2-03 [...] 00:00: n 00 ADHESIVE DRUG Active MD TAPE-GRACE 2-03 Anderso ICONES 00:00: n 00 ERYTHROM DRUG Active 2015- MD YCIN 2-03 Anderso 00:00: n 00 IODINATE Drug Active Low Hives 2015- MD D Class 2-03 Anderso CONTRAST 00:00: n MEDIA 00 ADHESIVE Drug Active MD Class 2-03 Anderso 00:00: n 00 ADHESIVE DRUG Active MD TAPE-GRACE 2-03 Anderso ICONES 00:00: n 00 ERYTHROM DRUG Active MD YCIN 2-03 Anderso 00:00: n 00 IODINATE Drug Active Low Hives MD D Class 2-03 Anderso CONTRAST 00:00: n MEDIA 00 TAPE, Allergy Active Low Itching [facility] E 00:00: Medical ADHESIVE 00 Center ERYTHROM Allergy Active High Hives [facility]CIN 9[facility]03 [facility] BASE 00:00: Medical 00 Center IODINE Allergy Active High Hives [facility] Family History Family Member Diagnosis Comments Start Date Stop Date Source Natural brother [facility] Natural brother Liver disease [facility] Natural father COPD [facility] [place] Natural father Stroke [facility] [place] Natural [facility]rial [facility] [place] Natural mother Diabetes [facility] Natural mother Hyperlipidemia [facility] Natural mother Hypertension [facility] ty [facility] [place] Natural sister [facility] [place] Natural son [facility] Social History Social Habit Start Date Stop Date Quantity Comments Source Sexual orientation 2019-07-02 Heterosexual Univ ersity of 16:43:39 (finding) Ellie Samuels r Tang History of tobacco Cigarette [facility] MD Silver Canizzy r [place] Alcohol intake 2021-01-25 2021-01-25 Current non-drinker U niversity of 00:00:00 00:00:00 of alcohol Ellie ESQUIVEL (finding) Nadeem Samuels [facility] History of Social 2021-01-25 2021-01-25 Univers ity of function 00:00:00 00:00:00 Ellie Samuels [facility] Cigarettes smoked 2017-10-22 2017-10-22 Univers ity of current (pack per 00:00:00 00:00:00 Ellie vásquez) - Reported [facility] Cigarette 2017-10-22 2017-10-22 University of pack-years 00:00:00 00:00:00 Ellie Samuels [facility] Tobacco Comment 2017-10-22 2017-10-22 dip/snuff started Un iversity of 00:00:00 00:00:00 at age 38 Ellie Samuels [facility] Tobacco use and 2017-10-22 2017-10-22 Smokeless tobacco Un iversity of exposure 00:00:00 00:00:00 non-user [place] [facility] Sex [birth year] M Universit y of 00:00:00 00:00:00 [place] [facility] Smoking Status Start Date Stop Date Source Ex-smoker 2017-10-22 00:00:00 2017-10-22 00:00:00 Universi ty of [facility] Medications Ordered Filled Start Stop Current Ordering Indication Dosage Frequency Signature Comments Components Source Medication Medication Date Date Medication? Clinician (SIG) Name Name ascorbic 2022-05 Yes 1000mg Take 1 Unive rs acid 0-02 tablet ity of (VITAMIN C) 14:32: (1,000 mg) [place] 1000 mg 52 by mouth tablet daily. [facility] aspirin 81 2022-05 Yes 81mg Chew 1 Unive rs mg chewable 0-02 tablet (81 it y of tablet 14:32: mg) daily. Ellie 52 [facility] lisinopril 2022-05 Yes 20mg Take 1 Unive rs (PRINIVIL,Z 0-02 tablet (20 it y of ESTRIL) 20 14:32: mg) by [place] mg tablet 52 mouth MD every Anderso [facility]. [facility] magnesium 2022-05 Yes 500mg Take 1 Unive rs oxide 500 0-02 tablet ity of mg tab 14:32: (500 mg) [place] tablet 52 by mouth MD daily. [facility] metFORMIN 2022-05 Yes 750mg Take 1 Unive rs (GLUCOPHAGE 0-02 tablet ity of -XR) 750 mg 14:32: (750 mg) [place] 24 [place] 52 by mouth 2 MD tablet (two) Anderso times a n day with Cancer meals. [place] multivitami 2022-05 Yes 1{tbl} Take 1 Un kamron n 0-02 tablet by ity of (THERAGRAN) 14:32: mouth [place] tab tablet 52 daily. [facility] SOTALOL HCL 2022-05 Yes 40mg Take 40 mg Univers (SOTALOL 0-02 by mouth ity of ORAL) 14:32: every 8 [place] 52 (eight) MD hours. [facility] leuprolide, 2022-05 Yes 22.5mg Inject Un kamron 3 month, 0-02 22.5 mg ity of (LUPRON 14:32: into the [place] DEPOT) 22.5 52 shoulder, MD mg thigh, or Anderso injection buttocks. [facility] biotin 2022-05 Yes 5000ug Take 5,000 Uni vers 2,500 mcg 0-02 mcg by ity of cap 14:32: mouth [place] 52 daily. [facility] denosumab 2022-05 Yes 60mg Inject 1 Univ ers (PROLIA) 60 0-02 mL (60 mg) it y of mg/mL syrg 14:32: under the [place] injection 52 skin. Last MD dose Will 12/12/2022 [facility] ascorbic 2022-05 Yes 1000mg Take 1 Unive rs acid 0-02 tablet ity of (VITAMIN C) 14:32: (1,000 mg) [place] 1000 mg 52 by mouth MD tablet daily. [facility] aspirin 81 2022-05 Yes 81mg Chew 1 Unive rs mg chewable 0-02 tablet (81 it y of tablet 14:32: mg) daily. [place] 52 [facility] lisinopril 2022-05 Yes 20mg Take 1 Unive rs (PRINIVIL,Z 0-02 tablet (20 it y of ESTRIL) 20 14:32: mg) by [place] mg tablet 52 mouth MD every Anderso morning. [facility] magnesium 2022-05 Yes 500mg Take 1 Unive rs oxide 500 0-02 tablet ity of mg tab 14:32: (500 mg) [place] tablet 52 by mouth daily. [facility] metFORMIN 2022-05 Yes 750mg Take 1 Unive rs (GLUCOPHAGE 0-02 tablet ity of -XR) 750 mg 14:32: (750 mg) [place] 24 [place] 52 by mouth 2 MD tablet (two) Anderso times a n day with Cancer meals. [place] multivitami 2022-05 Yes 1{tbl} Take 1 Un kamron n 0-02 tablet by ity of (THERAGRAN) 14:32: mouth [place] tab tablet 52 daily. [facility] SOTALOL HCL 2022-05 Yes 40mg Take 40 mg Univers (SOTALOL 0-02 by mouth ity of ORAL) 14:32: every 8 [place] 52 (eight) MD hours. [facility] leuprolide, 2022-05 Yes 22.5mg Inject Un kamron 3 month, 0-02 22.5 mg ity of (LUPRON 14:32: into the [place] DEPOT) 22.5 52 shoulder, MD mg thigh, or Anderso injection buttocks. [facility] biotin 2022-05 Yes 5000ug Take 5,000 Uni vers 2,500 mcg 0-02 mcg by ity of cap 14:32: mouth [place] 52 daily. [facility] denosumab 2022-05 Yes 60mg Inject 1 Univ ers (PROLIA) 60 0-02 mL (60 mg) it y of mg/mL syrg 14:32: [place] injection 52 skin. Last MD dose Will 12/12/2022 [facility] abiraterone Yes Adenocarcin 1000mg Take 4 Univers (Zytiga) 8-30 kirill of tablets ity of 250 mg 00:00: prostate (1,000 mg) [place] tablet 00 by mouth daily. [facility] abiraterone Yes Adenocarcin 1000mg Take 4 Univers (Zytiga) 8-30 kirill of tablets ity of 250 mg 00:00: prostate (1,000 mg) [place] tablet 00 by mouth daily. [facility] predniSONE Yes Adenocarcin TAKE ONE Univers (DELTASONE) 8-17 kirill of TABLET BY i ty of 5 mg tablet 00:00: prostate MOUTH [place] 00 DAILY WITH MD APRIL Solis [facility] predniSONE Yes Adenocarcin TAKE ONE Univers (DELTASONE) 8-17 kirill of TABLET BY i ty of 5 mg tablet 00:00: prostate MOUTH [place] 00 DAILY WITH MD APRIL Solis [facility] amoxicillin 2022- No 500mg Take 1 Un kamron (AMOXIL) 12-12 capsule ity of 500 mg 11:22: 00:00 (500 mg) [place] capsule 23 :00 by mouth twice Anderso daily. For n 10 days, Cancer Has one Center more day remaking amoxicillin 2022- No 500mg Take 1 Un kamron (AMOXIL) 12-12 capsule ity of 500 mg 11:22: 00:00 (500 mg) [place] capsule 23 :00 by mouth twice Anderso daily. For n 10 days, Cancer Has one Center more day remaking NIFEdipine 2021-05 Yes Adenocarcin TAKE ONE Univers (PROCARDIA 1-22 kirill of TABLET BY it y of XL) 60 mg 00:00: prostate MOUTH AT [place] 24 hr 00 BEDTIME tablet Strength: Anderso 60 mg [facility] NIFEdipine 2021-05 Yes Adenocarcin TAKE ONE Univers (PROCARDIA 1-22 kirill of TABLET BY it y of XL) 60 mg 00:00: prostate MOUTH AT [place] 24 hr 00 BEDTIME tablet Strength: Anderso 60 mg [facility] NIFEdipine 2021-05- No Adenocarcin TAKE ONE Univers (PROCARDIA 1-21 11-22 kirill of TABLET BY i ty of XL) 60 mg 00:00: 00:00 prostate MOUTH AT [place] 24 hr 00 :00 BEDTIME MD nicole [facility] NIFEdipine 2021-05- No Adenocarcin TAKE ONE Univers (PROCARDIA 1-21 11-22 kirill of TABLET BY i ty of XL) 60 mg 00:00: 00:00 prostate MOUTH AT [place] 24 hr 00 :00 BEDTIME MD nicole Solis [facility] abiraterone 2022- No Adenocarcin 1000mg Take 4 Univers (Zytiga) 01-29 08-30 kirill of tablets ity o f 250 mg 00:00: 00:00 prostate (1,000 mg) [place] tablet 00 :00 by mouth daily. [facility] abiraterone 2022- No Adenocarcin 1000mg Take 4 Univers (Zytiga) 01-29 08-30 kirill of tablets ity o f 250 mg 00:00: 00:00 prostate (1,000 mg) [place] tablet 00 :00 by mouth daily. [facility] predniSONE 2022- No Adenocarcin TAKE ONE Univers (DELTASONE) 01-2617 kirill of TABLET BY ity of 5 mg tablet 00:00: 00:00 prostate MOUTH [place] 00 :00 DAILY NICHOLE ESQUIVEL BREAKFAST [facility] predniSONE 2022- No Adenocarcin TAKE ONE Univers (DELTASONE) 01-26 kirill of TABLET BY ity of 5 mg tablet 00:00: 00:00 prostate MOUTH [place] 00 :00 DAILY NICHOLE ESQUIVEL BREAKFAST [facility] NIFEdipine 2021- No Adenocarcin 60mg Take 1 Univers (PROCARDIA 5-10 11-21 kirill of tablet (60 ity of XL) 60 mg 00:00: 00:00 prostate mg) by [place] 24 [place] 00 :00 mouth at tablet bedtime. [facility] NIFEdipine 2021- No Adenocarcin 60mg Take 1 Univers (PROCARDIA 5-10 11-21 kirill of tablet (60 ity of XL) 60 mg 00:00: 00:00 prostate mg) by [place] 24 [place] 00 :00 mouth at tablet bedtime. [facility] pravastatin Yes Univer s (PRAVACHOL) 12-18 ity of 40 mg 00:00: [place] tablet 00 [facility] pravastatin Yes Univer s (PRAVACHOL) 8 ity of 40 mg 00:00: [place] tablet 00 [facility] Immunizations Ordered Immunization Filled Immunization Date Status Commen ts Source Name Name Moderna SARS-CoV-2 Unknown Completed Univer sity of Vaccination Ellie Manzo [facility] Moderna SARS-CoV-2 Unknown Completed Univer sity of Vaccination Ellie Manzo [facility] Moderna SARS-CoV-2 Unknown Completed Univer sity of Vaccination Ellie Manzo [facility] Pfizer SARS-CoV-2 Unknown Completed Univers ity of Vaccination 12+ y.o. [facility] Pfizer SARS-CoV-2 Unknown Completed Univers ity of Vaccination 12+ y.o. [facility] Pneumococcal Unknown Completed University o f Conjugate 13-Valent [facility] Moderna SARS-CoV-2 Unknown Completed Univer sity of Vaccination [place] MD Manzo [facility] Moderna SARS-CoV-2 Unknown Completed Univer sity of Vaccination [place] MD Manzo [facility] Moderna SARS-CoV-2 Unknown Completed Univer sity of Vaccination [place] Jovany [facility] Pfizer SARS-CoV-2 Unknown Completed Univers ity of Vaccination 12+ y.o. [facility] Pfizer SARS-CoV-2 Unknown Completed Univers ity of Vaccination 12+ y.o. [facility] Pneumococcal Unknown Completed University o f Conjugate 13-Valent [facility] Vital Signs Vital Name Observation Time Observation Value Comments Source HEIGHT 2023-03-15 10:00:00 185.4 cm WEIGHT 2023-03-15 10:00:00 92 kg HEIGHT 2023-03-15 10:00:00 185.4 cm WEIGHT 2023-03-15 10:00:00 92 kg HEIGHT 2020-09-19 08:15:00 185 cm WEIGHT 2020-09-19 08:15:00 104 kg HEIGHT 2020-03-30 09:42:00 185 cm WEIGHT 2020-03-30 09:42:00 104.9 kg Systolic blood 2023-02-18 17:43:17 122 mm[Hg] Univer sity of pressure [facility]ie [facility] Diastolic blood 2023-02-18 17:43:17 65 mm[Hg] Unive rsity of pressure Ellie Jeong on [facility] Center Heart rate 2023-02-18 17:43:17 56 /min [facility] Ellie Jeong on [facility] Center Body temperature 2023-02-18 17:43:17 36 Priya [facility] ersAshley [facility] Respiratory rate 2023-02-18 17:43:17 18 /min [facility] Oxygen saturation in 2023-02-18 17:43:17 98 /min University of Arterial blood by Ellie ortiz Pulse oximetry Cancer Center Body height 2023-02-18 14:46:00 186 cm [facility] MD [facility] Body weight 2023-02-18 14:46:00 93.7 kg [facility] MD [facility] BMI 2023-02-18 14:46:00 27.08 kg/m2 [facility] MD [facility] Procedures Procedure Date / Time Performing Clinician Source Performed PETCT F18 PSMA PYL 2023-02-18 16:40:03 Kiersten [facility] (PIFLUFOLASTAT) WITHOUT Shane Bedolla son Cancer [facility] Center ALANINE AMINOTRANSFERASE 2023-02-18 12:58:00 [facility] ALBUMIN LEVEL 2023-02-18 12:58:[address] [facility] ALKALINE PHOSPHATASE 2023-02-18 12:58:00 [facility] ASPARTATE AMINOTRANSFERASE 2023-02-18 12:58:[address] [facility] BLOOD UREA NITROGEN 2023-02-18 12:58:00 Kiersten [facility] Shane ESQUIVEL [facility] CALCIUM LEVEL 2023-02-18 12:58:[address] [facility] CARCINOEMBRYONIC ANTIGEN 2023-02-18 12:58:00 [facility] COMPLETE BLOOD COUNT W/ 2023-02-18 12:58:00 Kiersten [facility] DIFFERENTIAL Shane [facility] CREATININE 2023-02-18 12:58:[address] [facility] [place] ELECTROLYTE PANEL 2023-02-18 12:58:00 Kiersten [facility] Shane ESQUIVEL [facility] FRACTIONATED BILIRUBIN 2023-02-18 12:58:00 Kiersten Univ ersity [facility] GLUCOSE, RANDOM 2023-02-18 12:58:[address] [facility] [place] LACTATE DEHYDROGENASE 2023-02-18 12:58:00 Cheri Calvilloe [facility] MAGNESIUM LEVEL 2023-02-18 12:58:[address] [facility] [place] PHOSPHORUS LEVEL 2023-02-18 12:58:[address] [facility] [place] PROSTATE SPECIFIC ANTIGEN 2023-02-18 12:58:00 Jesusita Calvillo [facility] TESTOSTERONE LEVEL 2023-02-18 12:58:00 Kiersten [facility] TOTAL PROTEIN 2023-02-18 12:58:[address] [facility] [place] VITAMIN D 25 HYDROXY LEVEL 2023-02-18 12:58:[address] [facility] [place] SERUM CREATININE 2023-02-18 12:58:[address] [facility] [place] .GLOMERULAR FILTRATION 2023-02-18 12:58:00 Cheri Calvillo [facility] .CBC 2023-02-18 12:58:[address] [facility] [place] DIFFERENTIAL 2023-02-18 12:58:[address] [facility] [place] CT BONE METS SIMULATION 2022-12-19 16:16:00 Abby Delgado [facility] WITHOUT CONTRAST [facility] XR FEMUR 2 VW LEFT 2022-12-14 14:04:00 Abby Delgado [facility] MRI PELVIS W WO CONTRAST - 2022-12-13 17:42:00 Jaswinder Jett [facility] MUSCULOSKELETAL [facility] PETCT F18 PSMA PYL 2022-12-12 14:12:32 Kiersten, [facility] (PIFLUFOLASTAT) WITHOUT Shane ESQUIVEL Graeme son Cancer CONTRAST Center ALANINE AMINOTRANSFERASE 2022-12-12 12:01:00 Kiersten, [facility] ALBUMIN LEV[facility] 2022-12-12 12:01:00 Kiersten, [facility] [place] ALKALINE PHOSPHATASE 2022-12-12 12:01:00 Kiersten, [facility] ASPARTATE AMINOTRANSFERASE 2022-12-12 12:01:00 Kiersten, [facility] [place] BLOOD UREA NITROGEN 2022-12-12 12:01:00 Kiersten, [facility] CALCIUM LEVEL 2022-12-12 12:01:00 Kiersten, [facility] [place] CARCINOEMBRYONIC ANTIGEN 2022-12-12 12:01:00 [facility]iersten, [facility] COMPLETE BLOOD COUNT W/ 2022-12-12 12:01:00 Kiersten, [facility] DIFFERENTIAL [facility] CREATININE 2022-12-12 12:01:[address] [facility] [place] ELECTROLYTE PANEL 2022-12-12 12:01:00 Kiersten, [facility] FRACTIONATED BILIRUBIN 2022-12-12 12:01:00 Kiersten, [facility] GLUCOSE, RANDOM 2022-12-12 12:01:[address] [facility] [place] LACTATE DEHYDROGENASE 2022-12-12 12:01:00 Kiersten [facility] MAGNESIUM LEVEL 2022-12-12 12:01:[address] [facility] [place] PHOSPHORUS LEVEL 2022-12-12 12:01:[address] [facility] [place] PROSTATE SPECIFIC ANTIGEN 2022-12-12 12:01:00 Jesusita Calvillo [facility] TESTOSTERONE LEVEL 2022-12-12 12:01:00 Kiersten [facility] TOTAL PROTEIN 2022-12-12 12:01:[address] [facility] [place] VITAMIN D 25 HYDROXY LEVEL 2022-12-12 12:01:[address] [facility] [place] SERUM CREATININE 2022-12-12 12:01:[address] [facility] [place] .GLOMERULAR FILTRATION 2022-12-12 12:01:00 Kiersten [facility] .CBC 2022-12-12 12:01:[address] [facility] [place] DIFFERENTIAL 2022-12-12 12:01:[address] [facility] [place] PETCT F18 PSMA PYL 2022-08-20 16:33:00 Kiersten [facility] (PIFLUFOLASTAT) ANA Bedolla [facility] Cancer [facility] Center ALANINE AMINOTRANSFERASE 2022-08-20 12:39:00 Han [facility] ALBUMIN LEVEL 2022-08-20 12:39:[address] [facility] [place] ALKALINE PHOSPHATASE 2022-08-20 12:39:00 Kiersten [facility] ASPARTATE AMINOTRANSFERASE 2022-08-20 12:39:[address] [facility] [place] BLOOD UREA NITROGEN 2022-08-20 12:39:00 Kiersten [facility] er Center CALCIUM LEVEL 2022-08-20 12:39:[address] [facility] [place] [place] CARCINOEMBRYONIC ANTIGEN 2022-08-20 12:39:00 [facility] COMPLETE BLOOD COUNT W/ 2022-08-20 12:39:00 [facility] CREATININE 2022-08-20 12:39:00 Kiersten, [facility] [place] [place] ELECTROLYTE PANEL 2022-08-20 12:39:00 Kiersten, [facility] FRACTIONATED BILIRUBIN 2022-08-20 12:39:00 Kiersten, Cheri [facility] GLUCOSE, RANDOM 2022-08-20 12:39:[address] [facility] [place] [place] LACTATE DEHYDROGENASE 2022-08-20 12:39:00 Kiersten, Cherie [facility] MAGNESIUM LEVEL 2022-08-20 12:39:[address] [facility] [place] [place] PHOSPHORUS LEVEL 2022-08-20 12:39:[address] [facility] [place] PROSTATE SPECIFIC ANTIGEN 2022-08-20 12:39:00 Jesusita [facility] TESTOSTERONE LEVEL 2022-08-20 12:39:00 Kiersten [facility] TOTAL PROTEIN 2022-08-20 12:39:[address] [facility] [place] [place] VITAMIN D 25 HYDROXY LEVEL 2022-08-20 12:39:[address] [facility] [place] SERUM CREATININE 2022-08-20 12:39:[address] [facility] [place] .GLOMERULAR FILTRATION 2022-08-20 12:39:00 Cheri Calvillo [facility] .CBC 2022-08-20 12:39:[address] [facility] [place] [place] DIFFERENTIAL 2022-08-20 12:39:[address] [facility] [place] PROSTATE SPECIFIC ANTIGEN 2022-05-22 13:52:00 Jesus[facility] CALCIUM LEVEL 2022-05-22 13:52:[address] [facility] [place] PHOSPHORUS LEVEL 2022-05-22 13:52:[address] [facility] [place] CREATININE 2022-05-22 13:52:[address] [facility] [place] SERUM CREATININE 2022-05-22 13:52:[address] [facility] [place] .GLOMERULAR FILTRATION 2022-05-22 13:52:00 Cheri Calvillo [facility] Plan of Care Planned Activity Planned Date Details Comments Source Future Scheduled 2023-03-20 COVID-19 [facility] 11:11:41 () MD Jovany thao Cancer [code = COVID-19 Center Vaccination ()] Future Scheduled 2023-03-14 COVID-19 Vaccination Uni versity [facility] Test 13:00:30 ( season) MD Jovany thao Cancer [code = COVID-19 Center Vaccination ()] Encounters Start End Encounter Admission Attending Care Care Encounter Source Date/Time Date/Time Type Type Clinicians Facility Department ID 2023-03-21 Inpatient SOFIA ORTIZ [facility] [id number] [facility] 00:00:00 GABI 2023-03-20 Inpatient SOFIA ORTIZ [facility] [id number] SLE 00:00:00 GABI 2023-03-20 Inpatient EL RUDY, SLE [facility] [id number] [facility] 00:00:00 GABI 2023-03-20 Inpatient EL RUDY, SLEH [facility] [id number] [facility] 00:00:00 GABI 2023-03-17 Inpatient EL SLEH [facility] [id number] [facility]H 08:32:51 2023-03-17 Inpatient EL SLEDeidra [facility]H [id number] SLEH 00:00:00 2023-03-16 Inpatient EL VALENTE SLE [facility] [id number] SLEH 07:46:17 PIEDAD Moe 2023-03-15 2023-03-23 Inpatient UR RUDY, SLEH Neurosurger [id number] SLEH 09:51:00 10:10:00 GABI y 2023-03-17 2023-03-17 Outpatient URIEL GARCIA SLE [facility] [id number] SLEH 08:43:08 08:43:08 JUANJOSE 2023-03-16 2023-03-16 Outpatient URIEL DIEZ SLE [facility] [id number] SLEH 08:34:27 08:34:27 [facility] 2023-03-15 2023-03-15 Outpatient URIEL VICTOR SLE SLEH [id number] SLEH 00:00:00 00:00:00 GrantMELISSALucianoJesusita 2023-03-12 2023-03-12 Specialty [facility], 1.2.840.1 [id number] [id number] Univers 00:00:00 00:00:00 Pharmacy Brandon C 84726.1.1 it y of 3.412.2.7 [place] .3.062709 MD [facility] 2023-03-12 2023-03-12 Specialty [facility], 1.2.840.1 [id number] 1112 [id number] [facility] 00:00:00 00:00:00 Pharmacy Brandon C 09311.1.1 it y of 3.412.2.7 [place] .3.066895 MD [facility] 2023-02-18 2023-02-18 [facility] 1.2.840.1 [id number] 1 [id number] Univers 07:48:09 23:59:00 Encounter ed, Shane 25980.1.1 ity of 3.412.2.7 [place] .3.843898 MD Wilkinson8 [facility] 2023-02-18 2023-02-18 [facility] 1.2.840.1 [id number] 1 [id number] Univers 07:48:09 23:59:00 Encounter ed, Shane 56754.1.1 ity of 3.412.2.7 [place] .3.876997 MD Wilkinson8 [facility] 2023-02-18 2023-02-18 Follow-Up [facility] 1.2.840.1 [id number] Univers 14:00:00 17:13:36 ed, Shane 81308.1.1 ity of 3.412.2.7 [place] .3.545575 MD Wilkinson8 [facility] 2023-02-18 2023-02-18 Follow-Up [facility] 1.2.840.1 [id number] Univers 14:00:00 17:13:36 edra, Shane 05840.1.1 ity of 3.412.2.7 [place] .3.916599 MD Wilkinson8 [facility] 2023-02-18 2023-02-18 Ancillary [facility] 1.2.840.1 [id number] Univers 10:00:00 12:30:00 Procedure ed, Shane 10382.1.1 ity of 3.412.2.7 [place] .3.020021 MD Wilkinson8 [facility] 2023-02-18 2023-02-18 Ancillary [facility] 1.2.840.1 [id number] Univers 10:00:00 12:30:00 Procedure edra, Shane 74383.1.1 ity of 3.412.2.7 [place] .3.727539 MD Wilkinson8 [facility] 2023-02-18 2023-02-18 Katharina Woods 1.2.840.1 [id number] 11 [id number] Univers 00:00:00 00:00:00 Only 86315.1.1 ity of 3.412.2.7 [place] .3.605510 MD [facility] 2023-02-18 2023-02-18 Travel 1.2.840.1 1.2.741.365 9166 [id number] Univers 00:00:00 00:00:00 70022.1.1 350.1.13.41 ity of 3.412.2.7 [place]7.3.698 [place]3.069[place] 084.8 MD [facility] 2023-02-18 2023-02-18 Katharina Woods 1.2.840.1 [id number] Univers 00:00:00 00:00:00 Only 96118.1.1 ity of 3.412.2.7 [place] .3.639424 MD [facility] 2023-02-18 2023-02-18 Travel 1.2.840.1 1.2.065.739 3486 [id number] Univers 00:00:00 00:00:00 42264.1.1 350.1.13.41 ity of 3.412.2.7 [place]7.3.698 [place] .3.168005 084.8 MD [facility] 2023-01-16 2023-01-16 Specialty Jose Alberto, 1.2.840.1 [id number] 1110 [id number] Univers 00:00:00 00:00:00 Pharmacy Brandon Lemos 96830.1.1 it y of 3.412.2.7 [place] .3.035388 MD [facility] 2023-01-16 2023-01-16 Alexus Fabian 1.2.840.1 [id number] 037 [id number] Univers 00:00:00 00:00:00 Only K. 02244.1.1 ity of 3.412.2.7 [place] .3.268237 MD [facility] 2023-01-16 2023-01-16 Alexus Feliciano 1.2.840.1 [id number] 693 [id number] Univers 00:00:00 00:00:00 K. 50579.1.1 ity of 3.412.2.7 [place] .3.922097 MD [facility] 2023-01-16 2023-01-16 Alexus Feliciano 1.2.840.1 [id number] 207 [id number] Univers 00:00:00 00:00:00 K 42829.1.1 ity of 3.412.2.7 [place] .3.191639 MD [facility] 2023-01-16 2023-01-16 Specialty Jose Alberto, 1.2.840.1 [id number] 1110 [id number] Univers 00:00:00 00:00:00 Pharmacy Brandon Lemos 60935.1.1 it y of 3.412.2.7 [place] .3.733475 MD [facility] 2023-01-16 2023-01-16 Alexus Fabain 1.2.840.1 [id number] 021 [id number] Univers 00:00:00 00:00:00 Only K 42980.1.1 ity of 3.412.2.7 [place] .3.664280 MD [facility] 2023-01-04 2023-01-04 [facility], 1.2.840.1 [id number] 1109 [id number] Univers 06:44:30 23:59:00 Encounter Michael 79680.1.1 it y of 3.412.2.7 [place] .3.260667 MD [facility] 2023-01-04 2023-01-04 [facility] 1.2.840.1 [id number] 1109 [id number] Univers 06:44:30 23:59:00 Encounter Michael 84775.1.1 it y of 3.412.2.7 [place] .3.458336 MD [facility] 2023-01-04 2023-01-04 Documentat Jonn, 1.2.840.1 [id number] 1 [id number] Univers 00:00:00 00:00:00 ion Zeeshan Gay. 61670.1.1 i ty of 3.412.2.7 [place] .3.636551 MD [facility] 2023-01-04 2023-01-04 Travel 1.2.840.1 1.2.825.438 4221 [id number] Univers 00:00:00 00:00:00 04821.1.1 350.1.13.41 ity of 3.412.2.7 2.[place]7.3.698 [place] .3.705132 084.8 MD [facility] 2023-01-04 2023-01-04 Documentat [place], 1.2.840.1 [id number] 1 [id number] Univers 00:00:00 00:00:00 ion Zeeshan Gay. 22084.1.1 i ty of 3.412.2.7 [place] .3.441853 MD [facility] 2023-01-04 2023-01-04 Travel 1.2.840.1 1.2.376.065 2984 [id number] Univers 00:00:00 00:00:00 32852.1.1 350.1.13.41 ity of 3.412.2.7 2.[place]7.3.698 [place] .3.848343 084.8 MD [facility] 2023-01-03 2023-01-03 [facility], 1.2.840.1 [id number] 150 [id number] Univers 08:06:13 23:59:00 Encounter Zeeshan Hill 99845.1.1 ity of 3.412.2.7 [place] .3.332637 MD [facility] 2023-01-03 2023-01-03 [facility], 1.2.840.1 [id number] 794 [id number] Univers 08:06:13 23:59:00 Encounter Zeeshan iHll 26374.1.1 ity of 3.412.2.7 [place] .3.870693 MD [facility] 2023-01-03 2023-01-03 [facility] 1.2.840.1 [id number] 1109 [id number] Univers 06:53:23 08:05:00 Encounter Michael 77476.1.1 it y of 3.412.2.7 [place] .3.069503 MD [facility] 2023-01-03 2023-01-03 [facility], 1.2.840.1 [id number] 1109 [id number] Univers 06:53:23 08:05:00 Encounter Michael 86517.1.1 it y of 3.412.2.7 [place] .3.575076 MD [facility] 2023-01-03 2023-01-03 Travel 1.2.840.1 1.2.160.597 2501 [id number] Univers 00:00:00 00:00:00 71507.1.1 350.1.13.41 ity of 3.412.2.7 2.[place]7.3.698 [place] .3.746820 084.8 MD [facility] 2023-01-03 2023-01-03 Travel 1.2.840.1 1.2.821.710 8376 [id number] Univers 00:00:00 00:00:00 81229.1.1 350.1.13.41 ity of 3.412.2.7 2.2[place]7.3.698 [place] .3.100712 084.8 MD [facility] 2023-01-02 2023-01-02 [facility], 1.2.840.1 [id number] 1109 [id number] Univers 06:52:06 23:59:00 Encounter Michael 23176.1.1 it y of 3.412.2.7 [place] .3Minh431280 MD [facility] 2023-01-02 2023-01-02 [facility], 1.2.840.1 [id number] 1109 [id number] Univers 06:52:06 23:59:00 Encounter Michael 86023.1.1 it y of 3.412.2.7 [place] .3.265238 MD [facility] 2023-01-02 2023-01-02 Refill [facility] 1.2.840.1 [id number] 11 [id number] Univers 00:00:00 00:00:00 Shane kaba 88486.1.1 ity of 3.412.2.7 [place] .3.254437 MD [facility] 2023-01-02 2023-01-02 Travel 1.2.840.1 1.2.545.701 0148 [id number] Univers 00:00:00 00:00:00 05908.1.1 350.1.13.41 ity of 3.412.2.7 2.2.7.3.698 [place] .3.822360 084.8 MD [facility] 2023-01-02 2023-01-02 Refill [facility] 1.2.840.1 [id number] 11 [id number] Univers 00:00:00 00:00:00 Shane kaba 61266.1.1 ity of 3.412.2.7 [place] .3.335044 MD [facility] 2023-01-02 2023-01-02 Travel 1.2.840.1 1.2.257.023 8382 [id number] Univers 00:00:00 00:00:00 00058.1.1 350.1.13.41 ity of 3.412.2.7 2.2.7.3.698 [place] .3.427101 084Minh8 MD [facility] 2023-01-01 2023-01-01 [facility] 1.2.840.1 [id number] 1109 [id number] Univers 06:44:28 23:59:00 Encounter Michael 19721.1.1 it y of 3.412.2.7 [place] .3.155277 MD [facility] 2023-01-01 2023-01-01 [facility], 1.2.840.1 [id number] 1109 [id number] Univers 06:44:28 23:59:00 Encounter Michael 89380.1.1 it y of 3.412.2.7 [place] .3.403185 MD [facility] 2023-01-01 2023-01-01 Travel 1.2.840.1 1.2.274.609 0987 [id number] Univers 00:00:00 00:00:00 55270.1.1 350.1.13.41 ity of 3.412.2.7 2.2.7.3.698 [place] .3.447450 084.8 MD [facility] 2023-01-01 2023-01-01 Travel 1.2.840.1 1.2.901.183 2822 [id number] Univers 00:00:00 00:00:00 17785.1.1 350.1.13.41 ity of 3.412.2.7 2.2.7.3.698 [place] .3.733054 084.8 MD [facility] 2022-12-31 2022-12-31 [facility] 1.2.840.1 [id number] 1109 [id number] Univers 08:33:46 23:59:00 Encounter Michael 63903.1.1 it y of 3.412.2.7 [place] .3.243815 MD [facility] 2022-12-31 2022-12-31 [facility] 1.2.840.1 [id number] 1109 [id number] Univers 08:33:46 23:59:00 Encounter Michael 79172.1.1 it y of 3.412.2.7 [place] .3.137792 MD [facility] 2022-12-31 2022-12-31 Travel 1.2.840.1 1.2.896.830 0076 [id number] Univers 00:00:00 00:00:00 62998.1.1 350.1.13.41 ity of 3.412.2.7 2.2.7.3.698 [place] .3.453595 084.8 MD [facility] 2022-12-31 2022-12-31 Travel 1.2.840.1 1.2.936.483 7250 007686 Univers 00:00:00 00:00:00 04857.1.1 350.1.13.41 ity of 3.412.2.7 2.2.7.3.698 [place] .3.163763 084.8 MD [facility] 2022-12-28 2022-12-28 [facility], 1.2.840.1 [id number] 1109 [id number] Univers 15:04:28 23:59:00 Encounter Michael 18404.1.1 it y of 3.412.2.7 [place] .3.755787 MD [facility] 2022-12-28 2022-12-28 [facility], 1.2.840.1 [id number] 1109 [id number] Univers 15:04:28 23:59:00 Encounter Michael 50356.1.1 it y of 3.412.2.7 [place] .3.798628 MD [facility] 2022-12-28 2022-12-28 Travel 1.2.840.1 1.2.908.972 2933 [id number] Univers 00:00:00 00:00:00 50476.1.1 350.1.13.41 ity of 3.412.2.7 2.2.7.3.698 [place] .3.379692 084.8 MD [facility] 2022-12-28 2022-12-28 Travel 1.2.840.1 1.2.771.763 2039 [id number] Univers 00:00:00 00:00:00 14538.1.1 350.1.13.41 ity of 3.412.2.7 2.2.7.3.698 [place] .3.611914 084.8 MD [facility] 2022-12-27 2022-12-27 [facility], 1.2.840.1 [id number] 1109 [id number] Univers 09:15:02 23:59:00 Encounter Michael 31050.1.1 it y of 3.412.2.7 [place] .3.693288 MD [facility] 2022-12-27 2022-12-27 [facility], 1.2.840.1 [id number] 1109 [id number] Univers 09:15:02 23:59:00 Encounter Michael 12093.1.1 it y of 3.412.2.7 [place] .3.363485 MD [facility] 2022-12-27 2022-12-27 Travel 1.2.840.1 1.2.613.052 9653 [id number] Univers 00:00:00 00:00:00 51650.1.1 350.1.13.41 ity of 3.412.2.7 2.2.7.3.698 [place] .3.852743 084.8 MD [facility] 2022-12-27 2022-12-27 Travel 1.2.840.1 1.2.485.762 7994 [id number] Univers 00:00:00 00:00:00 29035.1.1 350.1.13.41 ity of 3.412.2.7 2.2.7.3.698 [place] .3.677861 084.8 MD [facility] 2022-12-26 2022-12-26 [facility], 1.2.840.1 [id number] 535 [id number] Univers 09:03:14 23:59:00 Encounter Zeeshan Hill 68293.1.1 ity of 3.412.2.7 [place] .3.408733 MD [facility] 2022-12-26 2022-12-26 [facility], 1.2.840.1 [id number] 843 [id number] Univers 09:03:14 23:59:00 Encounter Zeeshan Hill 79530.1.1 ity of 3.412.2.7 [place] .3.371515 MD [facility] 2022-12-26 2022-12-26 [facility], 1.2.840.1 [id number] 1109 [id number] Univers 07:15:19 09:02:00 Encounter Michael 27445.1.1 it y of 3.412.2.7 [place] .3.418662 MD [facility] 2022-12-26 2022-12-26 [facility], 1.2.840.1 [id number] 1109 [id number] Univers 07:15:19 09:02:00 Encounter Michael 80669.1.1 it y of 3.412.2.7 [place] .3.092052 MD [facility] 2022-12-26 2022-12-26 Travel 1.2.840.1 1.2.721.462 5152 [id number] Univers 00:00:00 00:00:00 55228.1.1 350.1.13.41 ity of 3.412.2.7 2.2.7.3.698 [place] .3.696186 084.8 MD [facility] 2022-12-26 2022-12-26 Travel 1.2.840.1 1.2.160.005 8932 [id number] Univers 00:00:00 00:00:00 13926.1.1 350.1.13.41 ity of 3.412.2.7 2.2.7.3.698 [place] .3.203695 084.8 MD [facility] 2022-12-25 2022-12-25 [facility], 1.2.840.1 [id number] 1109 [id number] Univers 07:31:12 23:59:00 Encounter Michael 01326.1.1 it y of 3.412.2.7 [place] .3.928373 MD [facility] 2022-12-25 2022-12-25 [facility], 1.2.840.1 [id number] 1109 [id number] Univers 07:31:12 23:59:00 Encounter Michael 09262.1.1 it y of 3.412.2.7 [place] .3.453768 MD [facility] 2022-12-25 2022-12-25 Travel 1.2.840.1 1.2.590.865 0769 [id number] Univers 00:00:00 00:00:00 61330.1.1 350.1.13.41 ity of 3.412.2.7 2.2.7.3.698 [place] .3.117884 084.8 MD [facility] 2022-12-25 2022-12-25 Travel 1.2.840.1 1.2.440.572 2130 [id number] Univers 00:00:00 00:00:00 69861.1.1 350.1.13.41 ity of 3.412.2.7 2.2.7.3.698 [place] .3.084346 084.8 MD [facility] 2022-12-24 2022-12-24 [facility], 1.2.840.1 [id number] 1109 [id number] Univers 08:18:51 23:59:00 Encounter Michael 62287.1.1 it y of 3.412.2.7 [place] .3.138080 MD [facility] 2022-12-24 2022-12-24 [facility], 1.2.840.1 [id number] 1109 [id number] Univers 08:18:51 23:59:00 Encounter Michael 12009.1.1 it y of 3.412.2.7 [place] .3.186954 MD [facility] 2022-12-24 2022-12-24 Documentat White, 1.2.840.1 [id number] 1 [id number] Univers 00:00:00 00:00:00 ion Zeeshan Hill 77592.1.1 i ty of 3.412.2.7 [place] .3.128816 MD [facility] 2022-12-24 2022-12-24 Travel 1.2.840.1 1.2.359.899 6801 [id number] Univers 00:00:00 00:00:00 65988.1.1 350.1.13.41 ity of 3.412.2.7 2.2.7.3.698 [place] .3.232144 084Minh8 MD [facility] 2022-12-242022-12-24 Documentat Jonn 1.2.840.1 [id number] 1 [id number] Univers 00:00:00 00:00:00 fam Polanco50.1.1 i ty of 3.412.2.7 [place] .3.273334 MD [facility] 2022-12-24 2022-12-24 Travel 1.2.840.1 1.2.010.273 5659 [id number] Univers 00:00:00 00:00:00 13671.1.1 350.1.13.41 ity of 3.412.2.7 2.2.7.3.698 [place] .3.359953 084.8 MD Wilkinson8 [facility] 2022-12-19 2022-12-19 [facility] Abby Delgado 1.2.840.1 1010 45395 [id number] Univers 10:39:45 23:59:00 Encounter Zeeshan [place]unsford 69509.1.1 ity of 3.412.2.7 [place] .3.244140 MD [facility] 2022-12-19 2022-12-19 [facility] Abby Delgado R 1.2.840.1 1010 79620 [id number] Univers 10:39:45 23:59:00 Encounter Zeeshan [place]unsford 38548.1.1 ity of 3.412.2.7 [place] .3.704763 MD [facility] 2022-12-19 2022-12-19 [facility] 1.2.840.1 [id number] Univers 08:30:53 10:38:00 Encounter Zeeshan [place]unsford 29481.1.1 ity of 3.412.2.7 [place] .3.158604 MD [facility] 2022-12-19 2022-12-19 [facility] 1.2.840.1 [id number] Univers 08:30:53 10:38:00 Encounter Zeeshan [place]unsford 80140.1.1 ity of 3.412.2.7 [place] .3.501779 MD [facility] 2022-12-19 2022-12-19 Martha Lunsford, 1.2.840.1 [id number] 1 [id number] Univers 00:00:00 00:00:00 fam Hill 51328.1.1 i ty of 3.412.2.7 [place] .3.909114 MD [facility] 2022-12-19 2022-12-19 Martha Lusnford, 1.2.840.1 [id number] 1 [id number] Univers 00:00:00 00:00:00 fam Hill 14938.1.1 i ty of 3.412.2.7 [place] .3.841048 MD [facility] 2022-12-19 2022-12-19 Stanley Delgado 1.2.840.1 [id number] Univers 00:00:00 00:00:00 Only Abby Gooden 63489.1.1 i ty of 3.412.2.7 [place] .3.015151 MD [facility] 2022-12-19 2022-12-19 Travel 1.2.840.1 1.2.371.482 9332 [id number] Univers 00:00:00 00:00:00 16001.1.1 350.1.13.41 ity of 3.412.2.7 2.2.7.3.698 [place] .3.204854 084.8 MD [facility] 2022-12-19 2022-12-19 Martha Lunsford 1.2.840.1 [id number] 1 [id number] Univers 00:00:00 00:00:00 fam Hill 65520.1.1 i ty of 3.412.2.7 [place] .3.605654 MD [facility] 2022-12-19 2022-12-19 Martha Lunsford 1.2.840.1 [id number] 1 [id number] Univers 00:00:00 00:00:00 fam Hill 57045.1.1 i ty of 3.412.2.7 [place] .3.773273 MD [facility] 2022-12-19 2022-12-19 Stanley Delgado, 1.2.840.1 [id number] Univers 00:00:00 00:00:00 Only Anastasiaa R 05575.1.1 i ty of 3.412.2.7 [place] .3.633510 MD Wilkinson8 [facility] 2022-12-19 2022-12-19 Travel 1.2.840.1 1.2.850.312 [id number] Univers 00:00:00 00:00:00 44987.1.1 350.1.13.41 ity of 3.412.2.7 2.[place]7.3.698 [place] .3.477999 084.8 MD Hooks [facility] 2022-12-18 2022-12-18 Stanley Delgado 1.2.840.1 [id number] Univers 00:00:00 00:00:00 Only Prasamsa R 89466.1.1 i ty of 3.412.2.7 [place] .3.800453 MD Hooks [facility] 2022-12-18 2022-12-18 Stanley Delgado 1.2.840.1 [id number] Univers 00:00:00 00:00:00 Only Prasamsa R 78714.1.1 i ty of 3.412.2.7 [place] .3.918092 MD Hooks [facility] 2022-12-17 2022-12-17 Office Melissa, 1.2.840.1 [id number] Univers 10:00:00 10:42:51 Visit Scott 47739.1.1 ity of 3.412.2.7 [place] .3.905243 MD Hooks [facility] 2022-12-17 2022-12-17 Office URIEL Morrison, 1.2.840.1 [id number] Univers 10:00:00 10:42:51 Visit Scott 54578.1.1 ity of 3.412.2.7 [place] .3.586830 MD Hooks [facility] 2022-12-17 2022-12-17 Travel 1.2.840.1 1.2.834.772 [id number] Univers 00:00:00 00:00:00 89126.1.1 350.1.13.41 ity of 3.412.2.7 2.[place]7.3.698 [place] .3.546675 084.Samantha Hooks [facility] 2022-12-17 2022-12-17 Travel 1.2.840.1 1.2.751.746 5878 [id number] Univers 00:00:00 00:00:00 05930.1.1 350.1.13.41 ity of 3.412.2.7 2.[place]7.3.698 [place] .3.000854 084Neva Hooks [facility] 2022-12-14 2022-12-14 Ancillary Danny, 1.2.840.1 [id number] Univers 09:15:00 09:30:00 Procedure Abby Gooden 59751.1.1 ity of 3.412.2.7 [place] .3.066407 MD Hooks [facility] 2022-12-14 2022-12-14 Ancillary URIEL Delgado, 1.2.840.1 [id number] Univers 09:15:00 09:30:00 Procedure Abby R 86789.1.1 ity of 3.412.2.7 [place] .3.917514 MD Hooks [facility] 2022-12-14 2022-12-14 Travel 1.2.840.1 1.2.212.504 5147 [id number] Univers 00:00:00 00:00:00 64479.1.1 350.1.13.41 ity of 3.412.2.7 2.2[place]7.3.698 [place] .3.010906 084Minh8 MD Hooks [facility] 2022-12-14 2022-12-14 Travel 1.2.840.1 1.2.675.635 0167 [id number] Univers 00:00:00 00:00:00 10477.1.1 350.1.13.41 ity of 3.412.2.7 2.2.7.3.698 [place] .3.078668 084.8 MD Hooks [facility] 2022-12-13 2022-12-13 Ancillary [facility] 1.2.840.1 [id number] Univers 11:15:00 13:00:00 Procedure Shane kaba 18680.1.1 ity of 3.412.2.7 [place] .3.354852 MD Hooks [facility] 2022-12-13 2022-12-13 Ancillary EL [facility] 1.2.840.1 [id number] Univers 11:15:00 13:00:00 Procedure Shane kaba 97808.1.1 ity of 3.412.2.7 [place] .3.403406 MD Hooks [facility] 2022-12-13 2022-12-13 Telephone Nirav, 1.2.840.1 [id number] Univers 00:00:00 00:00:00 Glenna 71557.1.1 ity of 3.412.2.7 [place] .3.325120 MD Hooks [facility] 2022-12-13 2022-12-13 Orders Danny, 1.2.840.1 [id number] Univers 00:00:00 00:00:00 Only Abby Gooden 68442.1.1 i ty of 3.412.2.7 [place] .3.530032 MD Hooks [facility] 2022-12-13 2022-12-13 Travel 1.2.840.1 1.2.925.006 [id number] Univers 00:00:00 00:00:00 09340.1.1 350.1.13.41 ity of 3.412.2.7 [place].3.698 [place] .3.4737[place] 084.8 MD Hooks [facility] 2022-12-13 2022-12-13 Telephone Gastelum, 1.2.840.1 [id number] [id number] Univers 00:00:00 00:00:00 Glenna 40555.1.1 ity of 3.412.2.7 [place] .3.317768 MD Hooks [facility] 2022-12-13 2022-12-13 Orders Danny, 1.2.840.1 [id number] Univers 00:00:00 00:00:00 Only Anastasiaa R 65185.1.1 i ty of 3.412.2.7 [place] .3.805684 MD Hooks [facility] 2022-12-13 2022-12-13 Travel 1.2.840.1 1.2.548.080 3069 [id number] Univers 00:00:00 00:00:00 99677.1.1 350.1.13.41 ity of 3.412.2.7 [place]7.3.698 [place] .3.416784 084.8 MD Hooks [facility] 2022-12-12 2022-12-12 [facility] 1.2.840.1 [id number] 1 [id number] Univers 06:52:02 23:59:00 Encounter Shane kaba 30609.1.1 ity of 3.412.2.7 [place] .3.204210 MD Hooks [facility] 2022-12-12 2022-12-12 [facility] 1.2.840.1 [id number] 1 [id number] Univers 06:52:02 23:59:00 Encounter Shane kaba 38228.1.1 ity of 3.412.2.7 [place] .3.529727 MD Hooks [facility] 2022-12-12 2022-12-12 Follow-Up [facility] 1.2.840.1 [id number] Univers 11:30:00 12:07:01 edra, Shane 09720.1.1 ity of 3.412.2.7 [place] .3.392101 MD Hooks [facility] 2022-12-12 2022-12-12 Follow-Up URIEL Cespedes-Hany 1.2.840.1 [id number] Univers 11:30:00 12:07:01 Shane kaba 51274.1.1 ity of 3.412.2.7 [place] .3.090446 MD Wilkinson8 [facility] 2022-12-12 2022-12-12 Ancillary Delta-Hany 1.2.840.1 [id number] Univers 08:00:00 10:30:00 Procedure Shane kaba 71008.1.1 ity of 3.412.2.7 [place] .3.219788 MD Hook[facility] 2022-12-12 2022-12-12 Ancillary URIEL Cespedes-Hany 1.2.840.1 [id number] Univers 08:00:00 10:30:00 Procedure Shane kaba 39916.1.1 ity of 3.412.2.7 [place] .3.901581 MD Hooks [facility] 2022-12-12 2022-12-12 Travel 1.2.840.1 1.2.730.355 8626 [id number] [facility] 00:00:00 00:00:00 25352.1.1 350.1.13.41 ity of 3.412.2.7 [place]7.3.698 [place] .3.078458 084.8 MD Hooks [facility] 2022-12-12 2022-12-12 Travel 1.2.840.1 1.2.504.840 0584 [id number] Univers 00:00:00 00:00:00 51189.1.1 350.1.13.41 ity of 3.412.2.7 2.[place].7.3.698 [place] .3.427732 084Minh8 MD Hooks [facility] 2022-10-18 2022-10-18 Specialty Celso, 1.2.840.1 [id number] [id number] Univers 00:00:00 00:00:00 Pharmacy Nedra 96099.1.1 ity of 3.412.2.7 [place] .3.486411 MD Wilkinson8 [facility] 2022-10-18 2022-10-[address] [facility] Celso, 1.2.840.1 [id number] Univers 00:00:00 00:00:00 Pharmacy Nedra 15424.1.1 ity of 3.412.2.7 [place] .3.992676 MD Wilkinson8 [facility] 2022-08-20 2022-08-20 [facility] 1.2.840.1 [id number] 1 [id number] Univers 07:23:52 23:59:00 Encounter sendy Shane 34496.1.1 ity of 3.412.2.7 [place] .3.833036 MD Wilkinson8 [facility] 2022-08-20 2022-08-20 [facility] 1.2.840.1 [id number] 1 [id number] Univers 07:23:52 23:59:00 Encounter sendy Shane 85050.1.1 ity of 3.412.2.7 [place] .3.161570 MD Hooks [facility] 2022-08-20 2022-08-20 Follow-Up [facility] 1.2.840.1 [id number] Univers 12:00:00 14:43:06 sendy Shane 45789.1.1 ity of 3.412.2.7 [place] .3.453402 MD Wilkinson8 [facility] 2022-08-20 2022-08-20 Follow-Up [facility] 1.2.840.1 [id number] Univers 12:00:00 14:43:06 edra Shane 30422.1.1 ity of 3.412.2.7 [place] .3.208031 MD Wilkinson8 [facility] 2022-08-20 2022-08-20 [facility] 1.2.840.1 [id number] Univers 09:30:00 12:00:00 Procedure Marciano kabaado 58061.1.1 ity of 3.412.2.7 [place] .3.492359 MD Hooks [facility] 2022-08-20 2022-08-20 Ancillary URIEL Cespedes-Hany 1.2.840.1 [id number] Univers 09:30:00 12:00:00 Procedure Marciano kabaado 74162.1.1 ity of 3.412.2.7 [place] .3.033432 MD Hooks [facility] 2022-08-20 2022-08-20 Travel 1.2.840.1 1.2.250.527 2980 [id number] Univers 00:00:00 00:00:00 03207.1.1 350.1.13.41 ity of 3.412.2.7 2.[place].7.3.698 [place] .3.184572 084.Samantha [facility] 2022-08-20 2022-08-20 Travel 1.2.840.1 1.2.887.846 7641 [id number] Univers 00:00:00 00:00:00 93253.1.1 350.1.13.41 ity of 3.412.2.7 2.2.7.3.698 [place] .3.921692 084.Samantha [facility] 2022-07-24 2022-07-24 Specialty [place], 1.2.840.1 [id number] [id number] Univers 00:00:00 00:00:00 Pharmacy Brandon C 21806.1.1 it y of 3.412.2.7 [place] .3.736184 MD Hook[facility] 2022-07-24 2022-07-24 Specialty [place], 1.2.840.1 [id number] [id number] Univers 00:00:00 00:00:00 Pharmacy Brandon C 44520.1.1 it y of 3.412.2.7 [place] .3.861169 MD Hooks [facility] 2022-05-22 2022-05-22 [facility] 1.2.840.1 [id number] 1 [id number] Univers 07:27:45 23:59:00 Encounter Shane kaba 65276.1.1 ity of 3.412.2.7 [place] .3.743611 MD Wilkinson8 [facility] 2022-05-22 2022-05-22 [facility] 1.2.840.1 [id number] 1 [id number] Univers 07:27:45 23:59:00 Encounter Shane kaba 38698.1.1 ity of 3.412.2.7 [place] .3.162150 MD Wilkinson8 [facility] 2022-05-22 2022[facility]05-22 [facility].1 [id number] Univers 10:00:00 10:00:00 Jovita Perez 86541.1.1 ity of 3.412.2.7 [place] .3.158480 MD Wilkinson8 [facility] 2022-05-22 2022-05-22 [facility] 1.2.840.1 [id number] Univers 10:00:00 10:00:00 Jovita Perez 38446.1.1 ity of 3.412.2.7 [place] .3.726324 MD Hooks [facility] 2022-05-22 2022-05-22 Travel 1.2.840.1 1.2.564.635 0080 [id number] Univers 00:00:00 00:00:00 83884.1.1 350.1.13.41 ity of 3.412.2.7 2.[place]7.3.698 [place] .3.197407 084.8 MD Wilkinson8 [facility] 2022-05-22 2022-05-22 Travel 1.2.840.1 1.2.448.258 5858 [id number] Univers 00:00:00 00:00:00 66320.1.1 350.1.13.41 ity of 3.412.2.7 2.[place]7.3.698 [place] .3.739144 084.8 MD Hooks [facility] 2022-04-25 2022-04-25 Specialty [place], 1.2.840.1 [id number] Univers 00:00:00 00:00:00 Pharmacy Brandon C 18658.1.1 it y of 3.412.2.7 [place] .3.788305 MD Wilkinson8 [facility] 2022-04-25 2022-04-25 [facility] 1.2.840.1 [id number] Univers 00:00:00 00:00:00 Pharmacy Brandon C 86417.1.1 it y of 3.412.2.7 [place] .3.262038 MD Hooks [facility] 2022-04-10 2022-04-10 Alexus Fabian 1.2.840.1 [id number] Univers 00:00:00 00:00:00 [place] 88461.1.1 ity of 3.412.2.7 [place] .3.349441 MD Hooks [facility] 2022-04-10 2022-04-10 Alexus Fabian 1.2.840.1 [id number] [id number] Univers 00:00:00 00:00:00 Only K. 71207.1.1 ity of 3.412.2.7 [place] .3.694481 MD Hooks [facility] 2022-04-09 2022-04-09 Tess West 1.2.840.1 [id number] 10 [id number] Univers 00:00:00 00:00:00 03694.1.1 ity of 3.412.2.7 [place] .3.304956 MD Hooks [facility] 2022-04-09 2022-04-09 Tess West 1.2.840.1 [id number] 10 [id number] Univers 00:00:00 00:00:00 29426.1.1 ity of 3.412.2.7 [place] .3.252399 .8 [facility] 2022-03-26 2022-03-26 [facility], 1.2.840.1 [id number] [id number] Univers 00:00:00 00:00:00 Pharmacy Brandon Lemos 89455.1.1 it y of 3.412.2.7 [place] .3.266952 .8 [facility] 2022-03-26 2022-03-26 [facility], 1.2.840.1 [id number] [id number] Univers 00:00:00 00:00:00 Pharmacy Brandon Lemos 52459.1.1 it y of 3.412.2.7 [place] .3.494025 .8 [facility] 2022-02-21 2022-02-21 Outpatient EL DELTA-SAAV MDA MDA [id number] 06:04:15 23:59:00 SHANE KABA An derso n 2022-02-21 2022-02-21 Outpatient [facility] MDA MDA [id number] 12:29:09 15:22:02 SHANE KABA An derso n 2022-02-21 2022-02-21 Outpatient [facility] MDA MDA [id number] 07:11:08 07:11:08 SHANE KABA An derso n 2021-11-21 2021-11-21 Outpatient [facility] MDA MDA [id number] 08:25:09 23:59:00 SHANE KABA An derso n 2021-11-21 2021-11-21 Outpatient [facility] MDA MDA [id number] 08:50:42 08:50:42 SHANE KABA An derso n 2021-08-21 2021-08-21 Outpatient [facility] MDA MDA [id number] 10:12:42 15:10:13 SHANE KABA An derso n 2021-08-21 2021-08-21 Outpatient [facility] MDA MDA [id number] 07:40:50 07:40:50 EDRA, SHANE An derso n 2021-08-21 2021-08-21 Outpatient [facility] MDA MDA [id number] 06:02:24 06:02:24 EDRA, SHANE An derso n 2021-08-20 2021-08-20 [place] [facility] [place] [id number] 10:28:06 23:59:00 EDRA, SHANE An derso n 2021-08-20 2021-08-20 Outpatient [facility] MDA MDA [id number] 10:12:07 10:27:00 EDRA, SHANE An derso n 2021-06-19 2021-06-19 Out[place] [facility] [place] [id number] 06:06:21 23:59:00 EDRA, SHANE An derso n 2021-04-03 2021-04-03 Outpatient MDA MDA [id number] 06:05:42 23:59:00 Jean-Paul o n 2021-04-03 2021-04-03 Out[place] [facility] [place] [id number] 07:29:01 09:15:42 EDRA, SHANE An derso n 2021-03-06 2021-03-06 Outpatient [facility] MDA MDA [id number] 09:27:07 10:35:06 EDRA, SHANE An derso n 2021-02-20 2021-02-20 Outpatient [facility] MDA MDA [id number] 15:38:42 16:49:30 EDRA, SHANE An derso n 2021-01-25 2021-01-25 Outpatient [facility] MDA MDA [id number] 11:57:30 23:59:00 EDRA, SHANE An derso n 2021-01-25 2021-01-25 Outpatient [facility] MDA MDA [id number] 08:56:56 11:50:32 EDRA, SHANE An derso n 2021-01-24 2021-01-24 Outpatient [facility] MDA MDA [id number] 09:17:32 23:59:00 Jean-Paul o n 2021-01-24 2021-01-24 Outpatient EL MDA MDA [id number] MD 11:28:43 11:28:43 Jean-Paul o n 2020-09-22 2020-09-22 Outpatient TESS ARIZMENDI MDA MDA [id number] 06:03:02 23:59:00 Jean-Paul o n 2020-09-22 2020-09-22 Outpatient EL DETLA-SAA[facility] MDA MDA [id number] 15:09:42 16:24:54 EDRA, SHANE An derso n 2020-09-22 2020-09-22 Outpatient [facility] ARIZMENDI MDA MDA [id number] 10:38:49 10:38:49 Jean-Paul o n 2020-09-22 2020-09-22 Outpatient TESS ARIZMENDI MDA MDA [id number] 08:59:32 08:59:32 Jean-Paul o n 2020-09-19 2020-09-19 Outpatient T[facility] ARIZMENDI MDA MDA [id number] 06:04:01 23:59:00 Jean-Paul o n 2020-09-19 2020-09-19 Outpatient TESS ARIZMENDI MDA MDA [id number] 14:53:13 14:53:13 Jean-Paul o n 2020-09-19 2020-09-19 Outpatient [facility] MDA MDA [id number] 08:08:25 14:29:04 SENDY SHANE An derso n 2020-06-30 2020-06-30 Outpatient [facility] MDA MDA [id number] 06:04:47 23:59:00 Jean-Paul o n 2020-03-30 2020-03-30 Outpatient [facility] MDA MDA [id number] 09:29:40 13:41:55 KRYSTINARA SHANE An derso n 2020-03-29 2020-03-29 Outpatient [facility] ARIZMENDI MDA MDA [id number] 07:39:34 23:59:00 Jean-Paul o n 2020-03-29 2020-03-29 Outpatient TESS ARIZMENDI MDA MDA [id number] 12:42:40 12:42:40 Jean-Paul o n 2020-03-29 2020-03-29 Outpatient TESS ARIZMENDI MDA [facility] [id number] 11:15:20 11:15:20 Jean-Paul o n 2020-03-29 2020-03-29 Outpatient TESS ARIZMENDI MDA, MDA [id number] 08:30:14 08:30:14 Jean-Paul o n 2019-12-29 2019-12-29 Outpatient TESS ARIZMENDI MDA, MDA [id number] 06:05:29 23:59:00 Jean-Paul o n Results Test Description Test Time Test Comments Results Result Comments Source POCT-GLUCOSE METER 2023-03-23 08:12:39 Test Item Value Reference Range Interpretation Comme nts POC-GLUCOSE METER (BEAKER) 119 mg/dL 70-110 H : TESTED AT [facility] [address] [facility] (test code = 1538) HOLLIS Hendrickson [address]: Lap Machine Tender/Techni davian ID = [id number] for [employer] BASIC METABOLIC [id number] 05:36:37 Test Item Value Reference Range Interpretation Comments SODIUM (BEAKER) 145 meq/L 136-145 (test code = 381) POTASSIUM 3.5 meq/L 3.5-5.1 (BEAKER) (test code = 379) CHLORIDE (BEAKER) 108 meq/L 98-107 H (test code = 382) CO2 (BEAKER) 28 meq/L 22-29 (test code = 355) BLOOD UREA 10 mg/dL 7-21 NITROGEN (BEAKER) (test code = 354) CREATININE 0.84 mg/dL 0.57-1.25 (BEAKER) (test code = 358) GLUCOSE RANDOM 102 mg/dL 70-105 (BEAKER) (test code = 652) CALCIUM (BEAKER) 8.1 mg/dL 8.4-10.2 L (test code = 697) EGFR (BEAKER) 89 Interpretatio n of eGFR (test code = mL/min/1.73 values Stage De scription 1092) sq m Result G1 Addie l or high >=90 G2 Mildly decreased 60-89 G3a Mildl y to moderately 45-5 9 G3b Moderately to s everely 30-44 G4 Severl y decreased 15-29 G5 Kidney failure <15Reported eGF R is based on the CKD-EPI 2020 equation that d oes not use a race coefficientEsti mated GFR is not as accur ate as Creatinine Deandra maloney in predicting glom erular filtration rate . Estimated GFR is not appl icable for dialysis patien ts Lap Machine Tender ID - [id number] 05:36:37 Test Item Value Reference Range Interpretation Comments MAGNESIUM (BEAKER) (test code = 2.2 mg/dL 1.6-2.6 627) Lap Machine Tender ID - [id number] 05:33:14 Test Item Value Reference Range Interpretation Comments PHOSPHORUS (BEAKER) (test code = 4.1 mg/dL 2.3-4.7 604) Lap Machine Tender ID - SHYANNOCBC W/PLT COUNT & AUTO [id number] 05:00:20 Test Item Value Reference Range Interpretation Comments WHITE BLOOD CELL COUNT (BEAKER) 8.4 K/ L 3.5-10.5 (test code = 775) RED BLOOD CELL COUNT (BEAKER) 3.92 M/ L 4.63-6.08 L (test code = 761) HEMOGLOBIN (BEAKER) (test code = 11.5 GM/DL 13.7-17.5 L 410) HEMATOCRIT (BEAKER) (test code = 36.0 % 40.1-51.0 L 411) MEAN CORPUSCULAR VOLUME (BEAKER) 92 fL 79-92 (test code = 753) MEAN CORPUSCULAR HEMOGLOBIN 29.3 pg 25.7-32.2 (BEAKER) (test code = 751) MEAN CORPUSCULAR HEMOGLOBIN CONC 31.9 GM/DL 32.3-36.5 L (BEAKER) (test code = 752) RED CELL DISTRIBUTION WIDTH 14.5 % 11.6-14.4 H (BEAKER) (test code = 412) PLATELET COUNT (BEAKER) (test 466 K/CU MM 150-450 H code = 756) MEAN PLATELET VOLUME (BEAKER) 9.4 fL 9.4-12.4 (test code = 754) NUCLEATED RED BLOOD CELLS 0 /100 WBC 0-0 (BEAKER) (test code = 413) NEUTROPHILS RELATIVE PERCENT 77 % (BEAKER) (test code = 429) LYMPHOCYTES RELATIVE PERCENT 12 % (BEAKER) (test code = 430) MONOCYTES RELATIVE PERCENT 7 % (BEAKER) (test code = 431) EOSINOPHILS RELATIVE PERCENT 1 % (BEAKER) (test code = 432) BASOPHILS RELATIVE PERCENT 1 % (BEAKER) (test code = 437) NEUTROPHILS ABSOLUTE COUNT 6.46 K/ L 1.78-5.38 H (BEAKER) (test code = 670) LYMPHOCYTES ABSOLUTE COUNT 1.00 K/ L 1.32-3.57 L (BEAKER) (test code = 414) MONOCYTES ABSOLUTE COUNT (BEAKER) 0.56 K/ L 0.30-0.82 (test code = 415) EOSINOPHILS ABSOLUTE COUNT 0.07 K/ L 0.04-0.54 (BEAKER) (test code = 416) BASOPHILS ABSOLUTE COUNT (BEAKER) 0.04 K/ L 0.01-0.08 (test code = 417) IMMATURE GRANULOCYTES-RELATIVE 2.60 % 0.00-1.00 H PERCENT (BEAKER) (test code = 2801) POCT-GLUCOSE [id number] 22:05:26 Test Item Value Reference Range Interpretation Comments POC-GLUCOSE METER 129 mg/dL 70-110 H : TESTED A T [facility] [address] (BEAKER) (test code = [facility]) [address]: Lap Machine Tender/Techni davian ID = [id number] for We Nadiya hansen POCT-GLUCOSE [id number] 17:03:12 Test Item Value Reference Range Interpretation Comments POC-GLUCOSE METER 126 mg/dL 70-110 H : TESTED A T [facility] [address] (BEAKER) (test code = [facility]) 56259: Lap Machine Tender/Techni davian ID = [id number] for RO DGERS, JAMECA POCT-GLUCOSE [id number] 12:40:57 Test Item Value Reference Range Interpretation Comments POC-GLUCOSE METER 176 mg/dL 70-110 H : TESTED A T [facility] [address] (BEAKER) (test code = [facility], [employer]) [address]: Lap Machine Tender/Techni davian ID = [id number] for RO DGERS, JAMECA POCT-GLUCOSE [id number] 07:56:03 Test Item Value Reference Range Interpretation Comments POC-GLUCOSE METER 195 mg/dL 70-110 H : TESTED A T [facility] [address] (BEAKER) (test code = [facility]) 119[address]: Lap Machine Tender/Techni davian ID = [id number] for RO DGERS, JAMECA [id number] 06:51:10 Test Item Value Reference Range Interpretation Comments MAGNESIUM (BEAKER) (test code = 2.2 mg/dL 1.6-2.6 627) Lap Machine Tender ID - [id number] 06:51:10 Test Item Value Reference Range Interpretation Comments PHOSPHORUS (BEAKER) (test code = 4.0 mg/dL 2.3-4.7 604) Lap Machine Tender ID - MARCOBASIC METABOLIC [id number] 06:51:09 Test Item Value Reference Range Interpretation Comments SODIUM (BEAKER) 142 meq/L 136-145 (test code = 381) POTASSIUM 3.9 meq/L 3.5-5.1 (BEAKER) (test code = 379) CHLORIDE (BEAKER) 106 meq/L 98-107 (test code = 382) CO2 (BEAKER) 25 meq/L 22-29 (test code = 355) BLOOD UREA 10 mg/dL 7-21 NITROGEN (BEAKER) (test code = 354) CREATININE 0.73 mg/dL 0.57-1.25 (BEAKER) (test code = 358) GLUCOSE RANDOM 173 mg/dL 70-105 H (BEAKER) (test code = 652) CALCIUM (BEAKER) 8.4 mg/dL 8.4-10.2 (test code = 697) EGFR (BEAKER) 92 Interpretatio n of eGFR (test code = mL/min/1.73 values Stage De scription 1092) sq m Result G1 Addie l or high >=90 G2 Mildly decreased 60-89 G3a Mildl y to moderately 45-5 9 G3b Moderately to s everely 30-44 G4 Severl y decreased 15-29 G5 Kidney failure <15Reported eGF R is based on the CKD-EPI 2021 equation that d oes not use a race coefficientEsti mated GFR is not as accur ate as Creatinine Deandra maloney in predicting glom erular filtration rate . Estimated GFR is not appl icable for dialysis patien ts Lap Machine Tender ID - MARCOCBC W/PLT COUNT & AUTO [id number] 06:40:08 Test Item Value Reference Range Interpretation Comments WHITE BLOOD CELL COUNT (BEAKER) 9.9 K/ L 3.5-10.5 (test code = 775) RED BLOOD CELL COUNT (BEAKER) 4.06 M/ L 4.63-6.08 L (test code = 761) HEMOGLOBIN (BEAKER) (test code = 11.9 GM/DL 13.7-17.5 L 410) HEMATOCRIT (BEAKER) (test code = 36.6 % 40.1-51.0 L 411) MEAN CORPUSCULAR VOLUME (BEAKER) 90 fL 79-92 (test code = 753) MEAN CORPUSCULAR HEMOGLOBIN 29.3 pg 25.7-32.2 (BEAKER) (test code = 751) MEAN CORPUSCULAR HEMOGLOBIN CONC 32.5 GM/DL 32.3-36.5 (BEAKER) (test code = 752) RED CELL DISTRIBUTION WIDTH 13.9 % 11.6-14.4 (BEAKER) (test code = 412) PLATELET COUNT (BEAKER) (test 456 K/CU MM 150-450 H code = 756) MEAN PLATELET VOLUME (BEAKER) 9.9 fL 9.4-12.4 (test code = 754) NUCLEATED RED BLOOD CELLS 0 /100 WBC 0-0 (BEAKER) (test code = 413) NEUTROPHILS RELATIVE PERCENT 93 % (BEAKER) (test code = 429) LYMPHOCYTES RELATIVE PERCENT 4 % (BEAKER) (test code = 430) MONOCYTES RELATIVE PERCENT 1 % (BEAKER) (test code = 431) EOSINOPHILS RELATIVE PERCENT 0 % (BEAKER) (test code = 432) BASOPHILS RELATIVE PERCENT 0 % (BEAKER) (test code = 437) NEUTROPHILS ABSOLUTE COUNT 9.27 K/ L 1.78-5.38 H (BEAKER) (test code = 670) LYMPHOCYTES ABSOLUTE COUNT 0.36 K/ L 1.32-3.57 L (BEAKER) (test code = 414) MONOCYTES ABSOLUTE COUNT (BEAKER) 0.13 K/ L 0.30-0.82 L (test code = 415) EOSINOPHILS ABSOLUTE COUNT 0.00 K/ L 0.04-0.54 L (BEAKER) (test code = 416) BASOPHILS ABSOLUTE COUNT (BEAKER) 0.02 K/ L 0.01-0.08 (test code = 417) IMMATURE GRANULOCYTES-RELATIVE 1.60 % 0.00-1.00 H PERCENT (BEAKER) (test code = 2801) [facility] [id number] 23:16:20 [facility] : 1945 Sex: MEXAM: CTA CAROTID, CTA BRAININDICATION: Stroke, follow upTECHNIQUE: Helical CT of the head without IV contrast. Postcontrast CTAof the head and CTA of the neck with IV contrast. Multiplanarreconstructed images. 3D reconstructions with MIP images were performed.This exam was performed according to our departmental dose- optimizationprogram, which includes automated exposure control, adjustment of the mAand/or kV according to patient size and/or use of iterativereconstruction technique.COMPARISON: 03/16/2023 CT head.FINDINGS:CT HEAD: Parenchyma: No evidence of infarction. No intraparenchymal hemorrhage.[place] or mass effect. Patchy areas of hypoattenuation are present inthe cerebral white matter that are nonspecific but compatible with mildchronic microvascular ischemic changes. Extra-axial Collection:No severe change in primarily hypoattenuatingmixed subdural hematoma overlying the right cerebral convexity up to 0.3cm in diameter without midline shift.Ventricular System: No hydrocephalus.Paranasal Sinuses: Predominantly clearTympanomastoid Cavities: NormalOther: NoneCTA HEAD: Anterior Circulation:Right intracranial internal carotid artery (ICA): NormalRight anterior cerebral artery (JAMIL): Hypoplastic A1 segment with theremainder of the right JAMIL supplied by the anterior communicatingartery.Rightmiddle cerebral artery (MCA): NormalLeft intracranial internal carotid artery (ICA): NormalLeft anterior cerebral artery (JAMIL): NormalLeft middle cerebral artery (MCA): NormalAnterior communicating artery (AComm): PresentPosterior communicating arteries (PComm): Left PComm present. RightPComm not wellvisualized.Posterior Circulation:Right posterior cerebral artery (MFTS): NormalLeft posterior cerebral artery (MFTS): Hypoplastic P1 segment with theremainder of the left MFTS supplied by the left posterior communicatingartery.Right vertebral artery (VA): NormalLeft vertebral artery (VA): NormalBasilar artery (BA): NormalOther: NormalDural Venous Sinuses: NormalCTA NECK:Aortic arch and proximal great ves sels: Atherosclerotic changes withoutsignificant narrowing. Right carotid arterial system: Mild (<50%) internal carotid arterynarrowing at the carotid bifurcation secondary to atherosclerosis.Left carotid arterial system: Severe (70%) internal carotid arterynarrowing at the carotid bulb secondary to atheroscleroticcalcifications.Right vertebral artery: NormalLeft vertebral artery: NormalWhere applicable, evaluation of internal carotid artery (ICA) stenosiswas performed using NASCET-like criteria,where the site of greateststenosis is compared to the diameter of the ICA distal to the stenosisat apoint where the ICA mills become parallel.Neck Soft Tissues: UnremarkableOsseous Structures: No acute osseous abnormality.Included Lung Apices: Moderate right and small left pleural effusionsIMPRESSION:1. No significant change in 0.3 cm subdural hematoma overlying theright cerebral convexity without midline shift. No acute intervalintracranial abnormality.2. No large vessel cut off or hemodynamicallysignificant stenosis onCTA of the head.3. 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 Moderate right pleural effusion and small left pleural effusion.Electronically SignedBy: Jorge Garcia03/21/2023 23:18 CDTWorkstation Name: [id number] CAROTID 2023-03-21 23:16:20 [facility] Digna : 1945 Sex: MEXAM: CTA CAROTID, CTA BRAININDICATION: Stroke, follow upTECHNIQUE: Helical CT of the head without IV contrast. Postcontrast CTAof the head and CTA of the neck with IV contrast. Multiplanarreconstructed images. 3D reconstructions with MIP images were performed.This exam was performed according to our departmental dose- optimizationprogram, which includes automated exposure control, adjustment of the mAand/or kV according to patient size and/or use of iterativereconstruction technique.COMPARISON: 03/16/2023 CT head.FINDINGS:CT HEAD: Parenchyma: No evidence of infarction. No intraparenchymal hemorrhage.[place] or mass effect. Patchy areas of hypoattenuation are present inthe cerebral white matter that are nonspecific but compatible with mildchronic microvascular ischemic changes. Extra-axial Collection:No severe change in primarily hypoattenuatingmixed subdural hematoma overlying the right cerebral convexity up to 0.3cm in diameter without midline shift.Ventricular System: No hydrocephalus.Paranasal Sinuses: Predominantly clearTympanomastoid Cavities: NormalOther: NoneCTA HEAD: Anterior Circulation:Right intracranial internal carotid artery (ICA): NormalRight anterior cerebral artery (JAMIL): Hypoplastic A1 segment with theremainder of the right JAMIL supplied by the anterior communicatingartery.Rightmiddle cerebral artery (MCA): NormalLeft intracranial internal carotid artery (ICA): NormalLeft anterior cerebral artery (JAMIL): NormalLeft middle cerebral artery (MCA): NormalAnterior communicating artery (AComm): PresentPosterior communicating arteries (PComm): Left PComm present. RightPComm not wellvisualized.Posterior Circulation:Right posterior cerebral artery (MFTS): NormalLeft posterior cerebral artery (MFTS): Hypoplastic P1 segment with theremainder of the left MFTS supplied by the left posterior communicatingartery.Right vertebral artery (VA): NormalLeft vertebral artery (VA): NormalBasilar artery (BA): NormalOther: NormalDural Venous Sinuses: NormalCTA NECK:Aortic arch and proximal great ves sels: Atherosclerotic changes withoutsignificant narrowing. Right carotid arterial system: Mild (<50%) internal carotid arterynarrowing at the carotid bifurcation secondary to atherosclerosis.Left carotid arterial system: Severe (70%) internal carotid arterynarrowing at the carotid bulb secondary to atheroscleroticcalcifications.Right vertebral artery: NormalLeft vertebral artery: NormalWhere applicable, evaluation of internal carotid artery (ICA) stenosiswas performed using NASCET-like criteria,where the site of greateststenosis is compared to the diameter of the ICA distal to the stenosisat apoint where the ICA mills become parallel.Neck Soft Tissues: UnremarkableOsseous Structures: No acute osseous abnormality.Included Lung Apices: Moderate right and small left pleural effusionsIMPRESSION:1. No significant change in 0.3 cm subdural hematoma overlying theright cerebral convexity without midline shift. No acute intervalintracranial abnormality.2. No large vessel cut off or hemodynamicallysignificant stenosis onCTA of the head.3. 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 Moderate right pleural effusion and small left pleural effusion.Electronically SignedBy: Jorge Garcia03/21/2023 23:18 CDTWorkstation Name: [id number] 21:50:08 Test Item Value Reference Range Interpretation Comments POC-GLUCOSE METER 206 mg/dL 70-110 H : TESTED A T [facility] 6720 (EQO) (test code = [facility], [employer]) 42088: Lap Machine Tender/Techni davian ID = [id number] for Anuj Gannon POCT-GLUCOSE [id number] 16:24:22 Test Item Value Reference Range Interpretation Comments POC-GLUCOSE METER 193 mg/dL 70-110 H : TESTED A T [facility] 6720 (EQO) (test code = [facility], 1538) 01000: Lap Machine Tender/Techni davian ID = [id number] for MA RTINEZ, MARY POCT-GLUCOSE [id number] 13:42:45 Test Item Value Reference Range Interpretation Comments POC-GLUCOSE METER 160 mg/dL 70-110 H : TESTED A T [facility] 6720 (BEAKER) (test code = [facility], 1538) 04297: Lap Machine Tender/Techni davian ID = [id number] for MA RTINEZ, MARY POCT-GLUCOSE [id number] 08:12:57 Test Item Value Reference Range Interpretation Comments POC-GLUCOSE METER 98 mg/dL 70-110 : TESTED A T [facility] 6720 (BEAKER) (test code = [place] [place], 1538) 53545: Lap Machine Tender/Techni davian ID = [id number] for MARY DUMAS BASIC METABOLIC [id number] 06:15:58 Test Item Value Reference Range Interpretation Comments SODIUM (BEAKER) 142 meq/L 136-145 (test code = 381) POTASSIUM 3.7 meq/L 3.5-5.1 (BEAKER) (test code = 379) CHLORIDE (BEAKER) 107 meq/L 98-107 (test code = 382) CO2 (BEAKER) 28 meq/L 22-29 (test code = 355) BLOOD UREA 6 mg/dL 7-21 L NITROGEN (BEAKER) (test code = 354) CREATININE 0.67 mg/dL 0.57-1.25 (BEAKER) (test code = 358) GLUCOSE RANDOM 101 mg/dL 70-105 (BEAKER) (test code = 652) CALCIUM (BEAKER) 7.8 mg/dL 8.4-10.2 L (test code = 697) EGFR (BEAKER) 94 Interpretatio n of eGFR (test code = mL/min/1.73 values Stage De scription 1092) sq m Result G1 Addie l or high >=90 G2 Mildly decreased 60-89 G3a Mildl y to moderately 45-5 9 G3b Moderately to s everely 30-44 G4 Severl y decreased 15-29 G5 Kidney failure <15Reported eGF R is based on the CKD-EPI 2020 equation that d oes not use a race coefficientEsti mated GFR is not as accur ate as Creatinine Deandra haider in predicting glom erular filtration rate . Estimated GFR is not appl icable for dialysis patien ts Lap Machine Tender ID - [id number] 06:14:54 Test Item Value Reference Range Interpretation Comments MAGNESIUM (BEAKER) (test code = 2.0 mg/dL 1.6-2.6 627) Lap Machine Tender ID - [id number] 06:14:54 Test Item Value Reference Range Interpretation Comments PHOSPHORUS (BEAKER) (test code = 3.3 mg/dL 2.3-4.7 604) Lap Machine Tender ID - ADMINCBC W/PLT COUNT & AUTO [id number] 05:51:02 Test Item Value Reference Range Interpretation Comments WHITE BLOOD CELL COUNT (BEAKER) 7.6 K/ L 3.5-10.5 (test code = 775) RED BLOOD CELL COUNT (BEAKER) 3.70 M/ L 4.63-6.08 L (test code = 761) HEMOGLOBIN (BEAKER) (test code = 10.9 GM/DL 13.7-17.5 L 410) HEMATOCRIT (BEAKER) (test code = 33.3 % 40.1-51.0 L 411) MEAN CORPUSCULAR VOLUME (BEAKER) 90 fL 79-92 (test code = 753) MEAN CORPUSCULAR HEMOGLOBIN 29.5 pg 25.7-32.2 (BEAKER) (test code = 751) MEAN CORPUSCULAR HEMOGLOBIN CONC 32.7 GM/DL 32.3-36.5 (BEAKER) (test code = 752) RED CELL DISTRIBUTION WIDTH 14.4 % 11.6-14.4 (BEAKER) (test code = 412) PLATELET COUNT (BEAKER) (test 396 K/CU MM 150-450 code = 756) MEAN PLATELET VOLUME (BEAKER) 9.6 fL 9.4-12.4 (test code = 754) NUCLEATED RED BLOOD CELLS 0 /100 WBC 0-0 (BEAKER) (test code = 413) NEUTROPHILS RELATIVE PERCENT 74 % (BEAKER) (test code = 429) LYMPHOCYTES RELATIVE PERCENT 11 % (BEAKER) (test code = 430) MONOCYTES RELATIVE PERCENT 9 % (BEAKER) (test code = 431) EOSINOPHILS RELATIVE PERCENT 3 % (BEAKER) (test code = 432) BASOPHILS RELATIVE PERCENT 1 % (BEAKER) (test code = 437) NEUTROPHILS ABSOLUTE COUNT 5.58 K/ L 1.78-5.38 H (BEAKER) (test code = 670) LYMPHOCYTES ABSOLUTE COUNT 0.87 K/ L 1.32-3.57 L (BEAKER) (test code = 414) MONOCYTES ABSOLUTE COUNT (BEAKER) 0.66 K/ L 0.30-0.82 (test code = 415) EOSINOPHILS ABSOLUTE COUNT 0.26 K/ L 0.04-0.54 (BEAKER) (test code = 416) BASOPHILS ABSOLUTE COUNT (BEAKER) 0.07 K/ L 0.01-0.08 (test code = 417) IMMATURE GRANULOCYTES-RELATIVE 2.10 % 0.00-1.00 H PERCENT (BEAKER) (test code = 2801) BLOOD [id number] 03:00:47 Test Item Value Reference Range Interpretation Comments CULTURE (BEAKER) (test No growth in 5 days code = 1095) BLOOD [id number] 03:00:46 Test Item Value Reference Range Interpretation Comments CULTURE (BEAKER) (test No growth in 5 days code = 1095) POCT-GLUCOSE [id number] 22:05:03 Test Item Value Reference Range Interpretation Comments POC-GLUCOSE METER 96 mg/dL 70-110 : TESTED A T [facility] 6720 (BEAKER) (test code = [facility], 1538) 31055: Lap Machine Tender/Techni davian ID = [id number] for Anuj Mann MR BRAIN WITH & WITHOUT IV [id number] 21:14:53 [facility] : 1945 Sex: MEXAM: MR BRAIN WITH & WITHOUT IV CONTRASTCLINICAL INDICATION: Subdural hematoma. Evaluate for metastasis.TECHNIQUE: Pre-contrast sagittal and axial T1-w, and axial T2- FLAIR,GRE, and diffusion-w sequences of the brain with ADC maps. Post- contrastaxial fat-saturated T2-w and T1-w, and sagittal volumetric T1-w imagesof the brain with axial and coronal reformations. Intravenous contrastmaterial was administered for the examination.ESRC.[id number]: 03/16/2023 CTFINDINGS:Exam is somewhat limited by motion degradation. Within constraint,results are as follows.Parenchyma: No infarction on DWI. No hemor rhage. No mass or mass effect.Minimal punctate foci of T2 hyperintensity are present in the cerebralwhite matter that are nonspecific. Abnormal Enhancement: NoneExtra-axial Collection: No significant change in subdural hematomaoverlying the right cerebral convexity thickness of 0.4 cm. The hematomais predominantly T1 hypointense and T2 hyperintense. No significant masseffect.Ventricular System: No hydrocephalus.Major Intracranial Flow Voids: NormalOsseous Structures: Expected marrow signal.Included Orbits: NormalParanasal Sinuses: Predominantly clearTympanomastoid Cavities: NormalIMPRESSION:1. Examination is somewhat limited by motion degradation. Within thisconstraint, no evidence of metastasis.2. No significant change in the 0.3 cm subdural hematoma overlying theright cerebral convexity.Electronically Signed By: Jorge Garcia03/20/2023 21:16 CDTWorkstation Name: [id number] 18:14:18 Test Item Value Reference Range Interpretation Comments POC-GLUCOSE METER 134 mg/dL 70-110 H : TESTED A T [facility] 6720 (BEAKER) (test code = [facility], 1538) 89480: Lap Machine Tender/Techni davian ID = [id number] for MA RTINEZ, MARY POCT-GLUCOSE [id number] 13:32:19 Test Item Value Reference Range Interpretation Comments POC-GLUCOSE METER 133 mg/dL 70-110 H : TESTED A T [facility] 6720 (BEAKER) (test code = [facility], 1538) 12067: Lap Machine Tender/Techni davian ID = [id number] for MA RTINEZ, MARY POCT-GLUCOSE [id number] 09:32:54 Test Item Value Reference Range Interpretation Comments POC-GLUCOSE METER 124 mg/dL 70-110 H : TESTED A T [facility] 6720 (BEAKER) (test code = [facility], 1538) 35395: Lap Machine Tender/Techni davian ID = [id number] for MA RTINEZ, MARY BASIC METABOLIC [id number] 05:19:11 Test Item Value Reference Range Interpretation Comments SODIUM (BEAKER) 144 meq/L 136-145 (test code = 381) POTASSIUM 3.4 meq/L 3.5-5.1 L (BEAKER) (test code = 379) CHLORIDE (BEAKER) 110 meq/L 98-107 H (test code = 382) CO2 (BEAKER) 26 meq/L 22-29 (test code = 355) BLOOD UREA 7 mg/dL 7-21 NITROGEN (BEAKER) (test code = 354) CREATININE 0.67 mg/dL 0.57-1.25 (BEAKER) (test code = 358) GLUCOSE RANDOM 107 mg/dL 70-105 H (BEAKER) (test code = 652) CALCIUM (BEAKER) 7.6 mg/dL 8.4-10.2 L (test code = 697) EGFR (BEAKER) 94 Interpretatio n of eGFR (test code = mL/min/1.73 values Stage De scription 1092) sq m Result G1 Addie l or high >=90 G2 Mildly decreased 60-89 G3a Mildl y to moderately 45-5 9 G3b Moderately to s everely 30-44 G4 Severl y decreased 15-29 G5 Kidney failure <15Reported eGF R is based on the CKD-EPI 2020 equation that d oes not use a race coefficientEsti mated GFR is not as accur ate as Creatinine Deandra maloney in predicting glom erular filtration rate . Estimated GFR is not appl icable for dialysis patien ts Lap Machine Tender ID - [id number] 05:17:59 Test Item Value Reference Range Interpretation Comments PHOSPHORUS (BEAKER) (test code = 2.5 mg/dL 2.3-4.7 604) Lap Machine Tender ID - [id number] 05:17:58 Test Item Value Reference Range Interpretation Comments MAGNESIUM (BEAKER) (test code = 2.1 mg/dL 1.6-2.6 627) Lap Machine Tender ID - ADMINCBC W/PLT COUNT & AUTO [id number] 04:47:04 Test Item Value Reference Range Interpretation Comments WHITE BLOOD CELL COUNT (BEAKER) 8.5 K/ L 3.5-10.5 (test code = 775) RED BLOOD CELL COUNT (BEAKER) 3.79 M/ L 4.63-6.08 L (test code = 761) HEMOGLOBIN (BEAKER) (test code = 11.2 GM/DL 13.7-17.5 L 410) HEMATOCRIT (BEAKER) (test code = 34.6 % 40.1-51.0 L 411) MEAN CORPUSCULAR VOLUME (BEAKER) 91 fL 79-92 (test code = 753) MEAN CORPUSCULAR HEMOGLOBIN 29.6 pg 25.7-32.2 (BEAKER) (test code = 751) MEAN CORPUSCULAR HEMOGLOBIN CONC 32.4 GM/DL 32.3-36.5 (BEAKER) (test code = 752) RED CELL DISTRIBUTION WIDTH 14.2 % 11.6-14.4 (BEAKER) (test code = 412) PLATELET COUNT (BEAKER) (test 394 K/CU MM 150-450 code = 756) MEAN PLATELET VOLUME (BEAKER) 9.5 fL 9.4-12.4 (test code = 754) NUCLEATED RED BLOOD CELLS 0 /100 WBC 0-0 (BEAKER) (test code = 413) NEUTROPHILS RELATIVE PERCENT 76 % (BEAKER) (test code = 429) LYMPHOCYTES RELATIVE PERCENT 10 % (BEAKER) (test code = 430) MONOCYTES RELATIVE PERCENT 8 % (BEAKER) (test code = 431) EOSINOPHILS RELATIVE PERCENT 3 % (BEAKER) (test code = 432) BASOPHILS RELATIVE PERCENT 1 % (BEAKER) (test code = 437) NEUTROPHILS ABSOLUTE COUNT 6.44 K/ L 1.78-5.38 H (BEAKER) (test code = 670) LYMPHOCYTES ABSOLUTE COUNT 0.82 K/ L 1.32-3.57 L (BEAKER) (test code = 414) MONOCYTES ABSOLUTE COUNT (BEAKER) 0.65 K/ L 0.30-0.82 (test code = 415) EOSINOPHILS ABSOLUTE COUNT 0.24 K/ L 0.04-0.54 (BEAKER) (test code = 416) BASOPHILS ABSOLUTE COUNT (BEAKER) 0.09 K/ L 0.01-0.08 H (test code = 417) IMMATURE GRANULOCYTES-RELATIVE 2.80 % 0.00-1.00 H PERCENT (BEAKER) (test code = 2801) POCT-GLUCOSE [id number] 22:50:42 Test Item Value Reference Range Interpretation Comments POC-GLUCOSE METER 139 mg/dL 70-110 H : TESTED A T [facility] 6720 (BEAKER) (test code = [place], 1538) 46111: Lap Machine Tender/Techni davian ID = [id number] for AP MARIELA (V)OKSANA POCT-GLUCOSE [id number] 11:55:41 Test Item Value Reference Range Interpretation Comments POC-GLUCOSE METER 148 mg/dL 70-110 H : TESTED A T [facility] 6720 (BEAKER) (test code = [facility], 1538) 81578: Lap Machine Tender/Techni davian ID = [id number] for Trell Ford BASIC METABOLIC [id number] 07:05:26 Test Item Value Reference Range Interpretation Comments SODIUM (BEAKER) 142 meq/L 136-145 (test code = 381) POTASSIUM 3.7 meq/L 3.5-5.1 Specimen modera tely (BEAKER) (test hemolyzed code = 379) CHLORIDE (BEAKER) 108 meq/L 98-107 H (test code = 382) CO2 (BEAKER) 19 meq/L 22-29 L (test code = 355) BLOOD UREA 12 mg/dL 7-21 NITROGEN (BEAKER) (test code = 354) CREATININE 0.77 mg/dL 0.57-1.25 Specimen modera tely (BEAKER) (test hemolyzed code = 358) GLUCOSE RANDOM 124 mg/dL 70-105 H (BEAKER) (test code = 652) CALCIUM (BEAKER) 7.9 mg/dL 8.4-10.2 L (test code = 697) EGFR (BEAKER) 91 Interpretati on of eGFR (test code = mL/min/1.73 values Stage De scription 1092) sq m Result G1 Addie l or high >=90 G2 Mildly decreased 60-89 G3a Mildl y to moderately 45-5 9 G3b Moderately to s everely 30-44 G4 Severl y decreased 15-29 G5 Kidney failure <15Reported eGF R is based on the CKD-EPI 2021 equation that d oes not use a race coefficientEsti mated GFR is not as accur ate as Creatinine Deandra maloney in predicting glom erular filtration rate . Estimated GFR is not appl icable for dialysis patien ts Lap Machine Tender ID - [id number] 07:00:03 Test Item Value Reference Range Interpretation Comments PHOSPHORUS (BEAKER) 2.3 mg/dL 2.3-4.7 Specimen moderately (test code = 604) hemolyzed Lap Machine Tender ID - [id number] 07:00:02 Test Item Value Reference Range Interpretation Comments MAGNESIUM (BEAKER) 2.4 mg/dL 1.6-2.6 Specimen moderately (test code = 627) hemolyzed Lap Machine Tender ID - adminCBC W/PLT COUNT & AUTO [id number] 06:50:03 Test Item Value Reference Range Interpretation Comments WHITE BLOOD CELL COUNT (BEAKER) 9.9 K/ L 3.5-10.5 (test code = 775) RED BLOOD CELL COUNT (BEAKER) 3.69 M/ L 4.63-6.08 L (test code = 761) HEMOGLOBIN (BEAKER) (test code = 11.0 GM/DL 13.7-17.5 L 410) HEMATOCRIT (BEAKER) (test code = 32.6 % 40.1-51.0 L 411) MEAN CORPUSCULAR VOLUME (BEAKER) 88 fL 79-92 (test code = 753) MEAN CORPUSCULAR HEMOGLOBIN 29.8 pg 25.7-32.2 (BEAKER) (test code = 751) MEAN CORPUSCULAR HEMOGLOBIN CONC 33.7 GM/DL 32.3-36.5 (BEAKER) (test code = 752) RED CELL DISTRIBUTION WIDTH 14.2 % 11.6-14.4 (BEAKER) (test code = 412) PLATELET COUNT (BEAKER) (test 349 K/CU MM 150-450 code = 756) MEAN PLATELET VOLUME (BEAKER) 9.9 fL 9.4-12.4 (test code = 754) NUCLEATED RED BLOOD CELLS 0 /100 WBC 0-0 (BEAKER) (test code = 413) NEUTROPHILS RELATIVE PERCENT 81 % (BEAKER) (test code = 429) LYMPHOCYTES RELATIVE PERCENT 7 % (BEAKER) (test code = 430) MONOCYTES RELATIVE PERCENT 7 % (BEAKER) (test code = 431) EOSINOPHILS RELATIVE PERCENT 3 % (BEAKER) (test code = 432) BASOPHILS RELATIVE PERCENT 1 % (BEAKER) (test code = 437) NEUTROPHILS ABSOLUTE COUNT 8.03 K/ L 1.78-5.38 H (BEAKER) (test code = 670) LYMPHOCYTES ABSOLUTE COUNT 0.68 K/ L 1.32-3.57 L (BEAKER) (test code = 414) MONOCYTES ABSOLUTE COUNT (BEAKER) 0.68 K/ L 0.30-0.82 (test code = 415) EOSINOPHILS ABSOLUTE COUNT 0.26 K/ L 0.04-0.54 (BEAKER) (test code = 416) BASOPHILS ABSOLUTE COUNT (BEAKER) 0.06 K/ L 0.01-0.08 (test code = 417) IMMATURE GRANULOCYTES-RELATIVE 1.90 % 0.00-1.00 H PERCENT (BEAKER) (test code = 2801) POCT-GLUCOSE [id number] 06:40:23 Test Item Value Reference Range Interpretation Comments POC-GLUCOSE METER 113 mg/dL 70-110 H : TESTED A T [facility] 6720 (BEAKER) (test code = [facility], [employer]) 26679: Lap Machine Tender/Techni davian ID = [id number] for VANITA LR POCT-GLUCOSE [id number] 00:31:02 Test Item Value Reference Range Interpretation Comments POC-GLUCOSE METER 115 mg/dL 70-110 H : TESTED A T [facility] 6720 (BEAKER) (test code = [facility], [employer]) 04604: Lap Machine Tender/Techni davian ID = [id number] for VANITA LR POCT-GLUCOSE [id number] 17:16:28 Test Item Value Reference Range Interpretation Comments POC-GLUCOSE METER 127 mg/dL 70-110 H : TESTED A T [facility] 6720 (BEAKER) (test code = [facility], [employer]) 46790: Lap Machine Tender/Techni davian ID = [id number] for Joellen Raymonda POCT-GLUCOSE [id number] 11:42:22 Test Item Value Reference Range Interpretation Comments POC-GLUCOSE METER 164 mg/dL 70-110 H : TESTED A T [facility] 6720 (BEAKER) (test code = [facility], [employer]) 48532: Lap Machine Tender/Techni davian ID = [id number] for Trell Ford POCT-GLUCOSE [id number] 10:44:54 Test Item Value Reference Range Interpretation Comments POC-GLUCOSE METER 170 mg/dL 70-110 H : TESTED A T [facility] 6720 (BEAKER) (test code = [facility], [employer]) 25634: Lap Machine Tender/Techni davian ID = [id number] for Tr Trell paris BASIC METABOLIC [id number] 06:28:42 Test Item Value Reference Range Interpretation Comments SODIUM (BEAKER) 138 meq/L 136-145 (test code = 381) POTASSIUM 3.3 meq/L 3.5-5.1 L (BEAKER) (test code = 379) CHLORIDE (BEAKER) 107 meq/L 98-107 (test code = 382) CO2 (BEAKER) 19 meq/L 22-29 L (test code = 355) BLOOD UREA 15 mg/dL 7-21 NITROGEN (BEAKER) (test code = 354) CREATININE 0.72 mg/dL 0.57-1.25 (BEAKER) (test code = 358) GLUCOSE RANDOM 131 mg/dL 70-105 H (BEAKER) (test code = 652) CALCIUM (BEAKER) 7.7 mg/dL 8.4-10.2 L (test code = 697) EGFR (BEAKER) 93 Interpretatio n of eGFR (test code = mL/min/1.73 values Stage De scription 1092) sq m Result G1 Addie l or high >=90 G2 Mildly decreased 60-89 G3a Mildl y to moderately 45-5 9 G3b Moderately to s everely 30-44 G4 Severl y decreased 15-29 G5 Kidney failure <15Reported eGF R is based on the CKD-EPI 2020 equation that d oes not use a race coefficientEsti mated GFR is not as accur ate as Creatinine Deandra haider in predicting glom erular filtration rate . Estimated GFR is not appl icable for dialysis patien ts Lap Machine Tender ID - [id number] 06:26:49 Test Item Value Reference Range Interpretation Comments MAGNESIUM (BEAKER) (test code = 2.4 mg/dL 1.6-2.6 627) Lap Machine Tender ID - NTPCBC (HEMOGRAM ONLY)2023-03-18 05:47:39 Test Item Value Reference Range Interpretation Comments WHITE BLOOD CELL COUNT (BEAKER) 10.1 K/ L 3.5-10.5 (test code = 775) RED BLOOD CELL COUNT (BEAKER) 3.46 M/ L 4.63-6.08 L (test code = 761) HEMOGLOBIN (BEAKER) (test code = 10.6 GM/DL 13.7-17.5 L 410) HEMATOCRIT (BEAKER) (test code = 31.4 % 40.1-51.0 L 411) MEAN CORPUSCULAR VOLUME (BEAKER) 91 fL 79-92 (test code = 753) MEAN CORPUSCULAR HEMOGLOBIN 30.6 pg 25.7-32.2 (BEAKER) (test code = 751) MEAN CORPUSCULAR HEMOGLOBIN CONC 33.8 GM/DL 32.3-36.5 (BEAKER) (test code = 752) RED CELL DISTRIBUTION WIDTH 14.2 % 11.6-14.4 (BEAKER) (test code = 412) PLATELET COUNT (BEAKER) (test 274 K/CU MM 150-450 code = 756) MEAN PLATELET VOLUME (BEAKER) 9.9 fL 9.4-12.4 (test code = 754) NUCLEATED RED BLOOD CELLS 0 /100 WBC 0-0 (BEAKER) (test code = 413) POCT-GLUCOSE [id number] 05:41:22 Test Item Value Reference Range Interpretation Comments POC-GLUCOSE METER 126 mg/dL 70-110 H : TESTED A T [facility] 6720 (BEAKER) (test code [facility], = 1538) 45287: Lap Machine Tender/Techni davian ID = [id number] for MÓNICA DUNN POCT-GLUCOSE [id number] 22:09:24 Test Item Value Reference Range Interpretation Comments POC-GLUCOSE METER 119 mg/dL 70-110 H : TESTED A T [facility] 6720 (BEAKER) (test code = [facility], 153) 43686: Lap Machine Tender/Techni davian ID = [id number] for Mik Calhoun POCT-GLUCOSE [id number] 17:08:55 Test Item Value Reference Range Interpretation Comments POC-GLUCOSE METER 151 mg/dL 70-110 H : TESTED A T [facility] 6720 (BEAKER) (test code = [facility], 153) 61335: Lap Machine Tender/Techni davian ID = [id number] for Mónica Henriquez VITAMIN [id number] 15:25:38 Test Item Value Reference Range Interpretation Comments VITAMIN B12 (BEAKER) (test code = 1537 pg/mL 213-816 H 774) Lap Machine Tender ID - VIGNESH TIBC, % SAT. (WITHOUT FERRITIN)2023-03-17 11:57:40 Test Item Value Reference Range Interpretation Comments IRON (BEAKER) (test code = 547) 14.0 ug/dL 40.0-160.0 L TOTAL IRON BINDING CAPACITY 171 ug/dL 250-450 L (BEAKER) (test code = 769) IRON % SATURATION (2) (BEAKER) 8 % 20-55 L (test code = 2590) Lap Machine Tender ID - ADMINPOCT-GLUCOSE [id number] 11:54:54 Test Item Value Reference Range Interpretation Comments POC-GLUCOSE METER 148 mg/dL 70-110 H : TESTED A T [facility] 6720 (BEAKER) (test code = [place], 1538) 00847: Lap Machine Tender/Techni davian ID = [id number] for Mónica Henriquez XR CHEST 1 VIEW PORTABLE / [id number] 10:42:05 [facility] HARRISONCourtney Sawyer : 1945 Sex: MChest, one viewHistory: Possible aspirationComparison: 03/16/2023Findings:Lungs are clear. Normal size heart. Small right pleural effusion. Nopneumothorax is apparent. Electronically Signed By: Jaylen Mittal MD03/17/2023 10:44 CDTWorkstation Name: [id number], [id number] 04:30:21 Test Item Value Reference Range Interpretation Comments CALCIUM IONIZED (BEAKER) (test 1.00 mmol/L 1.12-1.27 L code = 698) PH, BLOOD (BEAKER) (test code = 7.46 1810) BASIC METABOLIC [id number] 04:19:08 Test Item Value Reference Range Interpretation Comments SODIUM (BEAKER) 136 meq/L 136-145 (test code = 381) POTASSIUM 3.1 meq/L 3.5-5.1 L (BEAKER) (test code = 379) CHLORIDE (BEAKER) 107 meq/L 98-107 (test code = 382) CO2 (BEAKER) 18 meq/L 22-29 L (test code = 355) BLOOD UREA 19 mg/dL 7-21 NITROGEN (BEAKER) (test code = 354) CREATININE 0.83 mg/dL 0.57-1.25 (BEAKER) (test code = 358) GLUCOSE RANDOM 148 mg/dL 70-105 H (BEAKER) (test code = 652) CALCIUM (BEAKER) 7.8 mg/dL 8.4-10.2 L (test code = 697) EGFR (BEAKER) 90 Interpretatio n of eGFR (test code = mL/min/1.73 values Stage De scription 1092) sq m Result G1 Addie l or high >=90 G2 Mildly decreased 60-89 G3a Mildl y to moderately 45-5 9 G3b Moderately to s everely 30-44 G4 Severl y decreased 15-29 G5 Kidney failure <15Reported eGF R is based on the CKD-EPI 2020 equation that d oes not use a race coefficientEsti mated GFR is not as accur ate as Creatinine Deandra haider in predicting glom erular filtration rate . Estimated GFR is not appl icable for dialysis patien ts Lap Machine Tender ID - [id number] 04:16:52 Test Item Value Reference Range Interpretation Comments MAGNESIUM (BEAKER) (test code = 2.1 mg/dL 1.6-2.6 627) Lap Machine Tender ID - [id number] 04:16:52 Test Item Value Reference Range Interpretation Comments PHOSPHORUS (BEAKER) (test code = 1.6 mg/dL 2.3-4.7 L 604) Lap Machine Tender ID - [id number] W/PLT COUNT & AUTO [id number] 04:01:10 Test Item Value Reference Range Interpretation Comments WHITE BLOOD CELL COUNT (BEAKER) 10.8 K/ L 3.5-10.5 H (test code = 775) RED BLOOD CELL COUNT (BEAKER) 3.34 M/ L 4.63-6.08 L (test code = 761) HEMOGLOBIN (BEAKER) (test code = 9.9 GM/DL 13.7-17.5 L 410) HEMATOCRIT (BEAKER) (test code = 29.6 % 40.1-51.0 L 411) MEAN CORPUSCULAR VOLUME (BEAKER) 89 fL 79-92 (test code = 753) MEAN CORPUSCULAR HEMOGLOBIN 29.6 pg 25.7-32.2 (BEAKER) (test code = 751) MEAN CORPUSCULAR HEMOGLOBIN CONC 33.4 GM/DL 32.3-36.5 (BEAKER) (test code = 752) RED CELL DISTRIBUTION WIDTH 13.8 % 11.6-14.4 (BEAKER) (test code = 412) PLATELET COUNT (BEAKER) (test 226 K/CU MM 150-450 code = 756) MEAN PLATELET VOLUME (BEAKER) 9.7 fL 9.4-12.4 (test code = 754) NUCLEATED RED BLOOD CELLS 0 /100 WBC 0-0 (BEAKER) (test code = 413) NEUTROPHILS RELATIVE PERCENT 87 % (BEAKER) (test code = 429) LYMPHOCYTES RELATIVE PERCENT 5 % (BEAKER) (test code = 430) MONOCYTES RELATIVE PERCENT 7 % (BEAKER) (test code = 431) EOSINOPHILS RELATIVE PERCENT 0 % (BEAKER) (test code = 432) BASOPHILS RELATIVE PERCENT 0 % (BEAKER) (test code = 437) NEUTROPHILS ABSOLUTE COUNT 9.35 K/ L 1.78-5.38 H (BEAKER) (test code = 670) LYMPHOCYTES ABSOLUTE COUNT 0.55 K/ L 1.32-3.57 L (BEAKER) (test code = 414) MONOCYTES ABSOLUTE COUNT (BEAKER) 0.78 K/ L 0.30-0.82 (test code = 415) EOSINOPHILS ABSOLUTE COUNT 0.02 K/ L 0.04-0.54 L (BEAKER) (test code = 416) BASOPHILS ABSOLUTE COUNT (BEAKER) 0.04 K/ L 0.01-0.08 (test code = 417) IMMATURE GRANULOCYTES-RELATIVE 0.60 % 0.00-1.00 PERCENT (BEAKER) (test code = 2801) POCT-GLUCOSE [id number] 22:14:59 Test Item Value Reference Range Interpretation Comments POC-GLUCOSE METER 137 mg/dL 70-110 H : TESTED A T [facility] 6720 (ROSA) (test code = [place], 1538) [address]: Lap Machine Tender/Techni davian ID = [id number] for Manuela Mcdonald CT BRAIN WITHOUT IV [id number] 09:23:20 [facility] 1945 Sex: MCT BRAIN WITHOUT IV CONTRASTINDICATION: Neuro reason for exam is stated by the referring provider.However, review of the medical record reveals patient has a history ofsubdural hematoma.COMPARISON: NoneTECHNIQUE: Noncontrast axial CT imaging of the brain and skull. DOSE REDUCTION: Dose modulation, iterative reconstruction, and/orweight-based adjustment of the mA/kV was utilized to reduce theradiation dose to as low as reasonably achievable.FINDINGS:3 mm predominantly isoattenuating right frontal convexity subduralhematoma. Midline structures are normally developed. Advancedbackground senescent parenchymal volume loss. Scattered foci ofhypoattenuation are present throughout the periventricular andsubcortical white matter, and, although nonspecific by imaging,statistically represent mild chronic microvascular ischemic changes inthis age group.No hydrocephalus.Orbits are within normal limits.No obstructive paranasal sinus disease.IMPRESSION:3 mm predominantly isoattenuating right frontal convexity subduralhematoma. If there is persistent clinical concern for intracranial pathology, MRexamination is recommended for further characterization.Electronically Signed By: Lucila Rao03/16/2023 09:25 CDTWo rkstation Name: [id number] CHEST 1 VIEW PORTABLE / [id number] 09:05:33 [facility] 1945 Sex: MChest one view:HISTORY: Concern for pneumoniaThere are no prior studies for comparison. Mild interstitial opacitiesare noted and represents pulmonary vascular congestion. No consolidationor pleural effusion is noted. The cardiomediastinal silhouette is withinnormal limits. The bony thorax is unremarkable.E lectronically Signed By: Fuad Arreaga03/16/2023 09:07 CDTWorkstation Name: [id number] 07:55:43 Test Item Value Reference Range Interpretation Comments POC-GLUCOSE METER 182 mg/dL 70-110 H : [facility] (EQO) (test code = [facility], 153) [address]: Lap Machine Tender/Techni davian ID = [id number] for Munira Suarez POCT-GLUCOSE [id number] 05:27:55 Test Item Value Reference Range Interpretation Comments POC-GLUCOSE METER 122 mg/dL 70-110 H : TESTED A T [facility] 6720 (IndiaMARTAKER) (test code = [facility], 153) [address]: Lap Machine Tender/Techni davian ID = [id number] for ALDAIR YOUSSEF [id number] 02:44:40 Test Item Value Reference Range Interpretation Comments PROCALCITONIN (SHITALAKER) (test code 0.24 ng/mL <0.05 H = 3036) SEPSIS RISK (ng/mL)Low: 0.05-0.50Intermediate: 0.51-2.00High: >=2.01 [id number] 02:34:48 Test Item Value Reference Range Interpretation Comments PHOSPHORUS (BEAKER) (test code = 0.8 mg/dL 2.3-4.7 LL 604) Lap Machine Tender JANET BLOOD WBASIC METABOLIC [id number] 02:33:26 Test Item Value Reference Range Interpretation Comments SODIUM (BEAKER) 136 meq/L 136-145 (test code = 381) POTASSIUM 3.2 meq/L 3.5-5.1 L (BEAKER) (test code = 379) CHLORIDE (BEAKER) 106 meq/L 98-107 (test code = 382) CO2 (BEAKER) 20 meq/L 22-29 L (test code = 355) BLOOD UREA 12 mg/dL 7-21 NITROGEN (BEAKER) (test code = 354) CREATININE 0.75 mg/dL 0.57-1.25 (BEAKER) (test code = 358) GLUCOSE RANDOM 140 mg/dL 70-105 H (BEAKER) (test code = 652) CALCIUM (BEAKER) 7.7 mg/dL 8.4-10.2 L (test code = 697) EGFR (BEAKER) 92 Interpretatio n of eGFR (test code = mL/min/1.73 values Stage De scription 1092) sq m Result G1 Addie l or high >=90 G2 Mildly decreased 60-89 G3a Mildl y to moderately 45-5 9 G3b Moderately to s everely 30-44 G4 Severl y decreased 15-29 G5 Kidney failure <15Reported eGF R is based on the CKD-EPI 2020 equation that d oes not use a race coefficientEsti mated GFR is not as accur ate as Creatinine Deandra maloney in predicting glom erular filtration rate . Estimated GFR is not appl icable for dialysis patien ts Lap Machine Tender ID Teodoro BLOOD [id number] 02:32:44 Test Item Value Reference Range Interpretation Comments MAGNESIUM (BEAKER) (test code = 1.8 mg/dL 1.6-2.6 627) Lap Machine Tender JANET BLOOD WCBC W/PLT COUNT & AUTO [id number] 02:15:02 Test Item Value Reference Range Interpretation Comments WHITE BLOOD CELL COUNT (BEAKER) 12.0 K/ L 3.5-10.5 H (test code = 775) RED BLOOD CELL COUNT (BEAKER) 3.84 M/ L 4.63-6.08 L (test code = 761) HEMOGLOBIN (BEAKER) (test code = 11.8 GM/DL 13.7-17.5 L 410) HEMATOCRIT (BEAKER) (test code = 34.8 % 40.1-51.0 L 411) MEAN CORPUSCULAR VOLUME (BEAKER) 91 fL 79-92 (test code = 753) MEAN CORPUSCULAR HEMOGLOBIN 30.7 pg 25.7-32.2 (BEAKER) (test code = 751) MEAN CORPUSCULAR HEMOGLOBIN CONC 33.9 GM/DL 32.3-36.5 (BEAKER) (test code = 752) RED CELL DISTRIBUTION WIDTH 13.8 % 11.6-14.4 (BEAKER) (test code = 412) PLATELET COUNT (BEAKER) (test 201 K/CU MM 150-450 code = 756) MEAN PLATELET VOLUME (BEAKER) 9.9 fL 9.4-12.4 (test code = 754) NUCLEATED RED BLOOD CELLS 0 /100 WBC 0-0 (BEAKER) (test code = 413) NEUTROPHILS RELATIVE PERCENT 88 % (BEAKER) (test code = 429) LYMPHOCYTES RELATIVE PERCENT 4 % (BEAKER) (test code = 430) MONOCYTES RELATIVE PERCENT 6 % (BEAKER) (test code = 431) EOSINOPHILS RELATIVE PERCENT 0 % (BEAKER) (test code = 432) BASOPHILS RELATIVE PERCENT 0 % (BEAKER) (test code = 437) NEUTROPHILS ABSOLUTE COUNT 10.58 K/ L 1.78-5.38 H (BEAKER) (test code = 670) LYMPHOCYTES ABSOLUTE COUNT 0.53 K/ L 1.32-3.57 L (BEAKER) (test code = 414) MONOCYTES ABSOLUTE COUNT (BEAKER) 0.72 K/ L 0.30-0.82 (test code = 415) EOSINOPHILS ABSOLUTE COUNT 0.01 K/ L 0.04-0.54 L (BEAKER) (test code = 416) BASOPHILS ABSOLUTE COUNT (BEAKER) 0.04 K/ L 0.01-0.08 (test code = 417) IMMATURE GRANULOCYTES-RELATIVE 0.80 % 0.00-1.00 PERCENT (BEAKER) (test code = 2801) CALCIUM, [id number] 02:12:06 Test Item Value Reference Range Interpretation Comments CALCIUM IONIZED (BEAKER) (test 1.01 mmol/L 1.12-1.27 L code = 698) PH, BLOOD (BEAKER) (test code = 7.43 1810) POCT-GLUCOSE [id number] 12:47:41 Test Item Value Reference Range Interpretation Comments POC-GLUCOSE METER 98 mg/dL 70-110 : TESTED A T [facility] 6720 (BEAKER) (test code = LUIS Gooden [facility], 1538) 4[address]: Lap Machine Tender/Techni davian ID = [id number] for GIRISH HAAS CEA [id number] 15:15:21 Test Item Value Reference Range Interpretation Comments CEA (test 1.5 ng/mL <=3.8 Reference Range s:Smoker: 0.0 - code = 5.5Non-Smoker: 0.0 - 3.8 This 2038-10) test is measure d by electrochemilum inescence immunoassay on Judi Mauro immunoassay peggy lyzers. Results obtained in dif ferent methods are not interch angeable.Testing Performed at [facility], [address] [place] [address], [address], [place] [address] MAYRA (test 1.30 pm code = MAYRA) [facility] [id number] 15:15:21 Test Item Value Reference Range Interpretation Comments CEA (test 1.5 ng/mL <=3.8 Reference Range s:Smoker: 0.0 - code = 5.5Non-Smoker: 0.0 - 3.8 This 2038-10) test is measure d by electrochemilum inescence immunoassay on Judi Mauro immunoassay peggy lyzers. Results obtained in dif ferent methods are not interch angeable.Testing Performed at [facility], [address] [place] [address], [address], [place] [address] MAYRA (test 1.30 pm code = MAYRA) [facility] HospitalProstate Specific Antigen (PSA) [id number] 14:48:36 Test Item Value Reference Range Interpretation Comments PSA (test code = 0.0-4.0 Results gre ater than 2857-1) 4519 ng/mL may not be reliable due to matrix effect with ext ended dilution as it exceeds the manufacture r's recommended lafleur it. Caution should be exercised when interpreting hoskins ch values and done in conjunction wit h clinical context.Testing Performed at [facility] Lab Helmet Hat Brim Cutter [facility], [address], [address], [place] [address] PSA Indication (test Diagnostic code = 31857-2) MAYRA (test code = MAYRA) 1.30 pm [facility] HospitalProstate Specific Antigen (PSA) [id number] 14:48:36 Test Item Value Reference Range Interpretation Comments PSA (test code = 0.0-4.0 Results gre ater than 2857-1) 4519 ng/mL may not be reliable due to matrix effect with ext ended dilution as it exceeds the manufacture r's recommended lafleur it. Caution should be exercised when interpreting hoskins ch values and done in conjunction wit h clinical context.Testing Performed at [facility] Lab Helmet Hat [facility]utter [facility], [address], [address], [place] [address] PSA Indication (test Diagnostic code = 61839-1) MAYRA (test code = MAYRA) 1.30 pm [facility] HospitalVitamin D [id number] 14:03:04 Test Item Value Reference Range Interpretation Comments Vitamin D 25 OH (test 40 ng/mL 30-100 Refere nce Range: code = 00420-7) Deficiency: <=20 ng/mLInsufficie ncy: 21-29 ng/mLSuff iciency: 30-100 ng/mLPot ential toxicity: >100 ng/mL MAYRA (test code = MAYRA) 1.30 pm [facility] HospitalVitamin D [id number] 14:03:04 Test Item Value Reference Range Interpretation Comments Vitamin D 25 OH (test 40 ng/mL 30-100 Refere nce Range: code = 06433-2) Deficiency: <=20 ng/mLInsufficie ncy: 21-29 ng/mLSuff iciency: 30-100 ng/mLPot ential toxicity: >100 ng/mL MAYRA (test code = MAYRA) 1.30 pm [facility] HospitalTestosterone Level [id number] 13:55:30 Test Item Value Reference Range Interpretation Comments Testoster Tot (test code 193-740 L Ref erence Ranges: = 2986-8) Male: Age 20 - 49 249 - 836 Age > =50 193 - 740 Femal e: Age 20 - 49 8 - 48 Age >=50 3 - 41 MAYRA (test code = MAYRA) 1.30 pm Lab Interpretation (test Abnormal code = 87557-9) [facility] HospitalTestosterone Level [id number] 13:55:30 Test Item Value Reference Range Interpretation Comments Testoster Tot (test code 193-740 L Ref erence Ranges: = 2986-8) Male: Age 20 - 49 249 - 836 Age > =50 193 - 740 Femal e: Age 20 - 49 8 - 48 Age >=50 3 - 41 MAYRA (test code = MAYRA) 1.30 pm Lab Interpretation (test Abnormal code = 54269-0) [facility] HospitalFractionated [id number] 13:41:54 Test Item Value Reference Range Interpretation [...] concentrations above 28 g/L.Testing Per formed at [facility] Lab Ambulat ory Care [facility], [address], [address], [place] [address] Bili Direct (test 0.2 mg/dL <=0.3 Indocyanin e Green (ICG) code = 1967-) may cause fal sely elevated biliru bin results. Total and direct bilirubin must not be measured from s amples containing indo cyanine green. Testing Performed at [facility] Lab Ambu latory Care Bldg, [address], [address], [place] [address] Bili Indirect (test 0.3 mg/dL 0.0-0.9 Testing Performed at [facility] code = 1970-05) Lab Ambulator y Care Bl, [address], [address], [place] [address] MAYRA (test code = 1.30 pm MAYRA) [facility] HospitalFractionated [id number] 13:41:54 Test Item Value Reference Range Interpretation [...] concentrations above 28 g/L.Testing Per formed at [facility] Lab Ambulat ory Care Bldg, [address], [address], [place] [address] Bili Direct (test 0.2 mg/dL <=0.3 Indocyanin e Green (ICG) code = 1967-) may cause fal sely elevated biliru bin results. Total and direct bilirubin must not be measured from s amples containing indo cyanine green. Testing Performed at [facility] Lab Ambu latory Care dg, [address], [address], [place] [address] Bili Indirect (test 0.3 mg/dL 0.0-0.9 Testing Performed at [facility] code = 1970-05) Lab Ambulator y Care [facility], [address], [address], [place] [address] MAYRA (test code = 1.30 pm MAYRA) [facility] HospitalGlucose, [id number] 13:41:53 Test Item Value Reference Range Interpretation Comments Glucose Random (test 126 mg/dL 70-199 Effecti ve 12/14/15, the code = 2345-7) glucose refer ence intervals have been updated based o n [place] [employer] benigno delines (Standards of M edical Care in Diabete s 2016. Diabetes Care 2 016; 39: S13-S22)Fasting blood glucose:Normal: 70-99 mg/dLImpaired f asting glucose (increa sed risk for diabetes or pre-diabetes): 100-125 mg/dLDiabetes m ellitus: >/= 126 mg/dL R andom blood glucose:N ormal: 70-199 mg/dLNot e: Random glucose >100 mg /dL is associated with increased risk for diabetes Testin g Performed at [facility] Lab Helmet Hat Brim Cutter [facility], [address], [address], [place] [address] MAYRA (test code = 1.30 pm MAYRA) [facility] HospitalGlucose, [id number] 13:41:53 Test Item Value Reference Range Interpretation Comments Glucose Random (test 126 mg/dL 70-199 Effecti ve 12/14/15, the code = 2345-7) glucose refer ence intervals have been updated based o n [place] [employer] benigno delines (Standards of M edical Care in Diabete s 2016. Diabetes Care 2 016; 39: S13-S22)Fasting blood glucose:Normal: 70-99 mg/dLImpaired f asting glucose (increa sed risk for diabetes or pre-diabetes): 100-125 mg/dLDiabetes m ellitus: >/= 126 mg/dL R andom blood glucose:N ormal: 70-199 mg/dLNot e: Random glucose >100 mg /dL is associated with increased risk for diabetes Testin g Performed at B [facility] Bldg, [address], [address], [place] [address] MAYRA (test code = 1.30 pm MAYRA) [facility] HospitalGlomerular Filtration Rate 2023-02-18 13:41:52 Test Item Value Reference Range Interpretation Comments eGFR (test code = 81 See_Comment The eGFRcr is calculated 26042-2) with the 2020 C KD-EPI creatinine equa [...] criteria for CKD. Testing Pe rformed at [facility] Lab Ambulat ory Care [facility], [address], [address], [place] [address] [Automated mess age] The system which ge nerated this result transmit junie reference range: >=60 mL/ min/1.73 sq. m. The referenc e range was not used to int erpret this result as addie l/abnormal. MAYRA (test code = 1.30 pm MAYRA) [facility] HospitalGlomerular Filtration Rate 2023-02-18 13:41:52 Test Item Value Reference Range Interpretation Comments eGFR (test code = 81 See_Comment The eGFRcr is calculated 77325-1) with the 2020 KD-EPI creatinine equa tion using creatinine, pat [...] criteria for CKD. Testing Pe rformed at [facility] Lab Ambulat ory Care [facility], [address], [place] [address] [Automated mess age] The system which ge nerated this result transmit junie reference range: >=60 mL/ min/1.73 sq. m. The referenc e range was not used to int erpret this result as addie l/abnormal. MAYRA (test code = 1.30 pm MAYRA) [facility] HospitalTotal [id number] 13:41:51 Test Item Value Reference Range Interpretation Comments Total Protein (test 6.8 g/dL 6.4-8.3 Testing Performed at B code = 2885-2) Lab Ambulator y Care [facility], [address], [place] [address] MAYRA (test code = MAYRA) 1.30 pm [facility] HospitalTotal [id number] 13:41:51 Test Item Value Reference Range Interpretation Comments Total Protein (test 6.8 g/dL 6.4-8.3 Testing Performed at B code = 2885-2) Lab Ambulator y Care [facility], [address], [address], [place] [address] MAYRA (test code = MAYRA) 1.30 pm [facility] HospitalPhosphorus [id number] 13:41:50 Test Item Value Reference Range Interpretation Comments Phosphorus (test code 3.2 mg/dL 2.5-4.5 Testin g Performed at = 2777-1) [facility] Lab Ambulat ory Care [facility], [address], [address], [place] [address] MAYRA (test code = MAYRA) 1.30 pm [facility] HospitalPhosphorus [id number] 13:41:50 Test Item Value Reference Range Interpretation Comments Phosphorus (test code 3.2 mg/dL 2.5-4.5 Testin g Performed at = 2777-1) [facility] Lab Ambulat ory [facility], [address], [address], [place] [address] MAYRA (test code = MAYRA) 1.30 pm [facility] HospitalMagnesium [id number] 13:41:49 Test Item Value Reference Range Interpretation Comments Magnesium (test code = 2.1 mg/dL 1.6-2.6 [place] [address]-1) [facility] Lab Ambulat ory Care [facility], [address], [address], [place] [address] MAYRA (test code = MAYRA) 1.30 pm [facility] HospitalMagnesium [id number] 13:41:49 Test Item Value Reference Range Interpretation Comments Magnesium (test code = 2.1 mg/dL 1.6-2.6 [place] [address]-0) [facility] Lab Ambulat ory Care Bl, [address], [place] [address] MAYRA (test code = MAYRA) 1.30 pm [facility] HospitalCalcium Level [id number] 13:41:48 Test Item Value Reference Range Interpretation Comments Calcium Lvl (test 9.6 mg/dL 8.4-10.2 Testing Pe rformed at code = 52700-0) [facility] Lab Ambu latory [facility], [address], [place], [place] [address] MAYRA (test code = MAYRA) 1.30 pm [facility] HospitalCalcium Level [id number] 13:41:48 Test Item Value Reference Range Interpretation Comments Calcium Lvl (test 9.6 mg/dL 8.4-10.2 Testing Pe rformed at code = 70284-7) [facility] Lab Ambu latory [facility], [address], [place], [place] [address] MAYRA (test code = MAYRA) 1.30 pm [facility] HospitalAlkaline [id number] 13:41:47 Test Item Value Reference Range Interpretation Comments Alk Phos (test code 72 U/L 40-129 Testing Performed at [facility] = 6768-6) Lab Helmet [facility], [address], [place] [address] MAYRA (test code = 1.30 pm MAYRA) [facility] HospitalAlkaline [id number] 13:41:47 Test Item Value Reference Range Interpretation Comments Alk Phos (test code 72 U/L 40-129 Testing Performed at [facility] = 6768-6) Lab [facility], [address], [place] [address] MAYRA (test code = 1.30 pm MAYRA) [facility] HospitalAlbumin [id number] 13:41:46 Test Item Value Reference Range Interpretation Comments Albumin Lvl (test 4.4 See_Comment Testing Pe rformed at [facility] code = 1751-7) Lab Ambulator y Care [facility], [address], [address], [place] [address] [Automated mess age] The system which ge nerated this result tra nsmitted reference range : 3.5 - 5.2 gm/dL. The reference range was not u sed to interpret this result as normal/abnormal . MAYRA (test code = MAYRA) 1.30 pm [facility] HospitalAlbumin [id number] 13:41:46 Test Item Value Reference Range Interpretation Comments Albumin Lvl (test 4.4 See_Comment Testing Pe rformed at B code = 1751-7) Lab Ambulator y Care [facility], [address], [address], [place] [address] [Automated mess age] The system which ge nerated this result tra nsmitted reference range : 3.5 - 5.2 gm/dL. The reference range was not u sed to interpret this result as normal/abnormal . MAYRA (test code = MAYRA) 1.30 pm [facility] HospitalAspartate Aminotransferase 2023-02-18 13:41:45 Test Item Value Reference Range Interpretation Comments AST (test code = 12 U/L <=40 Testing Per formed at [facility] 1920-8) Lab [facility], [address], [place] [address] MAYRA (test code = 1.30 pm MAYRA) [facility] HospitalAspartate Aminotransferase 2023-02-18 13:41:45 Test Item Value Reference Range Interpretation Comments AST (test code = 12 U/L <=40 Testing Per formed at [facility] 1920-8) Lab Helmet [facility], [address], [place] [address] MAYRA (test code = 1.30 pm MAYRA) [facility] HospitalAlanine [id number] 13:41:44 Test Item Value Reference Range Interpretation Comments ALT (test code = 7 U/L <=41 Testing Per formed at [facility] 1742-6) Lab [facility], [address], [place] [address] MAYRA (test code = 1.30 pm MAYRA) [facility] HospitalAlanine [id number] 13:41:44 Test Item Value Reference Range Interpretation Comments ALT (test code = 7 U/L <=41 Testing Per formed at [facility] 1742-6) Lab [facility], [address], [place] [address] MAYRA (test code = 1.30 pm MAYRA) [facility] ClintonElectrolyte [id number] 13:41:43 Test Item Value Reference Range Interpretation Comments Sodium Lvl (test code = 143 See_Comment Test ing Performed at 2951-2) [facility] Lab Ambulat [facility], [address], [place] [address] [Automate d message] The sy stem which generated this result transmit junie reference range : 136 - 145 mEq/L. Th e reference range was not used to int erpret this result as normal/abnormal . Potassium Lvl (test code 4.3 See_Comment Patricia ting Performed at = 2823-3) [facility] Lab [facility], [address], [place] [address] [Automate d message] The sy stem which generated this result transmit junie reference range : 3.5 - 5.1 mEq/L. Th e reference range was not used to int erpret this result as normal/abnormal . Chloride (test code = 104 See_Comment Testin g Performed at 2074-0) [facility] Lab [facility], [address], [place] [address] [Automate d message] The sy stem which generated this result transmit junie reference range : 98 - 107 mEq/L. The reference range was not used to int erpret this result as normal/abnormal . CO2 (test code = 2028-01) 30 See_Comment H Patricia ting Performed at [facility] [facility], [address], [address], [place] [id number] [Automate d message] The sy stem which generated this result transmit junie reference range : 22 - 29 mEq/L. The reference range was not used to int erpret this result as normal/abnormal . Anion Gap (test code = 9 See_[place] [address]-7) [facility] Lab Ambulat [facility], [address] [facility], [address], [place] [id number] [Automate d message] The sy stem which generated this result transmit junie reference range : 4 - 14 mEq/L. The reference range was not used to int erpret this result as normal/abnormal . MAYRA (test code = MAYRA) 1.30 pm Lab Interpretation (test Abnormal code = 18342-5) [facility] [id number] 13:41:43 Test Item Value Reference Range Interpretation Comments Sodium Lvl (test code = 143 See_Comment Test ing Performed at 2951-2) [facility] Lab Ambulat [facility], [address], [address], [place] [address] [Automate d message] The sy stem which generated this result transmit junie reference range : 136 - 145 mEq/L. Th e reference range was not used to int erpret this result as normal/abnormal . Potassium Lvl (test code 4.3 See_Comment Patricia ting Performed at = 2823-3) [facility] Lab Ambulat [facility], [address], [address], [place] [address] [Automate d message] The sy stem which generated this result transmit junie reference range : 3.5 - 5.1 mEq/L. Th e reference range was not used to int erpret this result as normal/abnormal . Chloride (test code = 104 See_Comment Testin g Performed at 2075-0) [facility] Lab Ambulat [facility], [address] [facility], [address], [place] [address] [Automate d message] The sy stem which generated this result transmit junie reference range : 98 - 107 mEq/L. The reference range was not used to int erpret this result as normal/abnormal . CO2 (test code = 2028-01) 30 See_Comment H Patricia ting Performed at [facility] Lab Ambulat [facility], [address] [facility], [address], [place] [address] [Automate d message] The sy stem which generated this result transmit junie reference range : 22 - 29 mEq/L. The reference range was not used to int erpret this result as normal/abnormal . Anion Gap (test code = 9 See_[place] [address]-9) [facility] Lab Ambulat ory [facility], [address], [address], [place] [id number] [Automate d message] The sy stem which generated this result transmit junie reference range : 4 - 14 mEq/L. The reference range was not used to int erpret this result as normal/abnormal . MAYRA (test code = MAYRA) 1.30 pm Lab Interpretation (test Abnormal code = 50594-8) [facility].Serum [id number] 13:41:42 Test Item Value Reference Range Interpretation Comments Creatinine (test code 0.95 mg/dL 0.67-1.17 Testin g Performed at = 2160-0) [facility], [address], [place] [address] MAYRA (test code = MAYRA) 1.30 pm [facility].Serum [id number] 13:41:42 Test Item Value Reference Range Interpretation Comments Creatinine (test code 0.95 mg/dL 0.67-1.17 Testin g Performed at = 2160-0) [facility], [address], [address], [place] [address] MAYRA (test code = MAYRA) 1.30 pm [facility] Urea [id number] 13:41:40 Test Item Value Reference Range Interpretation Comments BUN (test code = 15 mg/dL 6-23 Testing Per formed at [facility] 3090) [facility], [address], [place] [address] MAYRA (test code = 1.30 pm MAYRA) [facility] Urea [id number] 13:41:40 Test Item Value Reference Range Interpretation Comments BUN (test code = 15 mg/dL 6-23 Testing Per formed at [facility] 3090) [facility], [address], [place] [address] MAYRA (test code = 1.30 pm MAYRA) [facility] [id number] 13:36:49 Test Item Value Reference Range Interpretation Comments LDH (test code = 155 U/L 135-225 Results gre ater than 1651 25801-2) U/L may not be reliable due to matrix effec t with extended diluti on as it exceeds the man ufacturer s recommended l imit. Caution should be exercised when interpreti ng such values and done in conjunction wit h clinical context. Testin g Performed at [facility], [address] [facility], [address], [place] [address] MAYRA (test code = 1.30 pm MAYRA) [facility]ate [id number] 13:36:49 Test Item Value Reference Range Interpretation Comments LDH (test code = 155 U/L 135-225 Results gre ater than 1651 11771-9) U/L may not be reliable due to matrix effec t with extended diluti on as it exceeds the man ufacturer s recommended l imit. Caution should be exercised when interpreti ng such values and done in conjunction wit h clinical context. Testin g Performed at [facility], [address] [facility], [address], [place] [address] MAYRA (test code = 1.30 pm MAYRA) [facility] HospitalDifferential2023-10-02 13:13:49 Test Item Value Reference Range Interpretation Comments Neutrophil % (test code 83.0 % 43.2-72.7 H As p art of = 770-8) Differential performed at [facility], [address] [place] [address] [address]vd, [address], [place] [address] Lymphocyte % (test code 9.0 % 16.8-46.2 L = 736-9) Monocyte % (test code = 5.7 % 5.1-12.5 5905-5) Eosinophil % (test code 1.2 % 0.4-6.3 = 713-8) Basophil % (test code = 0.7 % 0.2-1.4 706-2) IGRE % (test code = 0.4 % 0.1-1.5 IGRE % c ount includes 12654-3) Metamyelocytes, Myelocytes, and Promyelocytes. As part of Differe ntial performed at [facility], [address] [facility], [address], [place] [address] Neutrophil Abs (test 7.61 K/uL 1.95-7.25 H code = 751-8) Lymphocyte Abs (test 0.82 K/uL 1.01-3.24 L code = 731-0) Monocyte Abs (test code 0.52 K/uL 0.24-0.85 = 742-7) Eosinophil Abs (test 0.11 K/uL 0.02-0.50 code = 711-2) Basophil Abs (test code 0.06 K/uL 0.02-0.09 = 704-7) IG Abs (test code = 0.04 K/uL 0.01-0.12 67847-5) MAYRA (test code = MAYRA) 1.30 pm Lab Interpretation Abnormal (test code = 68499-4) [facility] [id number] 13:13:49 Test Item Value Reference Range Interpretation Comments Neutrophil % (test code 83.0 % 43.2-72.7 H As p art of = 770-8) Differential performed at [facility], [address], [address], [place] [address] Lymphocyte % (test code 9.0 % 16.8-46.2 L = 736-9) Monocyte % (test code = 5.7 % 5.1-12.5 5905-5) Eosinophil % (test code 1.2 % 0.4-6.3 = 713-8) Basophil % (test code = 0.7 % 0.2-1.4 706-2) IGRE % (test code = 0.4 % 0.1-1.5 IGRE % c ount includes 60765-0) Metamyelocytes, Myelocytes, and Promyelocytes. As part of Differe ntial performed at [facility], [address], [place] [address] Neutrophil Abs (test 7.61 K/uL 1.95-7.25 H code = 751-8) Lymphocyte Abs (test 0.82 K/uL 1.01-3.24 L code = 731-0) Monocyte Abs (test code 0.52 K/uL 0.24-0.85 = 742-7) Eosinophil Abs (test 0.11 K/uL 0.02-0.50 code = 711-2) Basophil Abs (test code 0.06 K/uL 0.02-0.09 = 704-7) IG Abs (test code = 0.04 K/uL 0.01-0.12 53709-3) MAYRA (test code = MAYRA) 1.30 pm Lab Interpretation Abnormal (test code = 25229-2) [facility] [place].[id number] 13:13:42 Test Item Value Reference Range Interpretation Comments WBC (test code = 9.2 K/uL 4.1-10.5 6690-2) RBC (test code = 789-8) 4.23 See_Comment L [Au tomated message] The system [employer] generated this result transmitted ref erence range: 4.30 - 6 .04 M/uL. The refer ence range was not u sed to interpret this result as normal/abnor mal. Hgb (test code = 718-7) 13.2 See_Comment L As p art of CBC or as an individual orderable testi ng performed at [facility] Lab [facility], [address], [place] [address] [Automate d message] The sy stem which generated this result transmit junie reference range : 13.3 - 17.4 gm/dL. T he reference range was not used to int erpret this result as normal/abnormal . Hct (test code = 40.1 % 39.5-51.8 As part of CBC or as 4544-3) an individual orderable testi ng performed at [facility] Lab [facility], [address], [place] [address] MCV (test code = 787-2) 95 fL 82-99 MCH (test code = 785-6) 31.2 pg 26.6-33.2 MCHC (test code = 32.9 See_Comment [Automate d message] 786-4) The system [employer] generated this result transmitted ref erence range: 31.1 - 3 5.2 gm/dL. The refe rence range was not u sed to interpret this result as normal/abnor mal. RDW-SD (test code = 49.0 fL 37.5-49.7 32505-6) RDW-CV (test code = 14.1 % 11.6-15.5 788-0) Platelet count (test 272 K/uL 160-397 As part of CBC or as code = 777-3) an individual orderable testi ng performed at [facility], [address] [place] [address] [address]vd, [address], [place] [address] MPV (test code = 10.3 fL 9.1-12.6 80871-0) INRBC (test code = 0.0 See_Comment The INRBC (instrument 74436-4) NRBC) value ref lects the enumeration of nucleated red b lood cells contained in a 200uL sampleof whole blood analyzed by the instrument. Thi s value maydiffer from the NRBC value repo rted in a manual differential,wh ich is based on a 100 cell differential. A s part of CBC testing performed at [facility], [address], [place], [place] [address] [Automated mess age] The system [employer] generated this result transmitted ref erence range: 0.0 - 0. 1 /100 WBC. The refere nce range was not u sed to interpret this result as normal/abnor mal. MAYRA (test code = MAYRA) 1.30 pm Lab Interpretation Abnormal (test code = 34479-5) [facility] [place].[id number] 13:13:42 Test Item Value Reference Range Interpretation Comments WBC (test code = 9.2 K/uL 4.1-10.5 6690-2) RBC (test code = 789-8) 4.23 See_Comment L [Au tomated message] The system [employer] generated this result transmitted ref erence range: 4.30 - 6 .04 M/uL. The refer ence range was not u sed to interpret this result as normal/abnor mal. Hgb (test code = 718-7) 13.2 See_Comment L As p art of CBC or as an individual orderable testi ng performed at [facility], [address], [place] [address] [Automate d message] The sy stem which generated this result transmit junie reference range : 13.3 - 17.4 gm/dL. T he reference range was not used to int erpret this result as normal/abnormal . Hct (test code = 40.1 % 39.5-51.8 As part of CBC or as 4544-3) an individual orderable testi ng performed at [facility], [address], [place] [address] MCV (test code = 787-2) 95 fL 82-99 MCH (test code = 785-6) 31.2 pg 26.6-33.2 MCHC (test code = 32.9 See_Comment [Automate d message] 786-4) The system [employer] generated this result transmitted ref erence range: 31.1 - 3 5.2 gm/dL. The refe rence range was not u sed to interpret this result as normal/abnor mal. RDW-SD (test code = 49.0 fL 37.5-49.7 33912-5) RDW-CV (test code = 14.1 % 11.6-15.5 788-0) Platelet count (test 272 K/uL 160-397 As part of CBC or as code = 777-3) an individual orderable testi ng performed at [facility], [address], [address], [place] [address] MPV (test code = 10.3 fL 9.1-12.6 13856-6) INRBC (test code = 0.0 See_Comment The INRBC (instrument 91007-9) NRBC) value ref lects the enumeration of nucleated red b lood cells contained in a 200uL sampleof whole blood analyzed by the instrument. Thi s value maydiffer from the NRBC value repo rted in a manual differential,wh ich is based on a 100 cell differential. A s part of CBC testing performed at [facility], [place] [address] [Automated mess age] The system [employer] generated this result transmitted ref erence range: 0.0 - 0. 1 /100 WBC. The refere nce range was not u sed to interpret this result as normal/abnor mal. MAYRA (test code = MAYRA) 1.30 pm Lab Interpretation Abnormal (test code = 08910-4) [facility] [place]
[2023-03-23] MEDS ORDERED: IPRATROPIUM BROM 0.5MG/2.5ML NEB PRN (13:32)
[2023-03-23] MEDS ORDERED: ALBUTEROL 2.5 MG/3 ML NEB SOL NEB PRN (13:34)
[2023-03-23] MEDS ORDERED: ACETAMINOPHEN 325 MG TABLET PO PRN (13:44)
[2023-03-23] MEDS ORDERED: SIMETHICONE 80 MG CHEWABLE TAB PO PRN (13:47)
[2023-03-23] MEDS ORDERED: D50W 25 GM/50 ML SYRINGE IV PRN (13:50)
[2023-03-23] MEDS ORDERED: GLUCAGON 1 MG/VIAL IM PRN (13:50)
[2023-03-23] MEDS ORDERED: POLYETHYL GLY 3350 17 GM/DOSE PO PRN (14:02)
[2023-03-23] MEDS ORDERED: MAGIC MOUTHWASH 180 ML BTL PO PRN (14:05)
[2023-03-23] MEDS: SOTALOL HCL 80 MG TAB PO SCH ×2 (14:16→20:20)
[2023-03-23 14:29] VITALS: BMI 26.2
[2023-03-23 16:20] LABS: Specific Gravity 1.011 (1.005-1.030); Urine Bacteria None Seen /HPF (<20); Urine Bilirubin NEGATIVE (Negative); Urine Blood Negative (Negative); Urine Clarity Clear (Clear); Urine Color Light-Yellow (Yellow); Urine Glucose NEGATIVE (Negative); Urine Protein NEGATIVE (Negative); Urine RBC <5 /HPF (None Seen); Urine Urobilinogen Normal (Normal)
[2023-03-23] MEDS: INSULIN REGULAR (HUMAN) 100 UNIT/ML SQ SCH ×2 (16:30→20:21)
[2023-03-23] MEDS ORDERED: METFORMIN ER 500 MG TAB PO SCH (17:00)
[2023-03-23] MEDS: ENOXAPARIN 40 MG/0.4 ML SQ SCH (17:15)
[2023-03-23] MEDS: CEPHALEXIN 500 MG CAP PO SCH ×2 (17:16→23:50)
[2023-03-23] MEDS ORDERED: carvediloL 12.5 MG TAB PO SCH (18:00)
[2023-03-23] MEDS: Mupirocin NASAL 2 APPL/1 GM TUBE NAS SCH (20:20)
[2023-03-23] MEDS: ATORVASTATIN 10 MG TAB PO SCH (20:20)
[2023-03-23] MEDS: DOCUSATE NA/SENNA CONC 1 TAB PO SCH ×2 (20:20→21:00)
[2023-03-23] MEDS: QUETIAPINE 25 MG TAB PO SCH (20:20)
[2023-03-23] MEDS: MELATONIN 3 MG TABLET PO SCH (20:22)
[2023-03-23] MEDS: BUDESONIDE 0.5 MG/2 ML NEB NEB SCH (22:00)
--- NOTE | 2023-03-24 01:33 | HP ---
Date of Admission: 03/23/2023 Time Of Service: 6 p.m. Chief Complaint: "I had cellulitis and I left base and fell, bled in my head." History Of Present Illness: Liz is a 77-year-old patient with prostate cancer with bone metasta ses, status post radical prostatectomy in 2013. He is on palliative radiation. Last received December of 2022. He is also on androgen deprivation therapy. He has hypertension, dyslipidemia, non-insuli n-dependent diabetes mellitus, and skin cancer. Regarding the reason for his hospital admission on t 03/13, he developed sudden fever, 104, left face pain and redness involving the V2 and V3 distribu tions of the left cranial nerve. Pain was involving his ear. There was redness. His showed a picture of redness and swelling of the face at the time. He came to [facility] and received anti biotics, went home, but failed to thrive and had more fever. He came back on 03/14. He was admitted for left facial cellulitis, receiving IV vancomycin and ceftazidime; however, around 5:30 a.m. on , he fell in the hospital due the loss of balance as he was trying to go to the bathroom. He did not lose consciousness or have a seizure. CT scan of his head showed a subdural hematoma along the r ight lateral convexity measuring 3 mm in greatest thickness with minimal local mass effect. He was t [facility] on 03/15 for higher level of care where he was admitted to the Neuro ICU. Infectious Disease was consulted for management of his cellulitis and Neurosurgery consulted as well. After completing IV antibiotics, he was put on Keflex 500 mg 4 times daily for 1 0 days beginning on 03/16. He also was started on a Cardene drip. An arterial line was placed. He did spike a fever again and became more confused. He was transferred off the ICU floor on 03/17, but then required a sitter because of his confusion. His was also helping and was at the bedside. His confusion improved and sitter was discontinued by 03/21 and again delirium improved. His d id bring him his hearing aids and that helped with agitation. During his hospitalization as noted, stefani juarez had a delirium, pleural effusion, had nebulizers, as well as management of his comorbidities includ ing the hypertension, cellulitis with antibiotics to continue until 12/28/2022. In addition, does jay ve hypophosphatemia, hypokalemia, dyslipidemia, normocytic anemia, which may require IV iron infusion . As noted before, the patient's initial infection, he was fully independent with all activities of daily living, taking care of his mobilization, transfers. His home does not have steps but threshold to go over. He did not ambulate without assistive device was completely independent. As a result o f his significant hospitalization and comorbid conditions, he is significantly debilitated and will r equire aggressive therapy to help him return to his normal. He has multiple comorbid conditions that require daily physician evaluation and management. He is, therefore, admitted to the inpatient reha bilitation unit for physical and occupational, if need be, speech therapy. Past Medical History: Dyslipidemia, bgb-fcqogrf-jrcdkncnn diabetes mellitus, prostate cancer with apryl ne metastases, status post radical prostatectomy in 2013 on palliative radiation. Allergies: ERYTHROMYCIN AND IODINE. Imaging Studies: CT scan of the head without contrast on 03/15 showed acute subdural hematoma along the right lateral convexity measuring 3 mm in greatest thickness with minimal local mass effect and n o midline shift. Chest x-ray, same day showed lungs are clear. Heart normal in size. Small right p leural effusion. No pneumothorax present. Brain CT scan without contrast on 03/16 showed a 3 mm pre dominantly isoattenuating right frontal convexity subdural hematoma. Brain MRI on 03/20 shows motion degradation, but no evidence of metastases. No significant change in the 0.3 cm subdural hematoma o verlying the right cerebral convexity. Family History: Noncontributory. Social History: No alcohol, tobacco, or IV drug use. The patient lives with his in a single [place] home, single-story. Medications: Tylenol 650 every 6 hours as needed, albuterol nebulizer 2.5 mg every 6 hours as needed , Lipitor 40 mg at bedtime, Pulmicort 0.5 mg nebulizer twice daily, Coreg 12.5 mg twice daily, Keflex 500 mg twice daily to complete until 03/29/2023, vitamin D 1000 units daily, Lovenox 40 mg subcutane ously daily, ferrous sulfate 325 mg daily, Flonase 1 spray daily, Prinivil 40 mg at bedtime, Atrovent nebulizer 0.5 mg every 6 hours as needed, melatonin 6 mg at bedtime, metformin 750 mg twice daily, B actroban nasal spray 1 spray daily, Procardia XL 90 mg daily, prednisone 5 mg daily, Seroquel 25 mg a t bedtime, Senokot-S 1 at bedtime, Mylicon 40 mg every 6 hours as needed, Betapace 40 mg every 8 hour s, thiamine 100 mg daily. Laboratory Studies: White blood cell count 7.6, hemoglobin 10.9, hematocrit 30.3, platelets 396. So dium 142, potassium 3.9, chloride 173, BUN 10, creatinine 0.73, calcium 8.4, magnesium 2.2. Review of Systems: Mr. Barrientos says the pain in the left face is improving. Also, less redness, less swelling in the l eft ear. Also, his confusion is improving and denies any disorientation. Denies any fevers after he defervesced. Denies any significant myalgias or arthralgias. No rash, headache. No psychiatric is sues. No other complaints on a 10-point systems review. Physical Examination: Vital Signs: Blood pressure 153/70, pulse 59, respiratory rate 16, temperature 97.5, O2 saturation 9 6%, weight 199 pounds, height 6 feet 1 inch, BMI 26.3. General: Mr. Barrientos is resting in bed. His is at bedside. HEENT: He is normocephalic, atraumatic. Sclerae anicteric. Oropharynx is moist. Neck: Supple. Chest: Clear. Heart: Regular. Extremities: Show no significant clubbing, cyanosis, or edema. Neurologic: Alert and oriented to situation, place, and person. Cranial nerves: No focal deficits. Motor: Lower extremities: Diffuse weakness around 4+. No focal findings and despite his finding on scan. Stocking-glove loss light touch and temperature. Depressed reflexes. Coordination intact. Current Level Of Functioning: Supervision for eating, oral hygiene. Moderate assistance for toileti ng. Maximal assistance for showering. Upper body dressing: Moderate assistance lower body dressing . Maximal assistance donning and doffing footwear. Maximum assistance rolling left to right, right to left. Sit to stand, all moderate assistance. Toilet transfers, moderate assistance. He is at ma derate assistance for ambulation up to 200 feet with a rolling walker. Medical And Rehab Assessment And Plan: Mr. Barrientos is [facility] Brain dysfunction, traumatic. His impairment group code is 02.22, traumatic felipa sed injury. Etiologic Diagnoses: Subdural hematoma, right lateral convexity measuring 3 mm at greatest thickness . Minimal local mass effect. No midline shift. In addition, dyslipidemia, hypertension, hypokalemi a, diabetes mellitus type 2. Also Streptococcal facial cellulitis, prostate cancer, status post pros tatectomy, normocytic anemia, resolved respiratory failure. Plan: 1.Mr. Barrientos will have physical, occupational, and medically if need be speech therapy for 3.5 ch[place] rs, 5 of 7 days. 2.We will continue thiamine 100 mg daily for confusion. Continue Betapace for his heart rate contro l. Continue Mylicon for any bloating symptoms. Continue Senokot-S for constipation. Continue Seroq uel for insomnia along with melatonin. Continue Procardia for heart rate and blood pressure control. Continue metformin for diabetes mellitus. Prinivil also for blood pressure control. Continue with dual nebulizers. Continue ferrous sulfate for his anemia. Continue Lovenox for DVT prophylaxis. C ontinue vitamin D for low vitamin D level. Finish the Keflex which is scheduled every 6 hours until 03/29/2023. Continue Lipitor for dyslipidemia. Continue Tylenol for pain. Impact Of His Comorbidities: Currently, he does have the subdural, which is very minimal. Does not currently cause headache or focal neurological deficits that will be carefully watched for. Also, he has resolving his cellulitis and we will continue his antibiotics. We will see if there is a repeat infection by checking white blood cell count. Otherwise, he has history of prostate cancer. May be at risk for a urinary tract infection. We will carefully look for that and DVT prophylaxis will be done daily. Rehab Specific Plan: Mr. Barrientos will have physical, occupational, and if need be, speech therapy 3 .5 hours, 5 of 7 days to improve his ability, to perform all transfers independently, ambulate 250 fe et independently, up and down 10 steps independently, and mobilized a wheelchair 250 feet independent ly. 1.Cognitive functioning: Should be done independently. 2.Managing all of his medications: Should be independent and the patient should be able to go home with perhaps outpatient physical therapy and work independently. Mr. Barrientos has a good understanding of the process of admission to the inpatient rehabilitation [facility]. He has a potential to make great improvement and will require physical, occupational, and if need be, speech therapy. Additionally, services such as the Respiratory Service, Nutrition Services, and Pulmonary Service may be consulted. Also, if need be, ID Service. Given his complex medical co ndition and risk of further complications, rehabilitation cannot be safely or effectively performed a t a lower level facility such as a assisted. Barriers To Discharge: Currently has a small subdural. We will do an interval scan and compare it t o a scan which was done yesterday at [place]. The patient's will obtain that next week. He als o has the finishing infection with cellulitis. We may repeat CBC, procalcitonin, and lactic acid if need be. Estimated Length Of Stay: About 10 days. Disposition: Home with family. Prognosis: Good. Patient Goals: 1.Become independent, upper body dressing, transferring, toileting, showering. 2.Independent with ambulation of 250 feet with a cane and perhaps potentially without an assistive d evice. 3.If need be, mobilized wheelchair 250 feet. 4.Up and down 10 steps independently. 5.Manage all medical comorbid conditions independently. 6.Perform all cognitive functioning independently. The above goals were reviewed with Mr. Barrientos and his and they are in agreement. By signing this document, I acknowledge I have personally performed a full physical examination on Mr Minh Barrientos no later than 24 hours after his admission to the inpatient rehabilitation facility and de termined that he is able to tolerate the above course of treatment at an intensive level for reasonab le period of time. A detailed individualized plan of care for him will be completed by hospital day 4 based on the preadmission screen, history and physical and therapy evaluations. SINDY/LY Voice ID: [id number]
[2023-03-24] MEDS ORDERED: MAGNES/ALUMIN/SIMET 30ML UCUP PO PRN (03:18)
[2023-03-24] MEDS: SOTALOL HCL 80 MG TAB PO SCH ×3 (05:47→19:29)
[2023-03-24] MEDS: CEPHALEXIN 500 MG CAP PO SCH ×4 (05:48→23:33)
[2023-03-24 06:03] LABS: Absolute Lymphocytes (CBC) 0.7 K/uL (0.7-4.9); Hematocrit 32.4 % (39.6-49.0); Lymphocytes % 10.9 % (15.3-44.8); MCV 89.4 fL (80-100); MPV 7.6 fL (7.6-11.3); Platelets 390 thou/uL (152-406); RBC Red Blood Cell Count 3.63 M/uL (4.33-5.43)
[2023-03-24 06:35] LABS: Albumin 2.6 g/dL (3.4-5.0); Phosphorus 3.1 mg/dL (2.5-4.9); Potassium 3.1 mEq/L (3.5-5.1); Prealbumin 13.7 mg/dL (20-40)
[2023-03-24] MEDS: INSULIN REGULAR (HUMAN) 100 UNIT/ML SQ SCH ×4 (07:30→19:29)
[2023-03-24] MEDS: NIFEDIPINE XL 90 MG TABLET PO SCH (07:58)
[2023-03-24] MEDS: FLUTICASONE 50MCG NASAL SPRAY NAS SCH (07:59)
[2023-03-24] MEDS: FERROUS SULFATE 325 MG TAB PO SCH (08:00)
[2023-03-24] MEDS: Mupirocin NASAL 2 APPL/1 GM TUBE NAS SCH ×2 (08:00→19:28)
[2023-03-24] MEDS: VITAMIN D 1000 UNIT TAB PO SCH (08:00)
[2023-03-24] MEDS: METFORMIN HCL 500 MG TAB PO SCH ×2 (08:00→17:05)
[2023-03-24] MEDS: THIAMINE HCL 100 MG TABLET PO SCH (08:00)
[2023-03-24] MEDS ORDERED: lisinopriL 20 MG TAB PO SCH (08:00)
[2023-03-24] MEDS ORDERED: ABIRATERONE 1000 MG PO SCH (08:00)
[2023-03-24] MEDS: predniSONE 5 MG TAB PO SCH (08:01)
[2023-03-24] MEDS: BUDESONIDE 0.5 MG/2 ML NEB NEB SCH ×2 (09:28→20:02)
[2023-03-24] MEDS: lisinopriL 20 MG TAB PO SCH (10:29)
[2023-03-24] MEDS: ENOXAPARIN 40 MG/0.4 ML SQ SCH (17:05)
[2023-03-24] MEDS: QUETIAPINE 25 MG TAB PO SCH (19:28)
[2023-03-24] MEDS: MELATONIN 3 MG TABLET PO SCH (19:28)
[2023-03-24] MEDS: ATORVASTATIN 10 MG TAB PO SCH (19:28)
[2023-03-24] MEDS: DOCUSATE NA/SENNA CONC 1 TAB PO SCH (19:29)
[2023-03-24] MEDS ORDERED: POTASSIUM CL SA 10 MEQ TAB PO ONE (20:40)
[2023-03-25] MEDS: ABIRATERONE 1000 MG PO SCH (04:56)
[2023-03-25] MEDS: CEPHALEXIN 500 MG CAP PO SCH ×4 (05:41→23:58)
[2023-03-25] MEDS: SOTALOL HCL 80 MG TAB PO SCH ×3 (05:41→20:08)
[2023-03-25] MEDS: INSULIN REGULAR (HUMAN) 100 UNIT/ML SQ SCH ×2 (07:30→16:30)
[2023-03-25] MEDS: Mupirocin NASAL 2 APPL/1 GM TUBE NAS SCH ×2 (07:40→19:47)
[2023-03-25] MEDS: lisinopriL 20 MG TAB PO SCH (07:40)
[2023-03-25] MEDS: FLUTICASONE 50MCG NASAL SPRAY NAS SCH (07:41)
[2023-03-25] MEDS: FERROUS SULFATE 325 MG TAB PO SCH (07:41)
[2023-03-25] MEDS: VITAMIN D 1000 UNIT TAB PO SCH (07:41)
[2023-03-25] MEDS: METFORMIN HCL 500 MG TAB PO SCH ×2 (07:41→17:19)
[2023-03-25] MEDS: POTASSIUM CL SA 10 MEQ TAB PO SCH (07:41)
[2023-03-25] MEDS: predniSONE 5 MG TAB PO SCH (07:42)
[2023-03-25] MEDS: THIAMINE HCL 100 MG TABLET PO SCH (07:42)
[2023-03-25] MEDS: BUDESONIDE 0.5 MG/2 ML NEB NEB SCH ×2 (08:00→20:00)
[2023-03-25] MEDS: NIFEDIPINE XL 90 MG TABLET PO SCH (10:08)
[2023-03-25 13:29] LABS: SARS-CoV-2 Antigen Rapid Res Negative (Negative)
[2023-03-25] MEDS: ENOXAPARIN 40 MG/0.4 ML SQ SCH (17:19)
[2023-03-25] MEDS: DOCUSATE NA/SENNA CONC 1 TAB PO SCH (19:47)
[2023-03-25] MEDS: MELATONIN 3 MG TABLET PO SCH (19:47)
[2023-03-25] MEDS: ATORVASTATIN 10 MG TAB PO SCH (19:48)
[2023-03-25] MEDS: QUETIAPINE 25 MG TAB PO SCH (19:48)
[2023-03-25] MEDS: GLUCERNA SHAKE 237 ML CAN PO SCH (19:48)
--- NOTE | 2023-03-25 23:03 | PN ---
Date of Progress Note: 03/25/2023 Time Of Service: 01:35 p.m. Subjective: Mr. Hill is doing well. He is very happy with his therapy. He is doing above and b eyond what the therapist are asking. Denies any pain. No headaches, vision loss. No complaints. Review of Systems: No fevers, chills, nausea, vomiting. No myalgias, arthralgias, rash, headache, weight change. No ps ychiatric issues. Physical Examination: Vital Signs: Blood pressure 148 up to 173 over 69 to 79, pulse 55 to 65, temperature 97.0, oxygen sa turation 97%, and respiratory rate 18. General: Mr. Barrientos is between therapy sessions in bed. He has no complaints. He has no focal de ficits. He is cognitively doing very well. He is again otherwise normocephalic, atraumatic. Sclera e anicteric. Oropharynx is moist. Neck: Supple. Chest: Clear. Heart: Regular rate. Extremities: No edema, cyanosis. Laboratory Studies: White blood cell count 6.8, hemoglobin 11.1, platelets 390. Blood sugars ranged from 104 to 128. X-ray/imaging: No new x-rays or imaging. Medications: Tylenol 650 mg every 6 hours as needed, Maalox 30 every 6 hours as needed fo r constipation, albuterol nebulizer 2.5 mg every 6 hours as needed, Lipitor 40 mg at bedtime, Pulmico rt 0.5 mg b.i.d. nebulizer schedule, Keflex 500 mg every 6 hours as needed for left face cellulitis, vitamin D 1000 units daily, Lovenox 40 mg subcutaneously daily, Glucerna 237 mL twice daily, ferrous sulfate 325 mg daily, Flonase spray 1 spray per nostril daily, Prinivil 40 mg daily, albuterol nebuli zer 0.5 mg every 6 hours as needed, melatonin 6 mg at bedtime, 750 mg twice daily, Procard ia XL 90 mg daily, prednisone 5 mg daily, potassium 10 mEq daily, Seroquel 25 mg twice daily, Senokot S one at bedtime, thiamine 100 mg daily, sotalol 40 mg every 8 hours as needed. Current Functional Status: Today, with occupational therapy; bathing, minimal assistance; upper body dressing, set up assistance; lower body dressing, minimum assistance. He ambulated without an marco tive device, but was at standby assistance, then ambulated 250 feet with standby assistance using a r olling walker and another 100 feet and 75 feet with contact guard assistance without an assistive dev ice. He did receive medication by speech therapy, had a bedside swallow study done. He was able to eat regular diet at this time without any restrictions. He remained upright while eating. Progress Towards Rehabilitation Goals: Mr. Barrientos is making excellent progress towards his goals o f becoming independent with upper body dressing, transferring, toileting, showering, ambulating 250 f eet with independence without an assistive device, up and down 10 steps with independence and continu ing to perform cognitive functioning independently. Assessment: Mr. Barrientos is a 77-year-old patient with left face cellulitis that is resolving. Has a traumatic subdural hematoma that is small in size and not likely impacting him at this point, as he is doing very well. He has dyslipidemia, hypertension, hypokalemia, diabetes mellitus, and the left facial infection is a streptococcal infection for which he is completing antibiotics. He has prosta te cancer, status post prostatectomy, normocytic anemia, and resolved respiratory failure. Plan: 1.Continue with physical, occupational, and speech therapy for 3.5 hours, 5 out of 7 days. 2.Multiple comorbid condition medications, which have been listed are continued. He has Lovenox for DVT prophylaxis. Continue metformin for diabetes, Prinivil for blood pressure issues, Senokot for c onstipation, Seroquel and melatonin for insomnia. Impact Of His Comorbidities: He is doing very well at this point. Headaches are not present. Left face is doing very well, ambulating very well. He has no complaints and his comorbidities are not negatively impacting his rehabilitatio n. SINDY/MODL Voice ID: [id number] Report ID: [id number]
[2023-03-26 04:31] LABS: Potassium 3.2 mEq/L (3.5-5.1)
[2023-03-26] MEDS: ABIRATERONE 1000 MG PO SCH (04:53)
[2023-03-26] MEDS: CEPHALEXIN 500 MG CAP PO SCH ×4 (05:45→23:47)
[2023-03-26] MEDS: SOTALOL HCL 80 MG TAB PO SCH ×3 (05:45→19:42)
[2023-03-26] MEDS: INSULIN REGULAR (HUMAN) 100 UNIT/ML SQ SCH ×2 (07:30→16:30)
[2023-03-26] MEDS: BUDESONIDE 0.5 MG/2 ML NEB NEB SCH ×2 (07:35→19:55)
[2023-03-26] MEDS: FLUTICASONE 50MCG NASAL SPRAY NAS SCH (07:54)
[2023-03-26] MEDS: Mupirocin NASAL 2 APPL/1 GM TUBE NAS SCH ×2 (07:54→19:41)
[2023-03-26] MEDS: lisinopriL 20 MG TAB PO SCH (08:08)
[2023-03-26] MEDS: POTASSIUM CL SA 10 MEQ TAB PO SCH (08:08)
[2023-03-26] MEDS: THIAMINE HCL 100 MG TABLET PO SCH (08:09)
[2023-03-26] MEDS: FERROUS SULFATE 325 MG TAB PO SCH (08:09)
[2023-03-26] MEDS: METFORMIN HCL 500 MG TAB PO SCH ×2 (08:10→17:17)
[2023-03-26] MEDS: predniSONE 5 MG TAB PO SCH (08:10)
[2023-03-26] MEDS: VITAMIN D 1000 UNIT TAB PO SCH (08:10)
[2023-03-26] MEDS: GLUCERNA SHAKE 237 ML CAN PO SCH ×2 (08:11→19:42)
[2023-03-26] MEDS ORDERED: POTASSIUM CL SA 10 MEQ TAB PO ONE (12:52)
[2023-03-26] MEDS: NIFEDIPINE XL 90 MG TABLET PO SCH (12:59)
[2023-03-26] MEDS: ENOXAPARIN 40 MG/0.4 ML SQ SCH (17:18)
[2023-03-26] MEDS: MELATONIN 3 MG TABLET PO SCH (19:41)
[2023-03-26] MEDS: DOCUSATE NA/SENNA CONC 1 TAB PO SCH (19:41)
[2023-03-26] MEDS: ATORVASTATIN 10 MG TAB PO SCH (19:41)
[2023-03-26] MEDS: QUETIAPINE 25 MG TAB PO SCH (19:42)
--- NOTE | 2023-03-26 20:27 | PN ---
Date of Progress Note: 03/26/2023 Time Of Service: 1:36 p.m. Subjective: Mr. Hill is doing very well. He is happy with his therapy. He is making great prog ress. He has no complaints. No fevers, chills, nausea, or vomiting. Review of Systems: Again, no complaints. No rash, headache, or weight change. No psychiatric issues. No other positiv es on a 10-point systems review. Physical Examination: Vital Signs: Blood pressure 139/63, pulse 66, respiratory rate 16, temperature 97, O2 saturation 98% . General: Mr. Barrientos is resting in a chair besides bed looking out the window. He is in no acute d istress. HEENT: He is normocephalic, atraumatic. Sclerae are anicteric. Oropharynx pink and moist. Neck: Supple. Chest: Clear. Heart: Regular. Extremities: Show no clubbing, cyanosis, or edema. He has no focal neurologic deficits despite a sm all subdural hematoma. Laboratory Studies: Blood sugars ranged from 104 to 119. Sodium 141, potassium 3.2. He has potassi um replacement on board. Chloride 109, carbon dioxide 29, BUN 10, creatinine 0.77. He is COVID-19 n egative from yesterday. X-ray/imaging: No new x-rays or imaging. Medications: He is on potassium replacement that is 20 mEq daily. All other oral medications that c ontinue unchanged. Current Functional Status: Today, he ambulated without assistive device on level surface with contact guard assistance. Also on even surfaces outside covered [address] guard assistance. Also, he is able to ascend and descend 44 steps in the stairwell with bilateral handrails independently. On occupational therapy, he is ambulating from the gym to his room without an assistive device with s tandby assistance. Donning and doffing shoes independently at edge of bed. He is doing well in term s of his speech therapy and is not receiving daily speech therapy. Progress Towards Rehabilitation Goals: Mr. Barrientos has made excellent progress towards his goals an d be ready for discharge just today. His goals are independent, upper and lower body dressing, trans ferring, toileting, ambulating over 1200 feet independently, up and down 25 steps independently, and performing cognitive functioning independently. Assessment: Mr. Barrientos is a 77-year-old patient with debility. He had left face cellulitis, a sma ll traumatic subdural hematoma, dyslipidemia, hypertension, hypokalemia, diabetes mellitus, and is do ing very well with all of his conditions. Plan: Continue physical and occupational therapy for 3 hours a day, 5 of 7 days. Continue with all medications including his potassium replacement, medication for DVT prophylaxis, fo r his insomnia, for diabetes, for hypotension. Comorbidities That Continue To Impact His Rehabilitation: Currently, his comorbidities are stably ma naged and do not negatively impact his rehabilitation. LB/MODL Voice ID: [id number] Report ID: [id number]
[2023-03-27] MEDS: ABIRATERONE 1000 MG PO SCH (04:57)
[2023-03-27] MEDS: SOTALOL HCL 80 MG TAB PO SCH ×3 (05:47→20:38)
[2023-03-27] MEDS: CEPHALEXIN 500 MG CAP PO SCH ×3 (05:47→17:22)
[2023-03-27] MEDS: INSULIN REGULAR (HUMAN) 100 UNIT/ML SQ SCH ×2 (07:30→16:30)
[2023-03-27] MEDS: FERROUS SULFATE 325 MG TAB PO SCH (07:44)
[2023-03-27] MEDS: FLUTICASONE 50MCG NASAL SPRAY NAS SCH (07:44)
[2023-03-27] MEDS: Mupirocin NASAL 2 APPL/1 GM TUBE NAS SCH ×2 (07:44→20:36)
[2023-03-27] MEDS: METFORMIN HCL 500 MG TAB PO SCH ×2 (07:45→17:22)
[2023-03-27] MEDS: lisinopriL 20 MG TAB PO SCH (07:45)
[2023-03-27] MEDS: POTASSIUM CL SA 10 MEQ TAB PO SCH (07:45)
[2023-03-27] MEDS: predniSONE 5 MG TAB PO SCH (07:46)
[2023-03-27] MEDS: THIAMINE HCL 100 MG TABLET PO SCH (07:46)
[2023-03-27] MEDS: GLUCERNA SHAKE 237 ML CAN PO SCH ×2 (07:46→20:37)
[2023-03-27] MEDS: VITAMIN D 1000 UNIT TAB PO SCH (07:46)
[2023-03-27] MEDS: BUDESONIDE 0.5 MG/2 ML NEB NEB SCH ×2 (08:05→21:00)
[2023-03-27] MEDS: NIFEDIPINE XL 90 MG TABLET PO SCH (10:39)
[2023-03-27] MEDS: PANTOPRAZOLE 40MG TABLET PO SCH (13:55)
[2023-03-27] MEDS: ENOXAPARIN 40 MG/0.4 ML SQ SCH (17:21)
[2023-03-27] MEDS: ATORVASTATIN 10 MG TAB PO SCH (20:37)
[2023-03-27] MEDS: QUETIAPINE 25 MG TAB PO SCH (20:37)
[2023-03-27] MEDS: DOCUSATE NA/SENNA CONC 1 TAB PO SCH (20:37)
[2023-03-27] MEDS: MELATONIN 3 MG TABLET PO SCH (20:38)
[2023-03-27] MEDS ORDERED: ATORVASTATIN 40 MG TAB ONE (20:49)
[2023-03-28] MEDS: CEPHALEXIN 500 MG CAP PO SCH ×5 (00:16→23:43)
[2023-03-28 03:59] LABS: Absolute Lymphocytes (CBC) 1.2 K/uL (0.7-4.9); Hematocrit 33.1 % (39.6-49.0); Lymphocytes % 15.5 % (15.3-44.8); MCV 90.4 fL (80-100); MPV 8.2 fL (7.6-11.3); Platelets 370 thou/uL (152-406); RBC Red Blood Cell Count 3.66 M/uL (4.33-5.43)
[2023-03-28 04:02] LABS: Albumin 2.8 g/dL (3.4-5.0); Magnesium 1.9 mg/dL (1.6-2.4); Potassium 3.4 mEq/L (3.5-5.1); Prealbumin 15.5 mg/dL (20-40)
[2023-03-28] MEDS: ABIRATERONE 1000 MG PO SCH (05:00)
[2023-03-28] MEDS: SOTALOL HCL 80 MG TAB PO SCH ×3 (05:21→21:13)
[2023-03-28] MEDS: INSULIN REGULAR (HUMAN) 100 UNIT/ML SQ SCH ×2 (07:16→16:11)
[2023-03-28] MEDS: BUDESONIDE 0.5 MG/2 ML NEB NEB SCH ×2 (07:55→20:40)
[2023-03-28] MEDS: GLUCERNA SHAKE 237 ML CAN PO SCH ×2 (08:00→19:23)
[2023-03-28] MEDS: FLUTICASONE 50MCG NASAL SPRAY NAS SCH (08:00)
[2023-03-28] MEDS: METFORMIN HCL 500 MG TAB PO SCH ×2 (08:34→17:02)
[2023-03-28] MEDS: lisinopriL 20 MG TAB PO SCH (08:34)
[2023-03-28] MEDS: THIAMINE HCL 100 MG TABLET PO SCH (08:34)
[2023-03-28] MEDS: DOCUSATE NA/SENNA CONC 1 TAB PO SCH ×2 (08:34→19:23)
[2023-03-28] MEDS: predniSONE 5 MG TAB PO SCH (08:34)
[2023-03-28] MEDS: VITAMIN D 1000 UNIT TAB PO SCH (08:34)
[2023-03-28] MEDS: NIFEDIPINE XL 90 MG TABLET PO SCH (08:34)
[2023-03-28] MEDS: FERROUS SULFATE 325 MG TAB PO SCH (08:34)
[2023-03-28] MEDS: Mupirocin NASAL 2 APPL/1 GM TUBE NAS SCH (08:35)
[2023-03-28] MEDS: POTASSIUM CL SA 10 MEQ TAB PO SCH (08:35)
[2023-03-28] MEDS: PANTOPRAZOLE 40MG TABLET PO SCH (08:36)
[2023-03-28] MEDS: ENOXAPARIN 40 MG/0.4 ML SQ SCH (17:02)
[2023-03-28] MEDS: MELATONIN 3 MG TABLET PO SCH (19:23)
[2023-03-28] MEDS: QUETIAPINE 25 MG TAB PO SCH (19:23)
[2023-03-28] MEDS: ATORVASTATIN 10 MG TAB PO SCH (19:33)
--- NOTE | 2023-03-28 20:37 | PN ---
Date of Progress Note: 03/28/2023 Time Of Service: 1:50 p.m. Subjective: Mr. Barrientos is doing very well. He is excellent. He is happy with his therapy. He th inks he is about ready to go home. Denies any complaints. Review of Systems: No fevers, chills, nausea, vomiting, myalgias, arthralgias, rash, headache, weight change. Objective: Vital Signs: Blood pressure 143/63, pulse 80, respiratory rate about 16 to 18, temperatu re 97.2, and pulse ranged from 54 to 57, oxygen saturation 99%. General: Mr. Barrientos is sitting in a chair. His family is in the room. He is very, very happy abo ut his therapy. HEENT: He is normocephalic, atraumatic. Sclerae are anicteric. Oropharynx pink and moist. Neck: Supple. Chest: Clear. Heart: Regular. Extremities: Show no clubbing, cyanosis, or edema. Neurologic: He has no focal neurological deficits. Laboratory Studies: White blood cell count 7.9, hemoglobin 11.4, platelets 370. Sodium 142, potassi um slightly low at 3.4, chloride 111, carbon dioxide 28, BUN 11, creatinine 0.76, glucose ranged from 89 to 106, calcium 8.4, magnesium 1.9, prealbumin 15.5, albumin 2.8. X-ray/imaging: No new x-rays or imaging. Medications: Have been reviewed and remained unchanged. Current Functional Status: Today, he did [id number] transfers done independently, multiple stand pivot transfers independently. He ambulated without an assistive device on level surface covering 10 00 feet and then another 2250 feet all independently, and outside, he ambulated 1750 feet independent ly. He also ascended and descended 22 steps in the stairwell with 1 hand rail and did that twice ind ependently. With his occupational therapy, he remained seated while taking a bath and all appropriat e areas were washed and did that independently. Also, upper body dressing, lower body dressing, foot wear, grooming, all done independently. Patient is happy and ready to be discharged home where he wi ll continue doing very well. He did say that prior to coming to the hospital, he was able to ambulat e 2 miles to 3 miles daily with his and would like to resume that as he goes home. Progress Towards Rehabilitation Goals: Mr. Barrientos has made excellent progress. He is ready to be discharged and will continue with therapy perhaps outpatient, which he is well qualified to do at thi s point as he is doing excellent towards managing his rehabilitation goals and will be discharged in the morning. Assessment: Mr. Barrientos is a 77-year-old patient in the rehabilitation unit with debility from whic h he has recovered in excellent fashion. He has hypokalemia, which is improved, he has diabetes georgina itus, episodes of hypotension, all doing very well. Plan: 1.Continue with physical and occupational therapy. 2.Continue with all of his medications as noted. He is on Lipitor for dyslipidemia. Keflex continu ed till the , started on the . Maalox for constipation. Ferrous sulfate for iron deficiency. He was also on Lovenox for DVT prophylaxis. Continue Flonase. Will continue Prinivil for hyperten syd, Glucophage for his diabetes, Procardia for his heart rate control, Protonix for GE reflux, pota ssium replacement is 20 mEq daily, his prednisone on board, the beta-sugey for heart rate control, and thiamine. Comorbidities That Continue To Impact The Rehabilitation: At this point, all his comorbidities are s tably managed and do not negatively impact his rehabilitation. LB/MODL Voice ID: [id number] Report ID: [id number]
[2023-03-29] MEDS: ABIRATERONE 1000 MG PO SCH (05:00)
[2023-03-29] MEDS: SOTALOL HCL 80 MG TAB PO SCH (05:01)
[2023-03-29] MEDS: CEPHALEXIN 500 MG CAP PO SCH (05:01)
[2023-03-29] MEDS: INSULIN REGULAR (HUMAN) 100 UNIT/ML SQ SCH (07:30)
[2023-03-29] MEDS: BUDESONIDE 0.5 MG/2 ML NEB NEB SCH (07:35)
[2023-03-29] MEDS: PANTOPRAZOLE 40MG TABLET PO SCH (07:38)
[2023-03-29] MEDS: DOCUSATE NA/SENNA CONC 1 TAB PO SCH (07:38)
[2023-03-29] MEDS: THIAMINE HCL 100 MG TABLET PO SCH (07:39)
[2023-03-29] MEDS: VITAMIN D 1000 UNIT TAB PO SCH (07:39)
[2023-03-29] MEDS: METFORMIN HCL 500 MG TAB PO SCH (07:39)
[2023-03-29] MEDS: POTASSIUM CL SA 10 MEQ TAB PO SCH (07:40)
[2023-03-29] MEDS: lisinopriL 20 MG TAB PO SCH (07:40)
[2023-03-29] MEDS: predniSONE 5 MG TAB PO SCH (07:40)
[2023-03-29] MEDS: FERROUS SULFATE 325 MG TAB PO SCH ×2 (07:41→07:42)
[2023-03-29] MEDS: FLUTICASONE 50MCG NASAL SPRAY NAS SCH (07:42)
[2023-03-29] MEDS: GLUCERNA SHAKE 237 ML CAN PO SCH (07:43)
[2023-03-29 08:53] VITALS: TEMP 98
[2023-03-29] MEDS: NIFEDIPINE XL 90 MG TABLET PO SCH (10:02)
[2023-03-29 10:03] VITALS: BP 130/60
--- NOTE | 2023-03-29 13:06 | P.RH.PN ---
Estimated Length of Stay: 9 Expected Discharge Date: 03/29/23 Discharge Disposition Plan: Home Family Support: Yes Application Penetration Tester Goal: Mobility, Transfers, Self Care Vital Signs: Last Vital Signs Temp 98.0 F 03/29/23 08:00 Pulse 54 03/29/23 10:02 Resp 16 03/29/23 08:00 BP 130/60 03/29/23 10:02 Pulse Ox 100 03/29/23 08:00 Laboratory: Laboratory Last Values WBC 7.90 thou/uL (4.3-10.9) 03/28/23 03:12 RBC 3.66 M/uL (4.33-5.43) L 03/28/23 03:12 Hgb 11.4 g/dL (13.6-17.9) L 03/28/23 03:12 Hct 33.1 % (39.6-49.0) L 03/28/23 03:12 MCV 90.4 fL (80-100) 03/28/23 03:12 MCH 31.1 pg (27.0-35.0) 03/28/23 03:12 MCHC 34.4 g/dL (32.0-36.0) 03/28/23 03:12 RDW 15.1 % (12.1-15.2) 03/28/23 03:12 Plt Count 370 thou/uL (152-406) 03/28/23 03:12 MPV 8.2 fL (7.6-11.3) 03/28/23 03:12 Neutrophils % 73.1 % (41.7-73.7) 03/28/23 03:12 Lymphocytes % 15.5 % (15.3-44.8) 03/28/23 03:12 Monocytes % 7.9 % (3.3-12.3) 03/28/23 03:12 Eosinophils % 2.4 % (0-4.4) 03/28/23 03:12 Basophils % 1.1 % (0-1.3) 03/28/23 03:12 Absolute Neutrophils 5.8 K/uL (1.8-8.0) 03/28/23 03:12 Absolute Lymphocytes 1.2 K/uL (0.7-4.9) 03/28/23 03:12 Absolute Monocytes 0.6 K/uL (0.1-1.3) 03/28/23 03:12 Absolute Eosinophils 0.2 K/uL (0-0.5) 03/28/23 03:12 Absolute Basophils 0.1 K/uL (0-0.5) 03/28/23 03:12 Sodium 142 mEq/L (136-145) 03/28/23 03:12 Potassium 3.4 mEq/L (3.5-5.1) L 03/28/23 03:12 Chloride 111 mEq/L (98-107) H 03/28/23 03:12 Carbon Dioxide 28 mEq/L (21-32) 03/28/23 03:12 Anion Gap 6.4 mEq/L (5.0-15.0) 03/28/23 03:12 BUN 11 mg/dL (7-18) 03/28/23 03:12 Creatinine 0.76 mg/dL (0.70-1.30) 03/28/23 03:12 Est GFR (CKD-EPI) 91 ml/min (=/>90) 03/28/23 03:12 Glucose 90 mg/dL (74-106) 03/28/23 03:12 POC Glucose 123 mg/dL (65-120) H 03/29/23 07:31 Calcium 8.4 mg/dL (8.5-10.1) L 03/28/23 03:12 Phosphorus 3.1 mg/dL (2.5-4.9) 03/24/23 05:45 Magnesium 1.9 mg/dL (1.6-2.4) 03/28/23 03:12 Albumin 2.8 g/dL (3.4-5.0) L 03/28/23 03:12 Prealbumin 15.5 mg/dL (20-40) L 03/28/23 03:12 Urine Color Light-yellow (Yellow) 03/23/23 15:00 Urine Clarity Clear (Clear) 03/23/23 15:00 Urine pH 7.0 (5.0-7.0) 03/23/23 15:00 Ur Specific Sylvester 1.011 (1.005-1.030) 03/23/23 15:00 Glucose (UA)(Auto) Negative (Negative) 03/23/23 15:00 Urine Ketones Negative (Negative) 03/23/23 15:00 Urine Blood Negative (Negative) 03/23/23 15:00 Urine Nitrite Negative (Negative) 03/23/23 15:00 Urine Bilirubin Negative (Negative) 03/23/23 15:00 Urine Urobilinogen Normal (Normal) 03/23/23 15:00 Ur Leukocyte Esterase Negative Lavern/uL (Negative) 03/23/23 15:00 Urine RBC <5 /HPF (None Seen) 03/23/23 15:00 Urine WBC <5 /HPF (<5) 03/23/23 15:00 Ur Squamous Epith Cells <5 /HPF (None Seen) 03/23/23 15:00 Urine Bacteria None seen /HPF (<20) 03/23/23 15:00 Urine Culture Reflexed Not needed 03/23/23 15:00 Urine Total Protein Negative (Negative) 03/23/23 15:00 SARS-CoV-2 Ag (Rapid) Negative (Negative) 03/25/23 12:24 Weight: 199 lb Wound Present: No Negative Pressure Wound Therapy Present: No Physician Update: Labs reviewed and are stable. He met all goals and in independent with all physical and occupational and speech goals. Summary: Patient's care plan and senior care goals have been reviewed and revised as necessary. Please see the Rehabilitation Signature page for all necessary signatures.
== END 2023-03-29 13:50 | disposition home or self-care (01) | DRG 948 ==
LOC: 5TH 11:25
PROVIDERS: ADMIT Psychiatry & Neurology Neurology with Special Qualifications in Child Neurology; ATTEND Psychiatry & Neurology Neurology with Special Qualifications in Child Neurology
DX: R53.81 Other malaise (principal); C79.51 Secondary malignant neoplasm of bone; L03.211 Cellulitis of face; I10 Essential (primary) hypertension; E78.5 Hyperlipidemia, unspecified; E11.9 Type 2 diabetes mellitus without complications; E83.39 Other disorders of phosphorus metabolism; E87.6 Hypokalemia; B95.5 Unspecified streptococcus as the cause of diseases classified elsewhere; D64.9 Anemia, unspecified; K59.00 Constipation, unspecified; G47.00 Insomnia, unspecified; S06.5X0D Traumatic subdural hemorrhage without loss of consciousness, subsequent encounter; I95.9 Hypotension, unspecified
CPT/HCPCS: 36415; 80048; 81001; 82040; 82947; 83735; 84100; 84134; 85025; 87086; 87088; 87811; 92610; 94640; 97110; 97116; 97163; 97165; 97530; J1650; J1815; J7512; J7613; J7626